=== PATIENT | female | born 1940 | race Caucasian/White ===

== ENCOUNTER → 2017-09-03 13:15 | Outpatient (CLI) | payer MEDICARE, BC, SELFPAY ==
--- NOTE | 2017-09-03 13:18 | HPBI_ITS ---
MAMMOGRAPHY - BILATERAL SCREENING REASON FOR EXAM: Female, 77 years old. Routine annual screening examination. PERTINENT HISTORY: Mother with breast cancer. Remote right stereotactic breast biopsy. TECHNIQUE: Digital bilateral breast jose elias (3D mammographic acquisition) in the CC and MLO projections. 2-D mediolateral oblique (MLO) and craniocaudad (CC) views of both breasts were obtained. CAD: Full Field Digital Mammography with Computer Added Detection was performed. COMPARISON: Comparison is made with prior study dated July 09, 2016 and June 26, 2015. FINDINGS: Breast Composition: There are scattered areas of fibroglandular density. There are no dominant masses or suspicious calcifications. Stable bilateral benign appearing axillary lymph nodes. No other significant abnormalities are identified. There has been no significant change since the prior study. HPBI/SCREENING MAMM (CAD), BILAT IMPRESSION: Stable bilateral screening mammogram. Yearly follow-up mammogram recommended. (A) ASSESSMENT CATEGORY: BIRADS Category 2: Benign. A letter regarding these results will be sent to the patient by the facility within 30 days. Approximately 10% of breast cancers are not detected by mammography. A normal mammogram should not delay biopsy of a clinically suspicious abnormality. [id number] Electronically Signed: Wil Roberts MD at 15:26 EST Tel [phone], Service support ,
== END ==
PROVIDERS: Family Provider Internal Medicine; PCP Internal Medicine; Visit Provider Internal Medicine
DX: Z12.31 Encounter for screening mammogram for malignant neoplasm of breast (principal)
CPT/HCPCS: 77063; 77067

== ENCOUNTER 2018-07-05 11:19 | Emergency (ER) | payer MEDICARE, BC, SELFPAY ==
[2018-07-05 11:20] VITALS: BP 128/71; PULSE 60; RESP 18; TEMP 37.2; O2SAT 99; BMI 27.4
--- NOTE | 2018-07-05 12:07 | EKG12_ITS ---
Test Reason : HEAD INJURY Blood Pressure : / mmHG Vent. Rate : 092 BPM Atrial Rate : 300 BPM P-R Int : 000 ms QRS Dur : 140 ms QT Int : 442 ms P-R-T Axes : 000 -52 134 degrees QTc Int : 546 ms Atrial flutter with variable A-V block Left axis deviation Left bundle branch block Abnormal ECG Confirmed by JESUS DALE, RAYSA ([id number]), dictionary editor SHASHANK TREVINO ([id number] on 07/11/2018 9:44:32 AM Referred By: SANJIV Confirmed By:RAYSA LEE MD
--- NOTE | 2018-07-05 12:07 | CT_ITS ---
STUDY: CT BRAIN WITHOUT CONTRAST REASON FOR EXAM: Female, 78 years old. Fall. No loss of consciousness. Dizziness and weakness. RADIATION DOSAGE (If Supplied By Facility): CTDIvol = ( 44.99 ) mGy, DLP = ( 829.85 ) mGycm TECHNIQUE: Transaxial CT imaging of the brain was performed without administration of intravenous contrast material. Individualized dose optimization techniques were used for this CT. COMPARISON: Comparison is made with prior study dated July 29, 2016. FINDINGS: Normal soft tissue structures. Normal calvarium. There is mild cerebral atrophy with widening of the extra-axial spaces and ventricular dilatation. There are areas of decreased attenuation within the white matter tracts of the supratentorial brain, consistent with microvascular disease changes. There are small punctate calcifications of the basal ganglia which are seen in the aging brain as a normal variant. Normal brainstem. Normal cerebellum. There is no intracranial hemorrhage. There are no findings of an acute ischemic infarction. Atherosclerotic calcification of the vertebral arteries and cavernous portions of the internal carotid arteries bilaterally. Normal visualized paranasal sinuses. CT/Brain/Head without Contrast IMPRESSION: Chronic involutional changes of the brain. Electronically Signed: Wil Roberts MD at 13:41 EST Tel [phone], Service support ,
[2018-07-05 12:47] LABS: Absolute Lymphocyte Count 2.86 X10^3/ul (0.83-4.51); Absolute Neutrophil Count 4.8 X10^3/uL (2.0-7.7); Basophil# 0.04 X10^3/uL; Basophil% 0.5 % (0-1); Eosinophil# 0.07 X10^3/uL; Eosinophils% 0.8 % (0-5); Hematocrit 41.4 % (37-47); Hemoglobin 14.3 g/dl (12.0-15.0); Lymphocyte # 2.86 X10^3/ul (4.0); Lymphocyte % 32.9 % (19-41); Mean Corp Hgb Conc 34.5 g/gl (32-36); Mean Corpuscular Hgb 32.7 pg (27.0-32.0); Mean Corpuscular Volume 94.7 fL (81-99); Mean Platelet Vol. 9.9 fl (6.2-12.0); Monocyte# 0.88 X10^3/uL; Monocyte% 10.1 % (0-10); Neutrophil # 4.82 X10^3/uL (2.7-7.7); Neutrophil % 55.6 % (47-70); POSITIVE COUNT NO; POSITIVE DIFFERENTIAL NO; POSITIVE MORPHOLOGY NO; Platelet Count 284 K/mm3 (150-450); RBC Distribution Width CV 12.4 % (11.6-14.6); RBC Distribution Width SD 43.1 fl (35.1-43.9); Red Blood Count 4.37 M/mm3 (4.2-5.4); White Blood Count 8.7 K/mm3 (4.4-11.0)
[2018-07-05 13:05] LABS: ALB/GLOB Ratio 1.2 RATIO (0.9-2.4); AST(SGOT) 17 U/L (15-37); Alanine Aminotransfer ALT/SGPT 17 U/L (13-56); Albumin, Serum 3.8 g/dL (3.2-5.0); Alkaline Phosphatase 95 U/L (45-117); Anion Gap 11 (5-15); BUN 26 mg/dL (7-18); BUN/Creat Ratio 27.6 RATIO (10-20); Calcium,Total 9.2 mg/dL (8.5-10.1); Chloride 97 mmol/L (98-107); Creatinine, Serum 0.94 mg/dL (0.55-1.02); EST Glomerular Filtration Rate 61 mL/min (>60); Est Glom Filt Rate - Afr Amer 73 mL/min (>60); Estimated Creatinine Clearance 41.22 ml/min; Globulin 3.1 g/dL (2.2-4.2); Glucose 104 mg/dL (74-106); Protein, Total 6.9 g/dL (6.4-8.2); Sodium Level 134 mmol/L (136-145)
--- NOTE | 2018-07-05 15:12 | ED.VISSUMM ---
- ER Visit Summary Date of Service: 07/05/18 Chief Complaint: Head injury History of Present Illness: The patient is a 78 F with a mechanical fall 2 days ago. She did hit her head, she tripped and hit the post at home, she apparently was doing well went to work and felt slightly lightheaded. She denies any chest pain shortness of breath, palpitations. On review of systems he does have some nausea. She has a history of hypertension and mitral valve prolapse. Physical Examination: Not appear in acute distress. There is a forehead contusion on the right Moist mucous membranes, no obvious facial deformity No C-spine tenderness supple neck. Irregular rhythm in the 80s and 90s without any obvious murmurs Clear lungs bilaterally speaking in full sentences without any obvious respiratory distress Abdomen soft and nontender no guarding or rebound Moves all extremities without any difficulty or pain. Skin does not show any obvious rashes or lesions, no trauma. Alert oriented ?3 with no gross focal deficit Emergency Department Course and Treatment: Patient appears well, EKG does show atrial fibrillation, patient has no history of atrial fibrillation, she is not anticoagulated. She does have a left bundle branch block which he tells me is chronic. She has no chest pain. She has a heart rate in the 80s and 90s on the monitor in the emergency department. I will start the patient on anticoagulation. I have her PCP electronic specialist so she can follow-up. Patient is rate controlled and appears well wants to be discharged. I will discharged in stable condition Disposition: Discharge stable condition Impression: Head injury Atrial fibrillation This note was generated with [employer] dictation software. It may contain incorrect words, spelling, and punctuation that were not noted in review of the chart prior to signing ED Disposition - Plan for ED Patient: Disposition: Home or Assisted Living Chief Complaint: Head Injury Instructions: ED Concussion, ED Afib Prescriptions: Apixaban [Eliquis] 2.5 mg PO BID #60 tab Referrals: Radha Griffith DO [Primary Care Provider] - 3-5 Days
--- NOTE | 2018-07-05 15:23 | ED.DCSUM_ITS ---
- ER Visit Summary Date of Service: 07/05/18 Chief Complaint: Head injury History of Present Illness: The patient is a 78 F with a mechanical fall 2 days ago. She did hit her head, she tripped and hit the post at home, she apparently was doing well went to work and felt slightly lightheaded. She denies any chest pain shortness of breath, palpitations. On review of systems he does have some nausea. She has a history of hypertension and mitral valve prolapse. Physical Examination: Not appear in acute distress. There is a forehead contusion on the right Moist mucous membranes, no obvious facial deformity No C-spine tenderness supple neck. Irregular rhythm in the 80s and 90s without any obvious murmurs Clear lungs bilaterally speaking in full sentences without any obvious respiratory distress Abdomen soft and nontender no guarding or rebound Moves all extremities without any difficulty or pain. Skin does not show any obvious rashes or lesions, no trauma. Alert oriented ?3 with no gross focal deficit Emergency Department Course and Treatment: Patient appears well, EKG does show atrial fibrillation, patient has no history of atrial fibrillation, she is not anticoagulated. She does have a left bundle branch block which he tells me is chronic. She has no chest pain. She has a heart rate in the 80s and 90s on the monitor in the emergency department. I will start the patient on anticoagulation. I have her PCP nurse companion so she can follow-up. Patient is rate controlled and appears well wants to be discharged. I will discharged in stable condition Disposition: Discharge stable condition Impression: Head injury Atrial fibrillation This note was generated with [employer] dictation software. It may contain incorrect words, spelling, and punctuation that were not noted in review of the chart prior to signing ED Disposition - Plan for ED Patient: Disposition: Home or Assisted Living Chief Complaint: Head Injury Instructions: ED Concussion, ED Afib Prescriptions: Apixaban [Eliquis] 2.5 mg PO BID #60 tab Referrals: Radha Griffith DO [Primary Care Provider] - 3-5 Days
[2018-07-05 16:01] VITALS: BP 120/75; PULSE 73; RESP 16; O2SAT 99
== END 2018-07-05 16:03 | disposition home or self-care (01) ==
PROVIDERS: Emergency Provider Emergency Medicine; Family Provider Internal Medicine; PCP Internal Medicine
DX: S00.83XA Contusion of other part of head, initial encounter (principal); I48.91 Unspecified atrial fibrillation; R11.0 Nausea; W01.198A Fall on same level from slipping, tripping and stumbling with subsequent striking against other object, initial encounter; Y93.9 Activity, unspecified; Y92.009 Unspecified place in unspecified non-institutional (private) residence as the place of occurrence of the external cause; I44.7 Left bundle-branch block, unspecified; I10 Essential (primary) hypertension; I34.1 Nonrheumatic mitral (valve) prolapse; Z79.82 Long term (current) use of aspirin; Z79.899 Other long term (current) drug therapy
CPT/HCPCS: 70450; 80053; 84484; 85025; 93005; 99283; J7040; A4216

== ENCOUNTER → 2018-07-07 15:42 | Outpatient (CLI) | payer MEDICARE, BC, SELFPAY ==
[2018-07-07 14:24] VITALS: BMI 27.4
[2018-07-07 16:46] LABS: Thyroid Stim Hormone (TSH) 2.58 uIU/mL (0.358-3.74)
== END ==
PROVIDERS: Family Provider Internal Medicine; PCP Internal Medicine; Referring Provider Internal Medicine Cardiovascular Disease; Visit Provider Internal Medicine Cardiovascular Disease
DX: R53.1 Weakness (principal)
CPT/HCPCS: 36415; 84443

== ENCOUNTER → 2018-07-14 06:15 | Outpatient (CLI) | payer MEDICARE, BC, SELFPAY ==
[2018-07-07 14:24] VITALS: BMI 27.4
--- NOTE | 2018-07-14 20:37 | STRESSREP ---
Stress Test Report Date, 07/14/2018 Procedure, pharmacologic (regadenoson) evaluation Indications: Shortness of breath/dyspnea on exertion; chest pain Consent: Per the patient Procedure: The patient underwent pharmacologic (regadenoson) evaluation with a peak heart rate of 80 beats per minute (57% predicted maximal heart rate) with a peak blood pressure of 140/80 mmHg. The baseline ECG demonstrated sinus rhythm with a left bundle branch block pattern. The peak pharmacological ECG demonstrated no obvious ECG changes. There was a rare premature ectopic complex during recovery. There was no report of chest discomfort during pharmacologic infusion or recovery. The examination was discontinued secondary to completion protocol. Impression: 1. Pharmacologic (regadenoson Prentis evaluation 2. Peak pharmacologic ECG with continued left bundle branch block pattern 3. Rare premature ectopic complex during recovery 4. Nuclear images pending Myocardial perfusion imaging study: Technique: The patient was injected with 11.6 mci of technetium-99m Cardiolite and subsequently rest SPECT Cardiolite nuclear imaging was obtained in the horizontal long, vertical long, and short axis views. The patient underwent pharmacologic (regadenoson0 evaluation with a peak heart rate of 80 beats per minute (97% predicted maximal heart rate) with a peak blood pressure of 140/80 mmHg. The patient was injected with 34.4 mci of technetium-99m Cardiolite and subsequently stress SPECT Cardiolite nuclear imaging was obtained horizontal long, vertical long, and short axis views. A gated Cardiolite study at peak stress was obtained. Interpretation Rest and stress SPECT Cardiolite nuclear imaging status post realignment, normalization, and attenuation correction, demonstrates the appearance of relative uniform tracer uptake and myocardial perfusion appearing within normal limits. There is end systolic thickening and brightening. The gated Cardiolite study demonstrates myocardial thickening and normal motion. The reported LVEF was 75%. Impression: 1. Rest and stress SPECT currently nuclear imaging demonstrates relative uniform tracer uptake and myocardial perfusion appearing within normal limits. 2. The gated Cardiolite study reports an LVEF of 75%. This note was generated using a voice recognition system and there may be incorrect words, spelling or punctuation that were not noted when reviewing the office note prior to saving.
--- OUTSIDE RECORDS SUMMARY | 2018-09-17 18:26 | XMS RPT_ITS | Continuity of Care Document ---
:1940 Author Organization [facility] Address [address] [place] [address] Phone Care Team Providers Name Role Phone Radha Griffith DO Unavailable [facility], [facility] Unavailable Farrah DALE, Dr. John Mejía Unavailable Dr. Cruz Adam Unavailable MULU Monroy Unavailable Unavailable Unavailable Unavailable Problems Name Dates Details Annual Medicare Phyiscal WITHOUT abnormal findings (Renamed from Encounter for general adult medical examination without abnormal findings) (Z00.00, V70.9) Status: Active BMI 26.0-26.9,adult (Z68.26, V85.22) Status: Active BMI 27.0-27.9,adult (Z68.27, V85.23) Status: Active Constipation, chronic (K59.09, 564.00) Comments: colace qd , miralax 2xweek and occassionally laxative Status: Active Current nonsmoker (Renamed from Current non-smoker) (Z78.9, V49.89) Status: Active Degenerative arthritis of right knee (M17.9, 715.96) Status: Active Deliveries (Parity) Comments: 5. Status: Active Dysuria (R30.0, 788.1) Status: Active Encounter for Medicare annual wellness exam (Z00.00, V70.0) Comments: 12-15 reveiwed with patient all questions. mammo ordered. . colonscoy 7-12. had flu shot. had pneumonia. reveiwed with patient all quesitons, reminded patient due for her BD and mammogram today 06-13-15 Status: Active Encounter for screening for malignant neoplasm of colon (Renamed from Special screening for malignant neoplasms, colon) (Z12.11, V76.51) Status: Active Encounter for screening for malignant neoplasm of colon (Renamed from Special screening for malignant neoplasms, colon) (Z12.11, V76.51) Comments: wanted to order cologard for her more constipation ( bowel chg ) bc she refused to do scope now--cologard 2017-- and ended up having scope 2017 --[facility] Status: Active Hypercholesteremia (E78.00, 272.0) Status: Active Hypertension, benign (I10, 401.1) Comments: Toprol XL 200 mg once daily Status: Active Irritable Bowel Syndrome (K58.9, 564.1) Comments: usually alternates diarrhea and constipation Status: Active LBBB (left bundle branch block) (I44.7, 426.3) Status: Active Menopause (Z78.0, 627.2) Status: Active Need for prophylactic vaccination and inoculation against influenza (Renamed from Need for immunization against influenza) (Z23, V04.81) Status: Active Osteoporosis (M81.0, 733.00) Comments: on alendronate since 03/2013 Status: Active Positive colorectal cancer screening using Cologuard test (R19.5, 787.7) Status: Active Postmenopausal (Z78.0, V49.81) Comments: not due yet Status: Active Pregnancies () Comments: 5. Status: Active Rectocele (N81.6, 618.04) Comments: Rectocele repair By Alfredito Oneill at [facility] in [place] with previous anal sphincter reconstruction repairColonoscopy last 2011Has brittany analspincter muscle repain Status: Active Therapeutic drug monitoring (Z51.81, V58.83) Status: Active Urinary incontinence (R32, 788.30) Comments: Dr Madsen in [place]. doing good on meds. enablex(Darifenacin generic)Last saw Dr Madsen 2010 Status: Active Urinary tract infection, acute (N39.0, 599.0) Status: Active Ventricular hypokinesis (I51.89, 429.89) Comments: sees moodispaw Status: Active Vertigo (R42, 780.4) Comments: chronic and intermittent flares Status: Active Visit for screening mammogram (Z12.31, V76.12) Status: Active Vitamin D deficiency (E55.9, 268.9) Status: Active Medications Name Dates Details ASPIRIN ADULT LOW STRENGTH, 81MG (Oral Tablet Delayed Release) Active (81 MG) Enablex 15 MG Oral Tablet Extended Release 24 Hour 1 Tablet ER 24HR qd for 90 days Quantity: 90 {Tablet} Refills: 1 Ordered:11-May-2018 hSantelle Griffith DO, DO, Kathleen Start : 11-May-2018 Active HydroCHLOROthiazide 25 MG Oral Tablet 1 (one) Tablet daily for 30 days Quantity: 30 {Tablet} Refills: 3 Ordered:01-Jun-2018 Shantelle Griffith DO, DO, Kathleen Start : 01-Jun-2018 Active Losartan Potassium 100 MG Oral Tablet 1 (one) Tablet daily for 90 days Quantity: 90 {Tablet} Refills: 1 Ordered:14-Apr-2018 Shantelle Griffith DO, DO, Kathleen Start : 14-Apr-2018 Active LUMIGAN, 0.03% (Ophthalmic Solution) 1gtt OS at HS (0.03 %) Active Norvasc 5 MG Oral Tablet 1 (one) Tablet qd for 30 days Quantity: 30 {Tablet} Refills: 3 Ordered:06-Jun-2018 Shantelle Griffith DO, DO, Kathleen Start : 06-Jun-2018 Active Simvastatin 20 MG Oral Tablet 1 Tablet with evening meal for 90 days Quantity: 90 {Tablet} Refills: 3 Ordered:01-Oct-2017 Shantelle Griffith DO, DO, Kathleen Start : 01-Oct-2017 Active Toprol XL 100 MG Oral Tablet Extended Release 24 Hour 2 (two) Tablet ER 24HR daily for 90 days Quantity: 180 {Tablet} Refills: 3 Ordered:18-Mar-2018 Shantelle Griffith DO, DO, Kathleen Start : 18-Mar-2018 Active Vitamin D3 73673 UNIT Oral Tablet 1 (one) Tablet Tablet once a week for 60 days Quantity: 8 {Tablet} Refills: 1 Ordered:22-Apr-2016 Melissa Mendez Start : 22-Apr-2016 Active Alendronate Sodium 70 MG Oral Tablet 1 Tablet weekly for 365 days Quantity: 12 {Tablet} Refills: 0 Ordered:13-Aug-2017 Kacey Monroy LPN Start : 08-Apr-2016 End : 13-Aug-2017 Inactive Alendronate Sodium 70 MG Oral Tablet 1 Tablet weekly for 365 days Quantity: 12 {Tablet} Refills: 0 Ordered:13-Aug-2017 Kacey Monroy LPN Start : 08-Apr-2016 End : 13-Aug-2017 Inactive Ciprofloxacin HCl 500 MG Oral Tablet 1 Tablet bid for 0 days Quantity: 14 {Tablet} Refills: 0 Ordered:26-Jan-2018 Kacey Monroy LPN Start : 11-Nov-2017 End : 26-Jan-2018 Inactive CORTISPORIN-TC, 3.3-3-10-0.5MG/ML (Otic Suspension) 4 Drop(s) tid for 0 days Quantity: 1 {Suspension} Refills: 0 Ordered:16-Oct-2013 ESTEPHANIA Arreola Start : 05-May-2013 End : 16-Oct-2013 Inactive ESTRADIOL, 2MG (Vaginal Ring) 1 monthly (2 MG) Inactive Estring 2 MG Vaginal Ring uad Ring every 3 months for 0 days Quantity: 1 {Box} Refills: 3 Ordered:29-Jul-2016 Jocelin Lim LPN Start : 17-Dec-2014 End : 29-Jul-2016 Inactive FISH OIL (Oil) Inactive FLONASE, 50MCG/ACT (Nasal Suspension) 2 (two) Puff(s) Puff(s) daily for 0 days Quantity: 1 {Bottle} Refills: 0 Ordered:17-Dec-2014 ESTEPHANIA Arreola Start : 03-Apr-2014 End : 17-Dec-2014 Inactive LEVAQUIN, 500MG (Oral Tablet) 1 (one) Tablet daily for 0 days Quantity: 10 {Tablet} Refills: 0 Ordered:03-May-2014 ESTEPHANIA Arreola Start : 16-Apr-2014 End : 03-May-2014 Inactive LISINOPRIL-HYDROCHLOROTHIAZIDE, 10-12.5MG (Oral Tablet) 1 (one) Tablet bid for 0 days Quantity: 120 {Tablet} Refills: 3 Ordered:16-Apr-2014 ESTEPHANIA Arreola Start : 03-Apr-2014 End : 16-Apr-2014 Inactive Losartan Potassium-HCTZ 50-12.5 MG Oral Tablet 1/2 Tablet daily for 0 days Quantity: 45 {Tablet} Refills: 0 Ordered:29-Jul-2016 Jocelin Lim LPN Start : 31-Oct-2015 End : 29-Jul-2016 Inactive MULTIVITAL (Oral Tablet) Inactive NYSTATIN-TRIAMCINOLONE, 240263-4.1UNIT/GM-% (External Cream) 1 (one) Cream Cream bid for 0 days Quantity: 1 {Tube} Refills: 0 Ordered:13-Jun-2015 ESTEPHANIA Arreola Start : 17-Dec-2014 End : 13-Jun-2015 Inactive ZOSTAVAX, 87820TJE/0.65ML (Subcutaneous Solution Reconstituted) uad For Solution one time single dose SC for 0 days Quantity: 1 {For_Solution} Refills: 0 Ordered:16-Oct-2013 ESTEPHANIA Arreola Start : 24-Apr-2013 End : 16-Oct-2013 Inactive LISINOPRIL, 10MG (Oral Tablet) 1 Tablet bid for 0 days Quantity: 60 {Tablet} Refills: 6 Ordered:16-Apr-2014 Ana Rios MD Start : 16-Apr-2014 End : 16-Apr-2014 Discontinued Comments:ignore LISINOPRIL-HYDROCHLOROTHIAZIDE, 20-12.5MG (Oral Tablet) 1 (one) Tablet bid for 0 days Quantity: 60 {Tablet} Refills: 4 Ordered:03-May-2014 Ana Rios MD Start : 03-May-2014 End : 03-May-2014 Discontinued Meclizine HCl 25 MG Oral Tablet 1 (one) Tablet Tablet q 8 hr prn for 0 days Quantity: 30 {Tablet} Refills: 0 Ordered:11-Nov-2017 Gildardo Burleson Start : 11-Nov-2016 End : 11-Nov-2017 Discontinued Allergies and Adverse Reactions Name Dates Details Codeine Derivatives (Allergy) Status: Active Erythromycin Derivatives (Allergy) Status: Active Comments: macrolides -- Morphine Derivatives (Allergy) Status: Active Penicillins (Allergy) Status: Active Comments: ampicillin Past Medical History Name Dates Details Abnormal EKG (R94.31, 794.31) Comments: need echo and stress test2 cardiac cath 2011.Dr De Jesus in [place] couldnt figure out whats wrongMVP?? Status: Inactive as of 13-Aug-2017 Arthritis Status: Inactive as of 27-May-2012 Bloating (R14.0, 787.3) Status: Inactive as of 16-Oct-2013 BMI 28.0-28.9,adult (Z68.28, V85.24) Comments: 27.93 Status: Resolved as of 18-Feb-2018 Cataract Comments: sx 1997 Status: Inactive as of 27-May-2012 CHEST PAIN (R07.9, 786.59) Comments: atypical pressure down left arm. stable nothing new.atypical, started 1974, 2 heart cath last one 04-07. see cardiology. happen every 5 yrs. EGD done negative. Status: Inactive as of 16-Oct-2013 Cough (R05, 786.2) Comments: right now sound viral cannot exclude allergies. will take beatriz at night with cough med. if not better in 1 week or high fever call. rest fliuds. 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 seen colorectal surgery help some. still have to watch. get regular scopes. Status: Inactive as of 23-Feb-2013 Dry skin (L85.3, 701.1) Comments: Lubriderm ointmenet Status: Inactive as of 13-Aug-2017 Dysuria (R30.0, 788.1) Comments: has UTI Status: Inactive as of 24-Apr-2013 Ear pain, left (H92.02, 388.70) Comments: add antihsitamine for ETD and atb. on nasal spray Status: Inactive as of 17-Dec-2014 Edema extremities (R60.0, 782.3) Comments: resume diuretic Status: Inactive as of 13-Aug-2017 Encounter for immunization (Z23, V03.89) Status: Inactive as of 16-Oct-2013 Fall at home (W19.XXXA, E888.9) Comments: Mechanical fall , hit back of head.CT head STAT Neuro exam Power 5/5 in upper and lower extremetiesSensation normal in upper and lower extremetiesDeep tendon reflexes:intactCranial nerves: i ntactVertigo improvedCaught toe under chair leg, went back, hit back of head, braced a littleLay down for a few minutes , did not lose consciousness.Denies headaches, felt different for 1-2 days.Now feels okDenei s numbness/weakness in arms leg, vision, speech problem.Neck was dark next day, ? bruise Status: Inactive as of 11-Nov-2016 Headache (R51, 784.0) Status: Inactive as of 23-Feb-2013 Hypertension Comments: 1994 Status: Inactive as of 27-May-2012 Leukocytosis (D72.829, 288.60) Status: Inactive as of 22-Apr-2016 Need for vaccination against Streptococcus pneumoniae (Z23, V03.82) Status: Inactive as of 17-Dec-2014 Osteopenia (M85.80, 733.90) Status: Inactive as of 22-Apr-2016 Other specified viral infection, in conditions classified elsewhere and of unspecified site (B97.89, 079.89) Status: Inactive as of 16-Apr-2014 Otitis externa (H60.90, 380.10) Status: Inactive as of 16-Oct-2013 Pain in unspecified hip (M25.559, 719.45) Comments: not cahnge Status: Inactive as of 23-Feb-2013 Proteinuria (R80.9, 791.0) Comments: not clean cach recheck today Status: Inactive as of 29-Mar-2014 Rash (R21, 782.1) Comments: think yeast and alot irritation. Status: Inactive as of 13-Jun-2015 Rectal bleed (K62.5, 569.3) Comments: last hemoglobin 13.7 on 12-04-14 Status: Inactive as of 13-Aug-2017 SCREENING FOR BREAST CANCER (Z12.39, V76.10) Status: Inactive as of 13-Jun-2015 Unspecified Diagnosis Status: Inactive as of 16-Oct-2013 Urinary frequency (R35.0, 788.41) Status: Inactive as of 26-Jan-2018 WWV V73.21 Comments: colonscopy 01-06 Status: Inactive as of 17-Dec-2014 Procedures Procedure Dates Details PNEUM VAC ADLT/IMUMNOSPR, SBC/INTRM Date: 26-Jan-2018 Completed 26-Jan-2018 (74380) Comments: Pneumovax 23lot [id number]/prefilledleanitha Grubbs LPN Annual Eye Exam Completed Comments: 2011 appendectomy Completed Comments: 1849, Dr Arreguin in [place] Blood Pressure Monitoring Completed Comments: 120-160 systolic range Cardiac Cath Completed Comments: 2005 -- [facility] Dr Neal Parraprolonged bleeding, no findings Cardiac Cath number 2 Completed Comments: 2010 --Dr Borja at [facility] -- neg findings and abnormal ecgs. Cataracts Completed Comments: Dr Farley in [place] -- 1997, revealed corneal scar Colonoscopy, Screening Completed Comments: December 2011 Hip Replacement Completed Comments: Left - [facility] Donaldson in [facility] at [facility] hysterectomy Completed Comments: with bladder repair in 1976 at [facility] by Dr Liao in [place] Mammogram, Screening Completed Comments: 2010 Pap Smear Completed Comments: 2011 Rectal Sphincter Repair Completed Comments: [facility] Rectocele Repair Completed Comments: 2007 [facility] Nino Toe Repair Completed Comments: [address] Saavedra, in office, [place] Date Value Details 03-Sep-2017 SCREENING MAMM (CAD), BILAT Result: Comments: See Note; NOTES: [facility] Imaging Services [address] [place] [address] SCREENING MAMM (CAD), BILAT MR#: [id number] Acct: [id number] Name: ORALIA WEAVER Rep #: [id number] : 1940 F 77 From: Wil Roberts MD PCP: Radha Griffith DO Status: REG CLI Study: SCREENING MAMM (CAD), BILAT Date of Exam: 09/03/17 Exam# [id number] Ordering Dr: Radha Griffith DO MAMMOGRAPHY - BILATERAL SCREENING REASON FOR EXAM: Female, 77 years old. Routine annual screening examination. PERTINENT HISTORY: Mother with breast cancer. Remote right stereotactic breast biopsy. TECHNIQUE: Digital bilateral breast jose elias (3D mammographic acquisition) in the CC and MLO projections. 2-D mediolateral oblique (MLO) and craniocaudad (CC) views of both breasts were obtained. CAD: Full Field Digital Mammography with Computer Added Detection was performed. COMPARISON: Comparison is made with prior study dated July 09, 2016 and June 26, 2015. FINDINGS: Breast Composition: There are scattered areas of fibroglandular density. There are no dominant masses or suspicious calcifications. Stable bilateral benign appearing axillary lymph nodes. No other significant abnormalities are identified. There has been no significant change since the prior study. HPBI/SCREENING MAMM (CAD), BILAT I MPRESSION: Stable bilateral screening mammogram. Yearly follow-up mammogram recommended. (A) ASSESSMENT CATEGORY: BIRADS Category 2: Benign. A letter regarding thes e results will be sent to the patient by the facility within 30 days. Approximately 10% of breast cancers are not detected by mammography. A normal mammogram should not delay biopsy of a clinically tita picious abnormality. [id number] Electronically Signed: Wil Roberts MD at 15:26 EST Tel [phone], Service support , CC: Radha Griffith DO Report Writer: Signed 19-Jul-2017 PT D/C Summary (1) Result: Comments: See Note; NOTES: [facility] [address] [place] [address]. [address] [place], [place] [address] Fax REHABILITATION SERVICES DISCHAR GE SUMMARY MR#: [id number] Acct: [id number] Name: ORALIA WEAVER Rep #: [id number] : 1940 77 From: Shaun Saavedra DPT, OCS, CSCS Referring : Radha Griffith DO Status: REG RCR Insurance: MEDICAR E PART A B ANTHEM HP - PT D/C Summary It has been my pleasure to treat ORALIA WEAVER under orders from Radha Griffith, for the diagnosis of BPPV for a total of 5 visit(s). Discharge Date: 07/16/17 Pl ease see the following information for a summary of their discharge status. - Subjective Subjective: Head still feels funnya t times but slowly improving. No spinnig. At times feels imbalanced but not falling and not dangerous. Purposefull careful. Only time she notices funny feeling in head is gently early in am. Doing BD 8x daily. Going to doctor after has blood work done. - Overall Improvement % Improvement: 90 - Objective Objective/Function: - B hallpike and - roll test. FGA is good. OVERALL SIGNIFICANTLY BETTER BUT NOT 100%. sTILL FEELS IFFY FOR A FEW MINUTES IN THE MRONING AFTER GETTING OT U OF BED. - Goals Goal 1:: aboliosh dizzy feeling Goal Progress: Progressing Goal 2:: FGa score to ensure safety with balance. Goal Progress: Goal Met - Plan Plan: D/C, pt back to doctor. - D/C Information Discharge Comments: D/c and pt back to doctor after she gets her blood test. If there are questions or concerns regarding this patient's physical therapy, please feel free to call me at . Thank you for the referral of this patient. Sincerely, Shaun Saavedra DPT, OC <Electronically signed by Shaun Saavedra DPT, TERESITA, CSCS> 07/19/17 0648 CC: Radha Griffith DO EBG Signed 08-Jul-2017 Re-Evaluation - PT (1) Result: Comments: See Note; NOTES: [facility] [place] [address] Fax REEVALUATION / MEDICARE RECERTI [facility] PHYSICAL THERAPY MR#: [id number] Acct: [id number] Name: ORALIA WEAVER Rep #: [id number] : 1940 77 From: Shaun Saavedra DPT, OCS, CSCS Referring DrClarence: Radha Griffith DO Status: REG RCR Ins urance: MEDICARE PART A B ANTHGABRIELLE Griffith, It has been my pleasure to treat ORALIA WEAVER over the last 4 visits for BPPV. Please see the progress note below for an update on the physical thera py plan of care! Subjective: Dizzyness is much better but not gone. Worse early in morning for a few seconds with head movements. Had heart and blood pressure checked recently and no problems. Objectiv e/Function: + R HD no nystag but discomfort in eyes and asymmetrical dizzyness. - L hallpike weston. Good balance Plan Plan: weeklyx4 to progress positional. Pt back to doc in a month. Goals Goal 1:: abo liosh dizzy feeling Goal Time Frame: 2-4 Weeks Goal Progress: Progressing Goal 2:: FGa score to ensure safety with balance. Goal Time Frame: 2-4 Weeks Anticipated Interventions Patient/Client Ins truction: Educate patient on: Condition, Plan of Care For the Purpose of:: To improve safety with gait Other: to abolish dizzyness. Therapeutic Exercise to Include: Balance training Comment: vestibular treatments For the Purpose of:: To improve safety Other: to diminish dizzyness. Please do not hesitate to contact me at [phone] by phone or if you have questions or concerns regar ding this new plan of care! Sincerely, Shaun Saavedra, KEYT, OC <Electronically signed by Shaun Saavedra DPT, OCS, CSCS> 07/08/17 0913 CC: Radha Griffith DO E BG Signed For Medicare only, by signing this I certify the plan of care. Physicians Signature Date 09-Jun-2017 Inital Evaluation (1) - PT Result: Comments: See Note; NOTES: [facility] [place] [address] Fax REHABILITATION SERVICES INITIAL EVALUATION MR#: [id number] Acct: [id number] Name: ORALIA WEAVER Rep #: [id number] : 1940 77 From: Shaun Saavedra DPT, OCS, CSCS Referring Dr.: Radha Griffith DO Status: REG RCR Insurance: MEDICA RE PART A B ANTH Patient's Visit Information ORALIA WEAVER is a 77 year old F referred to Physical Therapy by Radha Griffith with a diagnosis of BPPV. Date of Evaluation: 06/04/17 Physical Therapist : Shaun Saavedra, DPT, OC - Visit Plan Frequency: 1-2x /Week Duration: 4-6 Weeks Plan: 1-2x/week for 4 weeks for positional treatments and balance as needed. - Subjective Subjective: PT cured her spinni ng 6 months ago but it returned when looking up to put eyedrops in 2 weeks ago. now spins when gets up and truns in bed for a few seconds, miserable but not spinning the rest of the time. Balance feels worse now. Sleep is mostly OK but spins sometimes. 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 Basic ADLs are miserable but she can do them. Will go to [place] for Chirstmas in 10 days. This is the same thing that we cured back in October that I had for years and years. - Objective Walks slowly but steady with poor confidence, trasnfers I. C/S AROM is slow and WF L, hesitant to move and poor confidence. Has walker at home, does not wish to use it but will if it gets too bad,. - R hallpike weston. - roll test. + L hallpike for dizzyness and discomfort in the eyes of 20 second duration. Treated with L Stephanie and post Stephanie instruct. UE AROM WNL and symmetrical. - Goals Goal 1:: aboliosh dizzy feeling Goal Time Frame: 2-4 Weeks Goal 2:: FGa score to ensure saf ety with balance. Goal Time Frame: 2-4 Weeks - Rehabilitation Potential Physical Therapy Diagnosis: L post canal BPPV Rehabilitation Potential: Good - Anticipated Interventions Patient/Client Instruct ion: Educate patient on: Condition, Plan of Care For the Purpose of:: To improve safety with gait Other: to abolish dizzyness. Therapeutic Exercise to Include: Balance training Comment: vestibular treat ments For the Purpose of:: To improve safety Other: to diminish dizzyness. Thank you for the opportunity to evaluate your patient. For Medicare and Medicare HMO plans, please review the plan of car e and approve it. It will need to be FAXED BACK to us at [phone] for Medicare purposes. Please let me know if there are questions or concerns regarding this plan of care. Physician Signature:__ Date: <Electronically signed by Shaun Saavedra DPT, TERESITA, CSCS> 06/09/17 0738 CC: Radha Griffith DO DT: EBG Signed For Medicare only, by signing this I certify the plan of care. Physicians Signature Date 25-Nov-2016 Inital Evaluation (1) - PT Result: Comments: See Note; NOTES: [facility] [address] [place], [place] [address] Fax REHABILITATION SERVICES INITIAL EVALUATION MR#: [id number] Acct: [id number] Name: ORALIA WEAVER Rep #: [id number] : 1940 76 From: Shaun Saavedra DPT, TERESITA, CSCS Referring Dr.: Radha Griffith DO Status: REG RCR Insurance: [facility] PART A B [facility] Patient's Visit Information ORALIA WEAVER is a 76 year old F referred to Physical Therapy by Radha Griffith with a diagnosis of vertigo. Date of Evaluation: 11/24/16 Physical Th erapist: Shaun Saavedra DPT, SAMANTHA - Visit Plan Frequency: 1-2x /Week Duration: 2- 4 Weeks Plan: f/u later in week and as needed 2-4 weeks for positional treats and ex. - Subjective Subjective: Vertigo has had it for 6 years on and off. Saw ENT years ago. Problem recurred about 6 weeks ago. Can't roll on L side currently because she spins. Lasts for short duration. Also happens if she moves fast. Activit ie are normal but she has to be careful. Balance seems OK if she keeps her head straight. Sleep is OK just has to hold on when she gets up, somewhat unsteady. - Objective Decent c/s AROM without pain. - R HD. + L HD up torsional nystagmus of 13 seconds. Treated with Jerrell Brown. Then - L HD. Fair balance walking back to PT without assist. - Goals Goal 1:: abolish dizzyness and goofy feeling in head. Goa l Time Frame: 2 Weeks Goal 2:: FGA to minimize fall risk Goal Time Frame: 2-4 Weeks Goal 3:: Go out of town this weekend with friend without hesitation. Goal Time Frame: 1 Week - Rehabilitation P otential Physical Therapy Diagnosis: L BPPV Rehabilitation Potential: Good - Anticipated Interventions Patient/Client Instruction: Educate patient on: Condition For the Purpose of:: To improve toleranc e to ADL's Comment: Positional ex and treatments. For the Purpose of:: To improve ability of physical actions for home/community/work/leisure Thank you for the opportunity to evaluate your patient. For Medicare and Medicare HMO plans, please review the plan of care and approve it. It will need to be FAXED BACK to us at [phone] for Medicare purposes. Please let me know if there are question s or concerns regarding this plan of care. Physician Signature: Date: <Electronically signed by Shaun Saavedra DPT, OCS, CSCS&#62 ; 11/25/16 0740 CC: Radha Griffith DO EBAyala Signed For Medicare only, by signing this I certify the plan of care. Physicians Signature Date 29-Jul-2016 Brain/Head without Contrast Result: Comments: See Note; NOTES: [facility] Imaging Services [address] [place] [address] Skylar 4d Brain/Head without Contrast MR#: [id number] Acct: [id number] Name: ORALIA WEAVER Rep #: [id number] : 1940 F 76 From: Wil Roberts MD PCP: Matthew Carrion Status: REG CLI Study: Brain/Head without Contrast Date of Exam: 07/29/16 Exam# [id number] Ordering Dr: Matthew Carrion STUDY: CT BRAIN WITHOUT CONTRAST REASON FOR EXAM: Female, 76 years old. Recent fall and head injury. RADIATION DOSAGE (If Supplied By Facility): CTDIvol = ( 44.99 ) mGy, DLP = ( 812.98 ) mGycm TECHN IQUE: Transaxial CT imaging of the brain was performed without administration of intravenous contrast material. Individualized dose optimization techniques were used for this CT. COMPARISON: Compariso n is made with prior study dated March 28, 2014. FINDINGS: Normal soft tissue structures. Normal calvarium. There is mild cerebral atrophy with widening of the ext ra-axial spaces and ventricular dilatation. There are areas of decreased attenuation within the white matter tracts of the supratentorial brain, consistent with microvascular disease changes. There are small punctate calcifications of the basal ganglia which are seen in the aging brain as a normal variant. Normal brainstem. Normal cerebellum. There is no intracranial hemorrhage. There are no findings of an acute ischemic infarction. There is calcification of the vertebral arteries as well as the cavernous portions of the internal carotid arteries bilaterally. Normal visualized paranasal sinuses. _ CT/Brain/Head without Contrast IMPRESSION: Chronic involutional changes of the brain. Electronically Signed: Wil Roberts MD at 11:39 EST Tel [phone], Service support [phone], CC: Matthew Carrion Report Writer: Signed 09-Jul-2016 SCREENING MAMM (CAD), BILAT Result: Comments: See Note; NOTES: [facility] Imaging Services [address] [place] [address] Verdana 4d SCREENING MAMM (CAD), BILAT MR#: [id number] Acct: [id number] Name: ORALIA WEAVER Rep #: [id number] : 1940 F 76 From: Wil Roberts MD PCP: Matthew Carrion Status: REG CLI Study: SCREENING MAMM (CAD), BILAT Date of Exam: 07/09/16 Exam# [id number] Ordering Dr: Matthew Carrion MAMMOGRAPHY - BILATERAL SCREENING REASON FOR EXAM: Female, 76 years old. Routine annual screening examination. PERTINENT HISTORY: Mother with breast cancer. TECHNIQUE: Digital bilateral breast jose elias (3D mammographic acquisition) in the CC and MLO projections. 2-D mediolateral oblique (MLO) and craniocaudad (CC) views of both breasts were obtained. CAD: Full Field Digital Mammography with Computer A dded Detection was performed. COMPARISON: Comparison is made with prior study dated June 26, 2015 and May 14, 2014. FINDINGS: Breast Composition: There are scattered areas of fibroglandular density. There are no dominant masses or suspicious calcifications. No other significant abnormalities are identified. There has been no significant change since the prior study. HPBI/SCREENING MAMM (CAD), BILAT IMPRESSION: Stable bilateral screening mammogram. Yearly follow-up mammogram recommended. (A) ___ ASSESSMENT CATEGORY: BIRADS Category 1: Negative. A letter regarding these results will be sent to the patient by the facility within 30 days. Approximately 10% of shabana ast cancers are not detected by mammography. A normal mammogram should not delay biopsy of a clinically suspicious abnormality. [id number] Electronically Signed: Wil Roberts MD at 14:00 EST Tel [phone], Service support [phone], CC: Matthew Carrion Report Writer: Signed 08-May-2016 Echocardiogram Complete Result: Comments: See Note; NOTES: [facility] Cardiovascular Services [address] [place] [address] Echo Complete 05/08/16 0934 MR#: [id number] Acct: [id number] Name: ORALIA WEAVER p #: [id number] : 1940 76 From: John Chambers MD Attending Dr: Geovanin Carrion Status: REG CLI Ordering Dr: Geovanni Carrion MD Date: 05/08/16 Location: [facility] Sex: F C Admitted: Reason For Study: ABN EKG Procedure This was a 2D Doppler, Color Flow transthoracic echocardiogram. Exam performed in department. Left Ventricle Normal size and thickness. The estimated ejection fraction is 45-50 %. St age 1 diastolic dysfunction. No regional wall motion abnormalities noted. There is mild global hypokinesis of the left ventricle. Right Ventricle Normal size and thickness. Normal systolic function. A tria Normal left atrium. Normal right atrium. Normal atrial septum. Mitral Valve Mild diffuse mitral valve thickening. Mild (1+) mitral valve insufficiency. Tricuspid Valve Normal tricuspid valve. Mild (1+) tricuspid valve insufficiency. Right ventricular systolic pressure estimated to be 26 mmHg. Aortic Valve Trisinus/trileaflet aortic valve. Mild diffuse aortic valve thickening. Mild (1+) aortic v alve insufficiency. Pulmonic Valve Normal pulmonic valve. Trivial pulmonic valve insufficiency. Great Vessels Normal aortic root. Normal arch. Normal inferior vena cava. Inferior vena cava collapse wi th sniff. Pericardium/Pleural No pericardial effusion. MMode/2D Measurements & Calculations LVIDd: 4.6 cm IVSd: 1.3 cm Ao root diam: 3.0 cm LVIDs: 3.1 cm LVPWd: 1.2 cm LA dimension: 3.1 cm RVD d: 2.5 cm FS: 34.0 % LAV(MOD-bp): 47.1 ml EDV(MOD-sp4): 55.0 ml EDV(MOD-sp2): 55.1 ml LAV(MOD-bp) Indexed: 26.5 ml/m2 ES V(MOD-sp4): 25.7 ml EF(MOD-sp2): 60.5 % LAV(MOD-sp2): 53.4 ml EF(MOD-sp4): 53.2 % LAV(MOD-sp4): 41.9 ml SV(MOD-sp4): 29. 3 ml SV(MOD-sp2): 33.3 ml LA A4 area: 16.4 cm2 RA A4 area: 12.3 cm2 Doppler Measurements & Calculations MV E ma x michael: 33.6 cm/sec Lat Peak E' Michael: 3.2 cm/sec Med Peak E' Michael: 2.1 cm/sec MV A max michael: 82.0 cm/sec E/E' lat: 10.6 E/E' med: 15.8 MV E/A: 0.41 Ao V2 max: 100.3 cm/sec AI max michael: 331.3 cm/sec LV V1 max: 80.7 cm/sec Ao max P.0 mmHg AI max P.9 mmHg LV V1 max P.6 mmHg AI dec slope: 109.6 cm/sec2 AI P1/2t: 885. 2 msec PA V2 max: 73.3 cm/sec PI end-d michael: 89.1 cm/sec TR max michael: 229.0 cm/sec TR max P.1 mmHg Interpretation Kyle mmary The estimated ejection fraction is 50-55 %. There is mild global hypokinesis of the left ventricle. Mild (1+) mitral valve insufficiency. Mild (1+) tricuspid valve insufficiency. Right ventricular systolic pressure estimated to be 26 mmHg. Mild (1+) aortic valve insufficiency. Compared to echo report dated 07/08/2015, LV function appears about the same. Stage 1 diastolic dysfunction. Ordering Physician: Geovanni Carrion Referring Physician: Matthew Carrion Performed By: Shanita Escalera, EBEN, RVT 05/08/16 1221 Date John Chambers MD CC: Geovanni Carrion Date Dictated : 05/08/16 0934 Date Transcribed: 05/08/16 1221 Report Writer: Signed 08-May-2016 Nuclear Stress Test - Chemical Result: Comments: See Note; NOTES: [facility] Imaging Services [address] [place] [address] Skylar 4d Nuclear Stress Test - Chemical MR#: [id number] Acct: [id number] Name: WES WEAVER Rep #: [id number] : 1940 76 From: Frederick Neil MD Primary Care: Matthew Carrion Status: REG CLI Ordering Dr: Matthew Carrion Sex: F C DATE OF SERVICE: 05/08/2016 EXERCISE TOLERANCE TEST: The patient exercised on a Ming protocol for 3 minutes completing stage 1, achieving a peak heart rate of 100 beats per minute (70% predicted maximum heart rate) and a peak blood pressure of 172/74 mmH g and a peak MET capacity of approximately 4-5 METs. The baseline ECG demonstrated normal sinus rhythm with a left bundle-branch block pattern. The peak exercise ECG was considered indeterminate second jeanette to underlying left bundle-branch block pattern. There was rare PVC during exercise or recovery. The functional capacity was considered decreased. The patient had no complaint of chest discomfort during exercise or recovery. The examination was discontinued secondary to dyspnea. IMPRESSION: 1. Technically inadequate (percent predicted maximum heart rate less than 85%) exercise tolerance test. 2. Indeterminate ECG exercise tolerance test secondary to underlying left bundle- branch block. 3. Rare PVC during exercise and recovery. 4. Pharmacologic (regadenoson) evaluation pending. The patient u nderwent pharmacologic (regadenoson) evaluation with a peak heart rate of 84 beats per minute (59% predicted maximum heart rate) and a peak blood pressure of 140/80 mmHg. The baseline ECG demonstrated sinus bradycardia with a left bundle-branch block pattern. The peak pharmacologic ECG was considered indeterminate secondary to underlying left bundle-branch block pattern. There were no cardiac dysrhy thmias pretest, during pharmacologic infusion, or recovery. There was no report of chest discomfort during pharmacologic infusion or recovery. The examination was discontinued secondary to completion of protocol. IMPRESSION: 1. Pharmacologic (regadenoson) evaluation. 2. Peak pharmacologic ECG considered indeterminate secondary to underlying left bundle-branch block pattern. 3. Nuclear images niru flores MYOCARDIAL PERFUSION IMAGING STUDY: TECHNIQUE: The patient was injected with ____ mCi of Tc99m Cardiolite and subsequently rest SPECT Cardiolite nuclear imaging was obtained in the horizontal long, vertical long and short axes views. The patient exercised on a Ming protocol for 3 minutes completing stage 1, achieving a peak heart rate of 100 beats per minute (70% predicted maximum heart rate) an d a peak blood pressure of 172/74 mmHg and a peak MET capacity of 4-5 METS. The patient then underwent pharmacologic (regadenoson) evaluation with a peak heart rate of 84 beats per minute (59% predicted maximum heart rate) and a peak blood pressure of 140/80 mmHg. The patient was injected with 31.0 mCi of Tc99m Cardiolite and subsequently, stress SPECT Cardiolite nuclear imaging was obtained in the ho rizontal long, vertical long and short axes views. A gated Cardiolite study at peak stress was obtained. INTERPRETATION: Rest and stress SPECT Cardiolite nuclear imaging, status post realignment, oralia lization, and attenuation correction, demonstrates the appearance of relative uniform tracer uptake and myocardial perfusion appearing within normal limits. There was end systolic thickening and brighte suzanne. The gated Cardiolite study demonstrates myocardial thickening and inward wall motion. The reported LVEF is 63%. IMPRESSION: 1. Rest and stress SPECT Cardiolite nuclear imaging demonstrate relativ e uniform tracer uptake and myocardial perfusion appearing within normal limits. 2. The gated Cardiolite study reports an LVEF of 63%. Frederick Neil MD T: NTS JOB: [id number] 05/08/16 1247 &#60 ;Electronically signed by Frederick Neil MD> Date Frederick Neil MD CC: Matthew Carrion Date Dictated: 05/08/16 1149 Date Transcribed: 05/08/161148 Report Writer: Signed 08-Jul-2015 Echocardiogram Complete Result: Comments: See Note; NOTES: [facility] Cardiovascular Services [address] [place] [address] Echo Complete 07/08/15 1302 MR#: [id number] Acct: [id number] Name: ORALIA MORTENSEN OD Rep #: [id number] : 1940 75 From: Rob Keating MD Attending Dr: Ana Rios MD Status: REG CLI Ordering Dr: Ana Rios MD Date: 07/08/15 Location: [facility] Sex: F C Admitted: Procedure This was a 2D Doppler, Color Flow transthoracic echocardiogram. Technically difficult due to body habitus. Patient unable to hold breath for subcostal views. Exam performed in department. Left Ventricle Normal LV size. Left ventricular systolic function is normal. The estimated ejection fraction is 55 %. No regional wall motion abnormalities noted. Right Ventricle Normal RV size. Normal systolic function. Atria Normal left atrium. Normal right atrium. Mitral Valve Bileaflet diffuse mitral valve thickening. Mild (1+) eccentric mitral valve insufficiency. Tricuspid Valve Mild tricuspid valve prolapse. Mild (1+) tricuspid valve insufficiency. Pulmonary artery systolic pressure is 28 mmHg. Aortic Valve Normal aortic valve. Mild (1+) aortic valve insufficiency. Pulm onic Valve Normal pulmonic valve. Great Vessels Normal aortic root. The pulmonary artery is normal size. Normal inferior vena cava. Pericardium/Pleural No pericardial effusion. MMode/2D Measure ments AND Calculations LVIDd: 4.4 cm IVSd: 1.2 cm Ao root diam: 3.0 cm LAV(MOD- bp): 37.5 ml LVIDs: 3.3 cm LVPWd: 0.90 cm Ao root area: 7.0 cm2 LAV(MOD-bp) Indexed: 21.1 ml/m2 RVDd: 3.5 cm FS: 25.8 % LA dimension: 3.0 cm LAV(MOD-sp2): 45.0 ml LAV(MOD-sp4): 30.2 ml LVAd ap4: 25.7 cm2 SV(MOD-sp4): 33.1 ml SV(sp4-e l): 38.1 ml LA A4 area: 12.7 cm2 LVLd ap4: 7.2 cm EDV(MOD-sp4): 72.8 ml EDV(sp4- el): 78.1 ml LVAs ap4: 16.8 cm2 LVLs ap4: 6.0 cm ESV(MOD-sp4): 39.7 ml ESV(sp4-el): 40.1 ml EF(MOD-sp4): 45.5 % EF(sp4-el): 48.7 % RA A4 area: 11.2 cm2 Doppler Measurements AND Calculations MV E max michael: Lat Peak E' Michael: Med Peak E' Michael: MV dec time: 0.24 sec 48.6 cm/sec 4.3 cm/sec 3.7 cm/sec MV A max michael: 67.0 cm/sec MV E/A: 0.72 Ao V2 max: 101.3 cm/sec AI max michael: 305.9 cm/sec LV V1 max: 83.4 cm/sec PA V2 max: Ao max P.1 mmHg AI max P.4 mmHg LV V1 max P.8 mmHg 73.8 cm/sec AI dec slope: PA max P.2 mmHg 140.8 cm/sec2 AI P1/2t: 636.5 msec PI end-d michael: TR max michael: 243.0 cm/sec E/E' lat: 11.2 E/E' med: 13.2 78.5 cm/sec TR max P.6 mmHg Interpretation Summary Normal LV size. Left ventricular systolic function is normal. The estimated ejection fraction is 55 %. Mild (1+) eccentric mitral valve insufficiency. Mil d (1+) tricuspid valve insufficiency. Mild (1+) aortic valve insufficiency. Ordering Physician : Ana Rios Referring Physician: Ana Rios M.D. Performed By: Nidhi Cheatham [facility] 07/08/15 1603 Date ____ Rob Keating MD CC: Ana Rios MD Date Dictated: 07/08/15 1302 Date Transcribed: 07/08/15 1603 Report Writer: Signed 26-Jun-2015 Bilat Scrn Digital AND CAD Result: Comments: See Note; NOTES: [facility] Imaging Services [address] [place] [address] Verdana 4d Bilat Scrn Digital AND CAD MR#: [id number] Acct: [id number] Name: ORALIA WEAVER Rep #: [id number] : 1940 F 75 From: Prakash Gutierrez MD PCP: Ana Rios MD Status: REG CLI Study: Bilat Scrn Digital AND CAD Date of Exam: 06/26/15 Exam# [id number] Ordering Dr: Ana Lam MD MAMMOGRAPHY - BILATERAL SCREENING REASON FOR EXAM: Female, 75 years old. Routine annual screening examination. PERTINENT HISTORY: Mother with breast cancer. TECHNIQUE: Digital examination. Mediolateral oblique (MLO) and craniocaudad (CC) views of both breasts were obtained. CAD: CAD was performed on this study. COMPARISON: 05/14/14 F INDINGS: Breast Composition: There are scattered areas of fibroglandular density. There are no dominant masses or suspicious calcifications. Stable scattered benign vascular calcifications. Stable 1 cm oval nodule in the upper-outer quadrant of the right breast. No other significant abnormalities are identified. There has been no significant change since the prior study. IMPRESSION: Stable bilateral screening mammogram. Yearly follow- up recommended. (A) ASSESSMENT CATEGORY: BIRADS Category 2: Benign. A letter re garding these results will be sent to the patient by the facility within 30 days. BR2 Approximately 10% of breast cancers are not detected by mammography. A normal mammogram should not delay biops y of a clinically suspicious abnormality. [id number] Electronically Signed: Guillermo Gutierrez MD at 10:18 EST Tel , Service support [phone], CC: Ana Rios MD Report Writer: Signed 26-Jun-2015 Dexa Bone Density Study (HP) Result: Comments: See Note; NOTES: [facility] Imaging Services [address] [place] [address] Verdana 4d Dexa Bone Density Study (HP) MR#: [id number] Acct: [id number] Name : ORALIA WEAVER Rep #: [id number] : 1940 F 75 From: Wil Roberts MD PCP: Ana Rios MD Status: REG CLI Study: Dexa Bone Density Study () Date of Exam: 06/26/15 Exam# [id number] Ordmagali owen Dr: Ana Rios MD STUDY: DUAL ENERGY X-RAY ABSORPTIOMETRY / DXA REASON FOR EXAM: Female, 75 years old. The patient is postmenopausal. History of osteopenia. TECHNIQUE: Bone Mineral Dens ity (BMD) measurements of lumbar spine and right hip were obtained. The patient is status post left hip replacement. COMPARISON: Comparison is made with prior study dated March 02, 2013. FINDINGS: Lumbar Spine (L1-L4): g/cm2 (1.129) / T-score (-0.3) / Z-score (1.5) Findings are suggestive of normal bone density with a low fracture risk. Right Femur Tot al: g/cm2 (0.811) / T-score (-1.6) / Z-score (0.3) Right Femoral Neck: g/cm2 (0.946) / T-score (-0.7) / Z-score (1.4) The T-Scores on the most recent prior examination were: Lumbar Spine (L1-L4): T here has been improvement of bone density since the previous examination. Right Femur Total: which represents an improvement of 6.7. IMPRESSION: The patient is considered osteopenic as outlined below according to World Zak Organization (WHO) criteria with a moderate fracture risk. There has been improvement of bone density since the previous examination. Reference Information: The T-score is the number of standard deviations above or below the standard which is normal for young adults at their peak bone mineral density. The World Health Organization (WHO) interprets the T-scores as follows: Above -1 Normal bone density Between -1 and -2.5 Osteopenia Equal to / or below -2.5 Osteoporosis As a practical clinical guideline, osteopenia may be graded as follows: Mild -1 through -1.5 Moderate -1.6 through -2.0 Severe -2.1 through -2.4 The Z-score is the number of standard deviations above or below age -matched controls. A Z-score of less than -1.5 would be considered abnormal. References: 1. NIH Osteoporosis and Related Bone Diseases http://www.osteo.org 2. International Society for Clinical Den sitometry http://www.iscd.org 3. National Osteoporosis Foundation http://www.nof.org Electronically Signed: Wil Roberts MD at 16:10 EST Tel [phone], Service support [phone], CC: Ana Rios MD Report Writer: Signed 13-Jun-2015 EKG ([id number]) Result: [MEASUREMENTS ANALYSIS] Date of Test: 06/13/2015 12:06:43; Heart Rate: 53; WA Interval: 194; QRS: 131; QT Interval: 494; Corrected QT Interval (QTc): 482; P Wave [place]: 57; QRS Wave [place]: -40; T Wave Axi s: 127; Blood Pressure: 138/82 [ECG DIAGNOSTIC STATEMENTS] Date of Test: 06/13/2015 12:06:43; Summary: Sinus Bradycardia -Left bundle branch block and left axis. ABNORMAL 14-May-2014 Bilat Scrn Digital & CAD Result: Comments: See Note; NOTES: [facility] Imaging Services [address] [place] [address] Breast Imaging Report MR#: [id number] Acct: [id number] Name: ORALIA WEAVER Rep #: [id number] : 1940 F 74 From: Wil Roberts MD PCP: Ana Rios MD Status: REG CLI Exam# [id number] Ordering Dr: Ana Rios MD MAMMOGRAPHY - BILATERAL SCREENING REASON FOR EXAM: Stuart padilla, 74 years old. Routine annual screening examination. PERTINENT HISTORY: Mother with breast cancer. Prior right stereotactic biopsy. TECHNIQUE: Digital examination. Mediolateral oblique (MLO) and craniocaudad (CC) views of both breasts were obtained. CAD: CAD was performed on this study. COMPARISON: Comparison is made with prior examination dated March 02, 2013 and prior outside exa mination dated June 16, 2011. FINDINGS: Breast Composition: There are scattered areas of fibroglandular density. There are no dominant masses or suspicious calcifications. No other significant abnormalities are identified. There has been no significant change since the prior study. IMPRESSION: Stable bilateral scr eening mammogram. Yearly follow-up recommended. (A) ASSESSMENT CATEGORY: BIRADS Category 2: Benign. A letter regarding these results will be sent to the patient by the facility within 30 days. Approximately 10% of breast cancers are not detected by mammography. A normal mammogram should not delay biopsy of a clinically suspicious abnormality. Electronical ly Signed: Wil Roberts MD at 10:56 EST Tel [phone], Service support [phone], CC: Ana Rios MD Report Writer: Signed 03-May-2014 Chest PA and Lateral Result: Comments: See Note; NOTES: [facility] Imaging Services [address] [place] [address] Radiology Report MR#: [id number] Acct: [id number] Name: ORALIA WEAVER Rep #: [id number] : 1940 F 74 From: Ric Avila MD PCP: Ana Rios MD Status: REG CLI Study: Chest PA and Lateral Date of Exam: 05/03/14 Exam# [id number] Ordering Dr: Ana Rios MD STUDY: X-RAY CHEST REASON FOR EXAM: Female, 74 years old. Cough for 1 month TECHNIQUE: PA and lateral views of the chest. COMPARISON: None. FINDINGS: There are a few s mall scattered calcified granulomata. There are no other airspace opacities. There is no pleural effusion or pneumothorax. Normal size heart. Normal mediastinum and ugo. Normal visualized pulmonary arteries. Normal visualized aortic arch and descending thoracic aorta. There is demineralization of the osseous structures. Normal visualized ribs, clavicles, and shoulders. There is no demonstra kyler abnormality of the visualized soft tissue structures of the upper abdomen. IMPRESSION: No acute process. Electronically Signed: Ric Avila MD 201 10/06/05 at 13:27 EST Tel , Service support [phone], CC: Ana Rios MD Report Writer: Signed 16-Oct-2013 EKG ([id number]) Comments: see scanned document of test done to see results reviewed today with patient Result: [MEASUREMENTS ANALYSIS] Date of Test: 10/16/2013 11:44:55; Heart Rate: 54; WA Interval: 202; QRS: 96; QT Interval: 442; Corrected QT Interval (QTc): 432; P Wave [place]: 55; QRS Wave [place]: -22; T Wave [place] : 112; Blood Pressure: 124/84 [ECG DIAGNOSTIC STATEMENTS] Date of Test: 10/16/2013 11:44:55; Summary: Sinus Bradycardia Voltage criteria for LVH (R(V6) exceeds 2.26 mV). -Old anterior infarct. -Nons pecific ST depression + T-abnormality -Seen with left ventricular hypertrophy (strain) or digitalis effect consider Anterolateral ischemia. ABNORMAL [MEASUREMENTS ANALYSIS] Date of Test: 014 11:44:11; Heart Rate: 56; WA Interval: 192; QRS: 96; QT Interval: 444; Corrected QT Interval (QTc): 437; P Wave [place]: 63; QRS Wave [place]: -20; T Wave [place]: 125; Blood Pressure: 124/84 [ECG DIAGNOSTIC STATEMENTS] Date of Test: 10/16/2013 11:44:11; Summary: Sinus Bradycardia Voltage criteria for LVH (R(V6) exceeds 2.26 mV). -Poor R-wave progression -may be secondary to left ventricular hypertrophy consider old anterior infarct. -Nonspecific ST depression + T-abnormality -Seen with left ventricular hypertrophy (strain) or digitalis effect consider Anterolateral ischemia. ABNORMAL; ADDEN DA: (10/16/2013 11:49 AM) similar to old. had cath 28-Apr-2013 Pelvic (Non ) Result: Comments: See Note; NOTES: [facility] Imaging Services [address] [place] [address] Ultrasound Report MR#: [id number] Acct: [id number] Name: ORALIA WEAVER Rep #: [id number] : 1940 F 73 From: Wil Roberts MD PCP: Status: REG CLI Study: Pelvic (Non ) Date of Exam: 04/28/13 Exam# [id number] Ordering Dr: Ana Rios MD STUDY: ULTRASOUND OF T HE FEMALE PELVIS - COMPLETE REASON FOR EXAM: Female, 73 years old. LMP: The patient is postmenopausal. Bloating. TECHNIQUE: Transabdominal and Transvaginal TECHNICAL QUALITY: Adequate. COMPARIS ON: None. FINDINGS: The patient is status post hysterectomy. The right ovary is non-visualized. The left ovary is non-visualized. There is no fluid in the c ul-de-sac. The distended urinary bladder had a volume of 32.6 ml at the time of the exam. IMPRESSION: Status post hysterectomy. The ovaries are not seen. Sig william: Wil Roberts M.D. April 28, 2013 at 2:56:24 PM EDT [phone] Electronically Signed GP/GP If you are the referring physician and would like to consult with the radiologist who p rovided this interpretation, please contact Wil Roberts M.D. at [phone]. If this radiologist is unavailable, you will be directed to another radiologist to assist. If you are a patient with a question regarding this report, please contact your referring physician directly. Professional Interpretation Provided By: [employer], Phone , These documents contain legally protected and confidential health information intended only for the use of the individual or entity named above. If you are not the intended recipient, you are hereby notified that a ny disclosure, copying, distribution, or other use of these documents is strictly prohibited. If you have received this information in error, please notify the sender immediately and arrange for the r eturn or destruction of these documents. CC: Ana Rios MD Report Writer: Signed Immunization Name Dates Details Influenza (3 years and up) on: 2017 Pneumococcal (2 years and up) on: 26-Jan-2018 Comments: Site: Left Deltoid Lot #: [id number] Zoster (shingles) Comments: 2012 [facility] Family History Unknown Family Member Name Dates Details Father Comments: Depression and Kidney Status: Active Mother Comments: Breast Ca and Diabetes Status: Active Sister 1 Comments: Depression/Emotional problems Status: Active Social History Name Dates Details Caffeine Use Comments: 1 cup/day Status: Active Exercise History Comments: 1-2 weekly, light Status: Active Living Situation Comments: , moved from [place] leann rodríguez Status: Active No Drug Use Status: Active Non Drinker/No Alcohol Use Status: Active Non Smoker/No Tobacco Use Status: Active Tobacco use: Never smoker. Status: Active Smoking Status Name Dates Details Never smoker Vital Signs Date Test Result Details [id number] Pulse 63 /min Comments: Pattern: Regular Respiration Rate 18 /min Comments: Pattern: Unlabored O2 SAT 98 % Comments: Room air BP Systolic 138 mm[Hg] Comments: Patient Position: Sitting; Cuff Location: Left Arm; Cuff Size: Standard BP Diastolic 88 mm[Hg] Comments: Patient Position: Sitting; Cuff Location: Left Arm; Cuff Size: Standard Weight 159.5 lb Height 64.25 in Body Mass Index Calculated 27.17 kg/m2 Body Surface Area Calculated 1.78 m2 :47 Temperature 97.6 f Comments: Method: Temporal Pulse 60 /min Comments: Pattern: Regular Respiration Rate 20 /min Comments: Pattern: Unlabored O2 SAT 96 % Comments: Room air BP Systolic 154 mm[Hg] Comments: Patient Position: Sitting; Cuff Location: Left Arm; Cuff Size: Standard BP Diastolic 92 mm[Hg] Comments: Patient Position: Sitting; Cuff Location: Left Arm; Cuff Size: Standard Weight 158 lb Height 64.25 in Body Mass Index Calculated 26.91 kg/m2 Body Surface Area Calculated 1.77 m2 :09 Comments: hearing wnlDrClarence Estevez and had a glaucoma test Temperature 97.5 f Comments: Method: Temporal Pulse 62 /min Comments: Pattern: Regular Respiration Rate 17 /min Comments: Pattern: Unlabored O2 SAT 94 % Comments: Room air BP Systolic 142 mm[Hg] Comments: Patient Position: Sitting; Cuff Location: Left Arm; Cuff Size: Large BP Diastolic 86 mm[Hg] Comments: Patient Position: Sitting; Cuff Location: Left Arm; Cuff Size: Large Weight 158.25 lb Height 64.25 in Body Mass Index Calculated 26.95 kg/m2 Body Surface Area Calculated 1.78 m2 :07 Temperature 97.4 f Pulse 54 /min Comments: Pattern: Regular Respiration Rate 18 /min Comments: Pattern: Unlabored O2 SAT 97 % Comments: Room air BP Systolic 138 mm[Hg] Comments: Patient Position: Sitting; Cuff Location: Left Arm; Cuff Size: Standard BP Diastolic 80 mm[Hg] Comments: Patient Position: Sitting; Cuff Location: Left Arm; Cuff Size: Standard Weight 165.125 lb Height 64.25 in Body Mass Index Calculated 28.12 kg/m2 Body Surface Area Calculated 1.81 m2 :00 Pulse 67 /min Comments: Pattern: Regular Respiration Rate 18 /min Comments: Pattern: Unlabored O2 SAT 97 % Comments: Room air BP Systolic 128 mm[Hg] Comments: Patient Position: Sitting; Cuff Location: Left Arm; Cuff Size: Standard BP Diastolic 82 mm[Hg] Comments: Patient Position: Sitting; Cuff Location: Left Arm; Cuff Size: Standard Weight 165.125 lb Height 64.25 in Body Mass Index Calculated 28.12 kg/m2 Body Surface Area Calculated 1.81 m2 [id number] Temperature 97 f Comments: Method: Temporal Pulse 65 /min Comments: Pattern: Regular Respiration Rate 18 /min Comments: Pattern: Unlabored O2 SAT 96 % Comments: Room air BP Systolic 138 mm[Hg] Comments: Patient Position: Sitting; Cuff Location: Left Arm; Cuff Size: Large BP Diastolic 78 mm[Hg] Comments: Patient Position: Sitting; Cuff Location: Left Arm; Cuff Size: Large Weight 163.125 lb Height 64.25 in Body Mass Index Calculated 27.78 kg/m2 Body Surface Area Calculated 1.8 m2 :24 Comments: Dr. Estevez and had a glaucoma test donehearing wnl Pulse 63 /min Comments: Pattern: Regular Respiration Rate 18 /min Comments: Pattern: Unlabored O2 SAT 97 % Comments: Room air BP Systolic 122 mm[Hg] Comments: Patient Position: Sitting; Cuff Location: Left Arm; Cuff Size: Large BP Diastolic 98 mm[Hg] Comments: Patient Position: Sitting; Cuff Location: Left Arm; Cuff Size: Large Weight 163.125 lb Height 64.25 in Body Mass Index Calculated 27.78 kg/m2 Body Surface Area Calculated 1.8 m2 :46 Pulse 55 /min Comments: Pattern: Regular Respiration Rate 18 /min Comments: Pattern: Unlabored O2 SAT 97 % Comments: Room air BP Systolic 138 mm[Hg] Comments: Patient Position: Sitting; Cuff Location: Left Arm; Cuff Size: Standard BP Diastolic 80 mm[Hg] Comments: Patient Position: Sitting; Cuff Location: Left Arm; Cuff Size: Standard Weight 162.375 lb Height 64.25 in Body Mass Index Calculated 27.65 kg/m2 Body Surface Area Calculated 1.8 m2 :03 Temperature 98.4 f Comments: Method: Temporal Pulse 66 /min Comments: Pattern: Regular Respiration Rate 16 /min Comments: Pattern: Unlabored O2 SAT 98 % Comments: Room air BP Systolic 122 mm[Hg] Comments: Patient Position: Sitting; Cuff Location: Left Arm; Cuff Size: Standard BP Diastolic 74 mm[Hg] Comments: Patient Position: Sitting; Cuff Location: Left Arm; Cuff Size: Standard Weight 162 lb Height 64.25 in Body Mass Index Calculated 27.59 kg/m2 Body Surface Area Calculated 1.79 m2 :18 BP Systolic 158 mm[Hg] Comments: Patient Position: Sitting; Cuff Location: Left Arm; Cuff Size: Standard BP Diastolic 82 mm[Hg] Comments: Patient Position: Sitting; Cuff Location: Left Arm; Cuff Size: Standard Weight 160 lb Height 64.25 in Body Mass Index Calculated 27.25 kg/m2 Body Surface Area Calculated 1.78 m2 :47 Temperature 98.6 f Comments: Method: Temporal Pulse 57 /min Comments: Pattern: Regular Respiration Rate 16 /min Comments: Pattern: Unlabored O2 SAT 98 % Comments: Room air BP Systolic 140 mm[Hg] Comments: Patient Position: Sitting; Cuff Location: Left Arm; Cuff Size: Standard BP Diastolic 76 mm[Hg] Comments: Patient Position: Sitting; Cuff Location: Left Arm; Cuff Size: Standard Weight 160 lb Height 64.25 in Body Mass Index Calculated 27.25 kg/m2 Body Surface Area Calculated 1.78 m2 :00 Temperature 98.2 f Comments: Method: Temporal Pulse 66 /min Comments: Pattern: Regular Respiration Rate 16 /min Comments: Pattern: Unlabored O2 SAT 98 % Comments: Room air BP Systolic 128 mm[Hg] Comments: Patient Position: Sitting; Cuff Location: Left Arm; Cuff Size: Standard BP Diastolic 74 mm[Hg] Comments: Patient Position: Sitting; Cuff Location: Left Arm; Cuff Size: Standard Weight 161 lb Height 64.25 in Body Mass Index Calculated 27.42 kg/m2 Body Surface Area Calculated 1.79 m2 :00 Temperature 97.6 f Comments: Method: Temporal Pulse 64 /min Comments: Pattern: Regular Respiration Rate 18 /min Comments: Pattern: Unlabored O2 SAT 96 % Comments: Room air BP Systolic 138 mm[Hg] Comments: Patient Position: Sitting; Cuff Location: Left Arm; Cuff Size: Standard BP Diastolic 82 mm[Hg] Comments: Patient Position: Sitting; Cuff Location: Left Arm; Cuff Size: Standard Weight 164.0125 lb Height 64.25 in Body Mass Index Calculated 27.93 kg/m2 Body Surface Area Calculated 1.8 m2 :42 Temperature 97.3 f Pulse 57 /min Comments: Pattern: Regular Respiration Rate 14 /min Comments: Pattern: Unlabored O2 SAT 98 % Comments: Room air BP Systolic 110 mm[Hg] Comments: Patient Position: Sitting; Cuff Location: Left Arm; Cuff Size: Standard BP Diastolic 70 mm[Hg] Comments: Patient Position: Sitting; Cuff Location: Left Arm; Cuff Size: Standard Weight 160.5 lb Height 64.25 in Body Mass Index Calculated 27.34 kg/m2 Body Surface Area Calculated 1.79 m2 :04 Temperature 97.8 f Comments: Method: Temporal Pulse 60 /min Comments: Pattern: Regular Respiration Rate 20 /min Comments: Pattern: Unlabored O2 SAT 97 % Comments: Room air BP Systolic 118 mm[Hg] Comments: Patient Position: Sitting; Cuff Location: Left Arm; Cuff Size: Standard BP Diastolic 76 mm[Hg] Comments: Patient Position: Sitting; Cuff Location: Left Arm; Cuff Size: Standard Weight 160 lb Height 64.25 in Body Mass Index Calculated 27.25 kg/m2 Body Surface Area Calculated 1.78 m2 :16 Temperature 97 f Pulse 55 /min Comments: Pattern: Regular Respiration Rate 20 /min Comments: Pattern: Unlabored O2 SAT 98 % Comments: Room air BP Systolic 122 mm[Hg] Comments: Patient Position: Sitting; Cuff Location: Left Arm; Cuff Size: Standard BP Diastolic 72 mm[Hg] Comments: Patient Position: Sitting; Cuff Location: Left Arm; Cuff Size: Standard Weight 164 lb Height 64.25 in Body Mass Index Calculated 27.93 kg/m2 Body Surface Area Calculated 1.8 m2 :55 Temperature 97.6 f Comments: Method: Oral Pulse 61 /min Comments: Pattern: Regular Respiration Rate 16 /min Comments: Pattern: Unlabored O2 SAT 98 % Comments: Room air BP Systolic 100 mm[Hg] Comments: Patient Position: Sitting; Cuff Location: Left Arm; Cuff Size: Standard BP Diastolic 62 mm[Hg] Comments: Patient Position: Sitting; Cuff Location: Left Arm; Cuff Size: Standard Weight 164 lb Height 64.25 in Body Mass Index Calculated 27.93 kg/m2 Body Surface Area Calculated 1.8 m2 :30 Temperature 97.8 f Comments: Method: Temporal Pulse 68 /min Comments: Pattern: Regular Respiration Rate 20 /min Comments: Pattern: Unlabored BP Systolic 116 mm[Hg] Comments: Patient Position: Sitting; Cuff Location: Left Arm; Cuff Size: Standard BP Diastolic 78 mm[Hg] Comments: Patient Position: Sitting; Cuff Location: Left Arm; Cuff Size: Standard Weight 164 lb Height 64.25 in Body Mass Index Calculated 27.93 kg/m2 Body Surface Area Calculated 1.8 m2 :44 Comments: Pts cuff read 156/86 BP Systolic 170 mm[Hg] Comments: Patient Position: Sitting; Cuff Location: Left Arm; Cuff Size: Standard BP Diastolic 102 mm[Hg] Comments: Patient Position: Sitting; Cuff Location: Left Arm; Cuff Size: Standard :33 Temperature 98 f Comments: Method: Oral Pulse 74 /min Comments: Pattern: Regular Respiration Rate 20 /min Comments: Pattern: Unlabored BP Systolic 124 mm[Hg] Comments: Patient Position: Sitting; Cuff Location: Left Arm; Cuff Size: Standard BP Diastolic 86 mm[Hg] Comments: Patient Position: Sitting; Cuff Location: Left Arm; Cuff Size: Standard Weight 164 lb Height 64.25 in Body Mass Index Calculated 27.93 kg/m2 Body Surface Area Calculated 1.8 m2 :22 Temperature 97.8 f Comments: Method: Oral Pulse 60 /min Comments: Pattern: Regular Respiration Rate 16 /min O2 SAT 98 % Comments: Room air BP Systolic 142 mm[Hg] Comments: Patient Position: Sitting; Cuff Location: Left Arm; Cuff Size: Standard BP Diastolic 90 mm[Hg] Comments: Patient Position: Sitting; Cuff Location: Left Arm; Cuff Size: Standard Weight 164 lb Height 64.25 in Body Mass Index Calculated 27.93 kg/m2 Body Surface Area Calculated 1.8 m2 :51 Temperature 97.7 f Comments: Method: Oral Pulse 59 /min Comments: Pattern: Regular Respiration Rate 16 /min Comments: Pattern: Unlabored O2 SAT 97 % Comments: Room air BP Systolic 124 mm[Hg] Comments: Patient Position: Sitting; Cuff Location: Left Arm; Cuff Size: Standard BP Diastolic 84 mm[Hg] Comments: Patient Position: Sitting; Cuff Location: Left Arm; Cuff Size: Standard Weight 164 lb Height 64.25 in Body Mass Index Calculated 27.93 kg/m2 Body Surface Area Calculated 1.8 m2 :49 Temperature 97.2 f Comments: Method: Temporal Pulse 68 /min Comments: Pattern: Regular Respiration Rate 16 /min Comments: Pattern: Unlabored BP Systolic 150 mm[Hg] Comments: Patient Position: Sitting; Cuff Location: Left Arm; Cuff Size: Standard BP Diastolic 82 mm[Hg] Comments: Patient Position: Sitting; Cuff Location: Left Arm; Cuff Size: Standard Weight 166 lb Height 64.25 in Body Mass Index Calculated 28.27 kg/m2 Body Surface Area Calculated 1.81 m2 :59 Temperature 97.6 f Comments: Method: Oral Pulse 68 /min Comments: Pattern: Regular Respiration Rate 18 /min Comments: Pattern: Unlabored BP Systolic 118 mm[Hg] Comments: Patient Position: Sitting; Cuff Location: Left Arm; Cuff Size: Standard BP Diastolic 76 mm[Hg] Comments: Patient Position: Sitting; Cuff Location: Left Arm; Cuff Size: Standard Weight 166 lb Height 64.25 in Body Mass Index Calculated 28.27 kg/m2 Body Surface Area Calculated 1.81 m2 [id number] Temperature 97.6 f Comments: Method: Oral Pulse 60 /min Comments: Pattern: Regular Respiration Rate 20 /min Comments: Pattern: Unlabored BP Systolic 118 mm[Hg] Comments: Patient Position: Sitting; Cuff Location: Left Arm; Cuff Size: Standard BP Diastolic 76 mm[Hg] Comments: Patient Position: Sitting; Cuff Location: Left Arm; Cuff Size: Standard Weight 166 lb Height 64.25 in Body Mass Index Calculated 28.27 kg/m2 Body Surface Area Calculated 1.81 m2 :38 Temperature 97.8 f Comments: Method: Oral Pulse 58 /min Comments: Pattern: Regular Respiration Rate 16 /min Comments: Pattern: Unlabored BP Systolic 120 mm[Hg] Comments: Patient Position: Sitting; Cuff Location: Left Arm; Cuff Size: Standard BP Diastolic 74 mm[Hg] Comments: Patient Position: Sitting; Cuff Location: Left Arm; Cuff Size: Standard Weight 166 lb Height 64.25 in Body Mass Index Calculated 28.27 kg/m2 Body Surface Area Calculated 1.81 m2 :45 Temperature 98 f Comments: Method: Oral Pulse 56 /min Comments: Pattern: Regular Respiration Rate 18 /min Comments: Pattern: Unlabored BP Systolic 124 mm[Hg] Comments: Patient Position: Sitting; Cuff Location: Left Arm; Cuff Size: Standard BP Diastolic 78 mm[Hg] Comments: Patient Position: Sitting; Cuff Location: Left Arm; Cuff Size: Standard Weight 165 lb Height 64.25 in Body Mass Index Calculated 28.1 kg/m2 Body Surface Area Calculated 1.81 m2 :22 Temperature 96.9 f Comments: Method: Oral Pulse 58 /min Comments: Pattern: Regular Respiration Rate 16 /min Comments: Pattern: Unlabored BP Systolic 122 mm[Hg] Comments: Patient Position: Sitting; Cuff Location: Left Arm; Cuff Size: Standard BP Diastolic 76 mm[Hg] Comments: Patient Position: Sitting; Cuff Location: Left Arm; Cuff Size: Standard Weight 163 lb Results Date Description Value Details [id number] Metabolic Panel, Basic Comments: PATIENT NOT FASTINGPERFORMED BY: [facility] [id number] ([id number]) Calcium 9.9 mg/dL (Normal) Range: 8.7-10.3 Carbon Dioxide, Total 24 mmol/L (Normal) Range: 20-29 Chloride 95 mmol/L (Abnormal) Range: 96-106 Potassium 4.2 mmol/L (Normal) Range: 3.5-5.2 Sodium 135 mmol/L (Normal) Range: 134-144 BUN/Creatinine Ratio 18 (Normal) Range: 12-28 eGFR If Africn Am 81 mL/min/1.73 (Normal) eGFR If NonAfricn Am 70 mL/min/1.73 (Normal) Creatinine 0.80 mg/dL (Normal) Range: 0.57-1.00 BUN 14 mg/dL (Normal) Range: 8-27 Glucose 85 mg/dL (Normal) Range: 65-99 [id number]:11 URINE ANDER CULTURE-IDENTIFICATN Comments: PATIENT NOT FASTINGPERFORMED BY: [facility][id number] [facility] [id number] Information: SRC:UC ([id number]) Result 1 NG36 (Normal) Comments: No growth in 36 - 48 hours. Urine Culture,Comprehensive Final report (Normal) [id number] Urinalysis, Office ([id number]) UA - LEUKOCYTE ESTERASE Trace (Normal) Comments: sent to lab UA - NITRITE Negative (Normal) URINE UROBILINGN DENNY TIMED Normal mg/dL (Normal) UA - PROTEIN Negative mg/dL (Normal) UA - PH 6 (Abnormal) UA - BLOOD Non Hemolyzed Trace (Normal) UA - SPECIFIC GRAVITY 1.015 (Normal) UA - KETONES Negative mg/dL (Normal) UA - BILIRUBIN Negative (Normal) UA - GLUCOSE Negative (Normal) 10-[id number]:07 TSH ([id number]) Comments: PATIENT WAS FASTINGPERFORMED BY: [employer] [id number] [facility] [id number] TSH 2.410 {uIU/mL} (Normal) Range: 0.450-4.500 [id number] Metabolic Panel, Comprehensive Comments: PATIENT WAS FASTINGPERFORMED BY: [id number] [facility] [id number] ([id number]) ALT (SGPT) 8 [iU]/L (Normal) Range: 0-32 AST (SGOT) 16 [iU]/L (Normal) Range: 0-40 Alkaline Phosphatase, S 85 [iU]/L (Normal) Range: 39-117 Bilirubin, Total 0.5 mg/dL (Normal) Range: 0.0-1.2 A/G Ratio 1.8 (Normal) Range: 1.2-2.2 Globulin, Total 2.3 g/dL (Normal) Range: 1.5-4.5 Albumin, Serum 4.1 g/dL (Normal) Range: 3.5-4.8 Protein, Total, Serum 6.4 g/dL (Normal) Range: 6.0-8.5 Calcium, Serum 9.3 mg/dL (Normal) Range: 8.7-10.3 Carbon Dioxide, Total 24 mmol/L (Normal) Range: 18-29 Chloride, Serum 104 mmol/L (Normal) Range: 96-106 Potassium, Serum 4.6 mmol/L (Normal) Range: 3.5-5.2 Sodium, Serum 142 mmol/L (Normal) Range: 134-144 BUN/Creatinine Ratio 21 (Normal) Range: 12-28 eGFR If Africn Am 80 mL/min/1.73 (Normal) eGFR If NonAfricn Am 69 mL/min/1.73 (Normal) Creatinine, Serum 0.81 mg/dL (Normal) Range: 0.57-1.00 BUN 17 mg/dL (Normal) Range: 8-27 Glucose, Serum 97 mg/dL (Normal) Range: 65-99 33-[id number]:07 CALCIFEDIOL ([id number]) Comments: PATIENT WAS FASTINGPERFORMED BY: [employer] [id number] [facility] [id number] Vitamin D, 25-Hydroxy 52.1 ng/mL (Normal) Range: 30.0-100.0 Comments: Vitamin D deficiency has been defined by the [place] of[place] and an Endocrine Society practice guideline as alevel of serum 25-OH vitamin D less than 20 ng/mL (1,2).The Endocrine Society went on to further define vitamin Dinsufficiency as a level between 21 and 29 ng/mL (2).1. IOM ([place] of [employer]). 2010. Dietary reference intakes for calcium and D. [place]: The National Academies Press.2. Solo MF, Irma COATES, Derrek RAMIREZ, et al. Evaluation, treatment, and prevention of vitamin D deficiency: an Endocrine Society clinical practice guideline. JCEM. 2010; 96(7):1911-30. [id number] Lipid Panel (53745) Comments: PATIENT WAS FASTINGPERFORMED BY: [employer] [facility] [id number] [employer] [place] [id number] LDL/HDL Ratio 2.1 {ratio_units} (Normal) Range: 0.0-3.2 Comments: LDL/HDL Ratio Men Women 1/2 Avg.Risk 1.0 1.5 Av g.Risk 3.6 3.2 2X Avg.Risk 6.2 5.0 3X Avg.Risk 8.0 6.1 LDL Cholesterol Calc 105 mg/dL (Abnormal) Range: 0-99 VLDL Cholesterol Oren 27 mg/dL (Normal) Range: 5-40 HDL Cholesterol 50 mg/dL (Normal) Triglycerides 136 mg/dL (Normal) Range: 0-149 Cholesterol, Total 182 mg/dL (Normal) Range: 100-199 20-Bqm-152053:07 CBC, Platelets & Auto Diff Comments: PATIENT WAS FASTINGPERFORMED BY: [employer] [facility] [id number] [facility] [id number] ([id number]) Immature Grans (Abs) 0.0 {x10E3/uL} (Normal) Range: 0.0-0.1 Immature Granulocytes 0 % (Normal) Baso (Absolute) 0.0 {x10E3/uL} (Normal) Range: 0.0-0.2 Eos (Absolute) 0.2 {x10E3/uL} (Normal) Range: 0.0-0.4 Monocytes(Absolute) 0.6 {x10E3/uL} (Normal) Range: 0.1-0.9 Lymphs (Absolute) 2.3 {x10E3/uL} (Normal) Range: 0.7-3.1 Neutrophils (Absolute) 3.4 {x10E3/uL} (Normal) Range: 1.4-7.0 Basos 1 % (Normal) Eos 3 % (Normal) Monocytes 9 % (Normal) Lymphs 35 % (Normal) Neutrophils 52 % (Normal) Platelets 275 {x10E3/uL} (Normal) Range: 150-379 RDW 13.6 % (Normal) Range: 12.3-15.4 MCHC 32.7 g/dL (Normal) Range: 31.5-35.7 MCH 32.2 pg (Normal) Range: 26.6-33.0 MCV 98 fL (Abnormal) Range: 79-97 Hematocrit 44.9 % (Normal) Range: 34.0-46.6 Hemoglobin 14.7 g/dL (Normal) Range: 11.1-15.9 RBC 4.57 {x10E6/uL} (Normal) Range: 3.77-5.28 WBC 6.5 {x10E3/uL} (Normal) Range: 3.4-10.8 :16 CALCIFEDIOL (15758) Comments: PATIENT WAS FASTINGPERFORMED BY: [facility] [id number] Vitamin D, 25-Hydroxy 35.3 ng/mL (Normal) Range: 30.0-100.0 Comments: Vitamin D deficiency has been defined by the [place] of[place] and an Endocrine Society practice guideline as alevel of serum 25-OH vitamin D less than 20 ng/mL (1,2).The Endocrine Society went on to further define vitamin Dinsufficiency as a level between 21 and 29 ng/mL (2).1. IOM ([place] of [employer]). 2010. Dietary reference intakes for calcium and D. [place]: The National Academies Press.2. Solo MF, [place], Derrek RAMIREZ, et al. Evaluation, treatment, and prevention of vitamin D deficiency: an Endocrine Society clinical practice guideline. JCEM. 2010; 96(7):1911-30. 62-Inn-85980:16 TSH (THYROID STIMULATING Comments: PATIENT WAS FASTINGPERFORMED BY: [facility]6[address] [facility] [id number] HORMONE) ([id number]) TSH 2.460 {uIU/mL} (Normal) Range: 0.450-4.500 :16 LIPID PANEL (57885) Comments: PATIENT WAS FASTINGPERFORMED BY: [facility]6[address] [facility] [id number] LDL/HDL Ratio 1.6 {ratio_units} (Normal) Range: 0.0-3.2 Comments: LDL/HDL Ratio Men Women 1/2 Avg.Risk 1.0 1.5 Av g.Risk 3.6 3.2 2X Avg.Risk 6.2 5.0 3X Avg.Risk 8.0 6.1 LDL Cholesterol Calc 84 mg/dL (Normal) Range: 0-99 VLDL Cholesterol Oren 28 mg/dL (Normal) Range: 5-40 HDL Cholesterol 51 mg/dL (Normal) Triglycerides 142 mg/dL (Normal) Range: 0-149 Cholesterol, Total 163 mg/dL (Normal) Range: 100-199 :16 METABOLIC PANEL, COMPREHENSIVE Comments: PATIENT WAS FASTINGPERFORMED BY: [email or web address] [id number] [facility] [id number] ([id number]) ALT (SGPT) 8 [iU]/L (Normal) Range: 0-32 AST (SGOT) 16 [iU]/L (Normal) Range: 0-40 Alkaline Phosphatase, S 79 [iU]/L (Normal) Range: 39-117 Bilirubin, Total 0.8 mg/dL (Normal) Range: 0.0-1.2 A/G Ratio 1.6 (Normal) Range: 1.2-2.2 Globulin, Total 2.5 g/dL (Normal) Range: 1.5-4.5 Albumin, Serum 3.9 g/dL (Normal) Range: 3.5-4.8 Protein, Total, Serum 6.4 g/dL (Normal) Range: 6.0-8.5 Calcium, Serum 9.7 mg/dL (Normal) Range: 8.7-10.3 Carbon Dioxide, Total 26 mmol/L (Normal) Range: 18-29 Chloride, Serum 101 mmol/L (Normal) Range: 96-106 Potassium, Serum 4.6 mmol/L (Normal) Range: 3.5-5.2 Sodium, Serum 144 mmol/L (Normal) Range: 134-144 BUN/Creatinine Ratio 16 (Normal) Range: 12-28 eGFR If Africn Am 73 mL/min/1.73 (Normal) eGFR If NonAfricn Am 63 mL/min/1.73 (Normal) Creatinine, Serum 0.88 mg/dL (Normal) Range: 0.57-1.00 BUN 14 mg/dL (Normal) Range: 8-27 Glucose, Serum 83 mg/dL (Normal) Range: 65-99 48-Wgs-83519:16 CBC, PLATELETS & AUT DIFF Comments: PATIENT WAS FASTINGPERFORMED BY: [facility] [id number] [facility] [id number]; fu 5-17 KF ([id number]) Immature Grans (Abs) 0.0 {x10E3/uL} (Normal) Range: 0.0-0.1 Immature Granulocytes 0 % (Normal) Baso (Absolute) 0.0 {x10E3/uL} (Normal) Range: 0.0-0.2 Eos (Absolute) 0.1 {x10E3/uL} (Normal) Range: 0.0-0.4 Monocytes(Absolute) 0.7 {x10E3/uL} (Normal) Range: 0.1-0.9 Lymphs (Absolute) 2.0 {x10E3/uL} (Normal) Range: 0.7-3.1 Neutrophils (Absolute) 3.5 {x10E3/uL} (Normal) Range: 1.4-7.0 Basos 1 % (Normal) Eos 2 % (Normal) Monocytes 11 % (Normal) Lymphs 31 % (Normal) Neutrophils 55 % (Normal) Platelets 273 {x10E3/uL} (Normal) Range: 150-379 RDW 13.5 % (Normal) Range: 12.3-15.4 MCHC 32.6 g/dL (Normal) Range: 31.5-35.7 MCH 31.9 pg (Normal) Range: 26.6-33.0 MCV 98 fL (Abnormal) Range: 79-97 Hematocrit 44.5 % (Normal) Range: 34.0-46.6 Hemoglobin 14.5 g/dL (Normal) Range: 11.1-15.9 RBC 4.54 {x10E6/uL} (Normal) Range: 3.77-5.28 WBC 6.3 {x10E3/uL} (Normal) Range: 3.4-10.8 :02 METABOLIC PANEL, COMPREHENSIVE Comments: PATIENT WAS FASTINGPERFORMED BY: [facility] [id number] ([id number]) ALT (SGPT) 9 [iU]/L (Normal) Range: 0-32 AST (SGOT) 17 [iU]/L (Normal) Range: 0-40 Alkaline Phosphatase, S 87 [iU]/L (Normal) Range: 39-117 Bilirubin, Total 0.6 mg/dL (Normal) Range: 0.0-1.2 A/G Ratio 1.7 (Normal) Range: 1.1-2.5 Globulin, Total 2.3 g/dL (Normal) Range: 1.5-4.5 Albumin, Serum 3.9 g/dL (Normal) Range: 3.5-4.8 Protein, Total, Serum 6.2 g/dL (Normal) Range: 6.0-8.5 Calcium, Serum 9.1 mg/dL (Normal) Range: 8.7-10.3 Carbon Dioxide, Total 25 mmol/L (Normal) Range: 18-29 Chloride, Serum 103 mmol/L (Normal) Range: 96-106 Comments: Please note reference interval change Potassium, Serum 4.3 mmol/L (Normal) Range: 3.5-5.2 Sodium, Serum 143 mmol/L (Normal) Range: 134-144 Comments: Please note reference interval change BUN/Creatinine Ratio 24 (Normal) Range: 11-26 eGFR If Africn Am 78 mL/min/1.73 (Normal) eGFR If NonAfricn Am 68 mL/min/1.73 (Normal) Creatinine, Serum 0.83 mg/dL (Normal) Range: 0.57-1.00 BUN 20 mg/dL (Normal) Range: 8-27 Glucose, Serum 95 mg/dL (Normal) Range: 65-99 64-Lkb-420225:02 CALCIFEDIOL (66665) Comments: PATIENT WAS FASTINGPERFORMED BY: One97 CommunicationsUnion County General HospitalIrlgvo7720 [facility] [place] [id number] Vitamin D, 25-Hydroxy 46.6 ng/mL (Normal) Range: 30.0-100.0 Comments: Vitamin D deficiency has been defined by the [place] of[place] and an Endocrine Society practice guideline as alevel of serum 25-OH vitamin D less than 20 ng/mL (1,2).The Endocrine Society went on to further define vitamin Dinsufficiency as a level between 21 and 29 ng/mL (2).1. IOM ([place] of Medicine). 2010. Dietary reference intakes for calcium and D. [place]: The National Academies Press.2. Solo MF, Irma COATES, Derrek RAMIREZ, et al. Evaluation, treatment, and prevention of vitamin D deficiency: an Endocrine Society clinical practice guideline. JCEM. 2010; 96(7):1911-30. 61-Hjb-839823:30 MICROALBUMIN: CREATININE RATIO Comments: PATIENT WAS FASTINGPERFORMED BY: [employer] [id number] [facility] [id number] ([id number]) AND (63485) Microalb/Creat Ratio 4.5 {mg/g_creat} (Normal) Range: 0.0-30.0 Microalbumin, Urine 3.5 ug/mL (Normal) Creatinine, Urine 78.3 mg/dL (Normal) 62-Hcr-392719:30 VITAMIN B12 AND FOLATES Comments: PATIENT WAS FASTINGPERFORMED BY: [employer] [id number] [facility] [place] [id number] ([id number]) Folate (Folic Acid), Serum 19.0 ng/mL (Normal) Comments: A serum folate concentration of less than 3.1 ng/mL isconsidered to represent clinical deficiency. Vitamin B12 431 pg/mL (Normal) Range: 211-946 55-Qmn-841342:30 CALCIFEDIOL (58633) Comments: PATIENT WAS FASTINGPERFORMED BY: [employer] Ehuaob3570 [facility]bl[facility] [place] [id number] Vitamin D, 25-Hydroxy 26.3 ng/mL (Abnormal) Range: 30.0-100.0 Comments: Vitamin D deficiency has been defined by the [place] of[place] and an Endocrine Society practice guideline as alevel of serum 25-OH vitamin D less than 20 ng/mL (1,2).The Endocrine Society went on to further define vitamin Dinsufficiency as a level between 21 and 29 ng/mL (2).1. IOM ([place] of Medicine). 2010. Dietary reference intakes for calcium and D. [place]: The National Academies Press.2. Solo MF, Irma COATES, Derrek RAMIREZ, et al. Evaluation, treatment, and prevention of vitamin D deficiency: an Endocrine Society clinical practice guideline. JCEM. 2010; 96(7):1911-30. 68-Pvk-[id number]:30 TSH (THYROID STIMULATING Comments: PATIENT WAS FASTINGPERFORMED BY: [employer] [place] [id number] HORMONE) ([id number]) TSH 2.140 {uIU/mL} (Normal) Range: 0.450-4.500 33-Iur-224570:30 LIPID PANEL (34564) Comments: PATIENT WAS FASTINGPERFORMED BY: [employer] [place] [id number] LDL/HDL Ratio 1.8 {ratio_units} (Normal) Range: 0.0-3.2 Comments: LDL/HDL Ratio Men Women 1/2 Avg.Risk 1.0 1.5 Av g.Risk 3.6 3.2 2X Avg.Risk 6.2 5.0 3X Avg.Risk 8.0 6.1 LDL Cholesterol Calc 86 mg/dL (Normal) Range: 0-99 VLDL Cholesterol Oren 27 mg/dL (Normal) Range: 5-40 HDL Cholesterol 49 mg/dL (Normal) Comments: According to ATP-III Guidelines, HDL-C >59 mg/dL is considered anegative risk factor for CHD. Triglycerides 135 mg/dL (Normal) Range: 0-149 Cholesterol, Total 162 mg/dL (Normal) Range: 100-199 :30 METABOLIC PANEL, COMPREHENSIVE Comments: PATIENT WAS FASTINGPERFORMED BY: [employer]! [id number] [employer], Incin [place] [id number] ([id number]) ALT (SGPT) 8 [iU]/L (Normal) Range: 0-32 AST (SGOT) 13 [iU]/L (Normal) Range: 0-40 Alkaline Phosphatase, S 86 [iU]/L (Normal) Range: 39-117 Bilirubin, Total 0.7 mg/dL (Normal) Range: 0.0-1.2 A/G Ratio 1.6 (Normal) Range: 1.1-2.5 Globulin, Total 2.5 g/dL (Normal) Range: 1.5-4.5 Albumin, Serum 3.9 g/dL (Normal) Range: 3.5-4.8 Protein, Total, Serum 6.4 g/dL (Normal) Range: 6.0-8.5 Calcium, Serum 9.1 mg/dL (Normal) Range: 8.7-10.3 Carbon Dioxide, Total 23 mmol/L (Normal) Range: 18-29 Chloride, Serum 104 mmol/L (Normal) Range: 97-108 Comments: Effective April 13, 2016 the reference interval for Chloride, Serum will be changing to: 97 - 106 Potassium, Serum 4.4 mmol/L (Normal) Range: 3.5-5.2 Comments: Effective April 13, 2016 the reference interval for Potassium, Serum will be changing to: 0 - 7 days 3.7 - 5.2 8 - 30 days 3.7 - 6.4 1 - 6 months 3.8 - 6.0 7 months - 1 year 3.8 - 5.3 >1 year 3.5 - 5.2 Sodium, Serum 143 mmol/L (Normal) Range: 134-144 Comments: Effective April 13, 2016 the reference interval for Sodium, Serum will be changing to: 136 - 144 BUN/Creatinine Ratio 21 (Normal) Range: 11-26 eGFR If Africn Am 75 mL/min/1.73 (Normal) eGFR If NonAfricn Am 65 mL/min/1.73 (Normal) Creatinine, Serum 0.86 mg/dL (Normal) Range: 0.57-1.00 BUN 18 mg/dL (Normal) Range: 8-27 Glucose, Serum 93 mg/dL (Normal) Range: 65-99 55-Tzw-783274:30 CBC, PLATELETS & AUT DIFF Comments: PATIENT WAS FASTINGPERFORMED BY: JANELLE [facility]Jeff[facility][id number] [facility] [id number] ([id number]) Immature Grans (Abs) 0.0 {x10E3/uL} (Normal) Range: 0.0-0.1 Immature Granulocytes 0 % (Normal) Baso (Absolute) 0.0 {x10E3/uL} (Normal) Range: 0.0-0.2 Eos (Absolute) 0.1 {x10E3/uL} (Normal) Range: 0.0-0.4 Monocytes(Absolute) 0.5 {x10E3/uL} (Normal) Range: 0.1-0.9 Lymphs (Absolute) 2.0 {x10E3/uL} (Normal) Range: 0.7-3.1 Neutrophils (Absolute) 3.3 {x10E3/uL} (Normal) Range: 1.4-7.0 Basos 0 % (Normal) Eos 2 % (Normal) Monocytes 8 % (Normal) Lymphs 34 % (Normal) Neutrophils 56 % (Normal) Platelets 293 {x10E3/uL} (Normal) Range: 150-379 RDW 13.5 % (Normal) Range: 12.3-15.4 MCHC 33.2 g/dL (Normal) Range: 31.5-35.7 MCH 32.0 pg (Normal) Range: 26.6-33.0 MCV 96 fL (Normal) Range: 79-97 Hematocrit 41.9 % (Normal) Range: 34.0-46.6 Hemoglobin 13.9 g/dL (Normal) Range: 11.1-15.9 RBC 4.35 {x10E6/uL} (Normal) Range: 3.77-5.28 WBC 5.9 {x10E3/uL} (Normal) Range: 3.4-10.8 :36 Microscopic Examination Comments: PATIENT WAS FASTINGPERFORMED BY: [facility]6370 [facility] [id number] Bacteria Few (Normal) Mucus Threads Present (Normal) Epithelial Cells (non renal) 0-10 {/hpf} (Normal) Range: 0 - 10 RBC 0-2 {/hpf} (Normal) Range: 0 - 2 WBC 11-30 {/hpf} (Abnormal) Range: 0 - 5 03-Onf-124143:06 CBC, Platelets & Auto Comments: PATIENT NOT FASTINGPERFORMED BY: [facility]6370 [facility] [id number] Information: [id number] Diff (08853) Immature Grans (Abs) 0.0 {x10E3/uL} (Normal) Range: 0.0-0.1 Immature Granulocytes 0 % (Normal) Baso (Absolute) 0.0 {x10E3/uL} (Normal) Range: 0.0-0.2 Eos (Absolute) 0.1 {x10E3/uL} (Normal) Range: 0.0-0.4 Monocytes(Absolute) 0.7 {x10E3/uL} (Normal) Range: 0.1-0.9 Lymphs (Absolute) 2.6 {x10E3/uL} (Normal) Range: 0.7-3.1 Neutrophils (Absolute) 4.0 {x10E3/uL} (Normal) Range: 1.4-7.0 Basos 0 % (Normal) Eos 2 % (Normal) Monocytes 9 % (Normal) Lymphs 35 % (Normal) Neutrophils 54 % (Normal) Platelets 268 {x10E3/uL} (Normal) Range: 150-379 RDW 12.9 % (Normal) Range: 12.3-15.4 MCHC 34.1 g/dL (Normal) Range: 31.5-35.7 MCH 32.1 pg (Normal) Range: 26.6-33.0 MCV 94 fL (Normal) Range: 79-97 Hematocrit 39.3 % (Normal) Range: 34.0-46.6 Hemoglobin 13.4 g/dL (Normal) Range: 11.1-15.9 RBC 4.18 {x10E6/uL} (Normal) Range: 3.77-5.28 WBC 7.5 {x10E3/uL} (Normal) Range: 3.4-10.8 :36 URINALYSIS, W/ MICRO (06602) Comments: PATIENT WAS FASTINGPERFORMED BY: [facility][id number] [facility] [id number] Microscopic Examination See below: (Normal) Comments: Microscopic was indicated and was performed. Nitrite, Urine Negative (Normal) Urobilinogen,Semi-Qn 0.2 mg/dL (Normal) Range: 0.2-1.0 Bilirubin Negative (Normal) Occult Blood Negative (Normal) Ketones Negative (Normal) Glucose Negative (Normal) Protein Negative (Normal) WBC Esterase 1+ (Abnormal) Appearance Clear (Normal) Urine-Color Yellow (Normal) pH 6.5 (Normal) Range: 5.0-7.5 Specific [place] 1.017 (Normal) Range: 1.005-1.030 :36 METABOLIC PANEL, COMPREHENSIVE Comments: PATIENT WAS FASTINGPERFORMED BY: [facility])[id number] [facility] [id number] (16259) ALT (SGPT) 5 [iU]/L (Normal) Range: 0-32 AST (SGOT) 15 [iU]/L (Normal) Range: 0-40 Alkaline Phosphatase, S 74 [iU]/L (Normal) Range: 39-117 Bilirubin, Total 0.5 mg/dL (Normal) Range: 0.0-1.2 A/G Ratio 1.5 (Normal) Range: 1.1-2.5 Globulin, Total 2.7 g/dL (Normal) Range: 1.5-4.5 Albumin, Serum 4.1 g/dL (Normal) Range: 3.5-4.8 Protein, Total, Serum 6.8 g/dL (Normal) Range: 6.0-8.5 Calcium, Serum 10.0 mg/dL (Normal) Range: 8.7-10.3 Carbon Dioxide, Total 24 mmol/L (Normal) Range: 18-29 Chloride, Serum 105 mmol/L (Normal) Range: 97-108 Potassium, Serum 4.9 mmol/L (Normal) Range: 3.5-5.2 Sodium, Serum 145 mmol/L (Abnormal) Range: 134-144 BUN/Creatinine Ratio 21 (Normal) Range: 11-26 eGFR If Africn Am 70 mL/min/1.73 (Normal) eGFR If NonAfricn Am 61 mL/min/1.73 (Normal) Creatinine, Serum 0.91 mg/dL (Normal) Range: 0.57-1.00 BUN 19 mg/dL (Normal) Range: 8-27 Glucose, Serum 86 mg/dL (Normal) Range: 65-99 :36 LIPID PANEL (56581) Comments: PATIENT WAS FASTINGPERFORMED BY: One97 CommunicationsJefferson [facility])[id number] [facility] [id number] LDL/HDL Ratio 1.7 {ratio_units} (Normal) Range: 0.0-3.2 Comments: LDL/HDL Ratio Men Women 1/2 Avg.Risk 1.0 1.5 Av g.Risk 3.6 3.2 2X Avg.Risk 6.2 5.0 3X Avg.Risk 8.0 6.1 LDL Cholesterol Calc 92 mg/dL (Normal) Range: 0-99 VLDL Cholesterol Oren 31 mg/dL (Normal) Range: 5-40 HDL Cholesterol 54 mg/dL (Normal) Comments: According to ATP-III Guidelines, HDL-C >59 mg/dL is considered anegative risk factor for CHD. Triglycerides 156 mg/dL (Abnormal) Range: 0-149 Cholesterol, Total 177 mg/dL (Normal) Range: 100-199 :36 CBC with auto diff Comments: PATIENT WAS FASTINGPERFORMED BY: One97 CommunicationsJefferson [facility])[id number] [facility] [id number] Information: [id number]; apt. [birth year] (18188) Immature Grans (Abs) 0.0 {x10E3/uL} (Normal) Range: 0.0-0.1 Immature Granulocytes 0 % (Normal) Baso (Absolute) 0.1 {x10E3/uL} (Normal) Range: 0.0-0.2 Eos (Absolute) 0.1 {x10E3/uL} (Normal) Range: 0.0-0.4 Monocytes(Absolute) 0.7 {x10E3/uL} (Normal) Range: 0.1-0.9 Lymphs (Absolute) 2.3 {x10E3/uL} (Normal) Range: 0.7-3.1 Neutrophils (Absolute) 4.5 {x10E3/uL} (Normal) Range: 1.4-7.0 Basos 1 % (Normal) Eos 1 % (Normal) Monocytes 9 % (Normal) Lymphs 30 % (Normal) Neutrophils 59 % (Normal) Platelets 276 {x10E3/uL} (Normal) Range: 150-379 RDW 13.1 % (Normal) Range: 12.3-15.4 MCHC 33.8 g/dL (Normal) Range: 31.5-35.7 MCH 32.1 pg (Normal) Range: 26.6-33.0 MCV 95 fL (Normal) Range: 79-97 Hematocrit 43.2 % (Normal) Range: 34.0-46.6 Hemoglobin 14.6 g/dL (Normal) Range: 11.1-15.9 RBC 4.55 {x10E6/uL} (Normal) Range: 3.77-5.28 WBC 7.6 {x10E3/uL} (Normal) Range: 3.4-10.8 :47 CBC With Differential/Platelet Comments: PATIENT WAS FASTINGPERFORMED BY: [facility][id number] [facility] [id number] Information: [id number]; patient has fu 6-18 will review with her then Immature Grans (Abs) 0.0 {x10E3/uL} (Normal) Range: 0.0-0.1 Immature Granulocytes 0 % (Normal) Baso (Absolute) 0.0 {x10E3/uL} (Normal) Range: 0.0-0.2 Eos (Absolute) 0.2 {x10E3/uL} (Normal) Range: 0.0-0.4 Monocytes(Absolute) 0.7 {x10E3/uL} (Normal) Range: 0.1-0.9 Lymphs (Absolute) 2.2 {x10E3/uL} (Normal) Range: 0.7-3.1 Neutrophils (Absolute) 3.5 {x10E3/uL} (Normal) Range: 1.4-7.0 Basos 1 % (Normal) Eos 2 % (Normal) Monocytes 10 % (Normal) Lymphs 33 % (Normal) Neutrophils 54 % (Normal) Platelets 262 {x10E3/uL} (Normal) Range: 150-379 RDW 13.0 % (Normal) Range: 12.3-15.4 MCHC 33.7 g/dL (Normal) Range: 31.5-35.7 MCH 32.6 pg (Normal) Range: 26.6-33.0 MCV 97 fL (Normal) Range: 79-97 Hematocrit 40.7 % (Normal) Range: 34.0-46.6 Hemoglobin 13.7 g/dL (Normal) Range: 11.1-15.9 RBC 4.20 {x10E6/uL} (Normal) Range: 3.77-5.28 WBC 6.6 {x10E3/uL} (Normal) Range: 3.4-10.8 :47 Comp. Metabolic Panel (14) Comments: PATIENT WAS FASTINGPERFORMED BY: [employer]70 [facility] [id number] ALT (SGPT) 6 [iU]/L (Normal) Range: 0-32 AST (SGOT) 17 [iU]/L (Normal) Range: 0-40 Alkaline Phosphatase, S 70 [iU]/L (Normal) Range: 39-117 Bilirubin, Total 0.5 mg/dL (Normal) Range: 0.0-1.2 A/G Ratio 1.7 (Normal) Range: 1.1-2.5 Globulin, Total 2.3 g/dL (Normal) Range: 1.5-4.5 Albumin, Serum 4.0 g/dL (Normal) Range: 3.5-4.8 Protein, Total, Serum 6.3 g/dL (Normal) Range: 6.0-8.5 Calcium, Serum 10.2 mg/dL (Normal) Range: 8.7-10.3 Carbon Dioxide, Total 26 mmol/L (Normal) Range: 18-29 Chloride, Serum 102 mmol/L (Normal) Range: 97-108 Potassium, Serum 4.3 mmol/L (Normal) Range: 3.5-5.2 Sodium, Serum 142 mmol/L (Normal) Range: 134-144 BUN/Creatinine Ratio 24 (Normal) Range: 11-26 eGFR If Africn Am 67 mL/min/1.73 (Normal) eGFR If NonAfricn Am 58 mL/min/1.73 (Abnormal) Creatinine, Serum 0.95 mg/dL (Normal) Range: 0.57-1.00 BUN 23 mg/dL (Normal) Range: 8-27 Glucose, Serum 102 mg/dL (Abnormal) Range: 65-99 :47 Lipid Panel With LDL/HDL Comments: PATIENT WAS FASTINGPERFORMED BY: [employer]70 [facility] [id number] Ratio LDL/HDL Ratio 1.9 {ratio_units} (Normal) Range: 0.0-3.2 Comments: LDL/HDL Ratio Men Women 1/2 Avg.Risk 1.0 1.5 Av g.Risk 3.6 3.2 2X Avg.Risk 6.2 5.0 3X Avg.Risk 8.0 6.1 LDL Cholesterol Calc 86 mg/dL (Normal) Range: 0-99 VLDL Cholesterol Oren 25 mg/dL (Normal) Range: 5-40 HDL Cholesterol 45 mg/dL (Normal) Comments: According to ATP-III Guidelines, HDL-C >59 mg/dL is considered anegative risk factor for CHD. Triglycerides 126 mg/dL (Normal) Range: 0-149 Cholesterol, Total 156 mg/dL (Normal) Range: 100-199 :47 Microscopic Examination Comments: PATIENT WAS FASTINGPERFORMED BY: [id number] [facility] [id number] Bacteria Few (Normal) Mucus Threads Present (Normal) Epithelial Cells (non renal) 0-10 {/hpf} (Normal) Range: 0 - 10 RBC 0-2 {/hpf} (Normal) Range: 0 - 2 WBC 0-5 {/hpf} (Normal) Range: 0 - 5 :47 Urinalysis, Complete Comments: PATIENT WAS FASTINGPERFORMED BY: [employer] [id number] [facility] [id number] Microscopic Examination See below: (Normal) Comments: Microscopic was indicated and was performed. Microscopic Examination MICRON (Normal) Comments: Microscopic follows if indicated. Nitrite, Urine Negative (Normal) Urobilinogen,Semi-Qn 0.2 mg/dL (Normal) Range: 0.0-1.9 Bilirubin Negative (Normal) Occult Blood Negative (Normal) Ketones Negative (Normal) Glucose Negative (Normal) Protein Negative (Normal) WBC Esterase Negative (Normal) Appearance Clear (Normal) Urine-Color Yellow (Normal) pH 6.0 (Normal) Range: 5.0-7.5 Specific [place] 1.024 (Normal) Range: 1.005-1.030 63-Mdi-983617:50 CBC W/AUTO DIFF WBC Comments: PATIENT NOT FASTINGPERFORMED BY: [facility][id number] [facility] [id number] Information: [id number] (51698) Immature Grans (Abs) 0.0 {x10E3/uL} (Normal) Range: 0.0-0.1 Immature Granulocytes 0 % (Normal) Baso (Absolute) 0.0 {x10E3/uL} (Normal) Range: 0.0-0.2 Eos (Absolute) 0.1 {x10E3/uL} (Normal) Range: 0.0-0.4 Monocytes(Absolute) 0.6 {x10E3/uL} (Normal) Range: 0.1-0.9 Lymphs (Absolute) 2.8 {x10E3/uL} (Normal) Range: 0.7-3.1 Neutrophils (Absolute) 4.2 {x10E3/uL} (Normal) Range: 1.4-7.0 Basos 0 % (Normal) Eos 1 % (Normal) Monocytes 8 % (Normal) Lymphs 36 % (Normal) Neutrophils 55 % (Normal) Platelets 319 {x10E3/uL} (Normal) Range: 150-379 RDW 13.3 % (Normal) Range: 12.3-15.4 MCHC 33.2 g/dL (Normal) Range: 31.5-35.7 MCH 31.9 pg (Normal) Range: 26.6-33.0 MCV 96 fL (Normal) Range: 79-97 Hematocrit 41.3 % (Normal) Range: 34.0-46.6 Hemoglobin 13.7 g/dL (Normal) Range: 11.1-15.9 RBC 4.30 {x10E6/uL} (Normal) Range: 3.77-5.28 WBC 7.8 {x10E3/uL} (Normal) Range: 3.4-10.8 90-Ipr-088985:50 Metabolic Panel, Basic Comments: PATIENT NOT FASTINGPERFORMED BY: [facility]6370 [facility] [id number] ([id number]) Calcium, Serum 9.8 mg/dL (Normal) Range: 8.6-10.2 Carbon Dioxide, Total 25 mmol/L (Normal) Range: 18-29 Chloride, Serum 103 mmol/L (Normal) Range: 97-108 Potassium, Serum 4.8 mmol/L (Normal) Range: 3.5-5.2 Sodium, Serum 142 mmol/L (Normal) Range: 134-144 BUN/Creatinine Ratio 18 (Normal) Range: 11-26 eGFR If Africn Am 81 mL/min/1.73 (Normal) eGFR If NonAfricn Am 70 mL/min/1.73 (Normal) Creatinine, Serum 0.82 mg/dL (Normal) Range: 0.57-1.00 BUN 15 mg/dL (Normal) Range: 8-27 Glucose, Serum 87 mg/dL (Normal) Range: 65-99 :52 Urinalysis, Office (66569) UA - NITRITE Negative (Normal) UA - LEUKOCYTE ESTERASE Trace (Normal) URINE UROBILINGN DENNY TIMED Normal mg/dL (Normal) UA - PH 6.0 (Normal) UA - PROTEIN Negative mg/dL (Normal) UA - BLOOD Negative (Normal) UA - SPECIFIC GRAVITY 1.015 (Normal) UA - KETONES Negative mg/dL (Normal) UA - BILIRUBIN Negative (Normal) UA - GLUCOSE Negative (Normal) 03-Apr-20149:19 METABOLIC PANEL, COMPREHENSIVE Comments: PATIENT WAS FASTINGPERFORMED BY: [facility][id number] [facility] [id number] ([id number]) ALT (SGPT) 9 [iU]/L (Normal) Range: 0-32 AST (SGOT) 19 [iU]/L (Normal) Range: 0-40 Alkaline Phosphatase, S 80 [iU]/L (Normal) Range: 39-117 Bilirubin, Total 0.4 mg/dL (Normal) Range: 0.0-1.2 A/G Ratio 1.9 (Normal) Range: 1.1-2.5 Globulin, Total 2.2 g/dL (Normal) Range: 1.5-4.5 Albumin, Serum 4.2 g/dL (Normal) Range: 3.5-4.8 Protein, Total, Serum 6.4 g/dL (Normal) Range: 6.0-8.5 Calcium, Serum 9.2 mg/dL (Normal) Range: 8.6-10.2 Carbon Dioxide, Total 24 mmol/L (Normal) Range: 18-29 Chloride, Serum 104 mmol/L (Normal) Range: 97-108 Potassium, Serum 4.5 mmol/L (Normal) Range: 3.5-5.2 Sodium, Serum 143 mmol/L (Normal) Range: 134-144 BUN/Creatinine Ratio 20 (Normal) Range: 11-26 eGFR If Africn Am 76 mL/min/1.73 (Normal) eGFR If NonAfricn Am 66 mL/min/1.73 (Normal) Creatinine, Serum 0.86 mg/dL (Normal) Range: 0.57-1.00 BUN 17 mg/dL (Normal) Range: 8-27 Glucose, Serum 96 mg/dL (Normal) Range: 65-99 :19 LIPID PANEL (26882) Comments: PATIENT WAS FASTINGPERFORMED BY: [facility] [id number] LDL/HDL Ratio 1.6 {ratio_units} (Normal) Range: 0.0-3.2 Comments: LDL/HDL Ratio Men Women 1/2 Avg.Risk 1.0 1.5 Av g.Risk 3.6 3.2 2X Avg.Risk 6.2 5.0 3X Avg.Risk 8.0 6.1 LDL Cholesterol Calc 76 mg/dL (Normal) Range: 0-99 VLDL Cholesterol Oren 26 mg/dL (Normal) Range: 5-40 HDL Cholesterol 48 mg/dL (Normal) Comments: According to ATP-III Guidelines, HDL-C >59 mg/dL is considered anegative risk factor for CHD. Triglycerides 130 mg/dL (Normal) Range: 0-149 Cholesterol, Total 150 mg/dL (Normal) Range: 100-199 :19 CBC WITH MANUAL DIFF Comments: PATIENT WAS FASTINGPERFORMED BY: [employer]6370 [facility] [id number] Information: [id number] (16747) Immature Grans (Abs) 0.0 {x10E3/uL} (Normal) Range: 0.0-0.1 Immature Granulocytes 0 % (Normal) Baso (Absolute) 0.0 {x10E3/uL} (Normal) Range: 0.0-0.2 Eos (Absolute) 0.2 {x10E3/uL} (Normal) Range: 0.0-0.4 Monocytes(Absolute) 0.8 {x10E3/uL} (Normal) Range: 0.1-0.9 Lymphs (Absolute) 2.2 {x10E3/uL} (Normal) Range: 0.7-3.1 Neutrophils (Absolute) 8.2 {x10E3/uL} (Abnormal) Range: 1.4-7.0 Basos 0 % (Normal) Eos 2 % (Normal) Monocytes 7 % (Normal) Lymphs 19 % (Normal) Neutrophils 72 % (Normal) Platelets 249 {x10E3/uL} (Normal) Range: 150-379 RDW 13.3 % (Normal) Range: 12.3-15.4 MCHC 34.3 g/dL (Normal) Range: 31.5-35.7 MCH 32.3 pg (Normal) Range: 26.6-33.0 MCV 94 fL (Normal) Range: 79-97 Hematocrit 41.1 % (Normal) Range: 34.0-46.6 Hemoglobin 14.1 g/dL (Normal) Range: 11.1-15.9 RBC 4.36 {x10E6/uL} (Normal) Range: 3.77-5.28 WBC 11.4 {x10E3/uL} (Abnormal) Range: 3.4-10.8 14-Yru-394363:07 Urinalysis, Routine Comments: PERFORMED BY: [facility] [id number] Microscopic Examination MICRON (Normal) Comments: Microscopic follows if indicated. Nitrite, Urine Negative (Normal) Urobilinogen,Semi-Qn 0.2 mg/dL (Normal) Range: 0.0-1.9 Bilirubin Negative (Normal) Occult Blood Negative (Normal) Ketones Negative (Normal) Glucose Negative (Normal) Protein Negative (Normal) WBC Esterase Negative (Normal) Appearance Cloudy (Abnormal) Urine-Color Yellow (Normal) pH 6.0 (Normal) Range: 5.0-7.5 Specific [place] 1.020 (Normal) Range: 1.005-1.030 :14 MICROALBUMIN: CREATININE RATIO Comments: PERFORMED BY: [facility] [id number] ([id number]) AND ([id number]) Microalb/Creat Ratio 7.0 {mg/g_creat} (Normal) Range: 0.0-30.0 Creatinine, Urine 124.0 mg/dL (Normal) Range: 15.0-278.0 Microalbumin, Urine 8.7 ug/mL (Normal) Range: 0.0-17.0 :14 METABOLIC PANEL, COMPREHENSIVE Comments: PERFORMED BY: [employer]70 [employer], IncUNC [facility] Lenoir [id number] ([id number]) ALT (SGPT) 12 [iU]/L (Normal) Range: 0-32 AST (SGOT) 20 [iU]/L (Normal) Range: 0-40 Alkaline Phosphatase, S 80 [iU]/L (Normal) Range: 39-117 Bilirubin, Total 0.5 mg/dL (Normal) Range: 0.0-1.2 A/G Ratio 1.6 (Normal) Range: 1.1-2.5 Globulin, Total 2.5 g/dL (Normal) Range: 1.5-4.5 Albumin, Serum 4.0 g/dL (Normal) Range: 3.5-4.8 Protein, Total, Serum 6.5 g/dL (Normal) Range: 6.0-8.5 Calcium, Serum 9.2 mg/dL (Normal) Range: 8.6-10.2 Carbon Dioxide, Total 23 mmol/L (Normal) Range: 19-28 Chloride, Serum 107 mmol/L (Normal) Range: 97-108 Potassium, Serum 4.6 mmol/L (Normal) Range: 3.5-5.2 Sodium, Serum 142 mmol/L (Normal) Range: 134-144 BUN/Creatinine Ratio 16 (Normal) Range: 11-26 eGFR If Africn Am 71 mL/min/1.73 (Normal) eGFR If NonAfricn Am 62 mL/min/1.73 (Normal) BUN 15 mg/dL (Normal) Range: 8-27 Creatinine, Serum 0.91 mg/dL (Normal) Range: 0.57-1.00 Glucose, Serum 102 mg/dL (Abnormal) Range: 65-99 :14 LIPID PANEL ([id number]) Comments: PERFORMED BY: [facility] [id number] LDL/HDL Ratio 1.6 {ratio_units} (Normal) Range: 0.0-3.2 LDL Cholesterol Calc 82 mg/dL (Normal) Range: 0-99 VLDL Cholesterol Oren 21 mg/dL (Normal) Range: 5-40 Cholesterol, Total 153 mg/dL (Normal) Range: 100-199 HDL Cholesterol 50 mg/dL (Normal) Comments: According to ATP-III Guidelines, HDL-C >59 mg/dL is considered anegative risk factor for CHD. Triglycerides 107 mg/dL (Normal) Range: 0-149 [id number] CBC WITH MANUAL DIFF ([id number]) Comments: PERFORMED BY: [id number] [facility] [id number] Immature Grans (Abs) 0.0 {x10E3/uL} (Normal) Range: 0.0-0.1 Immature Granulocytes 0 % (Normal) Range: 0-2 Baso (Absolute) 0.0 {x10E3/uL} (Normal) Range: 0.0-0.2 Eos (Absolute) 0.1 {x10E3/uL} (Normal) Range: 0.0-0.4 Monocytes(Absolute) 0.6 {x10E3/uL} (Normal) Range: 0.1-0.9 Lymphs (Absolute) 1.9 {x10E3/uL} (Normal) Range: 0.7-3.1 Neutrophils (Absolute) 3.6 {x10E3/uL} (Normal) Range: 1.4-7.0 Basos 1 % (Normal) Range: 0-3 Eos 2 % (Normal) Range: 0-5 Monocytes 9 % (Normal) Range: 4-12 Lymphs 31 % (Normal) Range: 14-46 Neutrophils 57 % (Normal) Range: 40-74 Platelets 252 {x10E3/uL} (Normal) Range: 155-379 RDW 13.3 % (Normal) Range: 12.3-15.4 MCHC 34.1 g/dL (Normal) Range: 31.5-35.7 MCH 32.8 pg (Normal) Range: 26.6-33.0 MCV 96 fL (Normal) Range: 79-97 Hematocrit 42.8 % (Normal) Range: 34.0-46.6 Hemoglobin 14.6 g/dL (Normal) Range: 11.1-15.9 RBC 4.45 {x10E6/uL} (Normal) Range: 3.77-5.28 WBC 6.2 {x10E3/uL} (Normal) Range: 3.4-10.8 [id number] Urinalysis, Office ([id number]) UA - BILIRUBIN Negative (Normal) UA - BLOOD Negative (Normal) UA - GLUCOSE Negative (Normal) UA - KETONES Negative mg/dL (Normal) UA - LEUKOCYTE ESTERASE Negative (Normal) UA - NITRITE Negative (Normal) UA - PH 7.0 (Normal) UA - PROTEIN Negative mg/dL (Normal) UA - SPECIFIC GRAVITY 1.015 (Normal) URINE UROBILINGN DENNY TIMED Normal mg/dL (Normal) 92-Mym-02018:00 Microscopic Examination Comments: PATIENT WAS FASTINGPERFORMED BY: [facility] [id number] Bacteria Few (Normal) Mucus Threads Present (Normal) Epithelial Cells (non renal) >10 {/hpf} (Abnormal) Range: 0 - 10 RBC 0-3 {/hpf} (Normal) Range: 0 - 3 WBC 0-5 {/hpf} (Normal) Range: 0 - 5 6-Frr-642223:24 DEXA BONE DENSITY STUDY () Radiology Report See Note Comments: STUDY: DUAL ENERGY X-RAY ABSORPTIOMETRY / DXA REASON FOR EXAM: Female, 72 years old. The patient is postmenopausal. TECHNIQUE: Bone Mineral Density (BMD) measurements of unilateral hip(right) were (Normal) obtained. COMPARISON: None. FINDINGS: Lumbar Spine (L1-L4): g/cm2 (1.103) / T-score (-0.6) / Z-score (1.2)Findings are suggestive of normal bone density with a low fracture risk. Right Femur Total: g/cm2 (0.760) / T-score (-2.0) / Z-score (-0.2)Right Femoral Neck: g/cm2 (0.825) / T-score (-1.5) / Z- score (0.4) IMP RESSION:The patient is considered osteopenic as outlined below according to WorldHeath Organization (WHO) criteria with a moderate fracture risk Reference Information :The T-score is the number of standard deviations above or below thestandard which is normal for young adults at their peak bone mineraldensity. The World Health Organization (WHO) interprets the T-scor es asfollows: Above -1 Normal bone densityBetween -1 and -2.5 OsteopeniaEqual to / or below -2.5 Osteoporosis As a practical clinical guideline, osteopenia may be graded as follows:Mild -1 through -1.5Moderate -1.6 through -2.0Severe -2.1 through -2.4 The Z-score is the number of standard deviations above or below age-matchedcontrols. A Z- score of less than -1.5 would be considered ab normal. References:1. NIH Osteoporosis and Related Bone Diseases http://www.osteo.org2. International Society for Clinical Densitometry http://www.iscd.org3. National Osteoporosis Foundation http://w ww.nof.org Signed:Wil Roberts M.D.March 02, 2013 at 12:38:17 PM [phone] Signed GP/GP If you are the referring physician and would like to consult with theradiologist who provided this interpretation, please contact Syed Heath at [phone]. If this radiologist is unavailable, youwill be directed to another radiologist to assist. If you are a patient with a question regarding this report, pleasecontactyour referring physician directly. Professional Interpretation Provided By: [employer], Phone , These documents contain leg ally protected and confidential healthinformation intended only for the use of the individual or entity namedabove. If you are not the intended recipient, you are hereby notifiedthatany disclosure, copy ing, distribution, or other use of these documents isstrictly prohibited. If you have received this information in error,pleasenotify the sender immediately and arrange for the return or destructionofth lay documents. Dictated on 03/02/13 1238 by Vick Roberts MDranscribed on 03/02/13 1248 by ITS IMPORTSign by Wil Roberts MD on 03/02/13 1249 Sign by: Wil Roberts MD 5-Tng-222166:23 BILAT SCRN DIGITAL & CAD Radiology Report See Note Comments: MAMMOGRAPHY - BILATERAL SCREENING REASON FOR EXAM: Female, 72 years old. Routine annual screeningexamination. PERTINENT HISTORY: Mother with breast cancer. TECHNIQUE: Digital examination. Mediol (Normal) ateral oblique (MLO) andcraniocaudad (CC) views of both breasts were obtained. CAD: CAD wasperformed on this study. COMPARISON: Comparison is made with prior outside examination datedDece2010 . FINDINGS:The breast composition is composed of scattered fibroglandular tissuesranging from 25% to 50% of the breast. There are no dominant masses or suspicious calc ifications. No other significant abnormalities are identified. There has been nosignificant change since the prior study. IMPRESSION:Stable bilateral screening mammog clint. Yearly follow-up recommended. (A) ASSESSMENT CATEGORY:BIRADS Category 2: Benign finding(s). A letter regarding these resultswill be sent to the patient by [facility] within 30 days. Approximately 10% of breast cancers are not detected by mammography. Anormal mammogram should not delay biopsy of a clinically suspiciousabnormality. Signed:Wil Tripp i, M.D.March 07, 2013 at 9:25:55 AM [id number] Signed GP/GP If you are the referring physician and would like to consult with theradiologist who provided this interpretation, denita cotter contact Syed Heath at [phone]. If this radiologist is unavailable, youwill be directed to another radiologist to assist. If you are a patient with a question regarding this report, pleasecontactyour referring physician directly. Professional Interpretation Provided By: [employer], Phone , These documents contain legally protected and confidential hea lthinformation intended only for the use of the individual or entity namedabove. If you are not the intended recipient, you are hereby notifiedthatany disclosure, copying, distribution, or other use of these documents isstrictly prohibited. If you have received this information in error,pleasenotify the sender immediately and arrange for the return or destructionofthese documents. Dictated on 03/07 0925 by Alejandra DALE,Vickranscribed on 03/07/13 113 by ITS IMPORTSign by Wil Roberts MD on 03/07/131138 Sign by: Wil Roberts MD 18-Apr-689923:36 Urinalysis, Office ([id number]) UA - BILIRUBIN Negative (Normal) UA - BLOOD Hemolyzed Large (Normal) UA - GLUCOSE Negative (Normal) UA - KETONES Negative mg/dL (Normal) UA - LEUKOCYTE ESTERASE Moderate (Normal) UA - NITRITE Negative (Normal) UA - PH 7.0 (Normal) UA - PROTEIN Negative mg/dL (Normal) UA - SPECIFIC GRAVITY 1.015 (Normal) URINE UROBILINGN DENNY TIMED 2 mg/dL (Normal) 39-Qec-71060:00 URINALYSIS, W/ MICRO ([id number]) Comments: PATIENT WAS FASTINGPERFORMED BY: [facility]qlok9117 [facility] [id number] Microscopic Examination See below: (Normal) Nitrite, Urine Negative (Normal) Urobilinogen,Semi-Qn 0.2 mg/dL (Normal) Range: 0.0-1.9 Bilirubin Negative (Normal) Occult Blood Negative (Normal) Ketones Negative (Normal) Glucose Trace (Abnormal) Protein 1+ (Abnormal) WBC Esterase Negative (Normal) Appearance Cloudy (Abnormal) Urine-Color Yellow (Normal) pH 6.0 (Normal) Range: 5.0-7.5 Specific [place] 1.023 (Normal) Range: 1.005-1.030 76-Wwz-29017:00 METABOLIC PANEL, COMPREHENSIVE Comments: PATIENT WAS FASTINGPERFORMED BY: [facility]Xrdrfm8468 [facility] [id number] ([id number]) ALT (SGPT) 8 [iU]/L (Normal) Range: 0-32 AST (SGOT) 15 [iU]/L (Normal) Range: 0-40 Alkaline Phosphatase, S 104 [iU]/L (Normal) Range: 45-108 Bilirubin, Total 0.6 mg/dL (Normal) Range: 0.0-1.2 A/G Ratio 1.7 (Normal) Range: 1.1-2.5 Globulin, Total 2.4 g/dL (Normal) Range: 1.5-4.5 Albumin, Serum 4.1 g/dL (Normal) Range: 3.5-4.8 Protein, Total, Serum 6.5 g/dL (Normal) Range: 6.0-8.5 Calcium, Serum 9.8 mg/dL (Normal) Range: 8.6-10.2 Carbon Dioxide, Total 24 mmol/L (Normal) Range: 19-28 Chloride, Serum 104 mmol/L (Normal) Range: 97-108 Potassium, Serum 4.5 mmol/L (Normal) Range: 3.5-5.2 Sodium, Serum 143 mmol/L (Normal) Range: 134-144 BUN/Creatinine Ratio 20 (Normal) Range: 11-26 eGFR If Africn Am 74 mL/min/1.73 (Normal) eGFR If NonAfricn Am 64 mL/min/1.73 (Normal) Creatinine, Serum 0.89 mg/dL (Normal) Range: 0.57-1.00 BUN 18 mg/dL (Normal) Range: 8-27 Glucose, Serum 89 mg/dL (Normal) Range: 65-99 :00 LIPID PANEL ([id number]) Comments: PATIENT WAS FASTINGPERFORMED BY: One97 CommunicationsJeff[facility]Qmoyqv6927 [facility] [id number] LDL/HDL Ratio 1.7 {ratio_units} (Normal) Range: 0.0-3.2 LDL Cholesterol Calc 86 mg/dL (Normal) Range: 0-99 VLDL Cholesterol Oren 30 mg/dL (Normal) Range: 5-40 HDL Cholesterol 52 mg/dL (Normal) Comments: According to ATP-III Guidelines, HDL-C >59 mg/dL is considered anegative risk factor for CHD. Triglycerides 148 mg/dL (Normal) Range: 0-149 Cholesterol, Total 168 mg/dL (Normal) Range: 100-199 :00 CBC WITH MANUAL DIFF Comments: PATIENT WAS FASTINGPERFORMED BY: LabCoActivate HealthcareAljanr8466 [facility] [id number] Information: [id number] ([id number]) Immature Grans (Abs) 0.0 {x10E3/uL} (Normal) Range: 0.0-0.1 Immature Granulocytes 0 % (Normal) Range: 0-2 Baso (Absolute) 0.0 {x10E3/uL} (Normal) Range: 0.0-0.2 Eos (Absolute) 0.1 {x10E3/uL} (Normal) Range: 0.0-0.4 Monocytes(Absolute) 0.6 {x10E3/uL} (Normal) Range: 0.1-0.9 Lymphs (Absolute) 1.9 {x10E3/uL} (Normal) Range: 0.7-3.1 Neutrophils (Absolute) 3.6 {x10E3/uL} (Normal) Range: 1.4-7.0 Basos 1 % (Normal) Range: 0-3 Eos 2 % (Normal) Range: 0-5 Monocytes 9 % (Normal) Range: 4-12 Lymphs 31 % (Normal) Range: 14-46 Neutrophils 57 % (Normal) Range: 40-74 Platelets 239 {x10E3/uL} (Normal) Range: 155-379 RDW 13.4 % (Normal) Range: 12.3-15.4 MCHC 33.4 g/dL (Normal) Range: 31.5-35.7 MCH 32.1 pg (Normal) Range: 26.6-33.0 MCV 96 fL (Normal) Range: 79-97 Hematocrit 43.1 % (Normal) Range: 34.0-46.6 Hemoglobin 14.4 g/dL (Normal) Range: 11.1-15.9 RBC 4.49 {x10E6/uL} (Normal) Range: 3.77-5.28 WBC 6.2 {x10E3/uL} (Normal) Range: 3.4-10.8 :18 TSH ([id number]) Comments: PATIENT WAS FASTINGPERFORMED BY: One97 CommunicationsUnion County General HospitalIrhhty5708 [facility] [id number] TSH 1.990 {uIU/mL} (Normal) Range: 0.450-4.500 :18 MICROALBUMIN: CREATININE RATIO Comments: PATIENT WAS FASTINGPERFORMED BY: One97 CommunicationsUnion County General HospitalWesfmy5630 [facility] [id number] ([id number]) AND ([id number]) Creatinine, Urine 135.9 mg/dL (Normal) Range: 15.0-278.0 Microalb/Creat Ratio 1.1 {mg/g_creat} (Normal) Range: 0.0-30.0 Microalbumin, Urine 1.5 ug/mL (Normal) Range: 0.0-17.0 :18 METABOLIC PANEL, COMPREHENSIVE Comments: PATIENT WAS FASTINGPERFORMED BY: One97 CommunicationsJeff[facility])Oubxcm2744 [facility] [id number] ([id number]) ALT (SGPT) 11 [iU]/L (Normal) Range: 0-32 AST (SGOT) 17 [iU]/L (Normal) Range: 0-40 Alkaline Phosphatase, S 107 [iU]/L (Normal) Range: 25-165 A/G Ratio 1.6 (Normal) Range: 1.1-2.5 Bilirubin, Total 0.6 mg/dL (Normal) Range: 0.0-1.2 Globulin, Total 2.4 g/dL (Normal) Range: 1.5-4.5 Albumin, Serum 3.9 g/dL (Normal) Range: 3.5-4.8 Protein, Total, Serum 6.3 g/dL (Normal) Range: 6.0-8.5 Calcium, Serum 9.4 mg/dL (Normal) Range: 8.6-10.2 Carbon Dioxide, Total 24 mmol/L (Normal) Range: 20-32 Chloride, Serum 107 mmol/L (Normal) Range: 97-108 Potassium, Serum 4.6 mmol/L (Normal) Range: 3.5-5.2 Sodium, Serum 145 mmol/L (Abnormal) Range: 134-144 BUN/Creatinine Ratio 18 (Normal) Range: 11-26 eGFR If Africn Am 88 mL/min/1.73 (Normal) eGFR If NonAfricn Am 76 mL/min/1.73 (Normal) Creatinine, Serum 0.77 mg/dL (Normal) Range: 0.57-1.00 BUN 14 mg/dL (Normal) Range: 8-27 Glucose, Serum 88 mg/dL (Normal) Range: 65-99 :18 LIPID PANEL ([id number]) Comments: PATIENT WAS FASTINGPERFORMED BY: [employer]70 [facility] [id number] HDL Cholesterol 44 mg/dL (Normal) Comments: According to ATP-III Guidelines, HDL-C >59 mg/dL is considered anegative risk factor for CHD. LDL Cholesterol Calc 64 mg/dL (Normal) Range: 0-99 LDL/HDL Ratio 1.5 {ratio_units} (Normal) Range: 0.0-3.2 VLDL Cholesterol Oren 22 mg/dL (Normal) Range: 5-40 Cholesterol, Total 130 mg/dL (Normal) Range: 100-199 Triglycerides 108 mg/dL (Normal) Range: 0-149 :18 CBC WITH MANUAL DIFF Comments: PATIENT WAS FASTINGPERFORMED BY: [facility] Rec[facility] GroupJefferson [facility])Xcdats5975 [facility] [id number] Information: [id number] ([id number]) Immature Grans (Abs) 0.0 {x10E3/uL} (Normal) Range: 0.0-0.1 Immature Granulocytes 0 % (Normal) Range: 0-2 Baso (Absolute) 0.0 {x10E3/uL} (Normal) Range: 0.0-0.2 Eos (Absolute) 0.1 {x10E3/uL} (Normal) Range: 0.0-0.4 Monocytes(Absolute) 0.5 {x10E3/uL} (Normal) Range: 0.1-1.0 Lymphs (Absolute) 2.2 {x10E3/uL} (Normal) Range: 0.7-4.5 Neutrophils (Absolute) 3.7 {x10E3/uL} (Normal) Range: 1.8-7.8 Basos 1 % (Normal) Range: 0-3 Eos 2 % (Normal) Range: 0-7 Monocytes 8 % (Normal) Range: 4-13 Lymphs 33 % (Normal) Range: 14-46 Neutrophils 56 % (Normal) Range: 40-74 Platelets 320 {x10E3/uL} (Normal) Range: 140-415 RDW 12.9 % (Normal) Range: 12.3-15.4 MCHC 34.6 g/dL (Normal) Range: 31.5-35.7 MCH 32.0 pg (Normal) Range: 26.6-33.0 MCV 93 fL (Normal) Range: 79-97 Hematocrit 40.7 % (Normal) Range: 34.0-46.6 Hemoglobin 14.1 g/dL (Normal) Range: 11.1-15.9 RBC 4.40 {x10E6/uL} (Normal) Range: 3.77-5.28 WBC 6.6 {x10E3/uL} (Normal) Range: 4.0-10.5 Plan of Care Name Dates Details Instructions Hypertension, benign : HTN/CAD Red Flags Indication: Hypertension, benign Hypertension, benign : Continue Current Prescription(s) Indication: Hypertension, benign Hypertension, benign : Follow up in 3 weeks Indication: Hypertension, benign Hypertension, benign : Continue Current Prescription(s) Indication: Hypertension, benign Hypertension, benign : Diet, Exercise, and Wt loss Indication: Hypertension, benign Hypertension, benign : HTN/CAD Red Flags Indication: Hypertension, benign Annual Medicare Phyiscal WITHOUT abnormal findings (Renamed from Encounter for general adult medical examination without abnormal findings) : advance planning information Indication: Annual Medicare Phyiscal WITHOUT abnormal findings (Renamed from Encounter for general adult medical examination without abnormal findings) Annual Medicare Phyiscal WITHOUT abnormal findings (Renamed from Encounter for general adult medical examination without abnormal findings) : elderly packet given Indication: Annual Medicare Phyiscal WITHOUT abnormal findings (Renamed from Encounter for general adult medical examination without abnormal findings) Annual Medicare Phyiscal WITHOUT abnormal findings (Renamed from Encounter for general adult medical examination without abnormal findings) : fall reduction handout Indication: Annual Medicare Phyiscal WITHOUT abnormal findings (Renamed from Encounter for general adult medical examination without abnormal findings) Dysuria : Follow up if no improvement or if symptoms worsen Indication: Dysuria Urinary tract infection, acute : Urinary Tract Infection in Women *: bladder Indication: Urinary tract infection, acute Current nonsmoker (Renamed from Current non-smoker) : Eprescribed prescriptions (G8553) Indication: Current nonsmoker (Renamed from Current non-smoker) Hypertension, benign : Follow up in 6 months Indication: Hypertension, benign Encounter for screening for malignant neoplasm of colon (Renamed from Special screening for malignant neoplasms, colon) : *Colon Cancer Screening Indication: Encounter for screening for malignant neoplasm of colon (Renamed from Special screening for malignant neoplasms, colon) Ventricular hypokinesis : Reviewed Pin Worker Letter Indication: Ventricular hypokinesis Hypertension, benign : Reviewed Lab Indication: Hypertension, benign Hypercholesteremia : Cholesterol mgmt Indication: Hypercholesteremia Hypertension, benign : Diet, Exercise, and Wt loss Indication: Hypertension, benign Hypertension, benign : HTN/CAD Red Flags Indication: Hypertension, benign Hypertension, benign : Diet, Exercise, and Wt loss Indication: Hypertension, benign Hypertension, benign : HTN/CAD Red Flags Indication: Hypertension, benign BMI 27.0-27.9,adult : Eprescribed prescriptions (G8553) Indication: BMI 27.0-27.9,adult Annual Medicare Phyiscal WITHOUT abnormal findings (Renamed from Encounter for general adult medical examination without abnormal findings) : fall reduction handout Indication: Annual Medicare Phyiscal WITHOUT abnormal findings (Renamed from Encounter for general adult medical examination without abnormal findings) Annual Medicare Phyiscal WITHOUT abnormal findings (Renamed from Encounter for general adult medical examination without abnormal findings) : elderly packet given Indication: Annual Medicare Phyiscal WITHOUT abnormal findings (Renamed from Encounter for general adult medical examination without abnormal findings) Annual Medicare Phyiscal WITHOUT abnormal findings (Renamed from Encounter for general adult medical examination without abnormal findings) : advance planning information Indication: Annual Medicare Phyiscal WITHOUT abnormal findings (Renamed from Encounter for general adult medical examination without abnormal findings) Encounter for screening for malignant neoplasm of colon (Renamed from Special screening for malignant neoplasms, colon) : Self breast exam Indication: Encounter for screening for malignant neoplasm of colon (Renamed from Special screening for malignant neoplasms, colon) Encounter for screening for malignant neoplasm of colon (Renamed from Special screening for malignant neoplasms, colon) : *Colon Cancer Screening Indication: Encounter for screening for malignant neoplasm of colon (Renamed from Special screening for malignant neoplasms, colon) Vertigo : Reviewed Pin Worker Letter Indication: Vertigo Hypercholesteremia : Reviewed Lab Indication: Hypercholesteremia Hypertension, benign : HTN/CAD Red Flags Indication: Hypertension, benign Hypercholesteremia : Cholesterol mgmt Indication: Hypercholesteremia Hypertension, benign : Follow up in 3 months Indication: Hypertension, benign Current nonsmoker (Renamed from Current non-smoker) : Eprescribed prescriptions (G8553) Indication: Current nonsmoker (Renamed from Current non-smoker) Hypertension, benign : Follow up in 1 month Indication: Hypertension, benign Hypertension, benign : Eprescribed prescriptions (G8553) Indication: Hypertension, benign Hypertension, benign : follow up BP check in 2 weeks Indication: Hypertension, benign Hypertension, benign : Follow up in 3 months Indication: Hypertension, benign Urinary incontinence : Eprescribed prescriptions (G8553) Indication: Urinary incontinence Hypertension, benign : Follow up in 2 weeks Indication: Hypertension, benign Hypertension, benign : Eprescribed prescriptions (G8553) Indication: Hypertension, benign Rectocele : Follow up if no improvement or if symptoms worsen Indication: Rectocele Urinary incontinence : Eprescribed prescriptions (G8553) Indication: Urinary incontinence Hypertension, benign : Dizziness *: vertigo Indication: Hypertension, benign Hypertension, benign : Eprescribed prescriptions (G8553) Indication: Hypertension, benign Hypertension, benign : Eprescribed prescriptions (G8553) Indication: Hypertension, benign WWV V73.21 : Mammogram *: gynecological health Indication: WWV V73.21 Other specified viral infection, in conditions classified elsewhere and of unspecified site : Diet, Exercise, and Wt loss avoid salt Indication: Other specified viral infection, in conditions classified elsewhere and of unspecified site Other specified viral infection, in conditions classified elsewhere and of unspecified site : Follow up in 2 weeks Indication: Other specified viral infection, in conditions classified elsewhere and of unspecified site Other specified viral infection, in conditions classified elsewhere and of unspecified site : *URI Symptoms Indication: Other specified viral infection, in conditions classified elsewhere and of unspecified site Other specified viral infection, in conditions classified elsewhere and of unspecified site : *URI Treatment Indication: Other specified viral infection, in conditions classified elsewhere and of unspecified site Unspecified Diagnosis : Flu (Influenza) *: flu Indication: Unspecified Diagnosis Encounter for immunization : Shingles Vaccine Education 2005 Indication: Encounter for immunization Hypercholesteremia : High Cholesterol (Hypercholesterolemia) *: cardiovascular health Indication: Hypercholesteremia Dysuria : *UTI treatment Indication: Dysuria Hypertension, benign : High Blood Pressure (Essential Hypertension) *: blood Indication: Hypertension, benign Urinary incontinence : Urinary Incontinence *: incontinence Indication: Urinary incontinence Planned Observations URINALYSIS, W/ MICRO ([id number])Indication: Hypertension, benign On: 35-Bwj-696862:54 Request METABOLIC PANEL, COMPREHENSIVE (08291)Indication: Hypertension, benign On: 10-Hbj-803463:54 Request LIPID PANEL (16041)Indication: Hypertension, benign On: 28-Mon-375021:54 Request CBC with auto diff (47222)Indication: Hypertension, benign On: :54 Request URINALYSIS, W/ MICRO ([id number])Indication: Hypertension, benign On: 58-Epy-289668:23 Request METABOLIC PANEL, COMPREHENSIVE ([id number])Indication: Hypertension, benign On: 29-Swz-221645:23 Request LIPID PANEL (81918)Indication: Hypertension, benign On: 91-Nrj-327370:23 Request CBC with auto diff (17617)Indication: Hypertension, benign On: 43-Jlz-318301:23 Request Urinalysis, Office (41586)Indication: Proteinuria On: 38-Ith-574645:42 Request Planned Procedures SCREENING DIGITAL TOMOSYNTHESIS OF On: 26-Jan-2018 Intent BREAST ([id number])By: Radha Griffith DO, DO, Kathleen SCREENING DIGITAL TOMOSYNTHESIS OF On: 13-Aug-2017 Intent BREAST (06731)By: Radha Griffith DO, DO, Kathleen Flu Vaccine (Quadrivalent) 75117Ng: On: 16-Apr-2017 Intent Radha Griffith DO, DO, Comments: Lot #[id number]/13/17ite-L dltd, IMDose prefilled syringegiven by:Wilson, EDWINANESTRADA and ABN signed Rahda ELECTROCARDIOGRAM, COMPLETE (ECG) On: 16-Apr-2017 Intent (39005)By: Radha Griffith DO Comments: sinus mane - old LBBB no acute chg Radha Griffith DO CT - Brain/Head (Without On: 29-Jul-2016 Intent Contrast)By: Matthew Carrion MD MAMMOGRAM, SCREENING, BOTH BREAST On: 29-Jun-2016 Intent (78401)By: Matthew Carrion MD Nuclear Stress Test/Stress On: 29-Apr-2016 Intent SPECT/TreadmillBy: Matthew Carrion MD Echo CompleteBy: Matthew Carrion MD On: 29-Apr-2016 Intent Flu Vaccine (Quadrivalent) 91132Sl: On: 22-Apr-2016 Intent Matthew Carrion MD Comments: FLUlot: [id number]:12/25/16site:Lt deltoidroute:IMdose:.5mlMICHAEL, MA Bone Density StudyBy: Blanca DALE, On: 20-Aug-2015 Intent Ana Irwin Echo CompleteBy: Ana Rios MD On: 13-Jun-2015 Intent Bone Density StudyBy: Blanca DALE, On: 13-Jun-2015 Intent Ana Irwin BILATERAL MAMMOGRAMS ([id number])By: On: 13-Jun-2015 Intent Ana Rios MD DEXA SCAN AXIAL SKELETON (24373)By: On: 17-Dec-2014 Intent Ana Rios MD MAMMOGRAM, SCREENING, BOTH BREAST On: 17-Dec-2014 Intent (22846)By: Ana Rios MD BILATERAL MAMMOGRAMS (45237)By: On: 10-May-2014 Intent Ana Rios MD Prevnar 13 (79819)By: Blanca DALE, On: 03-May-2014 Intent Aan Irwin Radiology - ChestBy: Blanca DALE, On: 03-May-2014 Intent Ana Irwin TD VACCINE ADULT (70405)By: Blanca On: 16-Apr-2014 Intent Ana DALE Comments: lot [id number] L armroute imgiven by - msmithVIS and/or ABN signed Eprescribed prescriptions On: 16-Oct-2013 Intent (G8553)By: Ana Rios MD Eprescribed prescriptions On: 16-Oct-2013 Intent (G8553)By: Ana Rios MD Eprescribed prescriptions On: 05-May-2013 Intent (G8553)By: Laura Meneses Ultrasound - PelvisBy: Blanca DALE, On: 24-Apr-2013 Intent Ana Irwin DXA, BONE DENSITY, AXIAL SKELETON On: 18-Oct-2012 Intent (68345)By: Ana Rios MD Comments: estrogen def MAMMOGRAM, SCREENING, BOTH BREASTS On: 18-Oct-2012 Intent (20428)By: Ana Rios MD Eprescribed prescriptions On: 18-Oct-2012 Intent (G8553)By: Laura Meneses FLU VAC, SPLIT, >3 YEARS, INTRAMUSC On: 26-Apr-2012 Intent (66562)By: Ana Rios MD Comments: 10-12 MAMMOGRAM, SCREENING, BOTH BREASTS On: 26-Apr-2012 Intent (13296)By: Ana Rios MD Instructions Name Dates Details BMI 27.0-27.9,adult : How to access health information online Indication: BMI 27.0-27.9,adult BMI 27.0-27.9,adult : How to access health information online - Detail Indication: BMI 27.0-27.9,adult BMI 27.0-27.9,adult : Patient Instructions Indication: BMI 27.0-27.9,adult BMI 26.0-26.9,adult : How to access health information online Indication: BMI 26.0-26.9,adult BMI 26.0-26.9,adult : How to access health information online - Detail Indication: BMI 26.0-26.9,adult BMI 26.0-26.9,adult : Patient Instructions Indication: BMI 26.0-26.9,adult Current nonsmoker (Renamed from Current non-smoker) : How to access health information online Indication: Current nonsmoker (Renamed from Current non-smoker) Current nonsmoker (Renamed from Current non-smoker) : How to access health information online - Detail Indication: Current nonsmoker (Renamed from Current non-smoker) Current nonsmoker (Renamed from Current non-smoker) : Patient Instructions Indication: Current nonsmoker (Renamed from Current non-smoker) Current nonsmoker (Renamed from Current non-smoker) : How to access health information online Indication: Current nonsmoker (Renamed from Current non-smoker) Current nonsmoker (Renamed from Current non-smoker) : How to access health information online - Detail Indication: Current nonsmoker (Renamed from Current non-smoker) Urinary frequency : Patient Instructions Indication: Urinary frequency Current nonsmoker (Renamed from Current non-smoker) : How to access health information online Indication: Current nonsmoker (Renamed from Current non-smoker) Current nonsmoker (Renamed from Current non-smoker) : How to access health information online - Detail Indication: Current nonsmoker (Renamed from Current non-smoker) Current nonsmoker (Renamed from Current non-smoker) : Patient Instructions Indication: Current nonsmoker (Renamed from Current non-smoker) BMI 27.0-27.9,adult : How to access health information online Indication: BMI 27.0-27.9,adult BMI 27.0-27.9,adult : How to access health information online - Detail Indication: BMI 27.0-27.9,adult BMI 27.0-27.9,adult : Patient Instructions Indication: BMI 27.0-27.9,adult BMI 27.0-27.9,adult : How to access health information online Indication: BMI 27.0-27.9,adult BMI 27.0-27.9,adult : How to access health information online - Detail Indication: BMI 27.0-27.9,adult BMI 27.0-27.9,adult : Patient Instructions Indication: BMI 27.0-27.9,adult Current nonsmoker (Renamed from Current non-smoker) : How to access health information online Indication: Current nonsmoker (Renamed from Current non-smoker) Current nonsmoker (Renamed from Current non-smoker) : How to access health information online - Detail Indication: Current nonsmoker (Renamed from Current non-smoker) Current nonsmoker (Renamed from Current non-smoker) : Patient Instructions Indication: Current nonsmoker (Renamed from Current non-smoker) Current nonsmoker (Renamed from Current non-smoker) : How to access health information online Indication: Current nonsmoker (Renamed from Current non-smoker) Current nonsmoker (Renamed from Current non-smoker) : How to access health information online - Detail Indication: Current nonsmoker (Renamed from Current non-smoker) Current nonsmoker (Renamed from Current non-smoker) : Patient Instructions Indication: Current nonsmoker (Renamed from Current non-smoker) Hypertension, benign : How to access health information online Indication: Hypertension, benign Hypertension, benign : How to access health information online - Detail Indication: Hypertension, benign Hypertension, benign : Patient Instructions Indication: Hypertension, benign Urinary incontinence : How to access health information online Indication: Urinary incontinence Urinary incontinence : How to access health information online - Detail Indication: Urinary incontinence Urinary incontinence : Patient Instructions Indication: Urinary incontinence Hypertension, benign : How to access health information online Indication: Hypertension, benign Hypertension, benign : How to access health information online - Detail Indication: Hypertension, benign Hypertension, benign : Patient Instructions Indication: Hypertension, benign Encounter for Medicare annual wellness exam : How to access health information online Indication: Encounter for Medicare annual wellness exam Encounter for Medicare annual wellness exam : How to access health information online - Detail Indication: Encounter for Medicare annual wellness exam Encounter for Medicare annual wellness exam : Patient Instructions Indication: Encounter for Medicare annual wellness exam Urinary incontinence : How to access health information online Indication: Urinary incontinence Urinary incontinence : How to access health information online - Detail Indication: Urinary incontinence Urinary incontinence : Patient Instructions Indication: Urinary incontinence Hypertension, benign : How to access health information online Indication: Hypertension, benign Hypertension, benign : How to access health information online Indication: Hypertension, benign Hypertension, benign : How to access health information online - Detail Indication: Hypertension, benign Hypertension, benign : Patient Instructions Indication: Hypertension, benign Hypertension, benign : How to access health information online Indication: Hypertension, benign Hypertension, benign : How to access health information online - Detail Indication: Hypertension, benign WW V73.21 : Patient Instructions Indication: WWV V73.21 Hypercholesteremia : Patient Instructions Indication: Hypercholesteremia Unspecified Diagnosis : Patient Instructions Indication: Unspecified Diagnosis Hypercholesteremia : Patient Instructions Indication: Hypercholesteremia Hypertension, benign : Patient Instructions Indication: Hypertension, benign Urinary incontinence : Patient Instructions Indication: Urinary incontinence Advance Directives Name Dates Details Immunization Registry [place] - Effective on Effective: 09-Mar-201803/09/2018. Expiration date unspecified Encounters Office Visit On: 18-Mar-2018 10:05 Encounter Reason: Follow up Hypertension - blood pressure range :.Encounter Diagnosis: Current nonsmoker (Renamed from Current non-smoker), BMI 27.0-27.9,adult, Hypertension, benign, Therapeutic drug monitoring End: 18-Mar-2018 11:04 [facility] Office Visit On: 18-Feb-2018 9:46 Encounter Reason: Follow up acute care visit - The patient feels the same. Patient has been compliant with instructions. Current medication use: no side effects and compliant with dosing regimen. Patient sleeps 7 hours p End: 18-Feb-2018 10:44 er night. Impact of disease: emotional impact-mild. Nutrition: balanced diet and supplemental vitamins. The medical issues the patient is following up for include high blood pressure.Encounter Diagnosis: BMI 26.0-26.9,adult, Current nonsmoker (Renamed from Current non-smoker), Hypertension, benign [facility] Office Visit On: 26-Jan-2018 9:00 Encounter Reason: Annual Medicare Exam - The patient had reviewed and updated the family history, medication/s, past medical history and social history. Yes the patient did have a mini mental status exam done today. The End: 26-Jan-2018 10:24 activities of daily living the patient needs help with are none. The patient has driven in past 6 months, put area rugs through house and put handrails in bathroom, but the patient has not had fecal inc ontinence, had urinary incontinence, missed or ran out of medications to soon, fallen in the past 6 months, gotten lost or has a medalert necklace or bracelet. The patient has completed the following pr eventative measures: mammography (2017) and colonoscopy (2018). The patient does have durable power of deputy county attorney and living will. The patient has noticed nothing from the geriatic depression scale. Other providers contributing to the patient's care are [employer] [place] [employer].Encounter Diagnosis: BMI 26.0-26.9,adult, Current nonsmoker (Renamed from Current non-smoker), Annual Medicare Phyiscal WITHOUT abnormal findings (Renamed from Encounter for general adult medical examination without abnormal findings), Encounter for screening for malignant neoplasm of colon (Renamed from Special screening for malignant neoplasms, colon), Visit for screening mammogram, Postmenopausal [facility] Office Visit On: 11-Nov-2017 11:06 Encounter Reason: Urinary problems - The onset of the urinary problems has been sudden and they have been occurring for 1 day. The urinary problem is characterized as painful urination. Note for Urinary problems: Sympt End: 11-Nov-2017 11:44 oms started 1 day ago with burning with urination and pain goes throughout body, abd discomfort when urinating, urgency, just not feeling good, fatigued. No blood in urine, odor, vaginal discharge, itch ing, fever or chills, back pain. Had exp cipro at home and took 2 doses. History of UTI's.Encounter Diagnosis: Current nonsmoker (Renamed from Current non- smoker), BMI 28.0-28.9,adult, Urinary frequency, Urinary tract infection, acute, Dysuria [facility] Phone Encounter On: 01-Sep-2017 14:40 Encounter Diagnosis: Positive colorectal cancer screening using Cologuard test End: 01-Sep-2017 15:11 [facility] Office Visit On: 13-Aug-2017 8:58 Encounter Reason: Follow up for chronic medical issues - The patient feels well with minor complaints, has good energy level and is sleeping well. Patient has been compliant with instructions. Current medication use: no End: 13-Aug-2017 10:55 side effects and compliant with dosing regimen. Patient sleeps 6 hours per night. Nutrition: balanced diet and supplemental vitamins. The medical issues the patient is following up for include All ident ified problems below, high blood pressure, osteoporosis/osteopenia and other. weight :., [ADDITIONAL REASON] Follow up tests - Date: (08/10/17). Encounter Diagnosis: BMI 28.0-28.9,adult, Current nonsmoker (Renamed from Current non-smoker), Hypertension, benign, Hypercholesteremia, Vitamin D deficiency, Irritable Bowel Syndrome (564.1), Constipation, chronic, Osteoporosis, Visit for screening mammogram, Ventricular hypokinesis, Encounter for screening for malignant neoplasm of colon (Renamed from Special screening for malignant neoplasms, colon) [facility] Phone Encounter On: 10-Aug-2017 9:19 Encounter Diagnosis: Hypercholesteremia, Vitamin D deficiency, Hypertension, benign End: 10-Aug-2017 9:23 [facility] Office Visit On: 16-Apr-2017 13:17 Encounter Reason: high blood pressure - The symptoms have been associated with family history of hypertension, while the symptoms have not been associated with obesity. blood pressure range : (174/93 the first time I took it).Encounter Diagnosis: End: 16-Apr-2017 15:29 BMI 27.0-27.9,adult, Current nonsmoker (Renamed from Current non-smoker), Hypertension, benign, Edema extremities, Need for prophylactic vaccination and inoculation against influenza (Renamed from Need for immunization against influenza) [facility] Office Visit On: 09-Dec-2016 9:19 Encounter Reason: Annual Medicare Exam - The patient had reviewed and updated the family history, medication/s, past medical history and social history. Yes the patient did have a mini mental status exam done today. The End: 09-Dec-2016 12:58 activities of daily living the patient needs help with are none. The patient has driven in past 6 months, fallen in the past 6 months, put area rugs through house and put handrails in bathroom, but the patient has not had urinary incontinence, missed or ran out of medications to soon, gotten lost or has a medalert necklace or bracelet. The patient has completed the following preventative measures: PAP smear (5 yr), mammography (9 mo) and colonoscopy (5 yr). The patient does have durable power of deputy county attorney and living will. The patient has noticed nothing from the geriatic depression scale. Other provi ders contributing to the patient's care are [place] [place] and other:.Encounter Diagnosis: Current nonsmoker (Renamed from Current non-smoker), BMI 27.0-27.9,adult, Annual Medicare Phyiscal WITHOUT abnormal findings (Renamed from Encounter for general adult medical examination without abnormal findings), Visit for screening mammogram, Encounter for screening for malignant neoplasm of colon (Renamed from Special screening for malignant neoplasms, colon) [facility] Office Visit On: 11-Nov-2016 10:32 Encounter Reason: Follow up tests - Date: (11/04/16 labs)., [ADDITIONAL REASON] Follow up for chronic medical issues - The patient does not feel well (for last End: 11-Nov-2016 11:48 mo no energy and vertigo), has decreased energy level and is sleeping well. Patient has been compliant with instructions. Current medication use: no side effects and compliant with dosing regimen. Patie nt sleeps 6 hours per night. Nutrition: balanced diet and supplemental vitamins. The medical issues the patient is following up for include All identified problems below, high blood pressure, high sol sterol, osteoporosis/osteopenia and other (IBS). weight :. Encounter Diagnosis: Current nonsmoker (Renamed from Current non-smoker), BMI 27.0-27.9,adult, Hypercholesteremia, Osteoporosis, Vitamin D deficiency, Hypertension, benign, LBBB (left bundle branch block), Vertigo (780.4) [facility] Office Visit On: 29-Jul-2016 9:02 Encounter Reason: Follow up for chronic medical issues - The patient feels well with minor complaints (dry skin and itching), has good energy level and is sleeping well. Patient has been compliant with instructions. Curr End: 29-Jul-2016 15:29 ent medication use: no side effects (had isde effects rom atb in January - nausea and cramping from atb), compliant with dosing regimen and considered effective by patient. Patient sleeps 7 hours per nig ht. The medical issues the patient is following up for include cardiac issues, high blood pressure, high cholesterol, osteoarthritis, osteoporosis/osteopenia and other (menopause, constipation, IBS, urinary incont. ).Encounter Diagnosis: Current nonsmoker (Renamed from Current non-smoker), Hypertension, benign, BMI 27.0- 27.9,adult, Osteoporosis, Vitamin D deficiency, Hypercholesteremia, LBBB (left bundle branch block), Postmenopausal, Degenerative arthritis of right knee, Dry skin, Fall at home, Ventricular hypokinesis, Vertigo (780.4) [facility] Phone Encounter On: 07-May-2016 8:59 Encounter Diagnosis: Hypertension, benign End: 07-May-2016 9:01 [facility] Office Visit On: 29-Apr-2016 15:08 Encounter Reason: Hypertension - Management changes made at the last visit include adding new meds. Symptoms include headache.Encounter Diagnosis: Hypertension, benign, Vertigo (780.4), Abnormal EKG End: 30-Apr-2016 13:34 [facility] Office Visit On: 22-Apr-2016 11:46 Encounter Reason: Follow up tests - Date: (04.10.16).Encounter Diagnosis: Need for prophylactic vaccination and inoculation against influenza (Renamed from Need for immunization against influenza), Urinary incontinence, Hypertension, benign, End: 22-Apr-2016 16:03 Osteoporosis, Irritable Bowel Syndrome (564.1), Hypercholesteremia, Rectocele, LBBB (left bundle branch block), Menopause, Visit for screening mammogram, Constipation, chronic, Vitamin D deficiency [facility] Office Visit On: 08-Apr-2016 8:59 Encounter Reason: Follow up for chronic medical issues - The patient feels well with minor complaints (dry skin and itching), has good energy level and is sleeping well. Patient has been compliant with instructions. Curr End: 08-Apr-2016 23:31 ent medication use: no side effects (had isde effects rom atb in January - nausea and cramping from atb), compliant with dosing regimen and considered effective by patient. Patient sleeps 7 hours per nig ht. The medical issues the patient is following up for include cardiac issues, high blood pressure, high cholesterol, osteoarthritis, osteoporosis/osteopenia and other (menopause, constipation, IBS, urinary incont. ).Encounter Diagnosis: Hypertension, benign, Current nonsmoker (Renamed from Current non-smoker), BMI 27.0- 27.9,adult, Postmenopausal, LBBB (left bundle branch block), Rectocele, Hypercholesteremia, Urinary incontinence, Leukocytosis, Osteopenia, BMI 28.0-28.9,adult, Irritable Bowel Syndrome (564.1), Osteoporosis, Constipation, chronic, Vertigo (780.4) [facility] Phone Encounter On: 20-Aug-2015 8:15 Encounter Diagnosis: Postmenopausal End: 20-Aug-2015 8:26 [facility] Office Visit On: 13-Jun-2015 12:01 Encounter Diagnosis: LBBB (left bundle branch block) End: 13-Jun-2015 12:18 [facility] Office Visit On: 13-Jun-2015 10:59 Encounter Reason: Annual Medicare Exam - The patient had reviewed and updated the family history, medication/s, past medical history and social history. Yes the patient did have a mini mental status exam done today. The End: 13-Jun-2015 12:00 activities of daily living the patient needs help with are none. The patient has driven in past 6 months, put area rugs through house (fall handout given ) and put handrails in bathroom, but the patient has not had fecal incontinence, had urinary incontinence, missed or ran out of medications to soon, fallen in the past 6 months, gotten lost or has a medalert necklace or bracelet. The patient has comp leted the following preventative measures: PAP smear (over 70 ??and hx. of total hysterectomy ), mammography () and colonoscopy (2011). The patient does have durable power of deputy county attorney and living will. The patient has noticed nothing from the geriatic depression scale. Other providers contributing to the patient's care are gastrologist (Dr. Thayer ) and other: (opthalm: Dr. Estevez ).Encounter Diagnosis: Encounter for Medicare annual wellness exam, Current nonsmoker (Renamed from Current non-smoker), BMI 28.0-28.9,adult, Visit for screening mammogram, Osteopenia, Irritable Bowel Syndrome (564.1), Rectal bleed, Constipation, chronic, Leukocytosis, Menopause, Hypertension, benign, Urinary incontinence, Hypercholesteremia, Rectocele, Degenerative arthritis of right knee [facility] Phone Encounter On: 28-Mar-2015 14:50 Encounter Diagnosis: Degenerative arthritis of right knee End: 28-Mar-2015 14:56 [facility] Office Visit On: 14-Jan-2015 12:53 Encounter Reason: Bloody stools - The onset of the bloody stools has been sudden and they have been occurring in an intermittent pattern for 4 days. The course has been decreasing. The bloody stools are characterized as End: 14-Jan-2015 14:03 bloody toilet bowl water. The symptoms have been associated with change in bowel habits and painful bowel movements (just a little tender).Encounter Diagnosis: Rectocele, Rectal bleed [facility] Office Visit On: 17-Dec-2014 11:04 Encounter Reason: Follow up for chronic medical issues - The patient feels well with minor complaints, has good energy level and is sleeping well. Patient has been compliant with instructions. Current medication use: no End: 17-Dec-2014 11:39 side effects, compliant with dosing regimen and considered effective by patient. Patient sleeps 7 hours per night. Impact of disease: emotional impact-mild. Nutrition: balanced diet and supplemental vit amins. The medical issues the patient is following up for include cardiac issues, high blood pressure, high cholesterol, osteoarthritis, osteoporosis/osteopenia and other (menopause, constipation, IBS, urinary incont. ).Encounter Diagnosis: Incontinence of urine (788.30), Menopause, Hypertension,benign(401.1), Hypercholesteremia (272.0), Osteopenia (733.90), Leukocytosis, Constipation, chronic, Osteoarthritis (715.96), Irritable Bowel Syndrome (564.1), Rash, SCREENING FOR BREAST CANCER (V76.10) [facility] Office Visit On: 15-Nov-2014 14:11 Encounter Reason: Cough - The last clinic visit was 4 day(s) ago. Symptoms include cough, runny nose, stuffy nose and sore throat. The cough is described as dry. Cough onset was sudden 4 day(s) ago. Onset of cough follow End: 15-Nov-2014 14:35 ed cold symptoms. Symptoms are described as worsening. Symptoms are exacerbated by lying down, while symptoms are not exacerbated by smoke exposure, pollen exposure, animal exposure, going outside, acti vity, cold temperature or inhaled bronchodilator use. Symptoms are not relieved by air conditioning, humidified air, warm drinks, warm weather, avoiding irritants, resting, lying down, sitting up, cough drops, cough medicine, acetaminophen, nonsteroidal anti-inflammatory drugs or inhaled bronchodilator use. Associated symptoms do not include postnasal drainage, mouth breathing, noisy breathing, rapid breathing, hoarseness, painful swallowing, eye itching, nose itching, headache, hemoptysis or night sweats. The patient is not currently being treated for this problem. Previous presentation included a cough and a runny nose.Encounter Diagnosis: Cough [facility] Office Visit On: 20-Aug-2014 15:46 Encounter Reason: Follow up for chronic medical issues - The patient feels well with minor complaints (vertigo), has good energy level and is sleeping well. Patient has been compliant with instructions. Current medicatio End: 20-Aug-2014 16:30 n use: no side effects. Patient sleeps 7 hours per night. Nutrition: balanced diet. The medical issues the patient is following up for include All identified problems below.Encounter Diagnosis: Hypertension,benign(401.1), BMI 27.0-27.9,adult, Leukocytosis, Osteopenia (733.90), Incontinence of urine (788.30), Irritable Bowel Syndrome (564.1), Cough, Hypercholesteremia (272.0), Osteoarthritis (715.96), Vertigo (780.4), Constipation, chronic, Annual Medicare Physical (V70.0) [facility] Phone Encounter On: 10-May-2014 11:16 Encounter Diagnosis: SCREENING FOR BREAST CANCER (V76.10) End: 10-May-2014 11:19 [facility] Office Visit On: 03-May-2014 10:29 Encounter Reason: Follow up acute care visit - The patient feeling better since last seen and improving. Patient has been compliant with instructions. Current medication use: experiencing side effects (?lisinopril causin End: 03-May-2014 11:14 g cough ). Patient sleeps 7 hours per night. Impact of disease: emotional impact- mild. Nutrition: balanced diet and supplemental vitamins. The medical issues the patient is following up for include high blood pressure and URI.Encounter Diagnosis: Ear pain, left (388.70), Cough, Hypertension,benign(401.1), Need for vaccination against Streptococcus pneumoniae [facility] Office Visit On: 16-Apr-2014 10:32 Encounter Reason: Annual Medicare Exam - The patient had reviewed and updated the family history, medication/s, past medical history and social history. Yes the patient did have a mini mental status exam done today. The End: 16-Apr-2014 11:49 activities of daily living the patient needs help with are none. The patient has had fecal incontinence, driven in past 6 months, put area rugs through house and put handrails in bathroom. The patient h as completed the following preventative measures: PAP smear (2009), mammography () and colonoscopy (December 2011 ). The patient does have living will, but the patient does not have durable power of a ttorney. The patient has noticed nothing from the geriatic depression scale. Other providers contributing to the patient's care are gastrologist (Dr. Oneill ), urologist (Dr. Nathan Madsen ) and other: (Dr. Herb Ca)., [ADDITIONAL REASON] Follow up for chronic medical issues - The patient feels well with minor complaints. Patient has been compliant with instructions. Current medication use: no side effects. Patient s leeps 7 hours per night. Nutrition: balanced diet. The medical issues the patient is following up for include All identified problems below. Encounter Diagnosis: Annual Medicare Physical (V70.0), WWV V73.21, BMI 27.0-27.9,adult, Hypertension,benign(401.1), Osteopenia (733.90), Incontinence of urine (788.30), Hypercholesteremia (272.0), Osteoarthritis (715.96), Irritable Bowel Syndrome (564.1), Leukocytosis, Ear pain, left (388.70) [facility] Office Visit On: 03-Apr-2014 8:10 Encounter Reason: Follow up ER - Reason for hospitalization note: (HTN). Patient has been compliant with instructions. Current medication use: no side effects, compliant with dosing regimen and considered effective by pa End: 03-Apr-2014 9:16 tient. The patient feels well with minor complaints ( I have a cold, but am going to get the coriceden today )., [ADDITIONAL REASON] Hypertension - There has been no associated excessive caffeine intake or family history of hypertension. blood pressure range : (156/80, 142/80, ( yesterday)-145/73). Encounter Diagnosis: Hypertension,benign(401.1), VIRAL INFECTION, UNSPECIFIED (079.99) [facility] Phone Encounter On: 30-Mar-2014 6:57 [facility] End: 30-Mar-2014 6:58 Office Visit On: 16-Oct-2013 10:49 Encounter Reason: Follow up for chronic medical issues - The patient feels well with no complaints, has good energy level and is sleeping well (sometimes no). Patient has been compliant with instructions. Current medicat End: 16-Oct-2013 11:34 ion use: no side effects. Patient sleeps 7 hours per night. Impact of disease: no overall impact and no emotional impact. Nutrition: balanced diet. The medical issues the patient is following up for inc lude All identified problems below, high blood pressure, high cholesterol and osteoarthritis., [ADDITIONAL REASON] Follow up tests - Date: (10/05/13 blood work). Encounter Diagnosis: Irritable Bowel Syndrome (564.1), Hypertension,benign(401.1), Osteoarthritis (715.96), Hypercholesteremia (272.0), Incontinence of urine (788.30), Proteinuria (791.0), Osteopenia (733.90) [facility] Office Visit On: 05-May-2013 11:57 Encounter Diagnosis: Ear pain, left (388.70), Otitis externa (380.10) End: 05-May-2013 12:15 [facility] Office Visit On: 05-May-2013 11:45 Encounter Reason: Otitis Media - Symptoms include ear pain, while symptoms do not include fullness of the ear(s), popping sound in the ear(s), runny nose or stuffy nose. Symptoms are located in the left ear. The patient End: 05-May-2013 11:54 describes the pain as aching and throbbing. Onset was 4 day(s) ago. The symptoms occur constantly. The patient describes this as worsening. Associated symptoms do not include dizziness or headache. Current treatment includes acetaminophen. Encounter Diagnosis: Unspecified Diagnosis [facility] Office Visit On: 24-Apr-2013 9:58 Encounter Reason: Annual Medicare Exam - The patient had reviewed and updated the family history, medication/s, past medical history and social history. Yes the patient did have a mini mental status exam done today. The End: 24-Apr-2013 10:58 activities of daily living the patient needs help with are none. The patient has had urinary incontinence, driven in past 6 months, put area rugs through house and put handrails in bathroom. The patient has completed the following preventative measures: PAP smear (2011), mammography () and colonoscopy (). The patient does have durable power of deputy county attorney and living will. The patient has noti charly nothing from the geriatic depression scale. Other providers contributing to the patient's care are gastrologist (Dr. Higgins ([place]) ) and other: (Opthalm: Dr. Lafleur )., [ADDITIONAL REASON] Follow up for chronic medical issues - The patient feels well with minor complaints (see pt notes). Patient has been compliant with instructions. Current medication use: no side eff ects. Patient sleeps 7 hours per night. Impact of disease: no overall impact and no emotional impact. Nutrition: balanced diet. The medical issues the patient is following up for include All identified problems below. Encounter Diagnosis: Incontinence of urine (788.30), Hypercholesteremia (272.0), SHINGLES,NEED FOR PROPHYLACTIC VACCINATION AND INOCULATION AGAINST (V05.8), Annual Medicare Physical (V70.0), Osteopenia (733.90), Hypertension,benign(401.1), Irritable Bowel Syndrome (564.1), Proteinuria (791.0), Bloating (787.3) [facility] Office Visit On: 23-Feb-2013 10:33 Encounter Reason: UTI - The urinary symptoms are described as painful urination, frequency and burning. The symptoms have been occurring for 2 days and have been constant.Encounter Diagnosis: Dysuria (788.1) End: 23-Feb-2013 11:03 [facility] Office Visit On: 18-Oct-2012 11:34 Encounter Reason: Follow up for chronic medical issues - The patient feels well with minor complaints (discomfort under R breast that happens occassionally), has good energy level and is sleeping well. Patient has been c End: 18-Oct-2012 11:57 ompliant with instructions. Current medication use: no side effects and compliant with dosing regimen. Patient sleeps 8 (broken hours) hours per night. The medical issues the patient is following up for include high blood pressure, high cholesterol and other (IBS)., [ADDITIONAL REASON] Follow up tests - Date: (blood work on 10-10-12). Encounter Diagnosis: Hypertension,benign(401.1), Osteoarthritis (715.96), Hypercholesteremia (272.0), WWV V73.21, Headache (784.0), Incontinence of urine (788.30), Irritable Bowel Syndrome (564.1), Pelvis/Thigh/Hip Pain (719.45), CHEST PAIN (786.59), Disorder of anus (569.49), Vertigo (780.4) [facility] Office Visit On: 27-May-2012 11:45 Encounter Diagnosis: Incontinence of urine (788.30), Disorder of anus (569.49), WWV V73.21, Headache (784.0), Osteoarthritis (715.96), Irritable Bowel Syndrome (564.1), Hypertension,benign(401.1), CHEST PAIN (786.59), Hypercholesteremia (272.0), End: 27-May-2012 12:32 Pelvis/Thigh/Hip Pain (719.45) [facility] Office Visit On: 26-Apr-2012 14:04 Encounter Reason: Transition into care - The patient most recently received care from another physician (Dr Logan Florez).Encounter Diagnosis: Hypertension,benign(401.1), Headache (784.0), Osteoarthritis (715.96), WWV V73.21, End: 27-Apr-2012 7:22 Disorder of anus (569.49), Irritable Bowel Syndrome (564.1), Hypercholesteremia (272.0), Pelvis/Thigh/Hip Pain (719.45), CHEST PAIN (786.59) [facility] Payers MedicareAnthem FARRAH/[place]; a guarantor
--- OUTSIDE RECORDS SUMMARY | 2018-09-17 18:26 | XMS RPT_ITS | Continuity of Care Document ---
:1940 Author Organization [facility] Address [address] [facility] [place] [address] Phone Care Team Providers Name Role Phone Radha Griffith DO Unavailable [facility], [facility] Unavailable Farrah DALE, Dr. John [...] 2017-- and ended up having scope 2017 --[facility] Status: Active Hypercholesteremia (E78.00, 272.0) Status: [...] Comments: Rectocele repair By Alfredito Oneill at [facility] in [place] with previous anal sphincter reconstruction repairColonoscopy last 2011Has brittany analspincter muscle repain Status: Active Therapeutic drug monitoring (Z51.81, V58.83) Status: Active Urinary incontinence (R32, 788.30) Comments: Dr Madsen in [place]. doing good on meds. enablex(Darifenacin generic)Last saw [...] days Quantity: 90 {Tablet} Refills: 1 Ordered:11-May-2018 Shantelle Griffith DO, DO, Kathleen Start : 11-May-2018 [...] Oral Tablet 1 (one) Tablet qd for 90 days Quantity: 90 {Tablet} Refills: 3 Ordered:04-Jul-2018 Shantelle Griffith DO, DO, Kathleen Start : 04-Jul-2018 Active Simvastatin 20 MG Oral Tablet 1 [...] Kathleen Start : 18-Mar-2018 Active Vitamin D3 02126 UNIT Oral Tablet 1 (one) Tablet Tablet [...] 29-Jul-2016 Inactive MULTIVITAL (Oral Tablet) Inactive NYSTATIN-TRIAMCINOLONE, 496182-1.1UNIT/GM-% (External Cream) 1 (one) Cream Cream bid for 0 days Quantity: 1 {Tube} Refills: 0 Ordered:13-Jun-2015 ESTEPHANIA Arreola Start : 17-Dec-2014 End : 13-Jun-2015 Inactive ZOSTAVAX, 78146AGN/0.65ML (Subcutaneous Solution Reconstituted) uad For Solution one [...] VAC ADLT/IMUMNOSPR, SBC/INTRM Date: 26-Jan-2018 Completed 26-Jan-2018 (53225) Comments: Pneumovax 23lot [id number]/prefilledleanitha Grubbs LPN Annual Eye Exam Completed Comments: 2011 appendectomy Completed Comments: 1849, Dr Arreguin in [place] Blood Pressure Monitoring Completed Comments: 120-160 systolic range Cardiac Cath Completed Comments: 2005 -- [facility] Dr Neal Parraprolonged bleeding, no findings Cardiac Cath number 2 Completed Comments: 2010 --Dr Borja at [facility] -- neg findings and abnormal ecgs. Cataracts Completed Comments: Dr Farley in [place] -- 1997, revealed corneal scar Colonoscopy, Screening Completed Comments: December 2011 Hip Replacement Completed Comments: Left - Dr Donaldson in [facility] at [facility] hysterectomy Completed Comments: with bladder repair in 1976 at [facility] by Dr Liao in [place] Mammogram, Screening Completed Comments: 2010 Pap Smear Completed Comments: 2011 Rectal Sphincter Repair Completed Comments[facility] Repair Completed Comments: 2007 [facility] Nino Toe Repair Completed Comments: [address] Saavedra, in office, [place] Date Value Details 03-Sep-2017 SCREENING MAMM (CAD), BILAT Result: Comments: See Note; NOTES: [facility] Imaging Services [address] [place] [address] SCREENING MAMM (CAD), BILAT MR#: [id number] Acct: [id number] Name: ORAILA WEAVER Rep #: [id number] : 1940 F 77 From: Wil Roberts MD PCP: Radha Griffith DO Status: REG CLI Study: SCREENING MAMM (CAD), BILAT Date of Exam: 09/03/17 Exam# [id number] Ordering Dr: Radha Griffith DO MAMMOGRAPHY - [...] biopsy of a clinically tita picious abnormality. [id number] Electronically Signed: Wil Roberts MD at 15:26 EST Tel [phone], Service support , CC: Radha Griffith DO Manager Dairy: Signed 19-Jul-2017 PT D/C Summary (1) Result: Comments: See Note; NOTES: [facility] [address] [place] [address]. [address] [place], [place] [address] Fax REHABILITATION SERVICES DISCHAR GE SUMMARY MR#: [id number] Acct: [id number] Name: ORALIA WEAVER Rep #: [id number] : 1940 77 From: Shaun Saavedra DPT, [...] PT (1) Result: Comments: See Note; NOTES: [facility] [place] [address] Fax REEVALUATION / MEDICARE RECERTI [facility] MR#: [id number] Acct: [id number] Name: ORALIA WEAVER Rep #: [id number] : 1940 77 From: Shaun Saavedra DPT, [...] do not hesitate to contact me at [phone] by phone or if you have questions [...] - PT Result: Comments: See Note; NOTES: [facility] [facility] [address] [place] [address] Fax REHABILITATION SERVICES INITIAL EVALUATION MR#: [id number] Acct: [id number] Name: ORALIA WEAVER Rep #: [id number] [...] she can do them. Will go to [place] for Chirstmas in 10 days. This is [...] to be FAXED BACK to us at [phone] for Medicare purposes. Please let me know [...] - PT Result: Comments: See Note; NOTES: [facility] [address] [facility] [address] [address] [place], [place] [address] Fax REHABILITATION SERVICES INITIAL EVALUATION MR#: [id number] Acct: [id number] Name: ORALIA WEAVER Rep #: [id number] : 1940 76 From: Shaun Saavedra DPT, TERESITA, CSCS Referring Dr.: Radha Griffith DO Status: REG RCR Insurance: [facility] PART [facility] B [facility] Patient's Visit Information ORALIA WEAVER is a [...] to be FAXED BACK to us at [phone] for Medicare purposes. Please let me know if there are question s or concerns regarding this plan of care. Physician Signature: Date: <Electronically signed by Shaun Saavedra DPT, OCS, CSCS&#62 ; 11/25/16 0740 CC: Radha Griffith DO EBAyala Signed For Medicare only, by signing this I certify the plan of care. Physicians Signature Date 29-Jul-2016 Brain/Head without Contrast Result: Comments: See Note; NOTES: [facility] Imaging Services [address] [place] [address] Skylar 4d Brain/Head without Contrast MR#: [id number] Acct: [id number] Name: ORALIA WEAVER Rep #: [id number] : 1940 F 76 From: Wil Roberts MD PCP: Matthew Carrion Status: REG CLI Study: Brain/Head without Contrast Date of Exam: 07/29/16 Exam# [id number] Ordering Dr: Matthew Carrion STUDY: CT BRAIN [...] Wil Roberts MD at 11:39 EST Tel [phone], Service support [phone], CC: Matthew Carrion Manager Dairy: Signed 09-Jul-2016 SCREENING MAMM (CAD), BILAT Result: Comments: See Note; NOTES: [facility] Imaging Services [address] [place] [address] Verdana 4d SCREENING MAMM (CAD), BILAT MR#: [id number] Acct: [id number] Name: ORALIA WEAVER Rep #: [id number] : 1940 F 76 From: Wil Roberts MD PCP: Matthew Carrion Status: REG CLI Study: SCREENING MAMM (CAD), BILAT Date of Exam: 07/09/16 Exam# [id number] Ordering Dr: Matthew Carrion MAMMOGRAPHY - BILATERAL [...] delay biopsy of a clinically suspicious abnormality. [id number] Electronically Signed: Wil Roberts MD at 14:00 EST Tel [phone], Service support [phone], CC: Matthew Carrion Manager Dairy: Signed 08-May-2016 Echocardiogram Complete Result: Comments: See Note; NOTES: [facility] Cardiovascular Services [address] [place] [address] Echo Complete 05/08/16 0934 MR#: [id number] Acct: [id number] Name: ORALIA WEAVER p #: [id number] : 1940 76 From: John Chambers MD Attending Dr: Geovanni Carrion Status: REG CLI Ordering Dr: Geovanni Carrion MD Date: 05/08/16 Location: [facility] Sex: F C Admitted: Reason For [...] : 05/08/16 0934 Date Transcribed: 05/08/16 1221 Manager Dairy: Signed 08-May-2016 Nuclear Stress Test - Chemical Result: Comments: See Note; NOTES: [facility] Imaging Services [address] [place] [address] Skylar 4d Nuclear Stress Test - Chemical MR#: [id number] Acct: [id number] Name: WES WEAVER Rep #: [id number] : 1940 76 From: Frederick Neil MD [...] 63%. Frederick Neil MD T: NTS JOB: [id number] 05/08/16 1247 &#60 ;Electronically signed by Frederick Neil MD> Date Frederick Neil MD CC: Matthew Carrion Date Dictated: 05/08/16 1149 Date Transcribed: 05/08/161148 Manager Dairy: Signed 08-Jul-2015 Echocardiogram Complete Result: Comments: See Note; NOTES: [facility] Cardiovascular Services [address] [place] [address] Echo Complete 07/08/15 1302 MR#: [id number] Acct: [id number] Name: ORALIA MORTENSEN OD Rep #: [id number] : 1940 75 From: Rob Keating MD Attending Dr: Ana Rios MD Status: REG CLI Ordering Dr: Ana Rios MD Date: 07/08/15 Location: [facility] Sex: F C Admitted: Procedure This [...] Ana Rios M.D. Performed By: Nidhi Cheatham [facility] 07/08/15 1603 Date ____ Rob Keating MD CC: Ana Rios MD Date Dictated: 07/08/15 1302 Date Transcribed: 07/08/15 1603 Manager Dairy: Signed 26-Jun-2015 Bilat Scrn Digital AND CAD Result: Comments: See Note; NOTES: [facility] Imaging Services [address] [place] [address] Verdana 4d Bilat Scrn Digital AND CAD MR#: [id number] Acct: [id number] Name: ORALIA WEAVER Rep #: [id number] : 1940 F 75 From: Prakash Gutierrez MD PCP: Ana Rios MD Status: REG CLI Study: Bilat Scrn Digital AND CAD Date of Exam: 06/26/15 Exam# [id number] Ordering Dr: Ana Lam MD MAMMOGRAPHY - [...] biops y of a clinically suspicious abnormality. [id number] Electronically Signed: Guillermo Gutierrez MD at 10:18 EST Tel , Service support [phone], CC: Ana Rios MD Manager Dairy: Signed 26-Jun-2015 Dexa Bone Density Study (HP) Result: Comments: See Note; NOTES: [facility] Imaging Services [address] [place] [address] Verdana 4d Dexa Bone Density Study (HP) MR#: [id number] Acct: [id number] Name : ORALIA WEAVER Rep #: [id number] : 1940 F 75 From: Wil Roberts MD PCP: Ana Rios MD Status: REG CLI Study: Dexa Bone Density Study () Date of Exam: 06/26/15 Exam# [id number] Ordmagali owen Dr: Ana Rios MD STUDY: [...] Wil Roberts MD at 16:10 EST Tel [phone], Service support [phone], CC: Ana Rios MD Manager Dairy: Signed 13-Jun-2015 EKG (53521) Result: [MEASUREMENTS ANALYSIS] Date of Test: 06/13/2015 12:06:43; Heart Rate: 53; UT Interval: 194; QRS: 131; QT Interval: 494; Corrected QT Interval (QTc): 482; P Wave Sunbury: 57; QRS Wave Sunbury: -40; T Wave Axi s: 127; Blood Pressure: 138/82 [ECG DIAGNOSTIC STATEMENTS] Date of Test: 06/13/2015 12:06:43; Summary: Sinus Bradycardia -Left bundle branch block and left axis. ABNORMAL 14-May-2014 Bilat Scrn Digital & CAD Result: Comments: See Note; NOTES: [facility] Imaging Services [address] [place] [address] Breast Imaging Report MR#: [id number] Acct: [id number] Name: ORALIA WEAVER Rep #: [id number] : 1940 F 74 From: Wil Roberts MD PCP: Ana Rios MD Status: REG CLI Exam# [id number] Ordering Dr: Ana Rios MD MAMMOGRAPHY - [...] Wil Roberts MD at 10:56 EST Tel [phone], Service support [phone], CC: Ana Rios MD Manager Dairy: Signed 03-May-2014 Chest PA and Lateral Result: Comments: See Note; NOTES: [facility] Imaging Services [address] [place] [address] Radiology Report MR#: [id number] Acct: [id number] Name: ORALIA WEAVER Rep #: [id number] : 1940 F 74 From: Ric Avila MD PCP: Ana Rios MD Status: REG CLI Study: Chest PA and Lateral Date of Exam: 05/03/14 Exam# [id number] Ordering Dr: Ana Rios MD STUDY: X-RAY [...] at 13:27 EST Tel , Service support [phone], CC: Ana Rios MD Manager Dairy: Signed 16-Oct-2013 EKG (66034) Comments: see scanned document of test done to see results reviewed today with patient Result: [MEASUREMENTS ANALYSIS] Date of Test: 10/16/2013 11:44:55; Heart Rate: 54; UT Interval: 202; QRS: 96; QT Interval: 442; Corrected QT Interval (QTc): 432; P Wave Sunbury: 55; QRS Wave Sunbury: -22; T Wave Sunbury : 112; Blood Pressure: 124/84 [ECG DIAGNOSTIC STATEMENTS] Date of Test: 10/16/2013 11:44:55; Summary: Sinus Bradycardia Voltage criteria for LVH (R(V6) exceeds 2.26 mV). -Old anterior infarct. -Nons pecific ST depression + T-abnormality -Seen with left ventricular hypertrophy (strain) or digitalis effect consider Anterolateral ischemia. ABNORMAL [MEASUREMENTS ANALYSIS] Date of Test: 014 11:44:11; Heart Rate: 56; UT Interval: 192; QRS: 96; QT Interval: 444; Corrected QT Interval (QTc): 437; P Wave Sunbury: 63; QRS Wave Sunbury: -20; T Wave Sunbury: 125; Blood Pressure: 124/84 [ECG DIAGNOSTIC STATEMENTS] [...] (Non ) Result: Comments: See Note; NOTES: [facility] Imaging Services [address] [place] [address] Ultrasound Report MR#: [id number] Acct: [id number] Name: ORALIA WEAVER Rep #: [id number] : 1940 F 73 From: Wil Roberts MD PCP: Status: REG CLI Study: Pelvic (Non ) Date of Exam: 04/28/13 Exam# [id number] Ordering Dr: Ana Rios MD STUDY: ULTRASOUND [...] April 28, 2013 at 2:56:24 PM EDT [phone] Electronically Signed GP/GP If you are the referring physician and would like to consult with the radiologist who p rovided this interpretation, please contact Wil Roberts M.D. at [phone]. If this radiologist is unavailable, you will be directed to another radiologist to assist. If you are a patient with a question regarding this report, please contact your referring physician directly. Professional Interpretation Provided By: [employer], Phone , These documents contain legally protected [...] of these documents. CC: Ana Rios MD Manager Dairy: Signed Immunization Name Dates Details Influenza (3 years and up) on: 2017 Pneumococcal (2 years and up) on: 26-Jan-2018 Comments: Site: Left Deltoid Lot #: [id number] Zoster (shingles) Comments: 2012 [facility] Family History Unknown Family Member Name Dates Details Father Comments: Depression and Kidney Status: Active Mother Comments: Breast Ca and Diabetes Status: Active Sister 1 Comments: Depression/Emotional problems Status: Active Social History Name Dates Details Caffeine Use Comments: 1 cup/day Status: Active Exercise History Comments: 1-2 weekly, light Status: Active Living Situation Comments: , moved from [place] Status: Active No Drug Use Status: Active Non Drinker/No Alcohol Use Status: Active Non Smoker/No Tobacco Use Status: Active Tobacco use: Never smoker. Status: Active Smoking Status Name Dates Details Never smoker Vital Signs Date Test Result Details 53-Keu-821475:24 Pulse 63 /min Comments: Pattern: Regular Respiration [...] kg/m2 Body Surface Area Calculated 1.81 m2 38-Wke-253242:22 Temperature 97 f Comments: Method: Temporal Pulse [...] kg/m2 Body Surface Area Calculated 1.81 m2 72-Poq-974478:34 Temperature 97.6 f Comments: Method: Oral Pulse [...] 163 lb Results Date Description Value Details 04-Tcp-440968:56 Metabolic Panel, Basic Comments: PATIENT NOT FASTINGPERFORMED BY: [facility] [facility] [id number] (69127) Calcium 9.9 mg/dL (Normal) Range: 8.7-10.3 Carbon [...] 8-27 Glucose 85 mg/dL (Normal) Range: 65-99 32-Xfu-757877:11 URINE ANDER CULTURE-IDENTIFICATN Comments: PATIENT NOT FASTINGPERFORMED BY: [facility] HospitalCjoxcn5563 [facility] [id number] Information: SRC:UC (67055) Result 1 NG36 (Normal) Comments: No growth in 36 - 48 hours. Urine Culture,Comprehensive Final report (Normal) 03-Aer-746583:08 Urinalysis, Office (07929) UA - LEUKOCYTE ESTERASE Trace (Normal) Comments: sent to lab UA - NITRITE Negative (Normal) URINE UROBILINGN DENNY TIMED Normal mg/dL (Normal) UA - PROTEIN Negative mg/dL (Normal) UA - PH 6 (Abnormal) UA - BLOOD Non Hemolyzed Trace (Normal) UA - SPECIFIC GRAVITY 1.015 (Normal) UA - KETONES Negative mg/dL (Normal) UA - BILIRUBIN Negative (Normal) UA - GLUCOSE Negative (Normal) 83-Nvi-411036:07 TSH (67232) Comments: PATIENT WAS FASTINGPERFORMED BY: [facility] Ndmyoj3021 [facility] [id number] TSH 2.410 {uIU/mL} (Normal) Range: 0.450-4.500 24-Jiu-329022:07 Metabolic Panel, Comprehensive Comments: PATIENT WAS FASTINGPERFORMED BY: [employer] [facility] [id number] (67419) ALT (SGPT) 8 [iU]/L (Normal) Range: 0-32 [...] Glucose, Serum 97 mg/dL (Normal) Range: 65-99 70-Qhg-947908:07 CALCIFEDIOL (50936) Comments: PATIENT WAS FASTINGPERFORMED BY: [facility] Fasmzt5125 [facility] [id number] Vitamin D, 25-Hydroxy 52.1 ng/mL (Normal) Range: 30.0-100.0 Comments: Vitamin D deficiency has been defined by the [place] of[place]icine and an Endocrine Society practice guideline as alevel of serum 25-OH vitamin D less than 20 ng/mL (1,2).The Endocrine Society went on to further define vitamin Dinsufficiency as a level between 21 and 29 ng/mL (2).1. IOM ([place] of Medicine). 2010. Dietary reference intakes for calcium and D. [place]: The National Academies Press.2. Solo MF, Irma COATES, Derrek RAMIREZ, et al. Evaluation, treatment, and prevention of vitamin D deficiency: an Endocrine Society clinical practice guideline. JCEM. 2010; 96(7):1911-30. 31-Lpz-989981:07 Lipid Panel (58251) Comments: PATIENT WAS FASTINGPERFORMED BY: Rem[facility] Dgzadp0911 [employer] [place] [id number] LDL/HDL Ratio 2.1 {ratio_units} (Normal) Range: 0.0-3.2 Comments: LDL/HDL Ratio Men Women 1/2 Avg.Risk 1.0 1.5 Av g.Risk 3.6 3.2 2X Avg.Risk 6.2 5.0 3X Avg.Risk 8.0 6.1 LDL Cholesterol Calc 105 mg/dL (Abnormal) Range: 0-99 VLDL Cholesterol Oren 27 mg/dL (Normal) Range: 5-40 HDL Cholesterol 50 mg/dL (Normal) Triglycerides 136 mg/dL (Normal) Range: 0-149 Cholesterol, Total 182 mg/dL (Normal) Range: 100-199 07-Mph-237488:07 CBC, Platelets & Auto Diff Comments: PATIENT WAS FASTINGPERFORMED BY: Rem[facility] Qaumaf7783 [facility] [id number] (58826) Immature Grans (Abs) 0.0 {x10E3/uL} (Normal) Range: [...] 6.5 {x10E3/uL} (Normal) Range: 3.4-10.8 :16 CALCIFEDIOL (07186) Comments: PATIENT WAS FASTINGPERFORMED BY: [facility] [facility] [id number] Vitamin D, 25-Hydroxy 35.3 ng/mL (Normal) Range: 30.0-100.0 Comments: Vitamin D deficiency has been defined by the [place] of[place]icine and an Endocrine Society practice guideline as alevel of serum 25-OH vitamin D less than 20 ng/mL (1,2).The Endocrine Society went on to further define vitamin Dinsufficiency as a level between 21 and 29 ng/mL (2).1. IOM ([place] of Medicine). 2010. Dietary reference intakes for calcium and D. [place]: The National Academies Press.2. Solo MF, Irma [place], Derrek RAMIREZ, et al. Evaluation, treatment, and prevention of vitamin D deficiency: an Endocrine Society clinical practice guideline. JCEM. 2010; 96(7):1911-30. 38-Lrx-19725:16 TSH (THYROID STIMULATING Comments: PATIENT WAS FASTINGPERFORMED BY: [facility] [facility] [id number] HORMONE) (91503) TSH 2.460 {uIU/mL} (Normal) Range: 0.450-4.500 :16 LIPID PANEL (15848) Comments: PATIENT WAS FASTINGPERFORMED BY: [facility] [facility] [id number] LDL/HDL Ratio 1.6 {ratio_units} (Normal) Range: 0.0-3.2 [...] PANEL, COMPREHENSIVE Comments: PATIENT WAS FASTINGPERFORMED BY: [employer] Transportation ServicesAnna Ville 2744970 [facility] [id number] (36589) ALT (SGPT) 8 [iU]/L (Normal) Range: 0-32 [...] Glucose, Serum 83 mg/dL (Normal) Range: 65-99 93-Sus-67612:16 CBC, PLATELETS & AUT DIFF Comments: PATIENT WAS FASTINGPERFORMED BY: [facility] Nqgwup0898 [facility] [id number]; fu 5-17 KF (38441) Immature Grans (Abs) 0.0 {x10E3/uL} (Normal) Range: [...] PANEL, COMPREHENSIVE Comments: PATIENT WAS FASTINGPERFORMED BY: [facility] [id number] (60419) ALT (SGPT) 9 [iU]/L (Normal) Range: 0-32 [...] Glucose, Serum 95 mg/dL (Normal) Range: 65-99 24-Urb-582781:02 CALCIFEDIOL (29655) Comments: PATIENT WAS FASTINGPERFORMED BY: PodaddiesLovelace Rehabilitation HospitalHndlwd7325 [facility] [place] [id number] Vitamin D, 25-Hydroxy 46.6 ng/mL (Normal) Range: 30.0-100.0 Comments: Vitamin D deficiency has been defined by the [place] of[place]icine and an Endocrine Society practice guideline as alevel of serum 25-OH vitamin D less than 20 ng/mL (1,2).The Endocrine Society went on to further define vitamin Dinsufficiency as a level between 21 and 29 ng/mL (2).1. IOM ([place] of Medicine). 2010. Dietary reference intakes for calcium and D. [place]: The National Academies Press.2. Solo MF, Irma COATES, Derrek RAMIREZ, et al. Evaluation, treatment, and prevention of vitamin D deficiency: an Endocrine Society clinical practice guideline. JCEM. 2010; 96(7):1911-30. 19-Atz-343738:30 MICROALBUMIN: CREATININE RATIO Comments: PATIENT WAS FASTINGPERFORMED BY: [facility] Wkopgb6673 [facility] [id number] (46964) AND (39639) Microalb/Creat Ratio 4.5 {mg/g_creat} (Normal) Range: 0.0-30.0 Microalbumin, Urine 3.5 ug/mL (Normal) Creatinine, Urine 78.3 mg/dL (Normal) 98-Yij-212179:30 VITAMIN B12 AND FOLATES Comments: PATIENT WAS FASTINGPERFORMED BY: [facility] Sswwfu0467 [facility] [place] [id number] (84185) Folate (Folic Acid), Serum 19.0 ng/mL (Normal) Comments: A serum folate concentration of less than 3.1 ng/mL isconsidered to represent clinical deficiency. Vitamin B12 431 pg/mL (Normal) Range: 211-946 32-Wmu-444669:30 CALCIFEDIOL (99471) Comments: PATIENT WAS FASTINGPERFORMED BY: [facility] Dbxwff4650 [facility] [place] [id number] Vitamin D, 25-Hydroxy 26.3 ng/mL (Abnormal) Range: 30.0-100.0 Comments: Vitamin D deficiency has been defined by the [place] of[place]icine and an Endocrine Society practice guideline as alevel of serum 25-OH vitamin D less than 20 ng/mL (1,2).The Endocrine Society went on to further define vitamin Dinsufficiency as a level between 21 and 29 ng/mL (2).1. IOM ([place] of Medicine). 2010. Dietary reference intakes for calcium and D. [place]: The National Academies Press.2. Solo MF, Irma COATES, Derrek RAMIREZ, et al. Evaluation, treatment, and prevention of vitamin D deficiency: an Endocrine Society clinical practice guideline. JCEM. 2010; 96(7):1911-30. 03-Grf-722348:30 TSH (THYROID STIMULATING Comments: PATIENT WAS FASTINGPERFORMED BY: [employer] [place] [id number] HORMONE) (96464) TSH 2.140 {uIU/mL} (Normal) Range: 0.450-4.500 50-Uez-142595:30 LIPID PANEL (44696) Comments: PATIENT WAS FASTINGPERFORMED BY: Anne Fogarty[address] [place] [id number] LDL/HDL Ratio 1.8 {ratio_units} (Normal) Range: 0.0-3.2 [...] PANEL, COMPREHENSIVE Comments: PATIENT WAS FASTINGPERFORMED BY: Remicalm [facility] Bjruuz9417 [place] [id number] (97609) ALT (SGPT) 8 [iU]/L (Normal) Range: 0-32 [...] Glucose, Serum 93 mg/dL (Normal) Range: 65-99 33-Dnz-459801:30 CBC, PLATELETS & AUT DIFF Comments: PATIENT WAS FASTINGPERFORMED BY: JANELLE [facility]CoM[facility] HospitalEbyzcd0080 [facility] [id number] (82170) Immature Grans (Abs) 0.0 {x10E3/uL} (Normal) Range: [...] Microscopic Examination Comments: PATIENT WAS FASTINGPERFORMED BY: [facility]6[address] [facility] [id number] Bacteria Few (Normal) Mucus Threads Present (Normal) Epithelial Cells (non renal) 0-10 {/hpf} (Normal) Range: 0 - 10 RBC 0-2 {/hpf} (Normal) Range: 0 - 2 WBC 11-30 {/hpf} (Abnormal) Range: 0 - 5 15-Gmi-238653:06 CBC, Platelets & Auto Comments: PATIENT NOT FASTINGPERFORMED BY: [facility]6[address] [facility] [id number] Information: [id number] Diff (26171) Immature Grans (Abs) 0.0 {x10E3/uL} (Normal) Range: [...] (Normal) Range: 3.4-10.8 :36 URINALYSIS, W/ MICRO (00475) Comments: PATIENT WAS FASTINGPERFORMED BY: [facility]Co[facility] HospitalWlnytc6610 [facility] [id number] Microscopic Examination See below: (Normal) Comments: Microscopic was indicated and was performed. Nitrite, Urine Negative (Normal) Urobilinogen,Semi-Qn 0.2 mg/dL (Normal) Range: 0.2-1.0 Bilirubin Negative (Normal) Occult Blood Negative (Normal) Ketones Negative (Normal) Glucose Negative (Normal) Protein Negative (Normal) WBC Esterase 1+ (Abnormal) Appearance Clear (Normal) Urine-Color Yellow (Normal) pH 6.5 (Normal) Range: 5.0-7.5 Specific [place] 1.017 (Normal) Range: 1.005-1.030 :36 METABOLIC PANEL, COMPREHENSIVE Comments: PATIENT WAS FASTINGPERFORMED BY: LabCoM[facility] Rehabilitation HospitalFerwsj3160 [facility] [id number] ([id number]) ALT (SGPT) 5 [iU]/L (Normal) Range: 0-32 [...] mg/dL (Normal) Range: 65-99 :36 LIPID PANEL (08198) Comments: PATIENT WAS FASTINGPERFORMED BY: PodaddiesMarlton Rehabilitation HospitalJodjww4521 [facility] [id number] LDL/HDL Ratio 1.7 {ratio_units} (Normal) Range: 0.0-3.2 [...] auto diff Comments: PATIENT WAS FASTINGPERFORMED BY: PodaddiesMarl[facility] Rehabilitation HospitalElqird2688 [facility] [id number] Information: [id number]; apt. [birth year] ([id number]) Immature Grans (Abs) 0.0 {x10E3/uL} (Normal) Range: [...] With Differential/Platelet Comments: PATIENT WAS FASTINGPERFORMED BY: [facility]CoM[facility] HospitalPowxqm9273 [facility] [id number] Information: [id number]; patient has fu 6-18 will review with [...] Panel (14) Comments: PATIENT WAS FASTINGPERFORMED BY: [employer]70 [facility] [id number] ALT (SGPT) 6 [iU]/L (Normal) Range: 0-32 [...] With LDL/HDL Comments: PATIENT WAS FASTINGPERFORMED BY: [employer]70 [facility] [id number] Ratio LDL/HDL Ratio 1.9 {ratio_units} (Normal) Range: [...] Microscopic Examination Comments: PATIENT WAS FASTINGPERFORMED BY: [employer]6370 [facility] [id number] Bacteria Few (Normal) Mucus Threads Present (Normal) Epithelial Cells (non renal) 0-10 {/hpf} (Normal) Range: 0 - 10 RBC 0-2 {/hpf} (Normal) Range: 0 - 2 WBC 0-5 {/hpf} (Normal) Range: 0 - 5 :47 Urinalysis, Complete Comments: PATIENT WAS FASTINGPERFORMED BY: Podaddies Dgptnz0070 [facility] [id number] Microscopic Examination See below: (Normal) Comments: Microscopic was indicated and was performed. Microscopic Examination MICRON (Normal) Comments: Microscopic follows if indicated. Nitrite, Urine Negative (Normal) Urobilinogen,Semi-Qn 0.2 mg/dL (Normal) Range: 0.0-1.9 Bilirubin Negative (Normal) Occult Blood Negative (Normal) Ketones Negative (Normal) Glucose Negative (Normal) Protein Negative (Normal) WBC Esterase Negative (Normal) Appearance Clear (Normal) Urine-Color Yellow (Normal) pH 6.0 (Normal) Range: 5.0-7.5 Specific [place] 1.024 (Normal) Range: 1.005-1.030 91-Stj-888362:50 CBC W/AUTO DIFF WBC Comments: PATIENT NOT FASTINGPERFORMED BY: LabCoM[facility] HospitalLatuge7765 [facility] [id number] Information: [id number] (78871) Immature Grans (Abs) 0.0 {x10E3/uL} (Normal) Range: [...] 3.77-5.28 WBC 7.8 {x10E3/uL} (Normal) Range: 3.4-10.8 40-Wwe-016539:50 Metabolic Panel, Basic Comments: PATIENT NOT FASTINGPERFORMED BY: [facility]6370 [facility] [id number] ([id number]) Calcium, Serum 9.8 mg/dL (Normal) Range: 8.6-10.2 [...] mg/dL (Normal) Range: 65-99 :52 Urinalysis, Office (81593) UA - NITRITE Negative (Normal) UA - [...] PANEL, COMPREHENSIVE Comments: PATIENT WAS FASTINGPERFORMED BY: [facility]CoM[facility] HospitalRwlsea4880 [facility] [id number] ([id number]) ALT (SGPT) 9 [iU]/L (Normal) Range: 0-32 [...] mg/dL (Normal) Range: 65-99 :19 LIPID PANEL (20080) Comments: PATIENT WAS FASTINGPERFORMED BY: [facility] [id number] LDL/HDL Ratio 1.6 {ratio_units} (Normal) Range: 0.0-3.2 [...] MANUAL DIFF Comments: PATIENT WAS FASTINGPERFORMED BY: Anne Fogarty6370 [facility] [id number] Information: [id number] (10065) Immature Grans (Abs) 0.0 {x10E3/uL} (Normal) Range: [...] 3.77-5.28 WBC 11.4 {x10E3/uL} (Abnormal) Range: 3.4-10.8 09-Xom-706444:07 Urinalysis, Routine Comments: PERFORMED BY: [facility] [id number] Microscopic Examination MICRON (Normal) Comments: Microscopic follows if indicated. Nitrite, Urine Negative (Normal) Urobilinogen,Semi-Qn 0.2 mg/dL (Normal) Range: 0.0-1.9 Bilirubin Negative (Normal) Occult Blood Negative (Normal) Ketones Negative (Normal) Glucose Negative (Normal) Protein Negative (Normal) WBC Esterase Negative (Normal) Appearance Cloudy (Abnormal) Urine-Color Yellow (Normal) pH 6.0 (Normal) Range: 5.0-7.5 Specific [place] 1.020 (Normal) Range: 1.005-1.030 :14 MICROALBUMIN: CREATININE RATIO Comments: PERFORMED BY: [facility]rapeuticsSaint [facility] [id number] (83972) AND ([id number]) Microalb/Creat Ratio 7.0 {mg/g_creat} (Normal) Range: 0.0-30.0 Creatinine, Urine 124.0 mg/dL (Normal) Range: 15.0-278.0 Microalbumin, Urine 8.7 ug/mL (Normal) Range: 0.0-17.0 :14 METABOLIC PANEL, COMPREHENSIVE Comments: PERFORMED BY: [employer]70 [facility] [id number] (22782) ALT (SGPT) 12 [iU]/L (Normal) Range: 0-32 [...] mg/dL (Abnormal) Range: 65-99 :14 LIPID PANEL (29326) Comments: PERFORMED BY: [facility]Former[facility] [id number] LDL/HDL Ratio 1.6 {ratio_units} (Normal) Range: 0.0-3.2 LDL Cholesterol Calc 82 mg/dL (Normal) Range: 0-99 VLDL Cholesterol Oren 21 mg/dL (Normal) Range: 5-40 Cholesterol, Total 153 mg/dL (Normal) Range: 100-199 HDL Cholesterol 50 mg/dL (Normal) Comments: According to ATP-III Guidelines, HDL-C >59 mg/dL is considered anegative risk factor for CHD. Triglycerides 107 mg/dL (Normal) Range: 0-149 98-Cif-75504:14 CBC WITH MANUAL DIFF (46184) Comments: PERFORMED BY: [facility] Vnmkjd1969 [facility] [id number] Immature Grans (Abs) 0.0 {x10E3/uL} (Normal) Range: [...] 3.77-5.28 WBC 6.2 {x10E3/uL} (Normal) Range: 3.4-10.8 89-Djr-705711:26 Urinalysis, Office (90526) UA - BILIRUBIN Negative (Normal) UA - BLOOD Negative (Normal) UA - GLUCOSE Negative (Normal) UA - KETONES Negative mg/dL (Normal) UA - LEUKOCYTE ESTERASE Negative (Normal) UA - NITRITE Negative (Normal) UA - PH 7.0 (Normal) UA - PROTEIN Negative mg/dL (Normal) UA - SPECIFIC GRAVITY 1.015 (Normal) URINE UROBILINGN DENNY TIMED Normal mg/dL (Normal) 59-Ikw-91723:00 Microscopic Examination Comments: PATIENT WAS FASTINGPERFORMED BY: [facility]6370 [facility] [id number] Bacteria Few (Normal) Mucus Threads Present (Normal) Epithelial Cells (non renal) >10 {/hpf} (Abnormal) Range: 0 - 10 RBC 0-3 {/hpf} (Normal) Range: 0 - 3 WBC 0-5 {/hpf} (Normal) Range: 0 - 5 4-Huz-135981:24 DEXA BONE DENSITY STUDY () Radiology Report [...] Roberts M.D.March 02, 2013 at 12:38:17 PM [id number] Signed GP/GP If you are the referring physician and would like to consult with theradiologist who provided this interpretation, please contact Syed Heath at [phone]. If this radiologist is unavailable, youwill be directed to another radiologist to assist. If you are a patient with a question regarding this report, pleasecontactyour referring physician directly. Professional Interpretation Provided By: [employer], Phone , These documents contain leg ally [...] 03/02/13 1249 Sign by: Wil Roberts MD 9-Jbi-183299:23 BILAT SCRN DIGITAL & CAD Radiology Report [...] resultswill be sent to the patient by [facility] facility within 30 days. Approximately 10% of breast cancers are not detected by mammography. Anormal mammogram should not delay biopsy of a clinically suspiciousabnormality. Signed:Wil Tripp i, M.D.March 07, 2013 at 9:25:55 AM [id number] Signed GP/GP If you are the referring physician and would like to consult with theradiologist who provided this interpretation, denita cotter contact Syed Heath at [phone]. If this radiologist is unavailable, youwill be directed to another radiologist to assist. If you are a patient with a question regarding this report, pleasecontactyour referring physician directly. Professional Interpretation Provided By: [employer], Phone , These documents contain legally protected [...] on 03/07/131138 Sign by: Wil Roberts MD 14-Yzp-307104:36 Urinalysis, Office ([id number]) UA - BILIRUBIN Negative (Normal) UA - BLOOD Hemolyzed Large (Normal) UA - GLUCOSE Negative (Normal) UA - KETONES Negative mg/dL (Normal) UA - LEUKOCYTE ESTERASE Moderate (Normal) UA - NITRITE Negative (Normal) UA - PH 7.0 (Normal) UA - PROTEIN Negative mg/dL (Normal) UA - SPECIFIC GRAVITY 1.015 (Normal) URINE UROBILINGN DENNY TIMED 2 mg/dL (Normal) 87-Cru-43576:00 URINALYSIS, W/ MICRO ([id number]) Comments: PATIENT WAS FASTINGPERFORMED BY: [facility] Kohhps8876 [facility] [id number] Microscopic Examination See below: (Normal) Nitrite, Urine Negative (Normal) Urobilinogen,Semi-Qn 0.2 mg/dL (Normal) Range: 0.0-1.9 Bilirubin Negative (Normal) Occult Blood Negative (Normal) Ketones Negative (Normal) Glucose Trace (Abnormal) Protein 1+ (Abnormal) WBC Esterase Negative (Normal) Appearance Cloudy (Abnormal) Urine-Color Yellow (Normal) pH 6.0 (Normal) Range: 5.0-7.5 Specific [place] 1.023 (Normal) Range: 1.005-1.030 63-Zco-32398:00 METABOLIC PANEL, COMPREHENSIVE Comments: PATIENT WAS FASTINGPERFORMED BY: LabCoM[facility] HospitalGjijli2233 [facility] [id number] ([id number]) ALT (SGPT) 8 [iU]/L (Normal) Range: 0-32 [...] mg/dL (Normal) Range: 65-99 :00 LIPID PANEL (22658) Comments: PATIENT WAS FASTINGPERFORMED BY: PodaddiesMarlton Rehabilitation HospitalPaaoth5965 [facility] [id number] LDL/HDL Ratio 1.7 {ratio_units} (Normal) Range: 0.0-3.2 [...] MANUAL DIFF Comments: PATIENT WAS FASTINGPERFORMED BY: LabCo1RP MediaOuknbk4442 [facility] [id number] Information: [id number] (88695) Immature Grans (Abs) 0.0 {x10E3/uL} (Normal) Range: [...] 6.2 {x10E3/uL} (Normal) Range: 3.4-10.8 :18 TSH (99810) Comments: PATIENT WAS FASTINGPERFORMED BY: PodaddiesLovelace Rehabilitation HospitalEebfvi1213 [facility] [id number] TSH 1.990 {uIU/mL} (Normal) Range: 0.450-4.500 :18 MICROALBUMIN: CREATININE RATIO Comments: PATIENT WAS FASTINGPERFORMED BY: PodaddiesLovelace Rehabilitation HospitalNxgxbk0149 [facility] [id number] (45196) AND (58314) Creatinine, Urine 135.9 mg/dL (Normal) Range: 15.0-278.0 Microalb/Creat Ratio 1.1 {mg/g_creat} (Normal) Range: 0.0-30.0 Microalbumin, Urine 1.5 ug/mL (Normal) Range: 0.0-17.0 :18 METABOLIC PANEL, COMPREHENSIVE Comments: PATIENT WAS FASTINGPERFORMED BY: PodaddiesMarlton Rehabilitation HospitalQhmmpv2989 [facility] [id number] (13560) ALT (SGPT) 11 [iU]/L (Normal) Range: 0-32 [...] mg/dL (Normal) Range: 65-99 :18 LIPID PANEL (89083) Comments: PATIENT WAS FASTINGPERFORMED BY: [employer]70 [facility] [id number] HDL Cholesterol 44 mg/dL (Normal) Comments: According [...] MANUAL DIFF Comments: PATIENT WAS FASTINGPERFORMED BY: QMedicMarlton Rehabilitation HospitalTiuahy5080 [facility] [id number] Information: [id number] (90103) Immature Grans (Abs) 0.0 {x10E3/uL} (Normal) Range: [...] malignant neoplasms, colon) Ventricular hypokinesis : Reviewed Group Leader Letter Indication: Ventricular hypokinesis Hypertension, benign : [...] for malignant neoplasms, colon) Vertigo : Reviewed Group Leader Letter Indication: Vertigo Hypercholesteremia : Reviewed Lab [...] Urinary incontinence Planned Observations URINALYSIS, W/ MICRO (19921)Indication: Hypertension, benign On: 15-Ell-056175:54 Request METABOLIC PANEL, COMPREHENSIVE (32690)Indication: Hypertension, benign On: 10-Fzu-761425:54 Request LIPID PANEL (77979)Indication: Hypertension, benign On: 42-Ygo-248524:54 Request CBC with auto diff (91457)Indication: Hypertension, benign On: :54 Request URINALYSIS, W/ MICRO (00803)Indication: Hypertension, benign On: 48-Mad-254379:23 Request METABOLIC PANEL, COMPREHENSIVE (69686)Indication: Hypertension, benign On: 65-Eqc-461909:23 Request LIPID PANEL (91609)Indication: Hypertension, benign On: 82-Sos-702323:23 Request CBC with auto diff (26015)Indication: Hypertension, benign On: 36-Jbh-263468:23 Request Urinalysis, Office (29317)Indication: Proteinuria On: 79-Aqb-507282:42 Request Planned Procedures SCREENING DIGITAL TOMOSYNTHESIS OF On: 26-Jan-2018 Intent BREAST (64002)By: Radha Griffith DO, DO, Kathleen SCREENING DIGITAL TOMOSYNTHESIS OF On: 13-Aug-2017 Intent BREAST (05075)By: Radha Griffith DO, DO, Kathleen Flu Vaccine (Quadrivalent) 46985Dc: On: 16-Apr-2017 Intent Radha Griffith DO, DO, Comments: Lot #[id number]/13/17ite-L dltd, IMDose prefilled syringegiven by:Wilson, EDWINANESTRADA and ABN signed Radha ELECTROCARDIOGRAM, COMPLETE (ECG) On: 16-Apr-2017 Intent (62018)By: Radha Griffith DO Comments: sinus mane - old LBBB no acute chg Radha Griffith DO CT - Brain/Head (Without On: 29-Jul-2016 Intent Contrast)By: Matthew Carrion MD MAMMOGRAM, SCREENING, BOTH BREAST On: 29-Jun-2016 Intent (79316)By: Matthew Carrion MD Nuclear Stress Test/Stress On: 29-Apr-2016 Intent SPECT/TreadmillBy: Matthew Carrion MD Echo CompleteBy: Matthew Carrion MD On: 29-Apr-2016 Intent Flu Vaccine (Quadrivalent) 39778Hd: On: 22-Apr-2016 Intent Matthew Carrion MD Comments: FLUlot: [id number]:12/25/16site:Lt deltoidroute:IMdose:.5mlMICHAEL, MA Bone Density StudyBy: Blanca DALE, On: 20-Aug-2015 Intent Ana Irwin Echo CompleteBy: Ana Rios MD On: 13-Jun-2015 Intent Bone Density StudyBy: Blanca DALE, On: 13-Jun-2015 Intent Ana Irwin BILATERAL MAMMOGRAMS (47362)By: On: 13-Jun-2015 Intent Ana Rios MD DEXA SCAN AXIAL SKELETON (55142)By: On: 17-Dec-2014 Intent Ana Rios MD MAMMOGRAM, SCREENING, BOTH BREAST On: 17-Dec-2014 Intent (04811)By: Ana Rios MD BILATERAL MAMMOGRAMS (46326)By: On: 10-May-2014 Intent Ana Rios MD Prevnar 13 (49744)By: Blanca DALE, On: 03-May-2014 Intent Ana Irwin Radiology - ChestBy: Blanca DALE, On: 03-May-2014 Intent Ana Irwin TD VACCINE ADULT (87127)By: Blanca On: 16-Apr-2014 Intent Ana DALE Comments: lot [id number] 1-24-2524chvtnuak L armroute imgiven by - msmithVIS and/or ABN signed Eprescribed prescriptions On: 16-Oct-2013 Intent (G8553)By: Ana Rios MD Eprescribed prescriptions On: 16-Oct-2013 Intent (G8553)By: Ana Rios MD Eprescribed prescriptions On: 05-May-2013 Intent (G8553)By: Laura Meneses Ultrasound - PelvisBy: Blanca DALE, On: 24-Apr-2013 Intent Ana Irwin DXA, BONE DENSITY, AXIAL SKELETON On: 18-Oct-2012 Intent (70965)By: Ana Rios MD Comments: estrogen def MAMMOGRAM, SCREENING, BOTH BREASTS On: 18-Oct-2012 Intent (07083)By: Ana Rios MD Eprescribed prescriptions On: 18-Oct-2012 Intent (G8553)By: Laura Meneses FLU VAC, SPLIT, >3 YEARS, INTRAMUSC On: 26-Apr-2012 Intent (61066)By: Ana Rios MD Comments: 10-12 MAMMOGRAM, SCREENING, BOTH BREASTS On: 26-Apr-2012 Intent (20502)By: Ana Rios MD Instructions Name Dates Details [...] Advance Directives Name Dates Details Immunization Registry Lena - Effective on Effective: 09-Mar-201803/09/2018. Expiration date [...] The patient does have durable power of document review attorney and living will. The patient has noticed nothing from the geriatic depression scale. Other providers contributing to the patient's care are rig manager.Encounter Diagnosis: BMI 26.0-26.9,adult, Current nonsmoker (Renamed from [...] The patient does have durable power of document review attorney and living will. The patient has noticed nothing from the geriatic depression scale. Other provi ders contributing to the patient's care are rig manager and other:.Encounter Diagnosis: Current nonsmoker (Renamed from [...] The patient does have durable power of document review attorney and living will. The patient has [...] The patient does have durable power of document review attorney and living will. The patient has noti charly nothing from the geriatic depression scale. Other providers contributing to the patient's care are gastrologist (Dr. Higgins ([place]) ) and other: (Opthalm: Dr. Lafleur )., [...]
--- OUTSIDE RECORDS SUMMARY | 2018-09-17 18:27 | XMS RPT_ITS | Continuity of Care Document ---
:1940 Author Organization [facility] Address [address] [facility] [address] [place] [address] Phone Care Team Providers Name Role Phone Radha Griffith DO Unavailable [facility], [facility] Unavailable Farrah DALE, Dr. John Mejía [...] 2017-- and [facility] Status: Active Hypercholesteremia (E78.00, 272.0) Status: [...] Comments: Rectocele repair By Alfredito Oneill at [facility] in [place] with previous anal sphincter reconstruction repairColonoscopy last 2011Has brittany analspincter muscle repain Status: Active Therapeutic drug monitoring (Z51.81, V58.83) Status: Active Urinary incontinence (R32, 788.30) Comments: Dr Madsen in [place]. doing good on meds. enablex(Darifenacin generic)Last saw [...] 30 days Quantity: 30 {Tablet} Refills: 3 Ordered:18-Mar-2018 Shantelle Griffith DO, DO, Kathleen Start : 18-Mar-2018 Active Simvastatin 20 MG Oral Tablet 1 [...] Kathleen Start : 18-Mar-2018 Active Vitamin D3 85290 UNIT Oral Tablet 1 (one) Tablet Tablet [...] 29-Jul-2016 Inactive MULTIVITAL (Oral Tablet) Inactive NYSTATIN-TRIAMCINOLONE, 919645-0.1UNIT/GM-% (External Cream) 1 (one) Cream Cream bid for 0 days Quantity: 1 {Tube} Refills: 0 Ordered:13-Jun-2015 ESTEPHANIA Arreola Start : 17-Dec-2014 End : 13-Jun-2015 Inactive ZOSTAVAX, 27618SUE/0.65ML (Subcutaneous Solution Reconstituted) uad For Solution one [...] VAC ADLT/IMUMNOSPR, SBC/INTRM Date: 26-Jan-2018 Completed 26-Jan-2018 (68640) Comments: Pneumovax 23lot [id number]/prefilledleanitha Grubbs LPN Annual Eye Exam Completed Comments: 2011 appendectomy Completed Comments: 1849, Dr Arerguin in [place] Blood Pressure Monitoring Completed Comments: 120-160 systolic range Cardiac Cath Completed Comments: 2005 -- [facility] Dr Neal Parraprolonged bleeding, no findings Cardiac Cath number 2 Completed Comments: 2010 --Dr Borja at [facility] -- neg findings and abnormal ecgs. Cataracts Completed Comments: Dr Farley in [place] -- 1997, revealed corneal scar Colonoscopy, Screening Completed Comments: December 2011 Hip Replacement Completed Comments: Left - Dr Donaldson in [facility] at [facility] hysterectomy Completed Comments: with bladder repair in 1976 at [facility] by Dr Liao in [place] Mammogram, Screening Completed Comments: 2010 Pap Smear Completed Comments: 2011 Rectal Sphincter Repair Completed Comments[facility] Rectocele Repair Completed Comments: 2007 [facility] Nino Toe Repair Completed Comments: [address] Saavedra, in office, [place] Date Value Details 03-Sep-2017 SCREENING MAMM (CAD), BILAT Result: Comments: See Note; NOTES: [facility] Imaging Services [address] [place] [address] SCREENING MAMM (CAD), BILAT MR#: [id number] Acct: [id number] Name: ORALIA WEAVER Rep #: [id number] : 1940 F 77 From: Wil Roberts MD PCP: Radha Griffith DO Status: REG CLI Study: SCREENING MAMM (CAD), BILAT Date of Exam: 09/03/17 Exam# [id number] Ordering Dr: Radha Griffith DO MAMMOGRAPHY - [...] biopsy of a clinically tita picious abnormality. [id number] Electronically Signed: Wil Roberts MD at 15:26 EST Tel [phone], Service support , CC: Radha Griffith DO Junior Recruiter: Signed 19-Jul-2017 PT D/C Summary (1) Result: Comments: See Note; NOTES: [facility] Physical Therapy [facility] [address] [place] [address]. [address] [place], [place] [address] Fax REHABILITATION SERVICES DISCHAR GE SUMMARY MR#: [id number] Acct: [id number] Name: ORALIA WEAVER Rep #: [id number] : 1940 77 From: Shaun Saavedra DPT, [...] PT (1) Result: Comments: See Note; NOTES: [facility] Physical Therapy [facility] [place] [address] Fax REEVALUATION / MEDICARE RECERTI [facility] PHYSICAL THERAPY MR#: [id number] Acct: [id number] Name: ORALIA WEAVER Rep #: [id number] : 1940 77 From: Shaun Saavedra DPT, [...] do not hesitate to contact me at [phone] by phone or if you have questions [...] - PT Result: Comments: See Note; NOTES: [facility] Physical Therapy [facility] [facility]. [address] [place] [address] Fax REHABILITATION SERVICES INITIAL EVALUATION MR#: [id number] Acct: [id number] Name: ORALIA WEAVER Rep #: [id number] [...] she can do them. Will go to [place] for Chirstmas in 10 days. This is [...] to be FAXED BACK to us at [phone] for Medicare purposes. Please let me know [...] - PT Result: Comments: See Note; NOTES: [facility] Physical Therapy [facility] [address] [facility]. [address] [place], [place] [address] Fax REHABILITATION SERVICES INITIAL EVALUATION MR#: [id number] Acct: [id number] Name: ORALIA WEAVER Rep #: [id number] : 1940 76 From: Shaun Saavedra DPT, TERESITA, CSCS Referring Dr.: Radha Griffith DO Status: REG RCR Insurance: [facility] Patient's Visit Information ORALIA WEAVER is a [...] to be FAXED BACK to us at [phone] for Medicare purposes. Please let me know if there are question s or concerns regarding this plan of care. Physician Signature: Date: <Electronically signed by Shaun Saavedra DPT, OCS, CSCS&#62 ; 11/25/16 0740 CC: Radha Griffith DO EBAyala Signed For Medicare only, by signing this I certify the plan of care. Physicians Signature Date 29-Jul-2016 Brain/Head without Contrast Result: Comments: See Note; NOTES: [facility] Imaging Services [address] [place] [address] Skylar 4d Brain/Head without Contrast MR#: [id number] Acct: [id number] Name: ORALIA WEAVER Rep #: [id number] : 1940 F 76 From: Wil Roberts MD PCP: Matthew Carrion Status: REG CLI Study: Brain/Head without Contrast Date of Exam: 07/29/16 Exam# [id number] Ordering Dr: Matthew Carrion STUDY: CT BRAIN [...] Wil Roberts MD at 11:39 EST Tel [phone], Service support [phone], CC: Matthew Carrion Junior Recruiter: Signed 09-Jul-2016 SCREENING MAMM (CAD), BILAT Result: Comments: See Note; NOTES: [facility] Imaging Services [address] [place] [address] Verdana 4d SCREENING MAMM (CAD), BILAT MR#: [id number] Acct: [id number] Name: ORALIA WEAVER Rep #: [id number] : 1940 F 76 From: Wil Roberts MD PCP: Matthew Carrion Status: REG CLI Study: SCREENING MAMM (CAD), BILAT Date of Exam: 07/09/16 Exam# [id number] Ordering Dr: Matthew Carrion MAMMOGRAPHY - BILATERAL [...] delay biopsy of a clinically suspicious abnormality. [id number] Electronically Signed: Wil Roberts MD at 14:00 EST Tel [phone], Service support [phone], CC: Matthew Carrion Junior Recruiter: Signed 08-May-2016 Echocardiogram Complete Result: Comments: See Note; NOTES: [facility] Cardiovascular Services [address] [place] [address] Echo Complete 05/08/16 0934 MR#: [id number] Acct: [id number] Name: ORALIA WEAVER p #: [id number] : 1940 76 From: John Chambers MD Attending Dr: Geovanni Carrion Status: REG CLI Ordering Dr: Geovanni Carrion MD Date: 05/08/16 Location: [facility] Sex: F C Admitted: Reason [...] : 05/08/16 0934 Date Transcribed: 05/08/16 1221 Junior Recruiter: Signed 08-May-2016 Nuclear Stress Test - Chemical Result: Comments: See Note; NOTES: [facility] Imaging Services [address] [place] [address] Skylar 4d Nuclear Stress Test - Chemical MR#: [id number] Acct: [id number] Name: WES WEAVER Rep #: [id number] : 1940 76 From: Frederick Neil MD [...] 63%. Frederick Neil MD T: NTS JOB: [id number] 05/08/16 1247 &#60 ;Electronically signed by Frederick Neil MD> Date Frederick Neil MD CC: Matthew Carrion Date Dictated: 05/08/16 1149 Date Transcribed: 05/08/161148 Junior Recruiter: Signed 08-Jul-2015 Echocardiogram Complete Result: Comments: See Note; NOTES: [facility] Cardiovascular Services [address] [place] [address] Echo Complete 07/08/15 1302 MR#: [id number] Acct: [id number] Name: ORALIA MORTENSEN OD Rep #: [id number] : 1940 75 From: Rob Keating MD Attending Dr: Ana Rios MD Status: REG CLI Ordering Dr: Ana Rios MD Date: 07/08/15 Location: [facility] Sex: F C Admitted: Procedure [...] Ana Rios M.D. Performed By: Nidhi Cheatham [facility] 07/08/15 1603 Date ____ Rob Keating MD CC: Ana Rios MD Date Dictated: 07/08/15 1302 Date Transcribed: 07/08/15 1603 Junior Recruiter: Signed 26-Jun-2015 Bilat Scrn Digital AND CAD Result: Comments: See Note; NOTES: [facility] Imaging Services [address] [place] [address] Verdana 4d Bilat Scrn Digital AND CAD MR#: [id number] Acct: [id number] Name: ORALIA WEAVER Rep #: [id number] : 1940 F 75 From: Prakash Gutierrez MD PCP: Ana Rios MD Status: REG CLI Study: Bilat Scrn Digital AND CAD Date of Exam: 06/26/15 Exam# [id number] Ordering Dr: Ana Lam MD MAMMOGRAPHY - [...] biops y of a clinically suspicious abnormality. [id number] Electronically Signed: Guillermo Gutierrez MD at 10:18 EST Tel , Service support [phone], CC: Ana Rios MD Junior Recruiter: Signed 26-Jun-2015 Dexa Bone Density Study (HP) Result: Comments: See Note; NOTES: [facility] Imaging Services [address] [place] [address] Verdana 4d Dexa Bone Density Study (HP) MR#: [id number] Acct: [id number] Name : ORALIA WEAVER Rep #: [id number] : 1940 F 75 From: Wil Roberts MD PCP: Ana Rios MD Status: REG CLI Study: Dexa Bone Density Study () Date of Exam: 06/26/15 Exam# [id number] Ordmagali owen Dr: Ana Rios MD STUDY: [...] Wil Roberts MD at 16:10 EST Tel [phone], Service support , CC: Ana Rios MD Junior Recruiter: Signed 13-Jun-2015 EKG (50807) Result: [MEASUREMENTS ANALYSIS] Date of Test: 06/13/2015 12:06:43; Heart Rate: 53; OR Interval: 194; QRS: 131; QT Interval: 494; Corrected QT Interval (QTc): 482; P Wave [place]brook: 57; QRS Wave Westbrook: -40; T Wave Axi s: 127; Blood Pressure: 138/82 [ECG DIAGNOSTIC STATEMENTS] Date of Test: 06/13/2015 12:06:43; Summary: Sinus Bradycardia -Left bundle branch block and left axis. ABNORMAL 14-May-2014 Bilat Scrn Digital & CAD Result: Comments: See Note; NOTES: [facility] Imaging Services [address] [place] [address] Breast Imaging Report MR#: [id number] Acct: [id number] Name: ORALIA WEAVER Rep #: [id number] : 1940 F 74 From: Wil Roberts MD PCP: Ana Rios MD Status: REG CLI Exam# [id number] Ordering Dr: Ana Rios MD MAMMOGRAPHY - [...] Wil Roberts MD at 10:56 EST Tel [phone], Service support [phone], CC: Ana Rios MD Junior Recruiter: Signed 03-May-2014 Chest PA and Lateral Result: Comments: See Note; NOTES: [facility] Imaging Services [address] [place] [address] Radiology Report MR#: [id number] Acct: [id number] Name: ORALIA WEAVER Rep #: [id number] : 1940 F 74 From: Ric Avila MD PCP: Ana Rios MD Status: REG CLI Study: Chest PA and Lateral Date of Exam: 05/03/14 Exam# [id number] Ordering Dr: Ana Rios MD STUDY: X-RAY [...] at 13:27 EST Tel , Service support [phone], CC: Ana Rios MD Junior Recruiter: Signed 16-Oct-2013 EKG (10784) Comments: see scanned document of test done to see results reviewed today with patient Result: [MEASUREMENTS ANALYSIS] Date of Test: 10/16/2013 11:44:55; Heart Rate: 54; OR Interval: 202; QRS: 96; QT Interval: 442; Corrected QT Interval (QTc): 432; P Wave Westbrook: 55; QRS Wave [place]brook: -22; T Wave Westbrook : 112; Blood Pressure: 124/84 [ECG DIAGNOSTIC STATEMENTS] Date of Test: 10/16/2013 11:44:55; Summary: Sinus Bradycardia Voltage criteria for LVH (R(V6) exceeds 2.26 mV). -Old anterior infarct. -Nons pecific ST depression + T-abnormality -Seen with left ventricular hypertrophy (strain) or digitalis effect consider Anterolateral ischemia. ABNORMAL [MEASUREMENTS ANALYSIS] Date of Test: 014 11:44:11; Heart Rate: 56; OR Interval: 192; QRS: 96; QT Interval: 444; Corrected QT Interval (QTc): 437; P Wave Westbrook: 63; QRS Wave [place]brook: -20; T Wave Westbrook: 125; Blood Pressure: 124/84 [ECG DIAGNOSTIC STATEMENTS] [...] (Non ) Result: Comments: See Note; NOTES: [facility] Imaging Services [address] [place] [address] Ultrasound Report MR#: [id number] Acct: [id number] Name: ORALIA WEAVER Rep #: [id number] : 1940 F 73 From: Wil Roberts MD PCP: Status: REG CLI Study: Pelvic (Non ) Date of Exam: 04/28/13 Exam# [id number] Ordering Dr: Ana Rios MD STUDY: ULTRASOUND [...] April 28, 2013 at 2:56:24 PM EDT [phone] Electronically Signed GP/GP If you are the referring physician and would like to consult with the radiologist who p rovided this interpretation, please contact Wil Roberts M.D. at [phone]. If this radiologist is unavailable, you will be directed to another radiologist to assist. If you are a patient with a question regarding this report, please contact your referring physician directly. Professional Interpretation Provided By: Twitter, Phone , These documents contain legally protected [...] of these documents. CC: Ana Rios MD Junior Recruiter: Signed Immunization Name Dates Details Influenza (3 years and up) on: 2017 Pneumococcal (2 years and up) on: 26-Jan-2018 Comments: Site: Left Deltoid Lot #: [id number] Zoster (shingles) Comments: 2012 [facility] Family History Unknown Family Member Name Dates Details Father Comments: Depression and Kidney Status: Active Mother Comments: Breast Ca and Diabetes Status: Active Sister 1 Comments: Depression/Emotional problems Status: Active Social History Name Dates Details Caffeine Use Comments: 1 cup/day Status: Active Exercise History Comments: 1-2 weekly, light Status: Active Living Situation Comments: , moved from [place]. leann rodríguez Status: Active No Drug Use Status: Active Non Drinker/No Alcohol Use Status: Active Non Smoker/No Tobacco Use Status: Active Tobacco use: Never smoker. Status: Active Smoking Status Name Dates Details Never smoker Vital Signs Date Test Result Details 40-Mwj-143063:24 Pulse 63 /min Comments: Pattern: Regular Respiration [...] kg/m2 Body Surface Area Calculated 1.81 m2 19-Tqe-521465:22 Temperature 97 f Comments: Method: Temporal Pulse [...] kg/m2 Body Surface Area Calculated 1.81 m2 13-Bbw-283916:34 Temperature 97.6 f Comments: Method: Oral Pulse [...] 163 lb Results Date Description Value Details 49-Zfj-661781:56 Metabolic Panel, Basic Comments: PATIENT NOT FASTINGPERFORMED BY: [facility] [facility] [id number] (60108) Calcium 9.9 mg/dL (Normal) Range: 8.7-10.3 Carbon [...] 8-27 Glucose 85 mg/dL (Normal) Range: 65-99 22-Elp-874819:11 URINE ANDER CULTURE-IDENTIFICATN Comments: PATIENT NOT FASTINGPERFORMED BY: [facility] HospitalBfyhyk5992 [facility] [id number] Information: SRC:UC (50337) Result 1 NG36 (Normal) Comments: No growth in 36 - 48 hours. Urine Culture,Comprehensive Final report (Normal) 74-Laa-672805:08 Urinalysis, Office (81628) UA - LEUKOCYTE ESTERASE Trace (Normal) Comments: sent to lab UA - NITRITE Negative (Normal) URINE UROBILINGN DENNY TIMED Normal mg/dL (Normal) UA - PROTEIN Negative mg/dL (Normal) UA - PH 6 (Abnormal) UA - BLOOD Non Hemolyzed Trace (Normal) UA - SPECIFIC GRAVITY 1.015 (Normal) UA - KETONES Negative mg/dL (Normal) UA - BILIRUBIN Negative (Normal) UA - GLUCOSE Negative (Normal) 89-Emd-966620:07 TSH (67500) Comments: PATIENT WAS FASTINGPERFORMED BY: [employer] Obpbav0866 [facility] [id number] TSH 2.410 {uIU/mL} (Normal) Range: 0.450-4.500 55-Yku-581157:07 Metabolic Panel, Comprehensive Comments: PATIENT WAS FASTINGPERFORMED BY: [employer]6[address] [facility] [id number] (42641) ALT (SGPT) 8 [iU]/L (Normal) Range: 0-32 [...] Glucose, Serum 97 mg/dL (Normal) Range: 65-99 20-Zud-956290:07 CALCIFEDIOL (45635) Comments: PATIENT WAS FASTINGPERFORMED BY: [employer] Mqttkp2113 [facility] [id number] Vitamin D, 25-Hydroxy 52.1 ng/mL (Normal) Range: 30.0-100.0 Comments: Vitamin D deficiency has been defined by the Hector ofMedicine and an Endocrine Society practice guideline as alevel of serum 25-OH vitamin D less than 20 ng/mL (1,2).The Endocrine Society went on to further define vitamin Dinsufficiency as a level between 21 and 29 ng/mL (2).1. IOM (Hector of Medicine). 2010. Dietary reference intakes for calcium and D. [place]: The National Academies Press.2. Solo MF, Irma COATES, Derrek RAMIREZ, et al. Evaluation, treatment, and prevention of vitamin D deficiency: an Endocrine Society clinical practice guideline. JCEM. 2010; 96(7):1911-30. 73-Jnu-168311:07 Lipid Panel (18379) Comments: PATIENT WAS FASTINGPERFORMED BY: [employer] [facility] Vkfrgi9112 [place] [id number] LDL/HDL Ratio 2.1 {ratio_units} (Normal) Range: 0.0-3.2 Comments: LDL/HDL Ratio Men Women 1/2 Avg.Risk 1.0 1.5 Av g.Risk 3.6 3.2 2X Avg.Risk 6.2 5.0 3X Avg.Risk 8.0 6.1 LDL Cholesterol Calc 105 mg/dL (Abnormal) Range: 0-99 VLDL Cholesterol Oren 27 mg/dL (Normal) Range: 5-40 HDL Cholesterol 50 mg/dL (Normal) Triglycerides 136 mg/dL (Normal) Range: 0-149 Cholesterol, Total 182 mg/dL (Normal) Range: 100-199 33-Xie-334367:07 CBC, Platelets & Auto Diff Comments: PATIENT WAS FASTINGPERFORMED BY: [employer] [facility] Swzplo7004 [facility] [id number] (24487) Immature Grans (Abs) 0.0 {x10E3/uL} (Normal) Range: [...] 6.5 {x10E3/uL} (Normal) Range: 3.4-10.8 :16 CALCIFEDIOL (18920) Comments: PATIENT WAS FASTINGPERFORMED BY: [facility]6[address] [facility] [id number] Vitamin D, 25-Hydroxy 35.3 ng/mL (Normal) Range: 30.0-100.0 Comments: Vitamin D deficiency has been defined by the Hector ofMedicine and an Endocrine Society practice guideline as alevel of serum 25-OH vitamin D less than 20 ng/mL (1,2).The Endocrine Society went on to further define vitamin Dinsufficiency as a level between 21 and 29 ng/mL (2).1. IOM (Hector of Medicine). 2010. Dietary reference intakes for calcium and D. [place]: The National Academies Press.2. Solo MF, Irma [place], Derrek RAMIREZ, et al. Evaluation, treatment, and prevention of vitamin D deficiency: an Endocrine Society clinical practice guideline. JCEM. 2010; 96(7):1911-30. 24-Sqt-28555:16 TSH (THYROID STIMULATING Comments: PATIENT WAS FASTINGPERFORMED BY: [facility] [facility] [id number] HORMONE) (17265) TSH 2.460 {uIU/mL} (Normal) Range: 0.450-4.500 :16 LIPID PANEL (97895) Comments: PATIENT WAS FASTINGPERFORMED BY: [facility]6[address] [facility] [id number] LDL/HDL Ratio 1.6 {ratio_units} (Normal) Range: 0.0-3.2 [...] PANEL, COMPREHENSIVE Comments: PATIENT WAS FASTINGPERFORMED BY: [place] 0754770 [facility] [id number] (22367) ALT (SGPT) 8 [iU]/L (Normal) Range: 0-32 [...] Glucose, Serum 83 mg/dL (Normal) Range: 65-99 65-Qhu-13862:16 CBC, PLATELETS & AUT DIFF Comments: PATIENT WAS FASTINGPERFORMED BY: [facility] Ilixnx8629 [facility] [id number]; fu 5-17 KF (81094) Immature Grans (Abs) 0.0 {x10E3/uL} (Normal) Range: [...] PANEL, COMPREHENSIVE Comments: PATIENT WAS FASTINGPERFORMED BY: [facility]6[address] [facility] [id number] (64728) ALT (SGPT) 9 [iU]/L (Normal) Range: 0-32 [...] Glucose, Serum 95 mg/dL (Normal) Range: 65-99 00-Bqy-410397:02 CALCIFEDIOL (43029) Comments: PATIENT WAS FASTINGPERFORMED BY: [facility]ityNor-Lea [facility] HospitalAteboh5623 [facility] [place] [id number] Vitamin D, 25-Hydroxy 46.6 ng/mL (Normal) Range: 30.0-100.0 Comments: Vitamin D deficiency has been defined by the Hector ofMedicine and an Endocrine Society practice guideline as alevel of serum 25-OH vitamin D less than 20 ng/mL (1,2).The Endocrine Society went on to further define vitamin Dinsufficiency as a level between 21 and 29 ng/mL (2).1. IOM (Hector of Medicine). 2010. Dietary reference intakes for calcium and D. [place]: The National Academies Press.2. Solo MF, Irma COATES, Derrek RAMIREZ, et al. Evaluation, treatment, and prevention of vitamin D deficiency: an Endocrine Society clinical practice guideline. JCEM. 2010; 96(7):1911-30. 25-Sfz-097866:30 MICROALBUMIN: CREATININE RATIO Comments: PATIENT WAS FASTINGPERFORMED BY: [employer] Asfnku5756 [facility] [id number] (32961) AND (00576) Microalb/Creat Ratio 4.5 {mg/g_creat} (Normal) Range: 0.0-30.0 Microalbumin, Urine 3.5 ug/mL (Normal) Creatinine, Urine 78.3 mg/dL (Normal) 80-Vqh-942747:30 VITAMIN B12 AND FOLATES Comments: PATIENT WAS FASTINGPERFORMED BY: [employer] Ireivl4020 [facility] [place] [place] [id number] (85772) Folate (Folic Acid), Serum 19.0 ng/mL (Normal) Comments: A serum folate concentration of less than 3.1 ng/mL isconsidered to represent clinical deficiency. Vitamin B12 431 pg/mL (Normal) Range: 211-946 99-Glr-397323:30 CALCIFEDIOL (54414) Comments: PATIENT WAS FASTINGPERFORMED BY: [employer] Zbnlpm2932 [facility] [place] [id number] Vitamin D, 25-Hydroxy 26.3 ng/mL (Abnormal) Range: 30.0-100.0 Comments: Vitamin D deficiency has been defined by the Hector ofMedicine and an Endocrine Society practice guideline as alevel of serum 25-OH vitamin D less than 20 ng/mL (1,2).The Endocrine Society went on to further define vitamin Dinsufficiency as a level between 21 and 29 ng/mL (2).1. IOM (Hector of Medicine). 2010. Dietary reference intakes for calcium and D. [place]: The National Academies Press.2. Solo MF, Irma COATES, Derrek RAMIREZ, et al. Evaluation, treatment, and prevention of vitamin D deficiency: an Endocrine Society clinical practice guideline. JCEM. 2010; 96(7):1911-30. 29-Cvp-607433:30 TSH (THYROID STIMULATING Comments: PATIENT WAS FASTINGPERFORMED BY: [employer] [place] [id number] HORMONE) (08377) TSH 2.140 {uIU/mL} (Normal) Range: 0.450-4.500 32-Uwm-235355:30 LIPID PANEL (65817) Comments: PATIENT WAS FASTINGPERFORMED BY: [employer] [place] [id number] LDL/HDL Ratio 1.8 {ratio_units} (Normal) Range: 0.0-3.2 [...] PANEL, COMPREHENSIVE Comments: PATIENT WAS FASTINGPERFORMED BY: [employer] [facility] Ytqkna2382 [place] [id number] (31278) ALT (SGPT) 8 [iU]/L (Normal) Range: 0-32 [...] Glucose, Serum 93 mg/dL (Normal) Range: 65-99 80-Cxu-589802:30 CBC, PLATELETS & AUT DIFF Comments: PATIENT WAS FASTINGPERFORMED BY: JANELLE [facility]Co[facility] Rehabilitation HospitalFjsyjf9604 [facility] [id number] (56966) Immature Grans (Abs) 0.0 {x10E3/uL} (Normal) Range: [...] Microscopic Examination Comments: PATIENT WAS FASTINGPERFORMED BY: [facility]6[address] [facility] [id number] Bacteria Few (Normal) Mucus Threads Present (Normal) Epithelial Cells (non renal) 0-10 {/hpf} (Normal) Range: 0 - 10 RBC 0-2 {/hpf} (Normal) Range: 0 - 2 WBC 11-30 {/hpf} (Abnormal) Range: 0 - 5 62-Mqd-755315:06 CBC, Platelets & Auto Comments: PATIENT NOT FASTINGPERFORMED BY: [facility]6[address] [facility] [id number] Information: [id number] Diff (71966) Immature Grans (Abs) 0.0 {x10E3/uL} (Normal) Range: [...] (Normal) Range: 3.4-10.8 :36 URINALYSIS, W/ MICRO (27726) Comments: PATIENT WAS FASTINGPERFORMED BY: [facility]CoWe[facility] Rehabilitation HospitalGbfkkk2556 [facility] [id number] Microscopic Examination See below: (Normal) Comments: Microscopic was indicated and was performed. Nitrite, Urine Negative (Normal) Urobilinogen,Semi-Qn 0.2 mg/dL (Normal) Range: 0.2-1.0 Bilirubin Negative (Normal) Occult Blood Negative (Normal) Ketones Negative (Normal) Glucose Negative (Normal) Protein Negative (Normal) WBC Esterase 1+ (Abnormal) Appearance Clear (Normal) Urine-Color Yellow (Normal) pH 6.5 (Normal) Range: 5.0-7.5 Specific Louise 1.017 (Normal) Range: 1.005-1.030 :36 METABOLIC PANEL, COMPREHENSIVE Comments: PATIENT WAS FASTINGPERFORMED BY: LabCoWeisman [facility] Rehabilitation HospitalOkaayz3234 [facility] [id number] (32349) ALT (SGPT) 5 [iU]/L (Normal) Range: 0-32 [...] mg/dL (Normal) Range: 65-99 :36 LIPID PANEL (28820) Comments: PATIENT WAS FASTINGPERFORMED BY: TaglocityWeisman Children's Rehabilitation HospitalEdfusd2539 [facility] [id number] LDL/HDL Ratio 1.7 {ratio_units} (Normal) Range: 0.0-3.2 [...] auto diff Comments: PATIENT WAS FASTINGPERFORMED BY: TaglocityWeisman Children's Rehabilitation HospitalVtsfff5484 [facility] [id number] Information: [id number]; apt. [birth year] (74306) Immature Grans (Abs) 0.0 {x10E3/uL} (Normal) Range: [...] With Differential/Platelet Comments: PATIENT WAS FASTINGPERFORMED BY: LabCoWe[facility] Rehabilitation HospitalLxevsm0172 [facility] [id number] Information: [id number]; patient has fu 6-18 will review with [...] Panel (14) Comments: PATIENT WAS FASTINGPERFORMED BY: Chrysallis70 [facility] [id number] ALT (SGPT) 6 [iU]/L (Normal) Range: 0-32 [...] With LDL/HDL Comments: PATIENT WAS FASTINGPERFORMED BY: Chrysallis70 [facility] [id number] Ratio LDL/HDL Ratio 1.9 {ratio_units} (Normal) Range: [...] Microscopic Examination Comments: PATIENT WAS FASTINGPERFORMED BY: Dailyevent6370 [facility] [id number] Bacteria Few (Normal) Mucus Threads Present (Normal) Epithelial Cells (non renal) 0-10 {/hpf} (Normal) Range: 0 - 10 RBC 0-2 {/hpf} (Normal) Range: 0 - 2 WBC 0-5 {/hpf} (Normal) Range: 0 - 5 :47 Urinalysis, Complete Comments: PATIENT WAS FASTINGPERFORMED BY: Taglocity Pqajhj0344 [facility] [id number] Microscopic Examination See below: (Normal) Comments: Microscopic was indicated and was performed. Microscopic Examination MICRON (Normal) Comments: Microscopic follows if indicated. Nitrite, Urine Negative (Normal) Urobilinogen,Semi-Qn 0.2 mg/dL (Normal) Range: 0.0-1.9 Bilirubin Negative (Normal) Occult Blood Negative (Normal) Ketones Negative (Normal) Glucose Negative (Normal) Protein Negative (Normal) WBC Esterase Negative (Normal) Appearance Clear (Normal) Urine-Color Yellow (Normal) pH 6.0 (Normal) Range: 5.0-7.5 Specific Louise 1.024 (Normal) Range: 1.005-1.030 07-Wqh-106956:50 CBC W/AUTO DIFF WBC Comments: PATIENT NOT FASTINGPERFORMED BY: [facility]CoWe[facility] Rehabilitation HospitalHcbhhi3988 [facility] [id number] Information: [id number] (82633) Immature Grans (Abs) 0.0 {x10E3/uL} (Normal) Range: [...] 3.77-5.28 WBC 7.8 {x10E3/uL} (Normal) Range: 3.4-10.8 83-Khb-873566:50 Metabolic Panel, Basic Comments: PATIENT NOT FASTINGPERFORMED BY: [facility]6370 [facility] [id number] ([id number]) Calcium, Serum 9.8 mg/dL (Normal) Range: 8.6-10.2 [...] mg/dL (Normal) Range: 65-99 :52 Urinalysis, Office (19060) UA - NITRITE Negative (Normal) UA - [...] PANEL, COMPREHENSIVE Comments: PATIENT WAS FASTINGPERFORMED BY: [facility]CoWe[facility] Rehabilitation HospitalDypbdl7973 [facility] [id number] (09901) ALT (SGPT) 9 [iU]/L (Normal) Range: 0-32 [...] mg/dL (Normal) Range: 65-99 :19 LIPID PANEL (71253) Comments: PATIENT WAS FASTINGPERFORMED BY: [facility] [id number] LDL/HDL Ratio 1.6 {ratio_units} (Normal) Range: 0.0-3.2 [...] MANUAL DIFF Comments: PATIENT WAS FASTINGPERFORMED BY: [employer]6370 [facility] [id number] Information: [id number] (64134) Immature Grans (Abs) 0.0 {x10E3/uL} (Normal) Range: [...] 3.77-5.28 WBC 11.4 {x10E3/uL} (Abnormal) Range: 3.4-10.8 66-Tvy-719366:07 Urinalysis, Routine Comments: PERFORMED BY: [facility] [id number] Microscopic Examination MICRON (Normal) Comments: Microscopic follows if indicated. Nitrite, Urine Negative (Normal) Urobilinogen,Semi-Qn 0.2 mg/dL (Normal) Range: 0.0-1.9 Bilirubin Negative (Normal) Occult Blood Negative (Normal) Ketones Negative (Normal) Glucose Negative (Normal) Protein Negative (Normal) WBC Esterase Negative (Normal) Appearance Cloudy (Abnormal) Urine-Color Yellow (Normal) pH 6.0 (Normal) Range: 5.0-7.5 Specific Louise 1.020 (Normal) Range: 1.005-1.030 :14 MICROALBUMIN: CREATININE RATIO Comments: PERFORMED BY: [facility] [id number] (31643) AND (26835) Microalb/Creat Ratio 7.0 {mg/g_creat} (Normal) Range: 0.0-30.0 Creatinine, Urine 124.0 mg/dL (Normal) Range: 15.0-278.0 Microalbumin, Urine 8.7 ug/mL (Normal) Range: 0.0-17.0 :14 METABOLIC PANEL, COMPREHENSIVE Comments: PERFORMED BY: Chrysallis70 [facility] [id number] (70918) ALT (SGPT) 12 [iU]/L (Normal) Range: 0-32 [...] mg/dL (Abnormal) Range: 65-99 :14 LIPID PANEL (00140) Comments: PERFORMED BY: [facility] [id number] LDL/HDL Ratio 1.6 {ratio_units} (Normal) Range: 0.0-3.2 LDL Cholesterol Calc 82 mg/dL (Normal) Range: 0-99 VLDL Cholesterol Oren 21 mg/dL (Normal) Range: 5-40 Cholesterol, Total 153 mg/dL (Normal) Range: 100-199 HDL Cholesterol 50 mg/dL (Normal) Comments: According to ATP-III Guidelines, HDL-C >59 mg/dL is considered anegative risk factor for CHD. Triglycerides 107 mg/dL (Normal) Range: 0-149 87-Nim-11053:14 CBC WITH MANUAL DIFF (77034) Comments: PERFORMED BY: [facility] Vlumon5997 [facility] [id number] Immature Grans (Abs) 0.0 {x10E3/uL} (Normal) Range: [...] 3.77-5.28 WBC 6.2 {x10E3/uL} (Normal) Range: 3.4-10.8 67-Pny-061911:26 Urinalysis, Office (55084) UA - BILIRUBIN Negative (Normal) UA - BLOOD Negative (Normal) UA - GLUCOSE Negative (Normal) UA - KETONES Negative mg/dL (Normal) UA - LEUKOCYTE ESTERASE Negative (Normal) UA - NITRITE Negative (Normal) UA - PH 7.0 (Normal) UA - PROTEIN Negative mg/dL (Normal) UA - SPECIFIC GRAVITY 1.015 (Normal) URINE UROBILINGN DENNY TIMED Normal mg/dL (Normal) 25-Uhp-43315:00 Microscopic Examination Comments: PATIENT WAS FASTINGPERFORMED BY: [facility]6370 [facility] [id number] Bacteria Few (Normal) Mucus Threads Present (Normal) Epithelial Cells (non renal) >10 {/hpf} (Abnormal) Range: 0 - 10 RBC 0-3 {/hpf} (Normal) Range: 0 - 3 WBC 0-5 {/hpf} (Normal) Range: 0 - 5 3-Gpf-811941:24 DEXA BONE DENSITY STUDY () Radiology Report [...] Roberts M.D.March 02, 2013 at 12:38:17 PM [id number] Signed GP/GP If you are the referring physician and would like to consult with theradiologist who provided this interpretation, please contact Syed Heath at [phone]. If this radiologist is unavailable, youwill be directed to another radiologist to assist. If you are a patient with a question regarding this report, pleasecontactyour referring physician directly. Professional Interpretation Provided By: Twitter, Phone , These documents contain leg ally [...] 03/02/13 1249 Sign by: Wil Roberts MD 4-Zjc-336410:23 BILAT SCRN DIGITAL & CAD Radiology Report [...] resultswill be sent to the [facility] within 30 days. Approximately 10% of breast cancers are not detected by mammography. Anormal mammogram should not delay biopsy of a clinically suspiciousabnormality. Signed:Wil Tripp i, M.D.March 07, 2013 at 9:25:55 AM [id number] Signed GP/GP If you are the referring physician and would like to consult with theradiologist who provided this interpretation, denita cotter contact Syed Heath at [phone]. If this radiologist is unavailable, youwill be directed to another radiologist to assist. If you are a patient with a question regarding this report, pleasecontactyour referring physician directly. Professional Interpretation Provided By: Twitter, Phone , These documents contain legally protected [...] on 03/07/131138 Sign by: Wil Roberts MD 40-Ovv-476470:36 Urinalysis, Office (66427) UA - BILIRUBIN Negative (Normal) UA - BLOOD Hemolyzed Large (Normal) UA - GLUCOSE Negative (Normal) UA - KETONES Negative mg/dL (Normal) UA - LEUKOCYTE ESTERASE Moderate (Normal) UA - NITRITE Negative (Normal) UA - PH 7.0 (Normal) UA - PROTEIN Negative mg/dL (Normal) UA - SPECIFIC GRAVITY 1.015 (Normal) URINE UROBILINGN DENNY TIMED 2 mg/dL (Normal) 40-Khp-33422:00 URINALYSIS, W/ MICRO (57139) Comments: PATIENT WAS FASTINGPERFORMED BY: LabCo Xgugxs9208 [facility] [id number] Microscopic Examination See below: (Normal) Nitrite, Urine Negative (Normal) Urobilinogen,Semi-Qn 0.2 mg/dL (Normal) Range: 0.0-1.9 Bilirubin Negative (Normal) Occult Blood Negative (Normal) Ketones Negative (Normal) Glucose Trace (Abnormal) Protein 1+ (Abnormal) WBC Esterase Negative (Normal) Appearance Cloudy (Abnormal) Urine-Color Yellow (Normal) pH 6.0 (Normal) Range: 5.0-7.5 Specific Louise 1.023 (Normal) Range: 1.005-1.030 74-Jio-60360:00 METABOLIC PANEL, COMPREHENSIVE Comments: PATIENT WAS FASTINGPERFORMED BY: LabCoWe[facility] Rehabilitation HospitalJaddpo5500 [facility] [id number] (33178) ALT (SGPT) 8 [iU]/L (Normal) Range: 0-32 [...] mg/dL (Normal) Range: 65-99 :00 LIPID PANEL (05250) Comments: PATIENT WAS FASTINGPERFORMED BY: TaglocityWe[facility] Rehabilitation HospitalHbwykw4264 [facility] [id number] LDL/HDL Ratio 1.7 {ratio_units} (Normal) Range: 0.0-3.2 [...] MANUAL DIFF Comments: PATIENT WAS FASTINGPERFORMED BY: LabCoNEAH Power SystemsLansba3250 [facility] [id number] Information: [id number] (78292) Immature Grans (Abs) 0.0 {x10E3/uL} (Normal) Range: [...] 6.2 {x10E3/uL} (Normal) Range: 3.4-10.8 :18 TSH (40606) Comments: PATIENT WAS FASTINGPERFORMED BY: TaglocityNor-Lea General HospitalWrurqm7038 [facility] [id number] TSH 1.990 {uIU/mL} (Normal) Range: 0.450-4.500 :18 MICROALBUMIN: CREATININE RATIO Comments: PATIENT WAS FASTINGPERFORMED BY: TaglocityNor-Lea General HospitalHtflnb5471 [facility] [id number] (60570) AND (29465) Creatinine, Urine 135.9 mg/dL (Normal) Range: 15.0-278.0 Microalb/Creat Ratio 1.1 {mg/g_creat} (Normal) Range: 0.0-30.0 Microalbumin, Urine 1.5 ug/mL (Normal) Range: 0.0-17.0 :18 METABOLIC PANEL, COMPREHENSIVE Comments: PATIENT WAS FASTINGPERFORMED BY: TaglocityWeisman Children's Rehabilitation HospitalUhoysl9430 [facility] [id number] (58721) ALT (SGPT) 11 [iU]/L (Normal) Range: 0-32 [...] mg/dL (Normal) Range: 65-99 :18 LIPID PANEL (18456) Comments: PATIENT WAS FASTINGPERFORMED BY: Chrysallis70 [facility] [id number] HDL Cholesterol 44 mg/dL (Normal) Comments: According [...] MANUAL DIFF Comments: PATIENT WAS FASTINGPERFORMED BY: Glori EnergyWeisman Children's Rehabilitation HospitalLpcgnp9375 [facility] [id number] Information: [id number] (41891) Immature Grans (Abs) 0.0 {x10E3/uL} (Normal) Range: [...] malignant neoplasms, colon) Ventricular hypokinesis : Reviewed [employer] Letter Indication: Ventricular hypokinesis Hypertension, benign : [...] for malignant neoplasms, colon) Vertigo : Reviewed [employer] Letter Indication: Vertigo Hypercholesteremia : Reviewed Lab [...] Urinary incontinence Planned Observations URINALYSIS, W/ MICRO (14343)Indication: Hypertension, benign On: 13-Yco-960737:54 Request METABOLIC PANEL, COMPREHENSIVE (23364)Indication: Hypertension, benign On: 21-Skq-236285:54 Request LIPID PANEL (55124)Indication: Hypertension, benign On: 97-Uhz-856880:54 Request CBC with auto diff (51223)Indication: Hypertension, benign On: :54 Request URINALYSIS, W/ MICRO (04917)Indication: Hypertension, benign On: 09-Eji-132566:23 Request METABOLIC PANEL, COMPREHENSIVE (70640)Indication: Hypertension, benign On: 90-Tnh-091403:23 Request LIPID PANEL (62403)Indication: Hypertension, benign On: 41-Qzp-812905:23 Request CBC with auto diff (81369)Indication: Hypertension, benign On: 25-Ofe-571527:23 Request Urinalysis, Office (17589)Indication: Proteinuria On: 92-Xgu-808340:42 Request Planned Procedures SCREENING DIGITAL TOMOSYNTHESIS OF On: 26-Jan-2018 Intent BREAST (33429)By: Radha Griffith DO, DO, Kathleen SCREENING DIGITAL TOMOSYNTHESIS OF On: 13-Aug-2017 Intent BREAST (66169)By: Radha Griffith DO, DO, Kathleen Flu Vaccine (Quadrivalent) 17010Ox: On: 16-Apr-2017 Intent Radah Griffith DO, DO, Comments: Lot #[id number]/13/17ite-L dltd, IMDose prefilled syringegiven by:Wilson, EDWINANESTRADA and ABN signed Radha ELECTROCARDIOGRAM, COMPLETE (ECG) On: 16-Apr-2017 Intent (53915)By: Radha Griffith DO Comments: sinus mane - old LBBB no acute chg Radha Griffith DO CT - Brain/Head (Without On: 29-Jul-2016 Intent Contrast)By: Matthew Carrion MD MAMMOGRAM, SCREENING, BOTH BREAST On: 29-Jun-2016 Intent (02864)By: Matthew Carrion MD Nuclear Stress Test/Stress On: 29-Apr-2016 Intent SPECT/TreadmillBy: Matthew Carrion MD Echo CompleteBy: Matthew Carrion MD On: 29-Apr-2016 Intent Flu Vaccine (Quadrivalent) 41946Di: On: 22-Apr-2016 Intent Matthew Carrion MD Comments: FLUlot: [id number]:12/25/16site:Lt deltoidroute:IMdose:.5mlMICHAEL, MA Bone Density StudyBy: Blanca DALE, On: 20-Aug-2015 Intent Ana Irwin Echo CompleteBy: Ana Rios MD On: 13-Jun-2015 Intent Bone Density StudyBy: Blanca DALE, On: 13-Jun-2015 Intent Ana Irwin BILATERAL MAMMOGRAMS (28961)By: On: 13-Jun-2015 Intent Ana Rios MD DEXA SCAN AXIAL SKELETON (00056)By: On: 17-Dec-2014 Intent Ana Rios MD MAMMOGRAM, SCREENING, BOTH BREAST On: 17-Dec-2014 Intent (49151)By: Ana Rios MD BILATERAL MAMMOGRAMS (67731)By: On: 10-May-2014 Intent Ana Rios MD Prevnar 13 (55537)By: Blanca DALE, On: 03-May-2014 Intent Ana Irwin Radiology - ChestBy: Blanca DALE, On: 03-May-2014 Intent Ana Irwin TD VACCINE ADULT (55771)By: Blanac On: 16-Apr-2014 Intent Ana DALE Comments: lot [id number] L armroute imgiven by - msmithVIS and/or ABN signed Eprescribed prescriptions On: 16-Oct-2013 Intent (G8553)By: Ana Rios MD Eprescribed prescriptions On: 16-Oct-2013 Intent (G8553)By: Ana Rios MD Eprescribed prescriptions On: 05-May-2013 Intent (G8553)By: Laura Meneses Ultrasound - PelvisBy: Blanca DALE, On: 24-Apr-2013 Intent Ana Irwin DXA, BONE DENSITY, AXIAL SKELETON On: 18-Oct-2012 Intent (65309)By: Ana Rios MD Comments: estrogen def MAMMOGRAM, SCREENING, BOTH BREASTS On: 18-Oct-2012 Intent (75795)By: Ana Rios MD Eprescribed prescriptions On: 18-Oct-2012 Intent (G8553)By: Laura Meneses FLU VAC, SPLIT, >3 YEARS, INTRAMUSC On: 26-Apr-2012 Intent (69880)By: Ana Rios MD Comments: 10-12 MAMMOGRAM, SCREENING, BOTH BREASTS On: 26-Apr-2012 Intent (38479)By: Ana Rios MD Instructions Name Dates Details [...] Advance Directives Name Dates Details Immunization Registry [place] - Effective on Effective: 09-Mar-201803/09/2018. Expiration date [...] The patient does have durable power of thread twister and living will. The patient has noticed nothing from the geriatic depression scale. Other providers contributing to the patient's care are director of public safety.Encounter Diagnosis: BMI 26.0-26.9,adult, Current nonsmoker (Renamed from [...] The patient does have durable power of thread twister and living will. The patient has noticed nothing from the geriatic depression scale. Other provi ders contributing to the patient's care are director of public safety and other:.Encounter Diagnosis: Current nonsmoker (Renamed from [...] The patient does have durable power of thread twister and living will. The patient has noticed [...] The patient does have durable power of thread twister and living will. The patient has noti charly nothing from the geriatic depression scale. Other providers contributing to the patient's care are gastrologist (Dr. Higgins ([place]) ) and other: (Opthalm: Dr. Lafleur )., [...]
--- OUTSIDE RECORDS SUMMARY | 2018-09-17 18:28 | XMS RPT_ITS | Continuity of Care Document ---
:1940 Author Organization [facility] Address [address] [place] [address] Phone Care Team Providers Name Role Phone Radha Griffith DO Unavailable [facility], [facility] Unavailable Farrah DALE, Dr. John [...] 2017-- and ended up having scope 2017 --[facility] Status: Active Hypercholesteremia (E78.00, 272.0) Status: Active [...] Comments: Rectocele repair By Alfredito Oneill at [facility] in [place] with previous anal sphincter reconstruction repairColonoscopy last 2011Has brittany analspincter muscle repain Status: Active Therapeutic drug monitoring (Z51.81, V58.83) Status: Active Urinary incontinence (R32, 788.30) Comments: Dr Madsen in [place]. doing good on meds. enablex(Darifenacin generic)Last saw [...] 30 days Quantity: 30 {Tablet} Refills: 3 Ordered:18-Feb-2018 Kacey Monroy LPN Start : 18-Feb-2018 Active Losartan Potassium 100 MG Oral Tablet [...] Kathleen Start : 18-Mar-2018 Active Vitamin D3 35860 UNIT Oral Tablet 1 (one) Tablet Tablet [...] Quantity: 14 {Tablet} Refills: 0 Ordered:26-Jan-2018 Kacey Monryo LPN Start : 11-Nov-2017 End : 26-Jan-2018 [...] days Quantity: 45 {Tablet} Refills: 0 Ordered:29-Jul-2016 Long Jocelin HARDWICK Start : 31-Oct-2015 End : 29-Jul-2016 Inactive MULTIVITAL (Oral Tablet) Inactive NYSTATIN-TRIAMCINOLONE, 039149-4.1UNIT/GM-% (External Cream) 1 (one) Cream Cream bid for 0 days Quantity: 1 {Tube} Refills: 0 Ordered:13-Jun-2015 ESTEPHANIA Arreola Start : 17-Dec-2014 End : 13-Jun-2015 Inactive ZOSTAVAX, 65907VOI/0.65ML (Subcutaneous Solution Reconstituted) uad For Solution one [...] need echo and stress test2 [facility]?? Status: Inactive as of 13-Aug-2017 Arthritis Status: Inactive as of 27-May-2012 Bloating (R14.0, 787.3) Status: Inactive as of 16-Oct-2013 BMI 28.0-28.9,adult (Z68.28, V85.24) Comments: 27.93 Status: Resolved as of 18-Feb-2018 Cataract Comments: sx 1998 Status: Inactive as of 27-May-2012 CHEST PAIN [...] Status: Inactive as of 17-Dec-2014 Diarrhea Comments: 1975 Status: Inactive as of 27-May-2012 Disorder of [...] VAC ADLT/IMUMNOSPR, SBC/INTRM Date: 26-Jan-2018 Completed 26-Jan-2018 (22579) Comments: Pneumovax 23lot [id number]/prefilledleft MULU Grubbs Annual Eye Exam Completed Comments: 2011 appendectomy Completed Comments: 1849, Dr Arreguin in [place] Blood Pressure Monitoring Completed Comments: 120-160 systolic range Cardiac Cath Completed Comments: 2005 -- [facility] Dr Neal Parraprolonged bleeding, no findings Cardiac Cath number 2 Completed Comments: 2010 --Dr Borja at [facility] -- neg findings and abnormal ecgs. Cataracts Completed Comments: Dr Farley in [place] -- 1997, revealed corneal scar Colonoscopy, Screening Completed Comments: December 2011 Hip Replacement Completed Comments: Left - Dr Donaldson in [facility] at [facility] hysterectomy Completed Comments: with bladder repair in 1976 at [facility] by Dr Liao in [place] Mammogram, Screening Completed Comments: 2010 Pap Smear Completed Comments: 2011 Rectal Sphincter Repair Completed Comments[facility] Rectocele Repair Completed Comments: 2007 [facility] [place] Toe Repair Completed Comments: [address] Saavedra, in office, [place] Date Value Details 03-Sep-2017 SCREENING MAMM (CAD), BILAT Result: Comments: See Note; NOTES: [facility] Imaging Services [address] [place] [address] SCREENING MAMM (CAD), BILAT MR#: [id number] Acct: [id number] Name: ORALIA WEAVER Rep #: [id number] : 1940 F 77 From: Wil Roberts MD PCP: Radha Griffith DO Status: [facility] CLI Study: SCREENING MAMM (CAD), BILAT Date of Exam: 09/03/17 Exam# [id number] Ordering Dr: Radha Griffith DO MAMMOGRAPHY - [...] biopsy of a clinically tita picious abnormality. [id number] Electronically Signed: Wil Roberts MD at 15:26 EST Tel [phone], Service support , CC: Radha Griffith DO Social Media Content Manager: Signed 19-Jul-2017 PT D/C Summary (1) Result: Comments: See Note; NOTES: [facility] [place] [address] Fax [facility] MR#: [id number] Acct: [id number] Name: ORALIA WEAVER Rep #: [id number] : 1940 77 From: Shaun Saavedra DPT, OCS, CSCS Referring DrClarence: Radha Griffith DO Status: REG RCR Insurance: [...] please feel free to call me at [phone]. Thank you for the referral of this patient. Sincerely, Shaun Saavedra DPT, OC <Electronically signed by Shaun Saavedra DPT, TERESITA, CSCS> 07/19/17 0648 CC: Radha Griffith DO EBG Signed 08-Jul-2017 Re-Evaluation - PT (1) Result: Comments: See Note; NOTES: [facility] [address] [place] [address]. [address] [place] [address] Fax REEVALUATION / MEDICARE [facility] MR#: [id number] Acct: [id number] Name: ORALIA WEAVER Rep #: [id number] : 1940 77 From: Shaun Saavedra DPT, OCS, CSCS Referring DrClarence: Radha Griffith DO Status: REG RCR Ins urance: MEDICARE PART A B ANTHEM Radha Gladis, It has been my pleasure to treat [...] eyes and asymmetrical dizzyness. - L hallpike westno. Good balance Plan Plan: weeklyx4 to progress [...] do not hesitate to contact me at [phone] by phone or if you have questions or concerns regar ding this new plan of care! Sincerely, Shaun Saavedra DPT, OC <Electronically signed by Shaun Saavedra DPT, TERESITA, CSCS> 07/08/17 0913 CC: Radha Griffith DO E BG Signed For Medicare only, by signing this I certify the plan of care. Physicians Signature Date 09-Jun-2017 Inital Evaluation (1) - PT Result: Comments: See Note; NOTES: [facility] [place] [address] Fax REHABILITATION SERVICES INITIAL EVALUATION MR#: [id number] Acct: [id number] Name: ORALIA WEAVER Rep #: [id number] : 1940 77 From: Shaun Quentin DPT, OCS, CSCS Referring DrClarence: Radha Griffith DO Status: REG RCR Insurance: MEDICA RE PART A B [facility]LY [facility] Patient's Visit Information ORALIA WEAVER is a [...] she can do them. Will go to [place] for Chirstmas in 10 days. This is [...] to be FAXED BACK to us at [phone] for Medicare purposes. Please let me know [...] - PT Result: Comments: See Note; NOTES: [facility] [address] [place] [address] Fax REHABILITATION SERVICES INITIAL EVALUATION MR#: [id number] Acct: [id number] Name: ORALIA WEAVER Rep #: [id number] : 1940 76 From: Shaun Saavedra DPT, TERESITA, CSCS Referring Dr.: Radha rGiffith DO Status: REG RCR Insurance: [facility] PART A B FORMERLY [facility], [facility]1983 Patient's Visit Information ORALIA WEAVER is a [...] torsional nystagmus of 13 seconds. Treated with L Stephanie. Then - L HD. Fair balance walking [...] to be FAXED BACK to us at [phone] for Medicare purposes. Please let me know if there are question s or concerns regarding this plan of care. Physician Signature: Date: <Electronically signed by Shaun Saavedra DPT, OCS, CSCS&#62 ; 11/25/16 0740 CC: Radha Griffith DO EBAyala Signed For Medicare only, by signing this I certify the plan of care. Physicians Signature Date 29-Jul-2016 Brain/Head without Contrast Result: Comments: See Note; NOTES: [facility] Imaging Services [address] [place] [address] Skylar 4d Brain/Head without Contrast MR#: [id number] Acct: [id number] Name: ORALIA WEAVER Rep #: [id number] : 1940 F 76 From: Wil Roberts MD PCP: Matthew Carrion Status: REG CLI Study: Brain/Head without Contrast Date of Exam: 07/29/16 Exam# [id number] Ordering Dr: Matthew Carrion STUDY: CT BRAIN [...] changes of the brain. Electronically Signed: Wil Robrets MD at 11:39 EST Tel [phone], Service support [phone], CC: Matthew Carrion Social Media Content Manager: Signed 09-Jul-2016 SCREENING MAMM (CAD), BILAT Result: Comments: See Note; NOTES: [facility] Imaging Services [address] [place] [address] Verdana 4d SCREENING MAMM (CAD), BILAT MR#: [id number] Acct: [id number] Name: ORALIA WEAVER Rep #: [id number] : 1940 F 76 From: Wil Roberts MD PCP: Matthew aCrrion Status: REG CLI Study: SCREENING MAMM (CAD), BILAT Date of Exam: 07/09/16 Exam# [id number] Ordering Dr: Matthew Carrion MAMMOGRAPHY - BILATERAL [...] delay biopsy of a clinically suspicious abnormality. [id number] Electronically Signed: Wil Roberts MD at 14:00 EST Tel [phone], Service support [phone], CC: Matthew Carrion Social Media Content Manager: Signed 08-May-2016 Echocardiogram Complete Result: Comments: See Note; NOTES: [facility] Cardiovascular Services [address] [place] [address] Echo Complete 05/08/16 0934 MR#: [id number] Acct: [id number] Name: ORALIA WEAVER p #: [id number] : 1940 76 From: John Chambers MD Attending Dr: Geovanni Carrion Status: REG CLI Ordering Dr: Geovanni Carrion MD Date: 05/08/16 Location: [facility] Sex: F C Admitted: Reason For Study: [...] Referring Physician: Matthew Carrion Performed By: Shanita Escalera RDCS, RVT 05/08/16 1221 Date John Chambers MD CC: Geovanni Carrion Date Dictated : 05/08/16 0934 Date Transcribed: 05/08/16 1221 Social Media Content Manager: Signed 08-May-2016 Nuclear Stress Test - Chemical Result: Comments: See Note; NOTES: [facility] Imaging Services [address] [place] [address] Skylar 4d Nuclear Stress Test - Chemical MR#: [id number] Acct: [id number] Name: WES WEAVER Rep #: [id number] : 1940 76 From: Frederick Neil MD [...] bundle-branch block pattern. 3. Nuclear images niru g. MYOCARDIAL PERFUSION IMAGING STUDY: TECHNIQUE: The patient [...] 63%. Frederick Neil MD T: NTS JOB: [id number] 05/08/16 1247 &#60 ;Electronically signed by Frederick Neil MD> Date Frederick Neil MD CC: Matthew Carrion Date Dictated: 05/08/16 1149 Date Transcribed: 05/08/161148 Social Media Content Manager: Signed 08-Jul-2015 Echocardiogram Complete Result: Comments: See Note; NOTES: [facility] Services [address] [place] [address] Echo Complete 07/08/15 1302 MR#: [id number] Acct: [id number] Name: ORALIA [place] OD Rep #: [id number] : 1940 75 From: Rob Keating MD Attending Dr: Ana Rios MD Status: REG CLI Ordering Dr: Ana Rios MD Date: 07/08/15 Location: [facility] Sex: F C Admitted: Procedure This was [...] Ana Rios M.D. Performed By: Nidhi Cheatham RDCS 07/08/15 1603 Date ____ Rob Keating MD CC: Ana Rios MD Date Dictated: 07/08/15 1302 Date Transcribed: 07/08/15 1603 Social Media Content Manager: Signed 26-Jun-2015 Bilat Scrn Digital AND CAD Result: Comments: See Note; NOTES: [facility] Imaging Services [address] [place] [address] Verdana 4d Bilat Scrn Digital AND CAD MR#: [id number] Acct: [id number] Name: ORALIA WEAVER Rep #: [id number] : 1940 F 75 From: Prakash Gutierrez MD PCP: Ana Rios MD Status: REG CLI Study: Bilat Scrn Digital AND CAD Date of Exam: 06/26/15 Exam# [id number] Ordering Dr: Ana Lam MD MAMMOGRAPHY - [...] biops y of a clinically suspicious abnormality. [id number] Electronically Signed: Guillermo Gutierrez MD at 10:18 EST Tel , Service support [phone], CC: Ana Rios MD Social Media Content Manager: Signed 26-Jun-2015 Dexa Bone Density Study (HP) Result: Comments: See Note; NOTES: [facility] Imaging Services [address] [place] [address] Verdana 4d Dexa Bone Density Study (HP) MR#: [id number] Acct: [id number] Name : ORALIA WEAVER Rep #: [id number] : 1940 F 75 From: Wil Roberts MD PCP: Ana Riso MD Status: REG CLI Study: Dexa Bone Density Study (HP) Date of Exam: 06/26/15 Exam# [id number] [facility] Dr: Ana Rios MD STUDY: DUAL ENERGY [...] Wil Roberts MD at 16:10 EST Tel [phone], Service support , CC: Ana Rios MD Social Media Content Manager: Signed 13-Jun-2015 EKG (29159) Result: [MEASUREMENTS ANALYSIS] Date of Test: 06/13/2015 12:06:43; Heart Rate: 53; NV Interval: 194; QRS: 131; QT Interval: 494; Corrected QT Interval (QTc): 482; P Wave Marion: 57; QRS Wave Marion: -40; T Wave Axi s: 127; Blood Pressure: 138/82 [ECG DIAGNOSTIC STATEMENTS] Date of Test: 06/13/2015 12:06:43; Summary: Sinus Bradycardia -Left bundle branch block and left axis. ABNORMAL 14-May-2014 Bilat Scrn Digital & CAD Result: Comments: See Note; NOTES: [facility] Imaging Services [address] [place] [address] Breast Imaging Report MR#: [id number] Acct: [id number] Name: ORALIA WEAVER Rep #: [id number] : 1940 F 74 From: Wil Roberts MD PCP: Ana Rios MD Status: REG CLI Exam# [id number] Ordering Dr: Ana iRos MD MAMMOGRAPHY - BILATERAL SCREENING REASON FOR [...] Wil Roberts MD at 10:56 EST Tel [phone], Service support [phone], CC: Ana Rios MD Social Media Content Manager: Signed 03-May-2014 Chest PA and Lateral Result: Comments: See Note; NOTES: [facility] Imaging Services [address] [place] [address] Radiology Report MR#: [id number] Acct: [id number] Name: ORALIA WEAVER Rep #: [id number] : 1940 F 74 From: Ric Avila MD PCP: Ana Rios MD Status: [facility] CLI Study: Chest PA and Lateral Date of Exam: 05/03/14 Exam# [id number] Ordering Dr: Ana Rios MD STUDY: X-RAY [...] at 13:27 EST Tel , Service support [phone], CC: Ana Rios MD Social Media Content Manager: Signed 16-Oct-2013 EKG (54560) Comments: see scanned document of test done to see results reviewed today with patient Result: [MEASUREMENTS ANALYSIS] Date of Test: 10/16/2013 11:44:55; Heart Rate: 54; NV Interval: 202; QRS: 96; QT Interval: 442; Corrected QT Interval (QTc): 432; P Wave Marion: 55; QRS Wave Marion: -22; T Wave Marion : 112; Blood Pressure: 124/84 [ECG DIAGNOSTIC STATEMENTS] Date of Test: 10/16/2013 11:44:55; Summary: Sinus Bradycardia Voltage criteria for LVH (R(V6) exceeds 2.26 mV). -Old anterior infarct. -Nons pecific ST depression + T-abnormality -Seen with left ventricular hypertrophy (strain) or digitalis effect consider Anterolateral ischemia. ABNORMAL [MEASUREMENTS ANALYSIS] Date of Test: 014 11:44:11; Heart Rate: 56; NV Interval: 192; QRS: 96; QT Interval: 444; Corrected QT Interval (QTc): 437; P Wave Marion: 63; QRS Wave Marion: -20; T Wave Marion: 125; Blood Pressure: 124/84 [ECG DIAGNOSTIC STATEMENTS] [...] (Non ) Result: Comments: See Note; NOTES: [facility] Imaging Services [address] [place] [address] Ultrasound Report MR#: [id number] Acct: [id number] Name: ORALIA WEAVER Rep #: [id number] : 1940 F 73 From: Wil Roberts MD PCP: Status: REG CLI Study: Pelvic (Non ) Date of Exam: 04/28/13 Exam# [id number] Ordering Dr: Ana Rios MD STUDY: ULTRASOUND [...] April 28, 2013 at 2:56:24 PM EDT [phone] Electronically Signed GP/GP If you are the referring physician and would like to consult with the radiologist who p rovided this interpretation, please contact Wil Roberts M.D. at [phone]. If this radiologist is unavailable, you will be directed to another radiologist to assist. If you are a patient with a question regarding this report, please contact your referring physician directly. Professional Interpretation Provided By: [employer], Phone , These documents contain legally protected [...] of these documents. CC: Ana Rios MD Social Media Content Manager: Signed Immunization Name Dates Details Influenza (3 years and up) on: 2017 Pneumococcal (2 years and up) on: 26-Jan-2018 Comments: Site: Left Deltoid Lot #: [id number] Zoster (shingles) Comments: 2012 [facility] Family History Unknown Family Member Name Dates Details Father Comments: Depression and Kidney Status: Active Mother Comments: Breast Ca and Diabetes Status: Active Sister 1 Comments: Depression/Emotional problems Status: Active Social History Name Dates Details Caffeine Use Comments: 1 cup/day Status: Active Exercise History Comments: 1-2 weekly, light Status: Active Living Situation Comments: , moved from [place] Status: Active No Drug Use Status: Active Non Drinker/No Alcohol Use Status: Active Non Smoker/No Tobacco Use Status: Active Tobacco use: Never smoker. Status: Active Smoking Status Name Dates Details Never smoker Vital Signs Date Test Result Details 78-Tdb-802650:24 Pulse 63 /min Comments: Pattern: Regular Respiration [...] Surface Area Calculated 1.81 m2 :22 Temperature 97 f Comments: Method: Temporal Pulse [...] kg/m2 Body Surface Area Calculated 1.81 m2 :34 Temperature 97.6 f Comments: Method: Oral Pulse [...] 163 lb Results Date Description Value Details 30-Oqw-871372:56 Metabolic Panel, Basic Comments: PATIENT NOT FASTINGPERFORMED BY: [facility]lerRobert [facility] RahwayVizsif6830 [facility] [id number] (11966) Calcium 9.9 mg/dL (Normal) Range: 8.7-10.3 Carbon [...] 8-27 Glucose 85 mg/dL (Normal) Range: 65-99 53-Arx-885263:11 URINE ANDER CULTURE-IDENTIFICATN Comments: PATIENT NOT FASTINGPERFORMED BY: ZupplerRobert Wood Johnson [facility] Hospital at RahwayGcwjzv8408 [facility] [id number] Information: SRC:UC (37169) Result 1 NG36 (Normal) Comments: No growth in 36 - 48 hours. Urine Culture,Comprehensive Final report (Normal) 41-Lcb-499459:08 Urinalysis, Office (04750) UA - LEUKOCYTE ESTERASE Trace (Normal) Comments: sent to lab UA - NITRITE Negative (Normal) URINE UROBILINGN DENNY TIMED Normal mg/dL (Normal) UA - PROTEIN Negative mg/dL (Normal) UA - PH 6 (Abnormal) UA - BLOOD Non Hemolyzed Trace (Normal) UA - SPECIFIC GRAVITY 1.015 (Normal) UA - KETONES Negative mg/dL (Normal) UA - BILIRUBIN Negative (Normal) UA - GLUCOSE Negative (Normal) 53-Tla-636753:07 TSH (56068) Comments: PATIENT WAS FASTINGPERFORMED BY: ZupplerRobert Wood Johnson [facility] Hospital at RahwayAfqkby0260 [facility] [id number] TSH 2.410 {uIU/mL} (Normal) Range: 0.450-4.500 92-Lfu-767115:07 Metabolic Panel, Comprehensive Comments: PATIENT WAS FASTINGPERFORMED BY: ZupplerRobert Wood Johnson [facility] Hospital at RahwayTsloai9613 [facility] [id number] (00104) ALT (SGPT) 8 [iU]/L (Normal) Range: 0-32 [...] Glucose, Serum 97 mg/dL (Normal) Range: 65-99 84-Xbu-717488:07 CALCIFEDIOL (61635) Comments: PATIENT WAS FASTINGPERFORMED BY: ZupplerRobert Wood Johnson [facility] Hospital at RahwayEkaewe1453 [facility] [id number] Vitamin D, 25-Hydroxy 52.1 ng/mL (Normal) Range: 30.0-100.0 Comments: Vitamin D deficiency has been defined by the [place] ofMedicine and an Endocrine Society practice guideline as alevel of serum 25-OH vitamin D less than 20 ng/mL (1,2).The Endocrine Society went on to further define vitamin Dinsufficiency as a level between 21 and 29 ng/mL (2).1. IOM ([place] of Medicine). 2010. Dietary reference intakes for calcium and D. [place]: The National Academies Press.2. Solo MF, Irma COATES, Derrek RAMIREZ, et al. Evaluation, treatment, and prevention of vitamin D deficiency: an Endocrine Society clinical practice guideline. JCEM. 2010; 96(7):1911-30. 22-Bfm-016463:07 Lipid Panel (78398) Comments: PATIENT WAS FASTINGPERFORMED BY: Peonut6370 [facility] [id number] LDL/HDL Ratio 2.1 {ratio_units} (Normal) Range: 0.0-3.2 Comments: LDL/HDL Ratio Men Women 1/2 Avg.Risk 1.0 1.5 Av g.Risk 3.6 3.2 2X Avg.Risk 6.2 5.0 3X Avg.Risk 8.0 6.1 LDL Cholesterol Calc 105 mg/dL (Abnormal) Range: 0-99 VLDL Cholesterol Oren 27 mg/dL (Normal) Range: 5-40 HDL Cholesterol 50 mg/dL (Normal) Triglycerides 136 mg/dL (Normal) Range: 0-149 Cholesterol, Total 182 mg/dL (Normal) Range: 100-199 27-Oud-762633:07 CBC, Platelets & Auto Diff Comments: PATIENT WAS FASTINGPERFORMED BY: Peonut6370 [facility] [id number] (17584) Immature Grans (Abs) 0.0 {x10E3/uL} (Normal) Range: [...] 6.5 {x10E3/uL} (Normal) Range: 3.4-10.8 :16 CALCIFEDIOL (84030) Comments: PATIENT WAS FASTINGPERFORMED BY: [facility]6370 [facility] [id number] Vitamin D, 25-Hydroxy 35.3 ng/mL (Normal) Range: 30.0-100.0 Comments: Vitamin D deficiency has been defined by the [place] ofMedicine and an Endocrine Society practice guideline as alevel of serum 25-OH vitamin D less than 20 ng/mL (1,2).The Endocrine Society went on to further define vitamin Dinsufficiency as a level between 21 and 29 ng/mL (2).1. IOM ([place] of Medicine). 2010. Dietary reference intakes for calcium and D. [place]: The National Academies Press.2. Solo MF, Irma COATES, Derrek RAMIREZ, et al. Evaluation, treatment, and prevention of vitamin D deficiency: an Endocrine Society clinical practice guideline. JCEM. 2010; 96(7):1911-30. :16 TSH (THYROID STIMULATING Comments: PATIENT WAS FASTINGPERFORMED BY: [facility]6370 [facility] [id number] HORMONE) (67373) TSH 2.460 {uIU/mL} (Normal) Range: 0.450-4.500 :16 LIPID PANEL (30800) Comments: PATIENT WAS FASTINGPERFORMED BY: [facility]6370 [facility] [id number] LDL/HDL Ratio 1.6 {ratio_units} (Normal) Range: 0.0-3.2 [...] PANEL, COMPREHENSIVE Comments: PATIENT WAS FASTINGPERFORMED BY: [facility]6370 [facility] [id number] (30534) ALT (SGPT) 8 [iU]/L (Normal) Range: 0-32 [...] Glucose, Serum 83 mg/dL (Normal) Range: 65-99 71-Yuw-62109:16 CBC, PLATELETS & AUT DIFF Comments: PATIENT WAS FASTINGPERFORMED BY: [facility] Wclicg5802 [facility] [id number]; fu 5-17 KF (71760) Immature Grans (Abs) 0.0 {x10E3/uL} (Normal) Range: [...] PANEL, COMPREHENSIVE Comments: PATIENT WAS FASTINGPERFORMED BY: [facility] Zrpxkt8012 [facility] [id number] (58028) ALT (SGPT) 9 [iU]/L (Normal) Range: 0-32 [...] Glucose, Serum 95 mg/dL (Normal) Range: 65-99 87-Wve-023820:02 CALCIFEDIOL (51624) Comments: PATIENT WAS FASTINGPERFORMED BY: [facility] Gyeget1586 [facility] [place] [id number] Vitamin D, 25-Hydroxy 46.6 ng/mL (Normal) Range: 30.0-100.0 Comments: Vitamin D deficiency has been defined by the [place] of[place]icine and an Endocrine Society practice guideline as alevel of serum 25-OH vitamin D less than 20 ng/mL (1,2).The Endocrine Society went on to further define vitamin Dinsufficiency as a level between 21 and 29 ng/mL (2).1. IOM ([place] of Medicine). 2010. Dietary reference intakes for calcium and D. [place]: The National Academies Press.2. Solo MF, Irma COATES, Derrek RAMIREZ, et al. Evaluation, treatment, and prevention of vitamin D deficiency: an Endocrine Society clinical practice guideline. JCEM. 2010; 96(7):1911-30. 56-Dep-178699:30 MICROALBUMIN: CREATININE RATIO Comments: PATIENT WAS FASTINGPERFORMED BY: [facility] Tavbpj4834 [facility] [id number] (18716) AND (38952) Microalb/Creat Ratio 4.5 {mg/g_creat} (Normal) Range: 0.0-30.0 Microalbumin, Urine 3.5 ug/mL (Normal) Creatinine, Urine 78.3 mg/dL (Normal) 73-Cwb-294918:30 VITAMIN B12 AND FOLATES Comments: PATIENT WAS FASTINGPERFORMED BY: [facility] Kbzbbp3797 [facility] [id number] (91107) Folate (Folic Acid), Serum 19.0 ng/mL (Normal) Comments: A serum folate concentration of less than 3.1 ng/mL isconsidered to represent clinical deficiency. Vitamin B12 431 pg/mL (Normal) Range: 211-946 26-Cyz-105464:30 CALCIFEDIOL (29541) Comments: PATIENT WAS FASTINGPERFORMED BY: LabAl[facility] Usqfje1211 [facility] HospitalDublin [place] [id number] Vitamin D, 25-Hydroxy 26.3 ng/mL (Abnormal) Range: 30.0-100.0 Comments: Vitamin D deficiency has been defined by the [place] of[place]icine and an Endocrine Society practice guideline as alevel of serum 25-OH vitamin D less than 20 ng/mL (1,2).The Endocrine Society went on to further define vitamin Dinsufficiency as a level between 21 and 29 ng/mL (2).1. IOM ([place] of Medicine). 2010. Dietary reference intakes for calcium and D. [place]: The National Academies Press.2. Solo MF, Irma COATES, Derrek RAMIREZ, et al. Evaluation, treatment, and prevention of vitamin D deficiency: an Endocrine Society clinical practice guideline. JCEM. 2010; 96(7):1911-30. 72-Miy-662917:30 TSH (THYROID STIMULATING Comments: PATIENT WAS FASTINGPERFORMED BY: [employer] [facility] [id number] HORMONE) (20005) TSH 2.140 {uIU/mL} (Normal) Range: 0.450-4.500 :30 LIPID PANEL (99911) Comments: PATIENT WAS FASTINGPERFORMED BY: [employer]onut6370 [facility] [id number] LDL/HDL Ratio 1.8 {ratio_units} (Normal) Range: 0.0-3.2 [...] PANEL, COMPREHENSIVE Comments: PATIENT WAS FASTINGPERFORMED BY: [employer]70 [facility] [id number] (77950) ALT (SGPT) 8 [iU]/L (Normal) Range: 0-32 [...] Glucose, Serum 93 mg/dL (Normal) Range: 65-99 26-Gqs-175275:30 CBC, PLATELETS & AUT DIFF Comments: PATIENT WAS FASTINGPERFORMED BY: LabCoRobert Wood Johnson [facility] at RahwayMuulwj2360 [facility] [id number] (95912) Immature Grans (Abs) 0.0 {x10E3/uL} (Normal) Range: [...] 3.77-5.28 WBC 5.9 {x10E3/uL} (Normal) Range: 3.4-10.8 04-Jun-20159:36 Microscopic Examination Comments: PATIENT WAS FASTINGPERFORMED BY: [facility] Oicjle3082 [facility] [id number] Bacteria Few (Normal) Mucus Threads Present (Normal) Epithelial Cells (non renal) 0-10 {/hpf} (Normal) Range: 0 - 10 RBC 0-2 {/hpf} (Normal) Range: 0 - 2 WBC 11-30 {/hpf} (Abnormal) Range: 0 - 5 54-Sej-495249:06 CBC, Platelets & Auto Comments: PATIENT NOT FASTINGPERFORMED BY: LabCoRobert Wood Johnson [facility] Hospital at RahwayYozfbc0363 [facility] [id number] Information: [id number] Diff (49915) Immature Grans (Abs) 0.0 {x10E3/uL} (Normal) Range: [...] (Normal) Range: 3.4-10.8 :36 URINALYSIS, W/ MICRO (89684) Comments: PATIENT WAS FASTINGPERFORMED BY: [facility]6370 [facility] [id number] Microscopic Examination See below: (Normal) Comments: Microscopic was indicated and was performed. Nitrite, Urine Negative (Normal) Urobilinogen,Semi-Qn 0.2 mg/dL (Normal) Range: 0.2-1.0 Bilirubin Negative (Normal) Occult Blood Negative (Normal) Ketones Negative (Normal) Glucose Negative (Normal) Protein Negative (Normal) WBC Esterase 1+ (Abnormal) Appearance Clear (Normal) Urine-Color Yellow (Normal) pH 6.5 (Normal) Range: 5.0-7.5 Specific [place] 1.017 (Normal) Range: 1.005-1.030 :36 METABOLIC PANEL, COMPREHENSIVE Comments: PATIENT WAS FASTINGPERFORMED BY: LabCoRobert Wood Johnson [facility] Hospital at RahwayYlnhuu8058 [facility] [id number] ([id number]) ALT (SGPT) 5 [iU]/L (Normal) Range: 0-32 [...] mg/dL (Normal) Range: 65-99 :36 LIPID PANEL (62346) Comments: PATIENT WAS FASTINGPERFORMED BY: ZupplerRobert Wood Johnson [facility] Hospital at RahwayOyutic3916 [facility] [id number] LDL/HDL Ratio 1.7 {ratio_units} (Normal) Range: 0.0-3.2 [...] auto diff Comments: PATIENT WAS FASTINGPERFORMED BY: ZupplerRobert Wood Johnson University Hospital at RahwayIitrui4304 [facility] [id number] Information: [id number]; apt. [birth year] (58603) Immature Grans (Abs) 0.0 {x10E3/uL} (Normal) Range: [...] With Differential/Platelet Comments: PATIENT WAS FASTINGPERFORMED BY: [facility]Core[facility]6370 [facility] [id number] Information: [id number]; patient has fu 6-18 will review with [...] Panel (14) Comments: PATIENT WAS FASTINGPERFORMED BY: [employer]70 [facility] [id number] ALT (SGPT) 6 [iU]/L (Normal) Range: 0-32 [...] With LDL/HDL Comments: PATIENT WAS FASTINGPERFORMED BY: [employer]70 [facility] [id number] Ratio LDL/HDL Ratio 1.9 {ratio_units} (Normal) Range: [...] Microscopic Examination Comments: PATIENT WAS FASTINGPERFORMED BY: JournallyMe [facility] [id number] Bacteria Few (Normal) Mucus Threads Present (Normal) Epithelial Cells (non renal) 0-10 {/hpf} (Normal) Range: 0 - 10 RBC 0-2 {/hpf} (Normal) Range: 0 - 2 WBC 0-5 {/hpf} (Normal) Range: 0 - 5 :47 Urinalysis, Complete Comments: PATIENT WAS FASTINGPERFORMED BY: [employer]70 [facility] [id number] Microscopic Examination See below: (Normal) Comments: Microscopic was indicated and was performed. Microscopic Examination MICRON (Normal) Comments: Microscopic follows if indicated. Nitrite, Urine Negative (Normal) Urobilinogen,Semi-Qn 0.2 mg/dL (Normal) Range: 0.0-1.9 Bilirubin Negative (Normal) Occult Blood Negative (Normal) Ketones Negative (Normal) Glucose Negative (Normal) Protein Negative (Normal) WBC Esterase Negative (Normal) Appearance Clear (Normal) Urine-Color Yellow (Normal) pH 6.0 (Normal) Range: 5.0-7.5 Specific [place] 1.024 (Normal) Range: 1.005-1.030 33-Myr-333749:50 CBC W/AUTO DIFF WBC Comments: PATIENT NOT FASTINGPERFORMED BY: [employer]ut6370 [facility] [id number] Information: [id number] (63912) Immature Grans (Abs) 0.0 {x10E3/uL} (Normal) Range: [...] 3.77-5.28 WBC 7.8 {x10E3/uL} (Normal) Range: 3.4-10.8 75-Uhu-341792:50 Metabolic Panel, Basic Comments: PATIENT NOT FASTINGPERFORMED BY: ZupplerRobert Wood Johnson [facility] Hospital at RahwayVhqsvc9167 [facility] [id number] (23342) Calcium, Serum 9.8 mg/dL (Normal) Range: 8.6-10.2 [...] Glucose, Serum 87 mg/dL (Normal) Range: 65-99 03-Apr-20148:52 Urinalysis, Office (92111) UA - NITRITE Negative (Normal) UA - LEUKOCYTE ESTERASE Trace (Normal) URINE UROBILINGN DENNY TIMED Normal mg/dL (Normal) UA - PH 6.0 (Normal) UA - PROTEIN Negative mg/dL (Normal) UA - BLOOD Negative (Normal) UA - SPECIFIC GRAVITY 1.015 (Normal) UA - KETONES Negative mg/dL (Normal) UA - BILIRUBIN Negative (Normal) UA - GLUCOSE Negative (Normal) :19 METABOLIC PANEL, COMPREHENSIVE Comments: PATIENT WAS FASTINGPERFORMED BY: LabCoRobert Wood Johnson [facility] Hospital at RahwayGayyix6427 [facility] [id number] (79633) ALT (SGPT) 9 [iU]/L (Normal) Range: 0-32 [...] mg/dL (Normal) Range: 65-99 :19 LIPID PANEL (99392) Comments: PATIENT WAS FASTINGPERFORMED BY: TrendBentAtrium Health [facility] [id number] LDL/HDL Ratio 1.6 {ratio_units} (Normal) Range: 0.0-3.2 [...] MANUAL DIFF Comments: PATIENT WAS FASTINGPERFORMED BY: [employer]70 [facility] AAt[facility] [id number] Information: [id number] (49405) Immature Grans (Abs) 0.0 {x10E3/uL} (Normal) Range: [...] 3.77-5.28 WBC 11.4 {x10E3/uL} (Abnormal) Range: 3.4-10.8 82-Yig-082262:07 Urinalysis, Routine Comments: PERFORMED BY: JournallyMe [facility] [id number] Microscopic Examination MICRON (Normal) Comments: Microscopic follows if indicated. Nitrite, Urine Negative (Normal) Urobilinogen,Semi-Qn 0.2 mg/dL (Normal) Range: 0.0-1.9 Bilirubin Negative (Normal) Occult Blood Negative (Normal) Ketones Negative (Normal) Glucose Negative (Normal) Protein Negative (Normal) WBC Esterase Negative (Normal) Appearance Cloudy (Abnormal) Urine-Color Yellow (Normal) pH 6.0 (Normal) Range: 5.0-7.5 Specific [place] 1.020 (Normal) Range: 1.005-1.030 :14 MICROALBUMIN: CREATININE RATIO Comments: PERFORMED BY: JournallyMe [facility] [id number] (22832) AND (53833) Microalb/Creat Ratio 7.0 {mg/g_creat} (Normal) Range: 0.0-30.0 Creatinine, Urine 124.0 mg/dL (Normal) Range: 15.0-278.0 Microalbumin, Urine 8.7 ug/mL (Normal) Range: 0.0-17.0 :14 METABOLIC PANEL, COMPREHENSIVE Comments: PERFORMED BY: LUBB-TEX70 [facility] AAt[facility] [id number] (10056) ALT (SGPT) 12 [iU]/L (Normal) Range: 0-32 [...] mg/dL (Abnormal) Range: 65-99 :14 LIPID PANEL (65871) Comments: PERFORMED BY: TrendBentAtrium Health [facility] [id number] LDL/HDL Ratio 1.6 {ratio_units} (Normal) Range: 0.0-3.2 LDL Cholesterol Calc 82 mg/dL (Normal) Range: 0-99 VLDL Cholesterol Oren 21 mg/dL (Normal) Range: 5-40 Cholesterol, Total 153 mg/dL (Normal) Range: 100-199 HDL Cholesterol 50 mg/dL (Normal) Comments: According to ATP-III Guidelines, HDL-C >59 mg/dL is considered anegative risk factor for CHD. Triglycerides 107 mg/dL (Normal) Range: 0-149 77-Jai-22591:14 CBC WITH MANUAL DIFF (54181) Comments: PERFORMED BY: LabCoRobert Wood Johnson [facility] Hospital at RahwayBeaitp9741 [facility] [id number] Immature Grans (Abs) 0.0 {x10E3/uL} (Normal) Range: [...] 3.77-5.28 WBC 6.2 {x10E3/uL} (Normal) Range: 3.4-10.8 43-Lmp-739752:26 Urinalysis, Office (89799) UA - BILIRUBIN Negative (Normal) UA - BLOOD Negative (Normal) UA - GLUCOSE Negative (Normal) UA - KETONES Negative mg/dL (Normal) UA - LEUKOCYTE ESTERASE Negative (Normal) UA - NITRITE Negative (Normal) UA - PH 7.0 (Normal) UA - PROTEIN Negative mg/dL (Normal) UA - SPECIFIC GRAVITY 1.015 (Normal) URINE UROBILINGN DENNY TIMED Normal mg/dL (Normal) 74-Vgh-76134:00 Microscopic Examination Comments: PATIENT WAS FASTINGPERFORMED BY: LabCorewell [facility]6370 [facility] [id number] Bacteria Few (Normal) Mucus Threads Present (Normal) Epithelial Cells (non renal) >10 {/hpf} (Abnormal) Range: 0 - 10 RBC 0-3 {/hpf} (Normal) Range: 0 - 3 WBC 0-5 {/hpf} (Normal) Range: 0 - 5 0-Qvm-197465:24 DEXA BONE DENSITY STUDY () Radiology Report [...] Roberts M.D.March 02, 2013 at 12:38:17 PM [id number] Signed GP/GP If you are the referring physician and would like to consult with theradiologist who provided this interpretation, please contact Syed Heath at [phone]. If this radiologist is unavailable, youwill be directed to another radiologist to assist. If you are a patient with a question regarding this report, pleasecontactyour referring physician directly. Professional Interpretation Provided By: [employer], Phone , These documents contain leg ally [...] MD on 03/02/13 1249 Sign by: Wil Robetrs MD 7-Nbl-303364:23 BILAT SCRN DIGITAL & CAD Radiology Report [...] resultswill be sent to the patient by [facility] within 30 days. Approximately 10% of breast cancers are not detected by mammography. Anormal mammogram should not delay biopsy of a clinically suspiciousabnormality. Signed:Wil Tripp i, M.D.March 07, 2013 at 9:25:55 AM [id number] Signed GP/GP If you are the referring physician and would like to consult with theradiologist who provided this interpretation, denita cotter contact Syed Heath at [phone]. If this radiologist is unavailable, youwill be directed to another radiologist to assist. If you are a patient with a question regarding this report, pleasecontactyour referring physician directly. Professional Interpretation Provided By: [employer], Phone , These documents contain legally protected [...] 03/07 0925 by Alejandra DALE,Vickranscribed on 03/07/13 1138 by ITS IMPORTSign by Wil Roberts MD on 03/07/13 113 Sign by: Wil Roberts MD 95-Pct-822125:36 Urinalysis, Office (24990) UA - BILIRUBIN Negative (Normal) UA - BLOOD Hemolyzed Large (Normal) UA - GLUCOSE Negative (Normal) UA - KETONES Negative mg/dL (Normal) UA - LEUKOCYTE ESTERASE Moderate (Normal) UA - NITRITE Negative (Normal) UA - PH 7.0 (Normal) UA - PROTEIN Negative mg/dL (Normal) UA - SPECIFIC GRAVITY 1.015 (Normal) URINE UROBILINGN DENNY TIMED 2 mg/dL (Normal) 83-Eic-84284:00 URINALYSIS, W/ MICRO (75923) Comments: PATIENT WAS FASTINGPERFORMED BY: [facility]6370 [facility] [id number] Microscopic Examination See below: (Normal) Nitrite, Urine Negative (Normal) Urobilinogen,Semi-Qn 0.2 mg/dL (Normal) Range: 0.0-1.9 Bilirubin Negative (Normal) Occult Blood Negative (Normal) Ketones Negative (Normal) Glucose Trace (Abnormal) Protein 1+ (Abnormal) WBC Esterase Negative (Normal) Appearance Cloudy (Abnormal) Urine-Color Yellow (Normal) pH 6.0 (Normal) Range: 5.0-7.5 Specific [place] 1.023 (Normal) Range: 1.005-1.030 83-Bmt-15654:00 METABOLIC PANEL, COMPREHENSIVE Comments: PATIENT WAS FASTINGPERFORMED BY: LabCoRobert Wood Johnson [facility] Hospital at RahwayBzwxjx7592 [facility] [id number] (48984) ALT (SGPT) 8 [iU]/L (Normal) Range: 0-32 [...] Glucose, Serum 89 mg/dL (Normal) Range: 65-99 80-Lja-08937:00 LIPID PANEL (35910) Comments: PATIENT WAS FASTINGPERFORMED BY: ZupplerRobert Wood Johnson [facility] Hospital at RahwayGbwsuu6645 [facility] [id number] LDL/HDL Ratio 1.7 {ratio_units} (Normal) Range: 0.0-3.2 [...] MANUAL DIFF Comments: PATIENT WAS FASTINGPERFORMED BY: Zuppler Mlsovv3530 [facility] [id number] Information: [id number] (95623) Immature Grans (Abs) 0.0 {x10E3/uL} (Normal) Range: [...] 6.2 {x10E3/uL} (Normal) Range: 3.4-10.8 :18 TSH (19600) Comments: PATIENT WAS FASTINGPERFORMED BY: ZupplerRobert Wood Johnson [facility] Hospital at RahwayDitult1294 [facility] [id number] TSH 1.990 {uIU/mL} (Normal) Range: 0.450-4.500 :18 MICROALBUMIN: CREATININE RATIO Comments: PATIENT WAS FASTINGPERFORMED BY: ZupplerRobert Wood Johnson [facility] Hospital at RahwayFcbzmt2481 [facility] [id number] (93312) AND (17993) Creatinine, Urine 135.9 mg/dL (Normal) Range: 15.0-278.0 Microalb/Creat Ratio 1.1 {mg/g_creat} (Normal) Range: 0.0-30.0 Microalbumin, Urine 1.5 ug/mL (Normal) Range: 0.0-17.0 :18 METABOLIC PANEL, COMPREHENSIVE Comments: PATIENT WAS FASTINGPERFORMED BY: ZupplerRobert Wood Johnson [facility] Hospital at RahwayXcnuhp6543 [facility] [id number] (24195) ALT (SGPT) 11 [iU]/L (Normal) Range: 0-32 [...] mg/dL (Normal) Range: 65-99 :18 LIPID PANEL (25710) Comments: PATIENT WAS FASTINGPERFORMED BY: [employer]70 [facility] [id number] HDL Cholesterol 44 mg/dL (Normal) Comments: According [...] MANUAL DIFF Comments: PATIENT WAS FASTINGPERFORMED BY: DrivewyzeRobert Wood Johnson [facility] Hospital at RahwayEybihf2688 [facility] [id number] Information: [id number] (96586) Immature Grans (Abs) 0.0 {x10E3/uL} (Normal) Range: [...] malignant neoplasms, colon) Ventricular hypokinesis : Reviewed Field Handyman Letter Indication: Ventricular hypokinesis Hypertension, benign : [...] for malignant neoplasms, colon) Vertigo : Reviewed Field Handyman Letter Indication: Vertigo Hypercholesteremia : Reviewed Lab [...] Urinary incontinence Planned Observations URINALYSIS, W/ MICRO (67701)Indication: Hypertension, benign On: 66-Qwb-315849:54 Request METABOLIC PANEL, COMPREHENSIVE (97119)Indication: Hypertension, benign On: 39-Ksx-125660:54 Request LIPID PANEL (24487)Indication: Hypertension, benign On: :54 Request CBC with auto diff (37181)Indication: Hypertension, benign On: :54 Request URINALYSIS, W/ MICRO (69933)Indication: Hypertension, benign On: 49-Org-609765:23 Request METABOLIC PANEL, COMPREHENSIVE (59245)Indication: Hypertension, benign On: 52-Mxi-707373:23 Request LIPID PANEL (79928)Indication: Hypertension, benign On: 17-Lti-714582:23 Request CBC with auto diff (76420)Indication: Hypertension, benign On: 70-Eik-453004:23 Request Urinalysis, Office (17408)Indication: Proteinuria On: 98-Vix-731374:42 Request Planned Procedures SCREENING DIGITAL TOMOSYNTHESIS OF On: 26-Jan-2018 Intent BREAST (37842)By: Radha Griffith DO, DO, Kathleen SCREENING DIGITAL TOMOSYNTHESIS OF On: 13-Aug-2017 Intent BREAST (36620)By: Radha Griffith DO, DO, Kathleen Flu Vaccine (Quadrivalent) 30735Qq: On: 16-Apr-2017 Intent Radha Griffith DO, DO, Comments: Lot #[id number]/18/18ite-L dltd, IMDose prefilled syringegiven by:Wilson LPNESTRADA and ABN signed Radha ELECTROCARDIOGRAM, COMPLETE (ECG) On: 16-Apr-2017 Intent (91684)By: Radha Griffith DO Comments: sinus mane - old LBBB no acute chg Radha Griffith DO CT - Brain/Head (Without On: 29-Jul-2016 Intent Contrast)By: Matthew Carrion MD MAMMOGRAM, SCREENING, BOTH BREAST On: 29-Jun-2016 Intent (82684)By: Matthew Carrion MD Nuclear Stress Test/Stress On: 29-Apr-2016 Intent SPECT/TreadmillBy: Matthew Carrion MD Echo CompleteBy: Matthew Carrion MD On: 29-Apr-2016 Intent Flu Vaccine (Quadrivalent) 16919Zu: On: 22-Apr-2016 Intent Matthew Carrion MD Comments: FLUlot: [id number]:12/25/16site:Lt deltoidroute:IMdose:.5mlCASEY RODRIGUEZ Bone Density StudyBy: Blanca DALE, On: 20-Aug-2015 Intent Ana Irwin Echo CompleteBy: Ana Rios MD On: 13-Jun-2015 Intent Bone Density StudyBy: Blanca DALE, On: 13-Jun-2015 Intent Ana Irwin BILATERAL MAMMOGRAMS (05180)By: On: 13-Jun-2015 Intent Ana Rios MD DEXA SCAN AXIAL SKELETON (95294)By: On: 17-Dec-2014 Intent Ana Rios MD MAMMOGRAM, SCREENING, BOTH BREAST On: 17-Dec-2014 Intent (47758)By: Ana Rios MD BILATERAL MAMMOGRAMS (89768)By: On: 10-May-2014 Intent Ana Rios MD Prevnar 13 (13886)By: Blanca DALE, On: 03-May-2014 Intent Ana Irwin Radiology - ChestBy: Blanca DALE, On: 03-May-2014 Intent Ana Irwin TD VACCINE ADULT (88744)By: Blanca On: 16-Apr-2014 Intent Ana DALE Comments: lot [id number] 1-92-1905rmacyqez L armroute imgiven by - msmithVIS and/or ABN signed Eprescribed prescriptions On: 16-Oct-2013 Intent (G8553)By: Ana Rios MD Eprescribed prescriptions On: 16-Oct-2013 Intent (G8553)By: Ana Rios MD Eprescribed prescriptions On: 05-May-2013 Intent (G8553)By: Laura Meneses Ultrasound - PelvisBy: Blanca DALE, On: 24-Apr-2013 Intent Ana Irwin DXA, BONE DENSITY, AXIAL SKELETON On: 18-Oct-2012 Intent (93306)By: Ana Rios MD Comments: estrogen def MAMMOGRAM, SCREENING, BOTH BREASTS On: 18-Oct-2012 Intent (77228)By: Ana Rios MD Eprescribed prescriptions On: 18-Oct-2012 Intent (G8553)By: Laura Meneses FLU VAC, SPLIT, >3 YEARS, INTRAMUSC On: 26-Apr-2012 Intent (69233)By: Ana Rios MD Comments: 10-12 MAMMOGRAM, SCREENING, BOTH BREASTS On: 26-Apr-2012 Intent (50152)By: Ana Rios MD Instructions Name Dates Details [...] Advance Directives Name Dates Details Immunization Registry [place] - Effective on Effective: 09-Mar-201803/09/2018. Expiration date [...] pr eventative measures: mammography (2017) and colonoscopy (2017). The patient does have durable power of erisa attorney and living will. The patient has noticed nothing from the geriatic depression scale. Other providers contributing to the patient's care are jewel sawyer.Encounter Diagnosis: BMI 26.0-26.9,adult, Current nonsmoker (Renamed from [...] The patient does have durable power of erisa attorney and living will. The patient has noticed nothing from the geriatic depression scale. Other provi ders contributing to the patient's care are jewel sawyer and other:.Encounter Diagnosis: Current nonsmoker (Renamed from [...] side effects and compliant with dosing regimen. Elias nt sleeps 6 hours per night. Nutrition: [...] The patient does have durable power of erisa attorney and living will. The patient has [...] The patient does have durable power of erisa attorney and living will. The patient has noti charly nothing from the geriatic depression scale. Other providers contributing to the patient's care are gastrologist (Dr. Higgins ([facility] ) and other: (Opthalm: Dr. Lafleur )., [...] PAIN (786.59) [facility] Payers MedicareAnthem BC/[place]; a guarantor
--- OUTSIDE RECORDS SUMMARY | 2018-09-17 18:29 | XMS RPT_ITS | Continuity of Care Document ---
:1940 Author Organization [facility] Address [address] [facility] [address] [facility] [address] [place] [address] Phone Care Team Providers Name Role Phone Radha Griffith DO Unavailable [facility], [facility] Unavailable Farrah DALE, Dr. John [...] 2017-- and ended up having scope 2017 --[facility] Status: Active Hypercholesteremia (E78.00, 272.0) Status: [...] Comments: Rectocele repair By Alfredito Oneill at [facility] in [place] with previous anal sphincter reconstruction repairColonoscopy last 2011Has brittany analspincter muscle repain Status: Active Therapeutic drug monitoring (Z51.81, V58.83) Status: Active Urinary incontinence (R32, 788.30) Comments: Dr Madsen in [place]. doing good on meds. enablex(Darifenacin generic)Last saw [...] Kathleen Start : 18-Mar-2018 Active Vitamin D3 28934 UNIT Oral Tablet 1 (one) Tablet Tablet [...] 29-Jul-2016 Inactive MULTIVITAL (Oral Tablet) Inactive NYSTATIN-TRIAMCINOLONE, 137891-8.1UNIT/GM-% (External Cream) 1 (one) Cream Cream bid for 0 days Quantity: 1 {Tube} Refills: 0 Ordered:13-Jun-2015 ESTEPHANIA Arreola Start : 17-Dec-2014 End : 13-Jun-2015 Inactive ZOSTAVAX, 97524PTF/0.65ML (Subcutaneous Solution Reconstituted) uad For Solution one [...] test2 cardiac [facility] whats wrongMVP?? Status: Inactive as [...] sound viral cannot exclude allergies. will take beartiz at night with cough med. if not [...] VAC ADLT/IMUMNOSPR, SBC/INTRM Date: 26-Jan-2018 Completed 26-Jan-2018 (29068) Comments: Pneumovax 23lot [id number]/prefilledleft MULU Grubbs Annual Eye Exam Completed Comments: 2011 appendectomy Completed Comments: 1849, Dr Arreguin in [place] Blood Pressure Monitoring Completed Comments: 120-160 systolic range Cardiac Cath Completed Comments: 2005 -- [facility] Dr Neal Parraprolonged bleeding, no findings Cardiac Cath number 2 Completed Comments: 2010 --Dr Borja at [facility] -- neg findings and abnormal ecgs. Cataracts Completed Comments: Dr Farley in [place] -- 1997, revealed corneal scar Colonoscopy, Screening Completed Comments: December 2011 Hip Replacement Completed Comments: Left - Dr Donaldson in [facility] at [facility] hysterectomy Completed Comments: with bladder repair in 1976 at [facility] by Dr Liao in [place] Mammogram, Screening Completed Comments: 2010 Pap Smear Completed Comments: 2011 Rectal Sphincter Repair Completed Comments: [facility] Repair Completed Comments: 2007 [facility] [place] Toe Repair Completed Comments: [address] Saavedra, in office, [place] Date Value Details 03-Sep-2017 SCREENING MAMM (CAD), BILAT Result: Comments: See Note; NOTES: [facility] Imaging Services [address] [place] [address] SCREENING MAMM (CAD), BILAT MR#: [id number] Acct: [id number] Name: ORALIA WEAVER Rep #: [id number] : 1940 F 77 From: Wil Roberts MD PCP: Radha Griffith DO Status: [facility] CLI Study: SCREENING MAMM (CAD), BILAT Date of Exam: 09/03/17 Exam# [id number] Ordering Dr: Radha Griffith DO MAMMOGRAPHY - [...] biopsy of a clinically tita picious abnormality. [id number] Electronically Signed: Wil Roberts MD at 15:26 EST Tel [phone], Service support , CC: Radha Griffith DO Java Enterprise Architect: Signed 19-Jul-2017 PT D/C Summary (1) Result: Comments: See Note; NOTES: [facility] Physical Therapy [address] [place] [address] Fax [facility]IT[facility] MR#: [id number] Acct: [id number] Name: ORALIA WEAVER Rep #: [id number] : 1940 77 From: Shaun Saavedra DPT, [...] PT (1) Result: Comments: See Note; NOTES: [facility] Physical Therapy [facility] [address] [place] [address]. [address] [place] [address] Fax REEVALUATION / MEDICARE RECERTI [facility] MR#: [id number] Acct: [id number] Name: ORALIA WEAVER Rep #: [id number] : 1940 77 From: Shuan Saavedra DPT, OCS, CSCS Referring DrClarence: Radha [...] do not hesitate to contact me at [phone] by phone or if you have questions [...] - PT Result: Comments: See Note; NOTES: [facility] Physical Therapy [facility] [facility]. [address] [place] [address] Fax REHABILITATION SERVICES INITIAL EVALUATION MR#: [id number] Acct: [id number] Name: ORALIA WEAVER Rep #: [id number] : 1940 77 From: Shaun Quentin DPT, OCS, CSCS Referring DrClarence: Radha Griffith DO Status: REG RCR Insurance: MEDICA RE PART A B [facility] Patient's Visit Information ORALIA WEAVER is a [...] she can do them. Will go to [place] for Chirstmas in 10 days. This is [...] to be FAXED BACK to us at [phone] for Medicare purposes. Please let me know [...] - PT Result: Comments: See Note; NOTES: [facility] Physical Therapy [facility] [address]. [address] [place] [address] Fax REHABILITATION SERVICES INITIAL EVALUATION MR#: [id number] Acct: [id number] Name: ORALIA WEAVER Rep #: [id number] : 1940 76 From: Shaun Saavedra DPT, TERESITA, CSCS Referring Dr.: Radha Griffith DO Status: REG RCR Insurance: [facility] PART A B [facility] Patient's Visit Information ORALIA WEAVER is a [...] to be FAXED BACK to us at [phone] for Medicare purposes. Please let me know if there are question s or concerns regarding this plan of care. Physician Signature: Date: <Electronically signed by Shaun Saavedra DPT, OCS, CSCS&#62 ; 11/25/16 0740 CC: Radha Griffith DO EBAyala Signed For Medicare only, by signing this I certify the plan of care. Physicians Signature Date 29-Jul-2016 Brain/Head without Contrast Result: Comments: See Note; NOTES: [facility] Imaging Services [address] [place] [address] Skylar 4d Brain/Head without Contrast MR#: [id number] Acct: [id number] Name: ORALIA WEAVER Rep #: [id number] : 1940 F 76 From: Wil Roberts MD PCP: Matthew Carrion Status: REG CLI Study: Brain/Head without Contrast Date of Exam: 07/29/16 Exam# [id number] Ordering Dr: Matthew Carrion STUDY: CT BRAIN [...] Wil Roberts MD at 11:39 EST Tel [phone], Service support [phone], CC: Matthew Carrion Java Enterprise Architect: Signed 09-Jul-2016 SCREENING MAMM (CAD), BILAT Result: Comments: See Note; NOTES: [facility] Imaging Services [address] [place] [address] Verdana 4d SCREENING MAMM (CAD), BILAT MR#: [id number] Acct: [id number] Name: ORALIA WEAVER Rep #: [id number] : 1940 F 76 From: Wil Roberts MD PCP: Matthew Carrion Status: REG CLI Study: SCREENING MAMM (CAD), BILAT Date of Exam: 07/09/16 Exam# [id number] Ordering Dr: Matthew Carrion MAMMOGRAPHY - BILATERAL [...] delay biopsy of a clinically suspicious abnormality. [id number] Electronically Signed: Wil Roberts MD at 14:00 EST Tel [phone], Service support [phone], CC: Matthew Carrion Java Enterprise Architect: Signed 08-May-2016 Echocardiogram Complete Result: Comments: See Note; NOTES: [facility] Cardiovascular Services [address] [place] [address] Echo Complete 05/08/16 0934 MR#: [id number] Acct: [id number] Name: ORALIA WEAVER p #: [id number] : 1940 76 From: John Chambers MD [...] : 05/08/16 0934 Date Transcribed: 05/08/16 1221 Java Enterprise Architect: Signed 08-May-2016 Nuclear Stress Test - Chemical Result: Comments: See Note; NOTES: [facility] Imaging Services [address] [place] [address] Skylar 4d Nuclear Stress Test - Chemical MR#: [id number] Acct: [id number] Name: WES WEAVER Rep #: [id number] : 1940 76 From: Frederick Neil MD [...] 63%. Frederick Neil MD T: NTS JOB: [id number] 05/08/16 1247 &#60 ;Electronically signed by Frederick Neil MD> Date Frederick Neil MD CC: Matthew Carrion Date Dictated: 05/08/16 1149 Date Transcribed: 05/08/161148 Java Enterprise Architect: Signed 08-Jul-2015 Echocardiogram Complete Result: Comments: See Note; NOTES: [facility] Cardiovascular Services [address] [place] [address] Echo Complete 07/08/15 1302 MR#: [id number] Acct: [id number] Name: ORALIA MORTENSEN OD Rep #: [id number] : 1940 75 From: Rob Keating MD [...] Dictated: 07/08/15 1302 Date Transcribed: 07/08/15 1603 Java Enterprise Architect: Signed 26-Jun-2015 Bilat Scrn Digital AND CAD Result: Comments: See Note; NOTES: [facility] Imaging Services [address] [place] [address] Verdana 4d Bilat Scrn Digital AND CAD MR#: [id number] Acct: [id number] Name: ORALIA WEAVER Rep #: [id number] : 1940 F 75 From: Prakash Gutierrez MD PCP: Ana Rios MD Status: REG CLI Study: Bilat Scrn Digital AND CAD Date of Exam: 06/26/15 Exam# [id number] Ordering Dr: Ana Lam MD MAMMOGRAPHY - [...] biops y of a clinically suspicious abnormality. [id number] Electronically Signed: Guillermo Gutierrez MD at 10:18 EST Tel , Service support [phone], CC: Ana Rios MD Java Enterprise Architect: Signed 26-Jun-2015 Dexa Bone Density Study (HP) Result: Comments: See Note; NOTES: [facility] Imaging Services [address] [place] [address] Verdana 4d Dexa Bone Density Study (HP) MR#: [id number] Acct: [id number] Name : ORALIA WEAVER Rep #: [id number] : 1940 F 75 From: Wil Roberts MD PCP: Ana Rios MD Status: REG CLI Study: Dexa Bone Density Study (HP) Date of Exam: 06/26/15 Exam# [id number] [facility] Dr: Ana Rios MD STUDY: DUAL ENERGY [...] Wil Roberts MD at 16:10 EST Tel [phone], Service support , CC: Ana Rios MD Java Enterprise Architect: Signed 13-Jun-2015 EKG (26553) Result: [MEASUREMENTS ANALYSIS] Date of Test: 06/13/2015 12:06:43; Heart Rate: 53; WV Interval: 194; QRS: 131; QT Interval: 494; Corrected QT Interval (QTc): 482; P Wave Basalt: 57; QRS Wave Basalt: -40; T Wave Axi s: 127; Blood Pressure: 138/82 [ECG DIAGNOSTIC STATEMENTS] Date of Test: 06/13/2015 12:06:43; Summary: Sinus Bradycardia -Left bundle branch block and left axis. ABNORMAL 14-May-2014 Bilat Scrn Digital & CAD Result: Comments: See Note; NOTES: [facility] Imaging Services [address] [place] [address] Breast Imaging Report MR#: [id number] Acct: [id number] Name: ORALIA WEAVER Rep #: [id number] : 1940 F 74 From: Wil Roberts MD PCP: Ana Rios MD Status: REG CLI Exam# [id number] Ordering Dr: Ana Rios MD MAMMOGRAPHY - [...] Wil Roberts MD at 10:56 EST Tel [phone], Service support [phone], CC: Ana Rios MD Java Enterprise Architect: Signed 03-May-2014 Chest PA and Lateral Result: Comments: See Note; NOTES: [facility] Imaging Services [address] [place] [address] Radiology Report MR#: [id number] Acct: [id number] Name: ORALIA WEAVER Rep #: [id number] : 1940 F 74 From: Ric Avila MD PCP: Ana Rios MD Status: [facility] CLI Study: Chest PA and Lateral Date of Exam: 05/03/14 Exam# [id number] Ordering Dr: Ana Rios MD STUDY: X-RAY [...] at 13:27 EST Tel , Service support [phone], CC: Ana Rios MD Java Enterprise Architect: Signed 16-Oct-2013 EKG (94761) Comments: see scanned document of test done to see results reviewed today with patient Result: [MEASUREMENTS ANALYSIS] Date of Test: 10/16/2013 11:44:55; Heart Rate: 54; WV Interval: 202; QRS: 96; QT Interval: 442; Corrected QT Interval (QTc): 432; P Wave Basalt: 55; QRS Wave Basalt: -22; T Wave Basalt : 112; Blood Pressure: 124/84 [ECG DIAGNOSTIC STATEMENTS] Date of Test: 10/16/2013 11:44:55; Summary: Sinus Bradycardia Voltage criteria for LVH (R(V6) exceeds 2.26 mV). -Old anterior infarct. -Nons pecific ST depression + T-abnormality -Seen with left ventricular hypertrophy (strain) or digitalis effect consider Anterolateral ischemia. ABNORMAL [MEASUREMENTS ANALYSIS] Date of Test: 014 11:44:11; Heart Rate: 56; WV Interval: 192; QRS: 96; QT Interval: 444; Corrected QT Interval (QTc): 437; P Wave Basalt: 63; QRS Wave Basalt: -20; T Wave Basalt: 125; Blood Pressure: 124/84 [ECG DIAGNOSTIC STATEMENTS] [...] (Non ) Result: Comments: See Note; NOTES: [facility] Imaging Services [address] [place] [address] Ultrasound Report MR#: [id number] Acct: [id number] Name: ORALIA WEAVER Rep #: [id number] : 1940 F 73 From: Wil Roberts MD PCP: Status: REG CLI Study: Pelvic (Non ) Date of Exam: 04/28/13 Exam# [id number] Ordering Dr: Ana Rios MD STUDY: ULTRASOUND [...] April 28, 2013 at 2:56:24 PM EDT [phone] Electronically Signed GP/GP If you are the referring physician and would like to consult with the radiologist who p rovided this interpretation, please contact Wil Roberts M.D. at [phone]. If this radiologist is unavailable, you will be directed to another radiologist to assist. If you are a patient with a question regarding this report, please contact your referring physician directly. Professional Interpretation Provided By: [employer], Phone , These documents contain legally protected [...] of these documents. CC: Ana Rios MD Java Enterprise Architect: Signed Immunization Name Dates Details Influenza (3 years and up) on: 2017 Pneumococcal (2 years and up) on: 26-Jan-2018 Comments: Site: Left Deltoid Lot #: [id number] Zoster (shingles) Comments: 2012 [facility] [place] Family History Unknown Family Member Name Dates Details Father Comments: Depression and Kidney Status: Active Mother Comments: Breast Ca and Diabetes Status: Active Sister 1 Comments: Depression/Emotional problems Status: Active Social History Name Dates Details Caffeine Use Comments: 1 cup/day Status: Active Exercise History Comments: 1-2 weekly, light Status: Active Living Situation Comments: , moved from [place]. [place] Status: Active No Drug Use Status: Active Non Drinker/No Alcohol Use Status: Active Non Smoker/No Tobacco Use Status: Active Tobacco use: Never smoker. Status: Active Smoking Status Name Dates Details Never smoker Vital Signs Date Test Result Details 59-Qaw-102361:24 Pulse 63 /min Comments: Pattern: Regular Respiration [...] 163 lb Results Date Description Value Details 28-Cpc-118358:56 Metabolic Panel, Basic Comments: PATIENT NOT FASTINGPERFORMED BY: [facility]djsfr6776 [facility] [id number] (40058) Calcium 9.9 mg/dL (Normal) Range: 8.7-10.3 Carbon [...] 8-27 Glucose 85 mg/dL (Normal) Range: 65-99 09-Tfr-547384:11 URINE ANDER CULTURE-IDENTIFICATN Comments: PATIENT NOT FASTINGPERFORMED BY: [facility] HospitalGvkszf3394 [facility] [id number] Information: SRC:UC (74839) Result 1 NG36 (Normal) Comments: No growth in 36 - 48 hours. Urine Culture,Comprehensive Final report (Normal) 19-Bdh-308613:08 Urinalysis, Office (13527) UA - LEUKOCYTE ESTERASE Trace (Normal) Comments: sent to lab UA - NITRITE Negative (Normal) URINE UROBILINGN DENNY TIMED Normal mg/dL (Normal) UA - PROTEIN Negative mg/dL (Normal) UA - PH 6 (Abnormal) UA - BLOOD Non Hemolyzed Trace (Normal) UA - SPECIFIC GRAVITY 1.015 (Normal) UA - KETONES Negative mg/dL (Normal) UA - BILIRUBIN Negative (Normal) UA - GLUCOSE Negative (Normal) 52-Bhl-063795:07 TSH (73569) Comments: PATIENT WAS FASTINGPERFORMED BY: [facility] HospitalXgdufb7295 [facility] [id number] TSH 2.410 {uIU/mL} (Normal) Range: 0.450-4.500 07-Kuq-607388:07 Metabolic Panel, Comprehensive Comments: PATIENT WAS FASTINGPERFORMED BY: [facility] HospitalCrbhhk1313 [facility] [id number] (16550) ALT (SGPT) 8 [iU]/L (Normal) Range: 0-32 [...] Glucose, Serum 97 mg/dL (Normal) Range: 65-99 85-Uef-745250:07 CALCIFEDIOL (69977) Comments: PATIENT WAS FASTINGPERFORMED BY: [facility] HospitalYniwfs6671 [facility] [id number] Vitamin D, 25-Hydroxy 52.1 ng/mL (Normal) Range: 30.0-100.0 Comments: Vitamin D deficiency has been defined by the [place] ofMedicine and an Endocrine Society practice guideline as alevel of serum 25-OH vitamin D less than 20 ng/mL (1,2).The Endocrine Society went on to further define vitamin Dinsufficiency as a level between 21 and 29 ng/mL (2).1. IOM ([place] of Medicine). 2010. Dietary reference intakes for calcium and D. [place]: The National Academies Press.2. Solo MF, Irma COATES, Derrek RAMIREZ, et al. Evaluation, treatment, and prevention of vitamin D deficiency: an Endocrine Society clinical practice guideline. JCEM. 2010; 96(7):1911-30. 18-Itl-303230:07 Lipid Panel (49501) Comments: PATIENT WAS FASTINGPERFORMED BY: [facility] [id number] LDL/HDL Ratio 2.1 {ratio_units} (Normal) Range: 0.0-3.2 Comments: LDL/HDL Ratio Men Women 1/2 Avg.Risk 1.0 1.5 Av g.Risk 3.6 3.2 2X Avg.Risk 6.2 5.0 3X Avg.Risk 8.0 6.1 LDL Cholesterol Calc 105 mg/dL (Abnormal) Range: 0-99 VLDL Cholesterol Oren 27 mg/dL (Normal) Range: 5-40 HDL Cholesterol 50 mg/dL (Normal) Triglycerides 136 mg/dL (Normal) Range: 0-149 Cholesterol, Total 182 mg/dL (Normal) Range: 100-199 44-Bys-443980:07 CBC, Platelets & Auto Diff Comments: PATIENT WAS FASTINGPERFORMED BY: [facility]6[address] [facility] [id number] (12612) Immature Grans (Abs) 0.0 {x10E3/uL} (Normal) Range: [...] 6.5 {x10E3/uL} (Normal) Range: 3.4-10.8 :16 CALCIFEDIOL (43571) Comments: PATIENT WAS FASTINGPERFORMED BY: [facility] [id number] Vitamin D, 25-Hydroxy 35.3 ng/mL (Normal) Range: 30.0-100.0 Comments: Vitamin D deficiency has been defined by the [place] ofMedicine and an Endocrine Society practice guideline as alevel of serum 25-OH vitamin D less than 20 ng/mL (1,2).The Endocrine Society went on to further define vitamin Dinsufficiency as a level between 21 and 29 ng/mL (2).1. IOM ([place] of Medicine). 2010. Dietary reference intakes for calcium and D. [place]: The National Academies Press.2. Solo MF, Irma COATES, Derrek RAMIREZ, et al. Evaluation, treatment, and prevention of vitamin D deficiency: an Endocrine Society clinical practice guideline. JCEM. 2010; 96(7):1911-30. :16 TSH (THYROID STIMULATING Comments: PATIENT WAS FASTINGPERFORMED BY: [facility]6370 [facility] [id number] HORMONE) (65341) TSH 2.460 {uIU/mL} (Normal) Range: 0.450-4.500 :16 LIPID PANEL (95702) Comments: PATIENT WAS FASTINGPERFORMED BY: [facility]6370 [facility] [id number] LDL/HDL Ratio 1.6 {ratio_units} (Normal) Range: 0.0-3.2 [...] PANEL, COMPREHENSIVE Comments: PATIENT WAS FASTINGPERFORMED BY: [facility]6370 [facility] [id number] (80656) ALT (SGPT) 8 [iU]/L (Normal) Range: 0-32 [...] Glucose, Serum 83 mg/dL (Normal) Range: 65-99 47-Bvt-63155:16 CBC, PLATELETS & AUT DIFF Comments: PATIENT WAS FASTINGPERFORMED BY: [facility] Ipfunh0259 [facility] [id number]; fu 5-17 KF (65076) Immature Grans (Abs) 0.0 {x10E3/uL} (Normal) Range: [...] COMPREHENSIVE Comments: PATIENT WAS FASTINGPERFORMED BY: [facility] Yawkmx5854 [facility] [id number] (67457) ALT (SGPT) 9 [iU]/L (Normal) Range: 0-32 [...] Glucose, Serum 95 mg/dL (Normal) Range: 65-99 38-Dii-911720:02 CALCIFEDIOL (33056) Comments: PATIENT WAS FASTINGPERFORMED BY: [facility] Cizlnl4301 [facility] [place] [id number] Vitamin D, 25-Hydroxy 46.6 ng/mL (Normal) Range: 30.0-100.0 Comments: Vitamin D deficiency has been defined by the [place] ofMedicine and an Endocrine Society practice guideline as alevel of serum 25-OH vitamin D less than 20 ng/mL (1,2).The Endocrine Society went on to further define vitamin Dinsufficiency as a level between 21 and 29 ng/mL (2).1. IOM ([place] of Medicine). 2010. Dietary reference intakes for calcium and D. [place]: The National Academies Press.2. Solo MF, Irma COATES, Derrek RAMIREZ, et al. Evaluation, treatment, and prevention of vitamin D deficiency: an Endocrine Society clinical practice guideline. JCEM. 2010; 96(7):1911-30. 92-Ocu-887570:30 MICROALBUMIN: CREATININE RATIO Comments: PATIENT WAS FASTINGPERFORMED BY: [facility] Dtuhdz9646 [facility] [id number] (85571) AND (50352) Microalb/Creat Ratio 4.5 {mg/g_creat} (Normal) Range: 0.0-30.0 Microalbumin, Urine 3.5 ug/mL (Normal) Creatinine, Urine 78.3 mg/dL (Normal) 88-Vij-681611:30 VITAMIN B12 AND FOLATES Comments: PATIENT WAS FASTINGPERFORMED BY: [facility] Vwimfj9310 [facility] [id number] (80788) Folate (Folic Acid), Serum 19.0 ng/mL (Normal) Comments: A serum folate concentration of less than 3.1 ng/mL isconsidered to represent clinical deficiency. Vitamin B12 431 pg/mL (Normal) Range: 211-946 88-Xob-048406:30 CALCIFEDIOL (97880) Comments: PATIENT WAS FASTINGPERFORMED BY: [facility] Sdrrlk2290 [facility] HospitalDublin [place] [id number] Vitamin D, 25-Hydroxy 26.3 ng/mL (Abnormal) Range: 30.0-100.0 Comments: Vitamin D deficiency has been defined by the [place] ofMedicine and an Endocrine Society practice guideline as alevel of serum 25-OH vitamin D less than 20 ng/mL (1,2).The Endocrine Society went on to further define vitamin Dinsufficiency as a level between 21 and 29 ng/mL (2).1. IOM ([place] of Medicine). 2010. Dietary reference intakes for calcium and D. [place]: The National Academies Press.2. Solo MF, Irma COATES, Derrek RAMIREZ, et al. Evaluation, treatment, and prevention of vitamin D deficiency: an Endocrine Society clinical practice guideline. JCEM. 2010; 96(7):1911-30. 66-Ilj-760478:30 TSH (THYROID STIMULATING Comments: PATIENT WAS FASTINGPERFORMED BY: [facility] [id number] HORMONE) (17989) TSH 2.140 {uIU/mL} (Normal) Range: 0.450-4.500 :30 LIPID PANEL (77472) Comments: PATIENT WAS FASTINGPERFORMED BY: [facility]6[address] [facility] [id number] LDL/HDL Ratio 1.8 {ratio_units} (Normal) Range: 0.0-3.2 [...] PANEL, COMPREHENSIVE Comments: PATIENT WAS FASTINGPERFORMED BY: [employer]70 [facility] [id number] (70107) ALT (SGPT) 8 [iU]/L (Normal) Range: 0-32 [...] Glucose, Serum 93 mg/dL (Normal) Range: 65-99 71-Blb-108723:30 CBC, PLATELETS & AUT DIFF Comments: PATIENT WAS FASTINGPERFORMED BY: [facility]CoUniversity HospitalWvhkiy5480 [facility] [id number] (71267) Immature Grans (Abs) 0.0 {x10E3/uL} (Normal) Range: [...] Examination Comments: PATIENT WAS FASTINGPERFORMED BY: [facility] Yoxwcq6245 [facility] [id number] Bacteria Few (Normal) Mucus Threads Present (Normal) Epithelial Cells (non renal) 0-10 {/hpf} (Normal) Range: 0 - 10 RBC 0-2 {/hpf} (Normal) Range: 0 - 2 WBC 11-30 {/hpf} (Abnormal) Range: 0 - 5 50-Fgo-427411:06 CBC, Platelets & Auto Comments: PATIENT NOT FASTINGPERFORMED BY: [facility]CoUniversity HospitalQryqcf5400 [facility] [id number] Information: [id number],[id number] Diff (12464) Immature Grans (Abs) 0.0 {x10E3/uL} (Normal) Range: [...] (Normal) Range: 3.4-10.8 :36 URINALYSIS, W/ MICRO (72859) Comments: PATIENT WAS FASTINGPERFORMED BY: [facility]6370 [facility] [id number] Microscopic Examination See below: (Normal) Comments: Microscopic was indicated and was performed. Nitrite, Urine Negative (Normal) Urobilinogen,Semi-Qn 0.2 mg/dL (Normal) Range: 0.2-1.0 Bilirubin Negative (Normal) Occult Blood Negative (Normal) Ketones Negative (Normal) Glucose Negative (Normal) Protein Negative (Normal) WBC Esterase 1+ (Abnormal) Appearance Clear (Normal) Urine-Color Yellow (Normal) pH 6.5 (Normal) Range: 5.0-7.5 Specific [place] 1.017 (Normal) Range: 1.005-1.030 :36 METABOLIC PANEL, COMPREHENSIVE Comments: PATIENT WAS FASTINGPERFORMED BY: LabCoUniversity HospitalIzebpu8025 [facility] [id number] ([id number]) ALT (SGPT) 5 [iU]/L (Normal) Range: 0-32 [...] mg/dL (Normal) Range: 65-99 :36 LIPID PANEL (73185) Comments: PATIENT WAS FASTINGPERFORMED BY: [facility] HospitalPbllgs6994 [facility] [id number] LDL/HDL Ratio 1.7 {ratio_units} (Normal) Range: 0.0-3.2 [...] auto diff Comments: PATIENT WAS FASTINGPERFORMED BY: [facility] HospitalMolcrk1851 [facility] [id number] Information: [id number]; apt. [birth year] (72123) Immature Grans (Abs) 0.0 {x10E3/uL} (Normal) Range: [...] With Differential/Platelet Comments: PATIENT WAS FASTINGPERFORMED BY: [facility]6370 [facility] [id number] Information: [id number]; patient has fu 6-18 will review with [...] Panel (14) Comments: PATIENT WAS FASTINGPERFORMED BY: [employer] [id number] ALT (SGPT) 6 [iU]/L (Normal) Range: 0-32 [...] With LDL/HDL Comments: PATIENT WAS FASTINGPERFORMED BY: [employer] [id number] Ratio LDL/HDL Ratio 1.9 {ratio_units} (Normal) Range: [...] Microscopic Examination Comments: PATIENT WAS FASTINGPERFORMED BY: [facility] [id number] Bacteria Few (Normal) Mucus Threads Present (Normal) Epithelial Cells (non renal) 0-10 {/hpf} (Normal) Range: 0 - 10 RBC 0-2 {/hpf} (Normal) Range: 0 - 2 WBC 0-5 {/hpf} (Normal) Range: 0 - 5 :47 Urinalysis, Complete Comments: PATIENT WAS FASTINGPERFORMED BY: [employer] [id number] Microscopic Examination See below: (Normal) Comments: Microscopic was indicated and was performed. Microscopic Examination MICRON (Normal) Comments: Microscopic follows if indicated. Nitrite, Urine Negative (Normal) Urobilinogen,Semi-Qn 0.2 mg/dL (Normal) Range: 0.0-1.9 Bilirubin Negative (Normal) Occult Blood Negative (Normal) Ketones Negative (Normal) Glucose Negative (Normal) Protein Negative (Normal) WBC Esterase Negative (Normal) Appearance Clear (Normal) Urine-Color Yellow (Normal) pH 6.0 (Normal) Range: 5.0-7.5 Specific [place] 1.024 (Normal) Range: 1.005-1.030 55-Byp-994396:50 CBC W/AUTO DIFF WBC Comments: PATIENT NOT FASTINGPERFORMED BY: [facility]6370 [facility] [id number] Information: [id number] ([id number]) Immature Grans (Abs) 0.0 {x10E3/uL} (Normal) Range: [...] 3.77-5.28 WBC 7.8 {x10E3/uL} (Normal) Range: 3.4-10.8 33-Fbe-908097:50 Metabolic Panel, Basic Comments: PATIENT NOT FASTINGPERFORMED BY: [facility] HospitalNagfvd4918 [facility] [id number] ([id number]) Calcium, Serum 9.8 mg/dL (Normal) Range: 8.6-10.2 [...] mg/dL (Normal) Range: 65-99 03-Apr-20148:52 Urinalysis, Office (70483) UA - NITRITE Negative (Normal) UA - [...] PANEL, COMPREHENSIVE Comments: PATIENT WAS FASTINGPERFORMED BY: [facility]CoUniversity HospitalHudomy3132 [facility] [id number] ([id number]) ALT (SGPT) 9 [iU]/L (Normal) Range: 0-32 [...] mg/dL (Normal) Range: 65-99 :19 LIPID PANEL (30000) Comments: PATIENT WAS FASTINGPERFORMED BY: [facility] GroupCritical [facility] hospital [id number] LDL/HDL Ratio 1.6 {ratio_units} (Normal) Range: 0.0-3.2 [...] MANUAL DIFF Comments: PATIENT WAS FASTINGPERFORMED BY: [employer]70 [facility]Critical [facility] hospital [id number] Information: [id number] ([id number]) Immature Grans (Abs) 0.0 {x10E3/uL} (Normal) Range: [...] 3.77-5.28 WBC 11.4 {x10E3/uL} (Abnormal) Range: 3.4-10.8 41-Lqb-908661:07 Urinalysis, Routine Comments: PERFORMED BY: [facility] [id number] Microscopic Examination MICRON (Normal) Comments: Microscopic follows if indicated. Nitrite, Urine Negative (Normal) Urobilinogen,Semi-Qn 0.2 mg/dL (Normal) Range: 0.0-1.9 Bilirubin Negative (Normal) Occult Blood Negative (Normal) Ketones Negative (Normal) Glucose Negative (Normal) Protein Negative (Normal) WBC Esterase Negative (Normal) Appearance Cloudy (Abnormal) Urine-Color Yellow (Normal) pH 6.0 (Normal) Range: 5.0-7.5 Specific [place] 1.020 (Normal) Range: 1.005-1.030 :14 MICROALBUMIN: CREATININE RATIO Comments: PERFORMED BY: [facility] [id number] (02847) AND (88146) Microalb/Creat Ratio 7.0 {mg/g_creat} (Normal) Range: 0.0-30.0 Creatinine, Urine 124.0 mg/dL (Normal) Range: 15.0-278.0 Microalbumin, Urine 8.7 ug/mL (Normal) Range: 0.0-17.0 :14 METABOLIC PANEL, COMPREHENSIVE Comments: PERFORMED BY: [employer]70 [facility]inesCritical [facility] hospital [id number] (13910) ALT (SGPT) 12 [iU]/L (Normal) Range: 0-32 [...] mg/dL (Abnormal) Range: 65-99 :14 LIPID PANEL (36762) Comments: PERFORMED BY: [facility] GroupCritical access hospital [id number] LDL/HDL Ratio 1.6 {ratio_units} (Normal) Range: 0.0-3.2 LDL Cholesterol Calc 82 mg/dL (Normal) Range: 0-99 VLDL Cholesterol Oren 21 mg/dL (Normal) Range: 5-40 Cholesterol, Total 153 mg/dL (Normal) Range: 100-199 HDL Cholesterol 50 mg/dL (Normal) Comments: According to ATP-III Guidelines, HDL-C >59 mg/dL is considered anegative risk factor for CHD. Triglycerides 107 mg/dL (Normal) Range: 0-149 07-Ped-33958:14 CBC WITH MANUAL DIFF (81741) Comments: PERFORMED BY: LabCoUniversity HospitalZseepi7058 [facility] [id number] Immature Grans (Abs) 0.0 {x10E3/uL} (Normal) Range: [...] 3.77-5.28 WBC 6.2 {x10E3/uL} (Normal) Range: 3.4-10.8 11-Xsm-671884:26 Urinalysis, Office (83329) UA - BILIRUBIN Negative (Normal) UA - BLOOD Negative (Normal) UA - GLUCOSE Negative (Normal) UA - KETONES Negative mg/dL (Normal) UA - LEUKOCYTE ESTERASE Negative (Normal) UA - NITRITE Negative (Normal) UA - PH 7.0 (Normal) UA - PROTEIN Negative mg/dL (Normal) UA - SPECIFIC GRAVITY 1.015 (Normal) URINE UROBILINGN DENNY TIMED Normal mg/dL (Normal) 62-Cyx-93657:00 Microscopic Examination Comments: PATIENT WAS FASTINGPERFORMED BY: [facility]6370 [facility] [id number] Bacteria Few (Normal) Mucus Threads Present (Normal) Epithelial Cells (non renal) >10 {/hpf} (Abnormal) Range: 0 - 10 RBC 0-3 {/hpf} (Normal) Range: 0 - 3 WBC 0-5 {/hpf} (Normal) Range: 0 - 5 1-Pvm-362478:24 DEXA BONE DENSITY STUDY () Radiology Report [...] Roberts M.D.March 02, 2013 at 12:38:17 PM [id number] Signed GP/GP If you are the referring physician and would like to consult with theradiologist who provided this interpretation, please contact Syed Heath at [phone]. If this radiologist is unavailable, youwill be directed to another radiologist to assist. If you are a patient with a question regarding this report, pleasecontactyour referring physician directly. Professional Interpretation Provided By: [employer], Phone , These documents contain leg ally [...] 03/02/13 1249 Sign by: Wil Roberts MD 9-Nrr-134379:23 BILAT SCRN DIGITAL & CAD Radiology Report [...] resultswill be sent to the patient by [facility] facility within 30 days. Approximately 10% of breast cancers are not detected by mammography. Anormal mammogram should not delay biopsy of a clinically suspiciousabnormality. Signed:Wil Tripp i, M.D.March 07, 2013 at 9:25:55 AM [id number] Signed GP/GP If you are the referring physician and would like to consult with theradiologist who provided this interpretation, denita cotter contact Syed Heath at [phone]. If this radiologist is unavailable, youwill be directed to another radiologist to assist. If you are a patient with a question regarding this report, pleasecontactyour referring physician directly. Professional Interpretation Provided By: [employer], Phone , These documents contain legally protected [...] 03/07/13 113 Sign by: Wil Roberts MD 43-Liz-211403:36 Urinalysis, Office (16190) UA - BILIRUBIN Negative (Normal) UA - BLOOD Hemolyzed Large (Normal) UA - GLUCOSE Negative (Normal) UA - KETONES Negative mg/dL (Normal) UA - LEUKOCYTE ESTERASE Moderate (Normal) UA - NITRITE Negative (Normal) UA - PH 7.0 (Normal) UA - PROTEIN Negative mg/dL (Normal) UA - SPECIFIC GRAVITY 1.015 (Normal) URINE UROBILINGN DNENY TIMED 2 mg/dL (Normal) 25-Mkk-66116:00 URINALYSIS, W/ MICRO (95239) Comments: PATIENT WAS FASTINGPERFORMED BY: [facility]6370 [facility] [id number] Microscopic Examination See below: (Normal) Nitrite, Urine Negative (Normal) Urobilinogen,Semi-Qn 0.2 mg/dL (Normal) Range: 0.0-1.9 Bilirubin Negative (Normal) Occult Blood Negative (Normal) Ketones Negative (Normal) Glucose Trace (Abnormal) Protein 1+ (Abnormal) WBC Esterase Negative (Normal) Appearance Cloudy (Abnormal) Urine-Color Yellow (Normal) pH 6.0 (Normal) Range: 5.0-7.5 Specific [place] 1.023 (Normal) Range: 1.005-1.030 39-Djb-13460:00 METABOLIC PANEL, COMPREHENSIVE Comments: PATIENT WAS FASTINGPERFORMED BY: LabCoUniversity HospitalDxiupq9738 [facility] [id number] ([id number]) ALT (SGPT) 8 [iU]/L (Normal) Range: 0-32 [...] Glucose, Serum 89 mg/dL (Normal) Range: 65-99 16-Ppz-55711:00 LIPID PANEL (85138) Comments: PATIENT WAS FASTINGPERFORMED BY: [facility] HospitalIyruuy0269 [facility] [id number] LDL/HDL Ratio 1.7 {ratio_units} (Normal) Range: 0.0-3.2 [...] MANUAL DIFF Comments: PATIENT WAS FASTINGPERFORMED BY: [facility] Nsqgmf2002 [facility] [id number] Information: [id number] (35356) Immature Grans (Abs) 0.0 {x10E3/uL} (Normal) Range: [...] 6.2 {x10E3/uL} (Normal) Range: 3.4-10.8 :18 TSH (05365) Comments: PATIENT WAS FASTINGPERFORMED BY: [facility] HospitalFiqcnk5572 [facility] [id number] TSH 1.990 {uIU/mL} (Normal) Range: 0.450-4.500 :18 MICROALBUMIN: CREATININE RATIO Comments: PATIENT WAS FASTINGPERFORMED BY: [facility] HospitalKnqquo1221 [facility] [id number] (61142) AND (76165) Creatinine, Urine 135.9 mg/dL (Normal) Range: 15.0-278.0 Microalb/Creat Ratio 1.1 {mg/g_creat} (Normal) Range: 0.0-30.0 Microalbumin, Urine 1.5 ug/mL (Normal) Range: 0.0-17.0 :18 METABOLIC PANEL, COMPREHENSIVE Comments: PATIENT WAS FASTINGPERFORMED BY: [facility] HospitalQhscfd5708 [facility] [id number] (23810) ALT (SGPT) 11 [iU]/L (Normal) Range: 0-32 [...] mg/dL (Normal) Range: 65-99 :18 LIPID PANEL (96358) Comments: PATIENT WAS FASTINGPERFORMED BY: [employer]70 [facility] [id number] HDL Cholesterol 44 mg/dL (Normal) Comments: According [...] MANUAL DIFF Comments: PATIENT WAS FASTINGPERFORMED BY: IngagePatientUniversity HospitalOlfxok1732 [facility] [id number] Information: [id number] (73596) Immature Grans (Abs) 0.0 {x10E3/uL} (Normal) Range: [...] malignant neoplasms, colon) Ventricular hypokinesis : Reviewed Service Associate Letter Indication: Ventricular hypokinesis Hypertension, benign : [...] for malignant neoplasms, colon) Vertigo : Reviewed Service Associate Letter Indication: Vertigo Hypercholesteremia : Reviewed Lab [...] Urinary incontinence Planned Observations URINALYSIS, W/ MICRO (74968)Indication: Hypertension, benign On: 38-Zti-062606:54 Request METABOLIC PANEL, COMPREHENSIVE (75700)Indication: Hypertension, benign On: 98-Afz-330313:54 Request LIPID PANEL (99258)Indication: Hypertension, benign On: :54 Request CBC with auto diff (42429)Indication: Hypertension, benign On: :54 Request URINALYSIS, W/ MICRO (09347)Indication: Hypertension, benign On: 80-Bln-937613:23 Request METABOLIC PANEL, COMPREHENSIVE (03300)Indication: Hypertension, benign On: 36-Izb-112120:23 Request LIPID PANEL (16869)Indication: Hypertension, benign On: 29-Hym-548160:23 Request CBC with auto diff (52041)Indication: Hypertension, benign On: 58-Ykm-172339:23 Request Urinalysis, Office (00664)Indication: Proteinuria On: 56-Pmp-452874:42 Request Planned Procedures SCREENING DIGITAL TOMOSYNTHESIS OF On: 26-Jan-2018 Intent BREAST (75916)By: Radha Griffith DO, DO, Kathleen SCREENING DIGITAL TOMOSYNTHESIS OF On: 13-Aug-2017 Intent BREAST (95289)By: Radha Griffith DO, DO, Kathleen Flu Vaccine (Quadrivalent) 99116Tn: On: 16-Apr-2017 Intent Radha Griffith DO, DO, Comments: Lot #[id number]/18/18ite-L dltd, IMDose prefilled syringegiven by:Wilson LPNESTRADA and ABN signed Radha ELECTROCARDIOGRAM, COMPLETE (ECG) On: 16-Apr-2017 Intent (15926)By: Radha Griffith DO Comments: sinus mane - old LBBB no acute chg Radha Griffith DO CT - Brain/Head (Without On: 29-Jul-2016 Intent Contrast)By: Matthew Carrion MD MAMMOGRAM, SCREENING, BOTH BREAST On: 29-Jun-2016 Intent (21765)By: Matthew Carrion MD Nuclear Stress Test/Stress On: 29-Apr-2016 Intent SPECT/TreadmillBy: Matthew Carrion MD Echo CompleteBy: Matthew Carrion MD On: 29-Apr-2016 Intent Flu Vaccine (Quadrivalent) 24976Hg: On: 22-Apr-2016 Intent Matthew Carrion MD Comments: FLUlot: [id number]:12/25/16site:Lt deltoidroute:IMdose:.5mlCASEY RODRIGUEZ Bone Density StudyBy: Blanca DALE, On: 20-Aug-2015 Intent Ana Irwin Echo CompleteBy: Ana Rios MD On: 13-Jun-2015 Intent Bone Density StudyBy: Blanca DALE, On: 13-Jun-2015 Intent Ana Irwin BILATERAL MAMMOGRAMS (06590)By: On: 13-Jun-2015 Intent Ana Rios MD DEXA SCAN AXIAL SKELETON (73926)By: On: 17-Dec-2014 Intent Ana Rios MD MAMMOGRAM, SCREENING, BOTH BREAST On: 17-Dec-2014 Intent (50991)By: Ana Rios MD BILATERAL MAMMOGRAMS (06887)By: On: 10-May-2014 Intent Ana Rios MD Prevnar 13 (35974)By: Blanca DALE, On: 03-May-2014 Intent Ana Irwin Radiology - ChestBy: Blanca DALE, On: 03-May-2014 Intent Ana Irwin TD VACCINE ADULT (35069)By: Blanca On: 16-Apr-2014 Intent Ana DALE Comments: lot [id number] L armroute imgiven by - msmithVIS and/or ABN signed Eprescribed prescriptions On: 16-Oct-2013 Intent (G8553)By: Ana Rios MD Eprescribed prescriptions On: 16-Oct-2013 Intent (G8553)By: Ana Rios MD Eprescribed prescriptions On: 05-May-2013 Intent (G8553)By: Laura Meneses Ultrasound - PelvisBy: Blanca DALE, On: 24-Apr-2013 Intent Ana Irwin DXA, BONE DENSITY, AXIAL SKELETON On: 18-Oct-2012 Intent (00613)By: Ana Rios MD Comments: estrogen def MAMMOGRAM, SCREENING, BOTH BREASTS On: 18-Oct-2012 Intent (53077)By: Ana Rios MD Eprescribed prescriptions On: 18-Oct-2012 Intent (G8553)By: Laura Meneses FLU VAC, SPLIT, >3 YEARS, INTRAMUSC On: 26-Apr-2012 Intent (59321)By: Ana Rios MD Comments: 10-12 MAMMOGRAM, SCREENING, BOTH BREASTS On: 26-Apr-2012 Intent (24863)By: Ana Rios MD Instructions Name Dates Details [...] Advance Directives Name Dates Details Immunization Registry [place] - Effective on Effective: 09-Mar-201803/09/2018. Expiration date [...] providers contributing to the patient's care are breeder service technician.Encounter Diagnosis: BMI 26.0-26.9,adult, Current nonsmoker (Renamed from [...] ders contributing to the patient's care are breeder service technician and other:.Encounter Diagnosis: Current nonsmoker (Renamed from [...] the patient's care are gastrologist (Dr. Higgins ([facility] ) and other: (Opthalm: Dr. Lafleur )., [...]
--- OUTSIDE RECORDS SUMMARY | 2018-09-17 18:30 | XMS RPT_ITS ---
:1940 Author Organization OHIP Support Name Relationship Address Phone NICHO GEORGE Unavailable Unavailable + [place] [address] MCDEIDRE POA, EDDI Unavailable Unavailable + [place] Unavailable Unavailable Unavailable NICHO GEORGE Unavailable Unavailable + [place] [address] MCDEIDRE POA, EDDI Unavailable Unavailable + [place] Unavailable Unavailable Unavailable YORDY GEORGEHY Unavailable UNKNOWN + [place] [address] EBER POA, EDDI Unavailable UNKNOWN + [place] R Unavailable Unavailable Unavailable NICHO GEORGE Unavailable Unavailable + [place] [address] EBER POA, EDDI Unavailable Unavailable + [place] Unavailable Unavailable Unavailable YORDY GEORGEHY Unavailable Unavailable + [place] [address] EBER POA, EDDI Unavailable Unavailable + [place] Unavailable Unavailable Unavailable WEST WEAVER Unavailable Unavailable + NICHO GEORGE Unavailable . + [place], [place] . EBER EDDI Unavailable [address] + [place] [address] R Unavailable Unavailable Unavailable NICHO GEORGE Unavailable . + [place], [place] . EBER EDDI Unavailable [address] + [place] [address] R Unavailable Unavailable Unavailable Care Team Providers Name Role Phone NO, PHYSICIAN Primary Care Unavailable FRANKLYN DOUGLAS Attending Unavailable Radha Griffith Primary Care Unavailable Cornici, Frederick Attending Unavailable Byrd, Karen Attending Unavailable Gladis, Radha Attending Unavailable Gladis, Radha Primary Care Unavailable Moodispaw, Frederick Attending Unavailable Gladis, Radha Referring Unavailable Moodispaw, Frederick Attending Unavailable Moodispaw, Frederick Referring Unavailable Gladis, Radha Primary Care Unavailable Moodispaw, Frederick Attending Unavailable Moodispaw, Frederick Referring Unavailable Gladis, Radha Primary Care Unavailable Morris, Karen Irwin Attending Unavailable Gladis, Radha Referring Unavailable PROBLEMS PROBLEMS DATE TYPE CONDITION / CODE ATTENDING STATUS SOURCE 07/07/2018 Unknown R53.1 - Weakness / Moodispaw, Frederick Active [place] R53.1(ICD-10) [facility] Repository 07/07/2018 Unknown I42.9 - Moodispaw, Frederick Active [place] Cardiomyopathy, Community unspecified / Hospital I42.9(ICD-10) Repository 07/07/2018 Unknown I48.91 - Moodispaelio, Frederikc Active [place] Unspecified atrial Community fibrillation / Hospital I48.91(ICD-10) Repository 07/07/2018 Unknown R06.02 - Shortness Moodispaw, Frederick Active [place] of breath / Community R06.02(ICD-10) Hospital Repository 07/03/2018 Admitting Contusion of other FRANKLYN DOUGLAS [employer] diagnosis part of head, ARIANA MCKEON Three initial encounter Repository / S00.83XA(ICD-10) 07/03/2018 Admitting Acute FRANKLYN DOUGLAS [employer] [facility] diagnosis post-traumatic LEI LINDA Three headache, Repository intractable / G44.311(ICD-10) 07/03/2018 Admitting History of falling FRANKLYN DOUGLAS [employer] [facility] diagnosis / Z91.81(ICD-10) [facility] Three Repository 07/03/2018 Admitting Abrasion of FRANKLYN DOUGLAS [employer] [facility] diagnosis unspecified hand, LEI LINDA Three initial encounter Repository / S60.519A(ICD-10) 07/03/2018 Admitting Contusion of right FRANKLYN DOUGLAS [employer] diagnosis hand, initial LEI LINDA Three encounter / Repository S60.221A(ICD-10) PROCEDURES PROCEDURES No Procedure Records FoundRESULTS RESULTS STRESS REPORT Observed: 07/14/2018 Status: F Source: [place] 8:41 PM [facility] REPOSITORY [facility] Cardiovascular Services [address] [place] [address] MR#: [id number] Acct: [id number] Name: EDIN WEAVER Rep #: [id number] : 1940 78 From: Frederick Neil MD Primary Care: Radha Griffith DO Status: REG CLI Ordering Dr: Sex: F C Stress Test Report Date, 07/14/2018 Procedure, pharmacologic (regadenoson) evaluation Indications: Shortness of breath/dyspnea on exertion; chest pain Consent: Per the patient Procedure: The patient underwent pharmacologic (regadenoson) evaluation with a peak heart rate of 80 beats per minute (57% predicted maximal heart rate) with a peak blood pressure of 140/80 mmHg. The baseline ECG demonstrated sinus rhythm with a left bundle branch block pattern. The peak pharmacological ECG demonstrated no obvious ECG changes. There was a rare premature ectopic complex during recovery. There was no report of chest discomfort during pharmacologic infusion or recovery. The examination was discontinued secondary to completion protocol. Impression: 1. Pharmacologic (regadenoson [place] evaluation 2. Peak pharmacologic ECG with continued left bundle branch block pattern 3. Rare premature ectopic complex during recovery 4. Nuclear images pending Myocardial perfusion imaging study: Technique: The patient was injected with 11.6 mci of technetium-99m Cardiolite and subsequently rest SPECT Cardiolite nuclear imaging was obtained in the horizontal long, vertical long, and short axis views. The patient underwent pharmacologic (regadenoson0 evaluation with a peak heart rate of 80 beats per minute (97% predicted maximal heart rate) with a peak blood pressure of 140/80 mmHg. The patient was injected with 34.4 mci of technetium- 99m Cardiolite and subsequently stress SPECT Cardiolite nuclear imaging was obtained horizontal long, vertical long, and short axis views. A gated Cardiolite study at peak stress was obtained. Interpretation Rest and stress SPECT Cardiolite nuclear imaging status post realignment, normalization, and attenuation correction, demonstrates the appearance of relative uniform tracer uptake and myocardial perfusion appearing within normal limits. There is end systolic thickening and brightening. The gated Cardiolite study demonstrates myocardial thickening and normal motion. The reported LVEF was 75%. Impression: 1. Rest and stress SPECT currently nuclear imaging demonstrates relative uniform tracer uptake and myocardial perfusion appearing within normal limits. 2. The gated Cardiolite study reports an LVEF of 75%. This note was generated using a voice recognition system and there may be incorrect words, spelling or punctuation that were not noted when reviewing the office note prior to saving. 07/14/182040 <Electronically signed by Frederick Neil MD> Date Frederick Neil MD CC: Radha Griffith DO; Frederick Neil MD Date Dictated: 07/14/182036 Date Transcribed: 07/14/182036 Research Director: PM Signed 12 LEAD ELECTROCARDIOGRAM Observed: 07/11/2018 Status: F Source: [place] 9:45 AM [facility] REPOSITORY [facility] Cardiovascular Services [address] [place] [address] 12 Lead EKG 07/05/18 1230 MR#: [id number] Acct: [id number] Name: EDIN WEAVER Rep #: [id number] : 1940 78 From: Rob Keating MD Attending Dr: Status: DEP ER Ordering Dr: Frederick Carranza MD Date: 07/05/18 Location: ED Sex: F C Admitted: Test Reason : HEAD INJURY Blood Pressure : / mmHG Vent. Rate : 092 BPM Atrial Rate : 300 BPM P-R Int : 000 ms QRS Dur : 140 ms QT Int : 442 ms P-R-T Axes : 000 -52 134 degrees QTc Int : 546 ms Atrial flutter with variable A-V block Left axis deviation Left bundle branch block Abnormal ECG Confirmed by ROB KEATING MD ([id number]), tape editor SHASHANK TREVINO ([id number]) on 07/11/2018 9:44:32 AM Referred By: PC Confirmed By:ROB KEATING MD 07/11/18 0944 Date Rob Keating MD CC: Radha Griffith DO; Frederick Carranza MD Signed THYROID STIM HORMONE Collected: 07/07/2018 Status: F Source: [place] (TSH) 3:49 PM [facility] REPOSITORY TYPE CODE TESTS RESULT OUT OF RANGE REFERENCE UNITS LAB L501.9520 0.358-3.74 uIU/mL Normal TSH 2.58 Performed By: #### L501.9520 #### [facility] [place] [facility] [address] [place], [address] CARDIOLOGY VISIT Observed: 07/07/2018 Status: F Source: [place] REPORT 3:27 PM [facility] REPOSITORY [facility] [address] [place] [address] OFFICE VISIT Date of Service: 07/07/18 MR#: [id number] Acct: [id number] Name: EDIN WEAVER Rep #: [id number] : 1940 Provider: Frederick Neil MD Age/Sex: 78/F Location: [facility] Status: Signed HPI HPI Details: EDIN WEAVER, is a 78 F who presents to the office today for outpatient cardiovascular followup. As you know she has a history of an underlying left bundle branch block as well as concerns of a cardiomyopathy with borderline low LV systolic function superimposed upon history of mitral valve prolapse, hyperlipidemia, and hypertension. She notes most recently she was visiting family. She had an accidental fall. She injured her right forehead. She was eventually evaluated in the emergency department. During her evaluation she had a head CT scan which was reported negative for any acute ASSOCIATE [employer] injuries. However she was found to have an electrocardiogram that reported atrial fibrillation. The electrocardiogram was unavailable for viewing at this time. She was released home on medical management with anticoagulant therapy. She states she just does not feel well. She feels that she has been more short of breath and dyspneic and tired and fatigued and weak. She does not describe any specific chest discomfort. She has had no syncopal events. She did have a followup ECG in the office today. She was noted to be in sinus rhythm/sinus bradycardia with left axis deviation with a left bundle branch block pattern. As you know she has gone through noninvasive and invasive studies over the years. She has been found based upon her most recent transthoracic echocardiogram showed borderline low LV systolic function. She has not been found to have angiographically significant CAD based upon remote diagnostic cardiac catheterization was performed in [place], [place] in 2005. She has not been found to have underlying atrial fibrillation in the past. Intake Vital Signs07/07/18 Body Mass Index (BMI) 27.4 07/07/18 Height 5 ft 4 in 07/07/18 Weight: 166 lb 07/07/18 Body Mass Index (BMI) 28.5 07/07/18 Blood Pressure 106/60 Intake Visit Reasons: ER-FU\AFIB\PFM Allergies azithromycin [From Zithromax] Allergy (Verified 07/07/18 14:06) Chest tightness codeine Allergy (Verified 07/07/18 14:06) Unknown erythromycin base [Erythromycin Base] Allergy (Verified 07/07/18 14:06) Unknown morphine Allergy (Verified 07/07/18 14:06) Unknown Penicillins Allergy (Verified 07/07/18 14:06) Unknown Medications Aspirin [Aspirin, Baby] 81 mg PO DAILY@0800 03/28/14 [History Confirmed 07/07/18] Darifenacin Hydrobromide [Enablex] 15 mg PO DAILY 03/28/14 [History Confirmed 07/07/18] Latanoprost 0.005% [Xalatan Opthalmic] 1 drp EACH EYE QHS 03/28/14 [History Confirmed 07/07/18] Apixaban [Eliquis] 2.5 mg PO BID #60 tab 07/05/18 [Rx Confirmed 07/07/18] cholecalciferol (vitamin D3) 5,000 unit tablet 5,000 unit PO DAILY 07/07/18 [History Confirmed 07/07/18] docusate sodium 100 mg capsule 100 mg PO BID 07/07/18 [History Confirmed 07/07/18] hydrochlorothiazide 25 mg tablet 25 mg PO DAILY 07/07/18 [History Confirmed 07/07/18] losartan 100 mg tablet 100 mg PO DAILY 07/07/18 [History Confirmed 07/07/18] metoprolol succinate ER 100 mg tablet,extended release 24 hr 100 mg PO BID tab 07/07/18 [History Confirmed 07/07/18] multivitamin tablet 1 tab PO DAILY 07/07/18 [History Confirmed 07/07/18] polyethylene glycol 3350 17 gram/dose oral powder 17 g PO DAILY PRN g 07/07/18 [History Confirmed 07/07/18] simvastatin 20 mg tablet 20 mg PO QHS 07/07/18 [History Confirmed 07/07/18] PFS Medical History Diastolic dysfunction (Acute) Hyperlipemia (Chronic) Essential hypertension (Chronic) Cardiomyopathy (Suspected) Nonrheumatic mitral valve disorder (Chronic) LBBB (left bundle branch block) (Chronic) New onset atrial fibrillation (Acute) Vertigo (Acute) History of hysterectomy (Resolved) Surgical History History of appendectomy (Resolved) History of bilateral cataract extraction (Resolved) History of left hip replacement (Resolved) Family History Mother Diabetes Social History Smoking Status: Never smoker alcohol intake: never substance use type: does not use ROS Const Const: Positive for fatigue (slightly increased); negative for weakness, weight gain, weight loss, frequent falls or excessive sweating Eyes Eyes: Negative for change in vision, blurry vision or transient loss of vision ENT ENT: Negative for dizziness or balance problems Cardio Chest Pain: No Palpitations: Yes (occasional) feels like its: irregular (fluttering) Edema: Bilateral (slightly at night) Muscle aches with walking: None Resp Respiratory: Positive for SOB at rest; negative for SOB with activity GI GI: Negative vomiting or vomiting blood/hematemesis : Negative for hematuria Musc Musc: Positive for muscle aches/ myalgia (bilat LE); negative for balance problems, muscle weakness or joint pain Skin Skin: Negative non-healing lesions or rash Neuro Neuro: Positive for vertigo (HX); negative for weakness, blurry vision, dizziness, lightheadedness, frequent falls or orthostatic symptoms Aj Hematologic/Lymphatic: Negative for easy bleeding Endo Endo: Positive for fatigue (slightly increased); negative for excessive sweating Psych Psych: Negative for anxiety or depression Allergy Allergy/Immunology: Negative for hives, Negative for rash Cardiology Exam Const Appearance: cooperative, healthy appearing, comfortable, no acute distress, well developed, well groomed and other (Right forehead ecchymoses) Nutritional Appearance: average body habitus Orientation: alert, awake and oriented x3 Head Head: normocephalic Ears: hearing grossly normal bilaterally Nose: external nose normal Face and Sinus: face symmetric Mouth: oral mucosae normal Eyes Eyelids: eyelids normal Pupils: PERRL EOM: EOM intact bilaterally Neck Neck: normal visual inspection Carotids: normal carotid upstroke Chest Chest inspection: normal inspection of the chest, symmetric chest movement and normal respiratory effort Auscultation: Bilateral: Clear to Auscultation Cardio Palpation: normal PMI Rate: regular rate Rhythm: regular rhythm Heart sounds: S1 normal and S2 normal GI GI: normal to inspection, bowel sounds present and soft Neuro General: alert, awake, oriented x3, gait normal, no focal sensory deficit and no focal motor deficits Skin Skin: no rashes or lesions noted Extremities Pulses: Normal: Right Radial Pulse, Left Radial Pulse Lower Extremity Edema: None: Bilateral Psych Psychological: normal affect Assessment AND Plan 1. New onset atrial fibrillation I48.91 Plan At the present time she appears to be in sinus rhythm. She is continuing her current medical management. She will be asked to undergo evaluation with a 48 hour Holter monitor to evaluate for evidence of paroxysmal atrial fibrillation. Graft also based on the findings of paroxysmal atrial fibrillation she will have repeat echocardiogram to reassess her atrial size as well as her ventricular wall motion and systolic function. Orders Orders: 2. LBBB (left bundle branch block) I44.7 Plan She does have the underlying left bundle branch block. Again based upon her symptoms and findings she will have followup transthoracic echocardiogram to reassess her left ventricular wall motion and systolic function. The interim she will continue her current medical management. 3. Cardiomyopathy I42.9 Plan She does have a history of borderline low LV systolic function based upon her most recent transthoracic echocardiogram from 2016. This will be reassessed with an echocardiogram based upon her symptoms and her new objective findings. In the interim she will continue medical management for her cardiomyopathy. Orders Orders: 4. Hyperlipidemia E78.5 Plan She will continue risk factor evaluation care is deemed appropriate. 5. Essential hypertension I10 Plan Her blood pressure appears to be somewhat on the lower side. It may not be unreasonable to place her amlodipine on hold at the moment. As long as her blood pressure does not elevate she may not necessarily need to continue this medication unless needed for other reasons. 6. Shortness of breath R06.02 Plan She has been more short of breath and dyspneic. Thus she will be reassessed as noted above. She will also be assessed for the development of any underlying CAD, which she has not had in the past, with a pharmacologic stress nuclear imaging study. Orders Orders: 7. Weakness R53.1 Plan She does feel more week. It is unclear whether this is related to her lower pressure, change in rhythm, or alteration in her cardiovascular function. She will go through medical adjustment as noted above and further evaluation as noted above. Orders Orders: Plan Detail Other Medications Discontinued: Additional Comments The above was discussed with her and she was agreeable to this approach. Thank you for allowing me to participate in the care of your patient. Please don't hesitate to call if any issues arise. This note was generated using a voice recognition system and there may be incorrect words, spelling or punctuation that were not noted when reviewing the office note prior to saving. Follow Up 3 Months (PFM) Coding Level of Care Code Off vis,est,level 5 Diagnoses New onset atrial fibrillation I48.91 LBBB (left bundle branch block) I44.7 Cardiomyopathy I42.9 Hyperlipidemia E78.5 Essential hypertension I10 Shortness of breath R06.02 Weakness R53.1 Coding Level of Care Code Off vis,est,level 5 Diagnoses New onset atrial fibrillation I48.91 LBBB (left bundle branch block) I44.7 Cardiomyopathy I42.9 Hyperlipidemia E78.5 Essential hypertension I10 Shortness of breath R06.02 Weakness R53.1 Supplemental Info Supplemental Information Transthoracic echocardiogram: 07/08/2015 Interpretation Summary Normal LV size. Left ventricular systolic function is normal. The estimated ejection fraction is 55 %. Mild (1+) eccentric mitral valve insufficiency. Mild (1+) tricuspid valve insufficiency. Mild (1+) aortic valve insufficiency. Transthoracic echocardiogram: 05/08/2016 Left ventricular systolic function The estimated ejection fraction is 50-55% Stress test: 05/08/2016 EXERCISE TOLERANCE TEST: The patient exercised on a Ming protocol for 3 minutes completing stage 1, achieving a peak heart rate of 100 beats per minute (70% predicted maximum heart rate) and a peak blood pressure of 172/74 mmHg and a peak MET capacity of approximately 4-5 METs. The baseline ECG demonstrated normal sinus rhythm with a left bundle-branch block pattern. The peak exercise ECG was considered indeterminate secondary to underlying [...] exercise tolerance test secondary to underlying left bundle-branch block. 3. Rare PVC during exercise and recovery. 4. Pharmacologic (regadenoson) evaluation pending. The patient underwent pharmacologic (regadenoson) evaluation with a peak heart rate of 84 beats per minute (59% predicted maximum heart rate) and a peak blood pressure of 140/80 mmHg. The baseline ECG demonstrated sinus bradycardia with a left bundle-branch block pattern. The peak pharmacologic ECG was considered indeterminate secondary to underlying left bundle-branch block pattern. There were no cardiac dysrhythmias pretest, during pharmacologic infusion, or recovery. There was no report of chest discomfort during pharmacologic infusion or recovery. The examination was discontinued secondary to completion of protocol. IMPRESSION: 1. Pharmacologic (regadenoson) evaluation. 2. Peak pharmacologic ECG considered indeterminate secondary to underlying left bundle-branch block pattern. 3. Nuclear images pending. MYOCARDIAL PERFUSION IMAGING STUDY: TECHNIQUE: The patient [...] and a peak blood pressure of 172/74 mmHg [...] SPECT Cardiolite nuclear imaging, status post realignment, normalization, and attenuation correction, demonstrates the appearance of relative uniform tracer uptake and myocardial perfusion appearing within normal limits. There was end systolic thickening and brightening. The gated Cardiolite study demonstrates myocardial thickening and inward wall motion. The reported LVEF is 63%. IMPRESSION: 1. Rest and stress SPECT Cardiolite nuclear imaging demonstrate relative uniform tracer uptake and myocardial perfusion appearing within normal limits. 2. The gated Cardiolite study reports an LVEF of 63%. Diagnostics Electrocardiogram 07/07/18 Echocardiogram 07/08/15 Stress Test Nuclear Medicine 05/08/16 Chest X-Ray 05/03/14 07/07/18 1527 <Electronically signed by Frederick Neil MD> Date Frederick Neil MD Cosigner Signature: Date (if applicable) CC: Radha Griffith DO 12 LEAD EKG PERFORMED Observed: 07/07/2018 Status: F Source: [place] BY [facility] 2:25 PM [facility] REPOSITORY [address] [address] 12 Lead EKG performed by [facility] 07/07/18 1424 MR#: [id number] Acct: [id number] Name: EDIN WEAVER Rep #: [id number] : 1940 78 From: Frederick Neil MD Attending Dr: Frederick Neil MD Status: DEP AMB Ordering Dr: Frederick Neil MD Date: 07/07/18 Location: [facility] Sex: F C Admitted: [facility]/12 Lead EKG performed by [facility] ECG Report Interpretation Sinus Bradycardia Left axis deviationLeft bundle branch blockAbnormalElectronically signed on 07/07/2018 at 18:09 by Frederick Neil Software Version [id number] 07/07/18 1814 Date Frederick Neil MD CC: Radha Griffith DO Date Dictated: 07/07/18 1424 Date Transcribed: 07/07/181423 Research Director: PM Signed EMERGENCY DEPARTMENT Observed: 07/05/2018 Status: F Source: [place] SUMMARY 3:28 PM [facility] REPOSITORY [facility] Medical Records Department [address] [place] [address] Emergency Department Summary 07/05/18 1512 MR#: [id number] Acct: [id number] Name: EDIN WEAVER Rep #: [id number] : 1940 78 From: Frederick Carranza MD PCP: Radha Griffith DO Status: REG ER - ER Visit Summary Date of Service: 07/05/18 Chief Complaint: Head injury History of Present Illness: The patient is a 78 F with a mechanical fall 2 days ago. She did hit her head, she tripped and hit the post at home, she apparently was doing well went to work and felt slightly lightheaded. She denies any chest pain shortness of breath, palpitations. On review of systems he does have some nausea. She has a history of hypertension and mitral valve prolapse. Physical Examination: Not appear in acute distress. There is a forehead contusion on the right Moist mucous membranes, no obvious facial deformity No C-spine tenderness supple neck. Irregular rhythm in the 80s and 90s without any obvious murmurs Clear lungs bilaterally speaking in full sentences without any obvious respiratory distress Abdomen soft and nontender no guarding or rebound Moves all extremities without any difficulty or pain. Skin does not show any obvious rashes or lesions, no trauma. Alert oriented 3 with no gross focal deficit Emergency Department Course and Treatment: Patient appears well, EKG does show atrial fibrillation, patient has no history of atrial fibrillation, she is not anticoagulated. She does have a left bundle branch block which he tells me is chronic. She has no chest pain. She has a heart rate in the 80s and 90s on the monitor in the emergency department. I will start the patient on anticoagulation. I have her PCP senior education specialist so she can follow-up. Patient is rate controlled and appears well wants to be discharged. I will discharged in stable condition Disposition: Discharge stable condition Impression: Head injury Atrial fibrillation This note was generated with Iptiviaation software. It may contain incorrect words, spelling, and punctuation that were not noted in review of the chart prior to signing ED Disposition - Plan for ED Patient: Disposition: Home or Assisted Living Chief Complaint: Head Injury Instructions: ED Concussion, ED Afib Prescriptions: Apixaban [Eliquis] 2.5 mg PO BID #60 tab Referrals: Radha Griffith, [Primary Care Provider] - 3-5 Days What to do if you have Problems For any increased pain, shortness of breath, bleeding, nausea or vomiting, chest pain, or any unexpected problems, contact your Primary Care Provider. Call [facility] ([phone]) or report to the closest Emergency Room. Call 911 if necessary. 07/05/18 1528 <Electronically signed by Frederick Carranza MD> Date Frederick Carranza MD Cosigner Signature (If Indicated): Date CC: Radha Griffith DO CBC W/DIFF, AUTOMATED Collected: 07/05/2018 Status: F Source: [place] 12:33 PM [facility] REPOSITORY TYPE CODE TESTS RESULT OUT OF RANGE REFERENCE UNITS LAB L100.1000 4.4-11.0 K/mm3 Normal WBC 8.7 LAB L100.1200 4.2-5.4 M/mm3 Normal RBC 4.37 LAB L100.1300 12.0-15.0 g/dl Normal HGB 14.3 LAB L100.1400 37-47 % Normal HCT 41.4 LAB L100.1500 81-99 fL Normal MCV 94.7 LAB L100.1600 27.0-32.0 pg High MCH 32.7 LAB L100.1700 32-36 g/gl Normal MCHC 34.5 LAB L100.1810 11.6-14.6 % Normal RDW CV 12.4 LAB L100.1820 35.1-43.9 fl Normal RDW SD 43.1 LAB L100.1900 150-450 K/mm3 Normal PLT 284 LAB L100.2000 6.2-12.0 fl Normal MPV 9.9 LAB L100.2100 47-70 % Normal NEUT% 55.6 LAB L100.2200 19-41 % Normal LY% 32.9 LAB L100.2300 0-10 % High MONO% 10.1 LAB L100.2400 0-5 % Normal EO% 0.8 LAB L100.2500 0-1 % Normal BASO% 0.5 LAB L100.2550 0.0-0.9 % Normal IM GRAN % 0.100 Result Comment: IG% - Immature Granulocytes (promyelocytes, myelocytes and metamyelocytes) > 1% indicates that a LEFT SHIFT is Present. LAB L100.2620 2.0-7.7 X10 3/uL Normal Absolute Neut 4.8 LAB L100.2720 0.83-4.51 X10 3/ul Normal Absolute Lymph 2.86 Performed By: #### L100.0100 #### [facility] [address] [place], [address] COMPREHENSIVE METABOLIC Collected: 07/05/2018 Status: F Source: [facility] 12:33 PM [facility] REPOSITORY TYPE CODE TESTS RESULT OUT OF RANGE REFERENCE UNITS LAB L501.0100 74-106 mg/dL Normal GLU 104 Result Comment: Fasting Glucose result from 100 to 125 mg/dL suggests IMPAIRED HOMEOSTASIS per A.D.A. criteria. Please note revised GLUCOSE reference range effective 2017. LAB L501.1000 7-18 mg/dL High BUN 26 LAB L501.1100 0.55-1.02 mg/dL Normal CREAT,SERUM 0.94 Result Comment: The validity of the calculated GFR AND GFRAA in patients over 70 years has not been determined. Clinical correlation is essential. LAB L501.1110 >60 mL/min Normal EST GFR 61 Result Comment: Non- GFR Calc LAB L501.1115 >60 mL/min Normal EST GFR - AA 73 Result Comment: GFR Calc LAB L501.1255 ml/min Normal Estimated CRCL 41.22 LAB L501.1300 10-20 RATIO High BUN/CRE 27.6 LAB L501.1500 6.4-8. g/dL Normal 2 T PROT 6.9 LAB L501.1800 3.2-5. g/dL Normal 0 ALB 3.8 LAB L501.1950 2.2-4. g/dL Normal 2 GLOB 3.1 LAB L501.2000 0.9-2. RATIO Normal 4 A/G 1.2 LAB L501.2200 8.5-10 mg/dL Normal .1 CA 9.2 LAB L501.4100 15-37 U/L Normal AST 17 LAB L501.4305 45-117 U/L Normal ALK P 95 LAB L501.4405 13-56 U/L Normal ALT 17 LAB L501.4600 0.20-1 mg/dL Normal .00 T BILI 0.70 LAB L501.5300 136-14 mmol/L Low 5 NA 134 LAB L501.5600 3.5-5. mmol/L Normal 1 K 4.0 LAB L501.5900 98-107 mmol/L Low CL 97 LAB L501.6100 21.0-3 mmol/L Normal 2.0 CO2 26.0 LAB L501.6200 5-15 Normal GAP 11 Performed By: #### L500.4050, L501.4010 #### [facility] [address] [facility] [place], [place], [address] TROPONIN-I Collected: 07/05/2018 Status: F Source: [place] 12:33 PM [facility] REPOSITORY TYPE CODE TESTS RESULT OUT OF RANGE REFERENCE UNITS LAB L501.4010 <0.045 ng/mL Normal 0.039 TROPONIN-I Result Comment: TROPONIN-I EXPECTED VALUES <0.045 Negative 0.045 - 0.590 Consistent with Cardiac Damage > OR = 0.600 Critical Value Not every elevated troponin is indicative of HI. These values should be used with clinical judgement in examining the patient's clinical picture for diagnosis. To establish a diagnosis of HI versus myocardial injury, there must be a demonstrated rise and/or fall in the troponin values, in addition to ischemic symptoms, EKG changes, new regional wall motion abnormality, and/or angiographical evidence. PLEASE NOTE: REFERENCE RANGES EDITED 17 Performed By: #### L500.4050, L501.4010 #### [facility] [address] [place], [place], [address] BRAIN/HEAD WITHOUT Observed: 07/05/2018 Status: F Source: [place] 12:09 PM [facility] REPOSITORY [facility] Imaging Services [address] [place] [address] Brain/Head without Contrast MR#: [id number] Acct: [id number] Name: EDIN WEAVER Rep #: [id number] : 1940 F 78 From: Wil Roberts MD PCP: Radha Griffith DO Status: REG ER Study: Brain/Head without Contrast Date of Exam: 07/05/18 Exam# [id number] Ordering Dr: Frederick Carranza MD STUDY: CT BRAIN WITHOUT CONTRAST REASON FOR EXAM: Female, 78 years old. Fall. No loss of consciousness. Dizziness and weakness. RADIATION DOSAGE (If Supplied By Facility): CTDIvol = ( 44.99 ) mGy, DLP = ( 829.85 ) mGycm TECHNIQUE: Transaxial CT imaging of the brain was performed without administration of intravenous contrast material. Individualized dose optimization techniques were used for this CT. COMPARISON: Comparison is made with prior study dated July 29, 2016. FINDINGS: Normal soft tissue structures. Normal calvarium. There is mild cerebral atrophy with widening of the extra- axial spaces and ventricular dilatation. There are areas of decreased attenuation within the white matter tracts of the supratentorial brain, consistent with microvascular disease changes. There are small punctate calcifications of the basal ganglia which are seen in the aging brain as a normal variant. Normal brainstem. Normal cerebellum. There is no intracranial hemorrhage. There are no findings of an acute ischemic infarction. Atherosclerotic calcification of the vertebral arteries and cavernous portions of the internal carotid arteries bilaterally. Normal visualized paranasal sinuses. CT/Brain/Head without Contrast IMPRESSION: Chronic involutional changes of the brain. Electronically Signed: Wil Roberts MD at 13:41 EST Tel [phone], Service support , CC: Radha Griffith DO; Frederick Carranza MD Research Director: Signed SCREENING MAMM (CAD), Observed: 09/03/2017 Status: F Source: [place] 1:19 PM [facility] REPOSITORY [facility] Imaging Services [address] [place] [address] SCREENING MAMM (CAD), BILAT MR#: [id number] Acct: [id number] Name: EDIN WEAVER Rep #: [id number] : 1940 F 77 From: Wil Roberts MD PCP: Radha Griffith DO Status: REG CLI Study: SCREENING MAMM (CAD), BILAT Date of Exam: 09/03/17 Exam# [id number] Ordering Dr: Radha Griffith DO MAMMOGRAPHY - [...] delay biopsy of a clinically suspicious abnormality. [id number] Electronically Signed: Wil Roberts MD at 15:26 EST Tel [phone], Service support , CC: Radha Griffith DO Research Director: Signed ALLERGIES ALLERGIES DATE TYPE / CODE NAME / CODE REACTION SEVERITY SOURCE 07/07/2018 Drug Penicillins/E18827 Unknown Unknown [place] Allergy/416 0476(RXNORM) [facility] 722716([facility] ED CT) Repository 07/07/2018 Drug morphine/[id number] Unknown Unknown [place] Allergy/416 5(RXNORM) [facility] 188797([facility] ED CT) Repository 07/07/2018 Drug codeine/[id number] Unknown Unknown [place] Allergy/416 (RXNORM) [facility] 059946([facility] ED CT) Repository 07/07/2018 Drug erythromycin Unknown Unknown [place] Allergy/416 base/Q571346009(RX [facility] 231454([facility] ED CT) Repository 07/07/2018 Drug azithromycin/F0060 Chest tightness Unknown [place] Allergy/416 48934(RXNORM) [facility] 249712([facility] ED CT) Repository 06/03/2011 DRUG/685950 ERYTHROMYCIN [facility] 003(SNOMED Three Repository CT) 06/03/2011 DRUG MORPHINE [facility] INGREDI/419 Three Repository 484231([facility] ED [facility]) 06/03/2011 Drug OPIOIDS - MORPHINE [facility] Class/25898 ANALOGUES [facility] Repository 1003(SNOMED CT) 06/03/2011 Drug PENICILLINS [facility] Class/00934 Three Repository 1003(SNOMED CT) ENCOUNTERS ENCOUNTERS ADMIT/DISCHARGE ACCOUNT NUMBER ADMITTING ENCOUNTER LOCATION SOURCE CLASS 07/14/2018 [id number] Ambulatory [facility] ding:[facility] Repository 07/07/2018 [id number] Ambulatory [facility] ding:LAB Repository 07/07/2018/07/07/19 [id number] Ambulatory BMSBuilding: [place] [facility] Repository 07/06/2018 [id number] Ambulatory BMSBuilding: [place] [facility]MS[facility] Repository 07/05/2018/07/05/19 [id number] Emergency [address] ding:ED Repository 07/03/2018/07/03/19 [id number] Ambulatory Building:[place] [address] [address] Repository 11/10/2017 [id number] Ambulatory BMSBuilding: [place] BMS.[facility] Repository 09/03/2017 [id number] Ambulatory [facility] ding:BI Repository PAYERS PAYERS ENCOUNTER GUARANTOR PAYER SUBSCRIBER SOURCE 07/14/2018 EDIN F [id number] Primary EDIN F WOODDOB: [place] Insurance:MEDICARE [id number] [address]Igq: Number: Repository [id number] (HP) Date:2018-07-07 07/14/2018 Secondary EDIN F WOODDOB: [place] Insurance:ANTHEMPolic [id number] [facility] y Number: Hospital [id number] Repository Date:0303-76-97LK [id number] [place] [address]AT: 07/14/2018 Tertiary NOT GIVENUNK [place] Insurance:SELF PAY [facility] Number: Effective Repository Date:2018-07-07 07/07/2018 EDIN F [id number] Primary EDIN F WOODDOB: [place]USS [place] Insurance:MEDICARE [id number] [place] [address]Urx: Number: Repository [id number] (HP) Date:2018-07-07 07/07/2018 Secondary EDIN F WOODDOB: [place] Insurance:ANTHEMPolic [id number] [facility] y Number: Hospital [id number] Repository Date:9771-12-54ZQ [address], [place] [address]BD: 07/07/2018 Tertiary NOT GIVENUNK [place] Insurance:SELF PAY [facility] Number: Effective Repository Date:2018-07-07 07/07/2018 EDIN F [id number] Primary EDIN F WOODDOB: [place] Insurance:MEDICARE [id number] [facility] [address]Jzn: Number: Repository [id number] (HP) Date:2018-07-06 07/07/2018 Secondary EDIN F WOODDOB: [place] Insurance:ANTHEMPolic [id number] [facility] y Number: Hospital [id number] Repository Date:1914-20-95FQ [address] [place] [address]BS: 07/07/2018 Tertiary NOT GIVENUNK [place] Insurance:SELF PAY [facility] Number: Effective Repository Date:2018-07-07 07/06/2018 EDIN F [id number] Primary EDIN F WOODDOB: [place]USS [place] Insurance:MEDICARE [id number] [facility] [address]Fwd: Number: Repository [id number] (HP) Date:2018-07-06 07/06/2018 Secondary EDIN F WOODDOB: [place] Insurance:ANTHEMPolic [id number] [facility] y Number: Hospital [id number] Repository Date:3550-38-88DT [id number] [place] [address]HP: 07/06/2018 Tertiary NOT GIVENUNK [place] Insurance:SELF PAY [facility] Number: Effective Repository Date:2018-07-06 07/05/2018 EDIN F [id number] Primary EDIN F WOODDOB: [place]USS [place] Insurance:MEDICARE [id number] [facility] [address]Gru: Number: Repository [id number] (HP) Date:2018-07-05 07/05/2018 Secondary EDIN F WOODDOB: [place] Insurance:ANTHEMPolic [id number] [facility] y Number: Hospital [id number] Repository Date:0149-89-86IK [address], [place] [address]IB: 07/05/2018 Tertiary NOT GIVENUNK [place] Insurance:SELF PAY [facility] Effective Repository Date:2018-07-05 07/03/2018 EDIN F WOODDOB: Primary EDIN F WOODDOB: [facility] Insurance:MEDICAREPol [id number] Three Repository MARTHA GONZÁLES icy Number: MARTHA GONZÁLES [facility], [id number] [place], [place] [address]Hjd: Date:1698-60-52MJL [place] [address]Qeu: J15 [facility] () [address] [address]TNDVBVVTZ, () [place] [address]OA: 11/10/2017 EDIN [id number] Primary EDIN WOODDOB: [place] Insurance:MEDICARE [id number], [place] [address]Iwb: Number: Repository [id number] () Date:2017-06-08 11/10/2017 Secondary EDIN WOODDOB: [place] Insurance:ANTHEMPolic [id number] [facility] y Number: Hospital [id number] Repository Date:0149-65-76PF [id number] [place] [address]DP: 11/10/2017 Tertiary NOT GIVENUNK [place] Insurance:SELF PAY [facility] Number: Effective Repository Date:2017-06-08 09/03/2017 EDIN [id number] Primary EDIN WOODDOB: [place] Insurance:MEDICARE [id number] [place], [place] [address]Owa: Number: Repository [id number] () Date:2017-08-13 09/03/2017 Secondary EDIN WOODDOB: [place] Insurance:ANTHEMPolic [id number] [facility] y Number: Hospital [id number] Repository Date:1282-83-42OV [address], [place] [address]VF: 09/03/2017 Tertiary NOT GIVENUNK [place] Insurance:SELF PAY [facility] Number: Effective Repository Date:2017-08-13
--- OUTSIDE RECORDS SUMMARY | 2018-09-17 18:30 | XMS RPT_ITS | Continuity of Care Document ---
:1940 Author Organization [facility] Address [address] [facility] [address] [place] [address] Phone Care Team Providers Name Role Phone Radha Griffith DO Unavailable [facility], [facility] Unavailable Farrah DALE, Dr. John [...] 2017-- and ended up having scope 2017 --[facility] Status: Active Hypercholesteremia (E78.00, 272.0) Status: [...] Comments: Rectocele repair By Alfredito Oneill at [facility] in [place] with previous anal sphincter reconstruction repairColonoscopy last 2011Has brittany analspincter muscle repain Status: Active Therapeutic drug monitoring (Z51.81, V58.83) Status: Active Urinary incontinence (R32, 788.30) Comments: Dr Madsen in [place]. doing good on meds. enablex(Darifenacin generic)Last saw [...] Hour 1 Tablet ER 24HR qd for 30 days Quantity: 30 {Tablet} Refills: 3 Ordered:18-Feb-2018 Kacey Monroy LPN Start : 18-Feb-2018 Active HydroCHLOROthiazide 25 MG Oral Tablet 1 [...] Kathleen Start : 18-Mar-2018 Active Vitamin D3 92460 UNIT Oral Tablet 1 (one) Tablet Tablet [...] 29-Jul-2016 Inactive MULTIVITAL (Oral Tablet) Inactive NYSTATIN-TRIAMCINOLONE, 551847-5.1UNIT/GM-% (External Cream) 1 (one) Cream Cream bid for 0 days Quantity: 1 {Tube} Refills: 0 Ordered:13-Jun-2015 ESTEPHANIA Arreola Start : 17-Dec-2014 End : 13-Jun-2015 Inactive ZOSTAVAX, 79182FHP/0.65ML (Subcutaneous Solution Reconstituted) uad For Solution one [...] test2 [facility] Status: Inactive as of 13-Aug-2017 Arthritis Status: [...] VAC ADLT/IMUMNOSPR, SBC/INTRM Date: 26-Jan-2018 Completed 26-Jan-2018 (70683) Comments: Pneumovax 23lot [id number]/prefilledleft thaliatBhupinder, HOISTING ENGINEER Annual Eye Exam Completed Comments: 2011 appendectomy Completed Comments: 1849, Dr Arreguin [place] Blood Pressure Monitoring Completed Comments: 120-160 systolic range Cardiac Cath Completed Comments: 2005 -- [facility] Dr Neal Parraprolonged bleeding, no findings Cardiac Cath number 2 Completed Comments: 2010 --Dr Borja at [facility] -- neg findings and abnormal ecgs. Cataracts Completed Comments: Dr Farley in [place] -- 1997, revealed corneal scar Colonoscopy, Screening Completed Comments: December 2011 Hip Replacement Completed Comments: Left - Dr Donaldson in [facility] at [facility] hysterectomy Completed Comments: with bladder repair in 1976 at [facility] by Dr Liao in [place] Mammogram, Screening Completed Comments: 2010 Pap Smear Completed Comments: 2011 Rectal Sphincter Repair Completed Comments: 1987 at [facility] by Dr Oneill [facility] --Partial Success Rectocele Repair Completed Comments: 2007 [facility] Nino Toe Repair Completed Comments: [address] Saavedra, in office, [place] Date Value Details 03-Sep-2017 SCREENING MAMM (CAD), BILAT Result: Comments: See Note; NOTES: [facility] Imaging Services [address] [place] [address] SCREENING MAMM (CAD), BILAT MR#: [id number] Acct: [id number] Name: ORALIA WEAVER Rep #: [id number] : 1940 F 77 From: Wil Roberts MD PCP: Radha Griffith DO Status: REG CLI Study: SCREENING MAMM (CAD), BILAT Date of Exam: 09/03/17 Exam# [id number] Ordering Dr: Radha Griffith DO MAMMOGRAPHY - [...] biopsy of a clinically tita picious abnormality. [id number] Electronically Signed: Wil Roberts MD at 15:26 EST Tel [phone], Service support , CC: Radha Griffith DO Industrial Arts Teacher: Signed 19-Jul-2017 PT D/C Summary (1) Result: Comments: See Note; NOTES: [facility] Physical Therapy Health[address] [place] [address] Fax REHABILITATION SERVICES DISCHAR SUMMARY MR#: [id number] Acct: [id number] Name: ORALIA WEAVER Rep #: [id number] : 1940 77 From: Shaun Saavedra DPT, [...] please feel free to call me at [phone]. Thank you for the referral of this patient. Sincerely, Shaun Saavedra DPT, OC <Electronically signed by Shaun Saavedra DPT, TERESITA, CSCS> 07/19/17 0648 CC: Radha Griffith DO EBG Signed 08-Jul-2017 Re-Evaluation - PT (1) Result: Comments: See Note; NOTES: [facility] [address] [place] [address]. [address] [place] [address] Fax REEVALUATION / MEDICARE RECERTI [facility] MR#: [id number] Acct: [id number] Name: ORALIA WEAVER Rep #: [id number] : 1940 77 From: Shaun Saavedra DPT, OCS, CSCS Referring DrClarence: Radha Griffith DO Status: REG RCR Ins urance: MEDICARE PART A B ANTHEM Radha Griffith, It has been my pleasure to [...] do not hesitate to contact me at [phone] by phone or if you have questions or concerns regar ding this new plan of care! Sincerely, Shaun Saavedra DPT, OC <Electronically signed by Shaun Saavedra DPT, OCS, CSCS> 07/08/17 0913 CC: Radha Griffith DO E Signed For Medicare only, by signing this I certify the plan of care. Physicians Signature Date 09-Jun-2017 Inital Evaluation (1) - PT Result: Comments: See Note; NOTES: [facility] Therapy [facility] [address] [facility] [place] [address] Fax REHABILITATION SERVICES INITIAL EVALUATION MR#: [id number] Acct: [id number] Name: ORALIA WEAVER Rep #: [id number] : 1940 77 From: Shaun Saavedra DPT, OCS, CSCS Referring Dr.: Radha Gladis DO Status: REG RCR Insurance: MEDICA RE PART A B [facility] Patient's Visit Information ORALIA WEAVER is a 77 year old F referred to Physical Therapy by Radha Griffith with a diagnosis of BPPV. Date of Evaluation: 06/04/17 Physical Therapist : Shaun Saavedra DPT, OC - Visit Plan Frequency: 1-2x [...] to be FAXED BACK to us at [phone] for Medicare purposes. Please let me know [...] - PT Result: Comments: See Note; NOTES: [facility] [address] [place] [address] Rd[address] [place], [place] [address] Fax REHABILITATION SERVICES INITIAL EVALUATION MR#: [id number] Acct: [id number] Name: ORALIA WEAVER Rep #: [id number] : 1940 76 From: Shaun Saavedra DPT, TERESITA, CSCS Referring Dr.: Radha Griffith DO Status: REG RCR Insurance: [facility] PART A B [facility] Patient's Visit Information ORALIA WEAVER is a [...] to be FAXED BACK to us at [phone] for Medicare purposes. Please let me know if there are question s or concerns regarding this plan of care. Physician Signature: Date: <Electronically signed by Shaun Saavedra DPT, OCS, CSCS&#62 ; 11/25/16 0740 CC: Radha Griffith DO EBG Signed For Medicare only, by signing this I certify the plan of care. Physicians Signature Date -Jul-2016 Brain/Head without Contrast Result: Comments: See Note; NOTES: [facility] Imaging Services [address] [place] [address] Weslydana 4d Brain/Head without Contrast MR#: [id number] Acct: [id number] Name: ORALIA WEAVER Rep #: [id number] : 1940 F 76 From: Wil Roberts MD PCP: Matthew Carrion Status: REG CLI Study: Brain/Head without Contrast Date of Exam: 07/29/16 Exam# [id number] Ordering Dr: Matthew Carrion STUDY: CT BRAIN [...] Wil Roberts MD at 11:39 EST Tel [phone], Service support [phone], CC: Matthew Carrion Industrial Arts Teacher: Signed 09-Jul-2016 SCREENING MAMM (CAD), BILAT Result: Comments: See Note; NOTES: [facility] Imaging Services [address] [place] [address] Weslydacarlos 4d SCREENING MAMM (CAD), BILAT MR#: [id number] Acct: [id number] Name: ORALIA WEAVER Rep #: [id number] : 1940 F 76 From: Wil Roberts MD PCP: Matthew Carrion Status: REG CLI Study: SCREENING MAMM (CAD), BILAT Date of Exam: 07/09/16 Exam# [id number] Ordering Dr: Matthew Carrion MAMMOGRAPHY - BILATERAL [...] delay biopsy of a clinically suspicious abnormality. [id number] Electronically Signed: Wil Roberts MD at 14:00 EST Tel [phone], Service support [phone], CC: Matthew Carrion Industrial Arts Teacher: Signed 08-May-2016 Echocardiogram Complete Result: Comments: See Note; NOTES: [facility] Cardiovascular Services [address] [place] [address] Echo Complete 05/08/16 0934 MR#: [id number] Acct: [id number] Name: ORALIA WEAVER p #: [id number] : 1940 76 From: John Chambers MD Attending Dr: Geovanni Carrion Status: REG CLI Ordering Dr: Geovanni Carrion MD Date: 05/08/16 Location: [facility] Sex: F C Admitted: Reason For Study: [...] 1221 Date John Chambers MD CC: Geovanni Carrion; Matthew Carrion Date Dictated : 05/08/16 0934 Date Transcribed: 05/08/16 1221 Industrial Arts Teacher: Signed 08-May-2016 Nuclear Stress Test - Chemical Result: Comments: See Note; NOTES: [facility] Imaging Services [address] [place] [address] Skylar 4d Nuclear Stress Test - Chemical MR#: [id number] Acct: [id number] Name: WES WEAVER Rep #: [id number] : 1940 76 From: Frederick Neil MD [...] 63%. Frederick Neil MD T: NTS JOB: [id number] 05/08/16 1247 &#60 ;Electronically signed by Frederick Neil MD> Date Frederick Neil MD CC: Matthew Carrion Date Dictated: 05/08/16 1149 Date Transcribed: 05/08/161148 Industrial Arts Teacher: Signed 08-Jul-2015 Echocardiogram Complete Result: Comments: See Note; NOTES: [facility] Cardiovascular Services [address] [place] [address] Echo Complete 07/08/15 1302 MR#: [id number] Acct: [id number] Name: ORALIA MORTENSEN OD Rep #: [id number] : 1940 75 From: Rob Keating MD Attending Dr: Ana Rios MD Status: REG CLI Ordering Dr: Ana Rios MD Date: 07/08/15 Location: [facility] Sex: F C Admitted: Procedure This was [...] Physician: Ana Rios M.D. Performed By: Nidhi Cheatham, [facility] 07/08/15 160 Date ____ Rob Keating MD CC: Ana Rios MD Date Dictated: 07/08/15 1302 Date Transcribed: 07/08/15 160 Industrial Arts Teacher: Signed 26-Jun-2015 Bilat Scrn Digital AND CAD Result: Comments: See Note; NOTES: [facility] Imaging Services [address] [place] [address] Verdana 4d Bilat Scrn Digital AND CAD MR#: [id number] Acct: [id number] Name: ORALIA WEAVER Rep #: [id number] : 1940 F 75 From: Prakash Gutierrez MD PCP: Ana Rios MD Status: REG CLI Study: Fatimah [place] Digital AND CAD Date of Exam: 06/26/15 Exam# [id number] Ordering Dr: Ana Lam MD MAMMOGRAPHY - [...] biops y of a clinically suspicious abnormality. [id number] Electronically Signed: Guillermo Gutierrez MD at 10:18 EST Tel , Service support [phone], CC: Ana Rios MD Industrial Arts Teacher: Signed 26-Jun-2015 Dexa Bone Density Study (HP) Result: Comments: See Note; NOTES: [facility] Imaging Services [address] [place] [address] Verdana 4d Dexa Bone Density Study (HP) MR#: [id number] Acct: [id number] Name : ORALIA WEAVER Rep #: [id number] : 1940 F 75 From: Wil Roberts MD PCP: Ana Rios MD Status: REG CLI Study: Dexa Bone Density Study () Date of Exam: 06/26/15 Exam# [id number] Julián owen Dr: Ana Rios MD STUDY: DUAL [...] Wil Roberts MD at 16:10 EST Tel [phone], Service support , CC: Ana Rios MD Industrial Arts Teacher: Signed 13-Jun-2015 EKG (89261) Result: [MEASUREMENTS ANALYSIS] Date of Test: 06/13/2015 12:06:43; Heart Rate: 53; CA Interval: 194; QRS: 131; QT Interval: 494; Corrected QT Interval (QTc): 482; P Wave [place]: 57; QRS Wave [place]: -40; T Wave Axi s: 127; Blood Pressure: 138/82 [ECG DIAGNOSTIC STATEMENTS] Date of Test: 06/13/2015 12:06:43; Summary: Sinus Bradycardia -Left bundle branch block and left axis. ABNORMAL 14-May-2014 Bilat Scrn Digital & CAD Result: Comments: See Note; NOTES: [facility] Imaging Services [address] [place] [address] Breast Imaging Report MR#: [id number] Acct: [id number] Name: ORALIA WEAVER Rep #: [id number] : 1940 F 74 From: Wil Roberts MD PCP: Ana Rios MD Status: REG CLI Exam# [id number] Ordering Dr: Ana Rios MD MAMMOGRAPHY - [...] Wil Roberts MD at 10:56 EST Tel [phone], Service support [phone], CC: Ana Rios MD Industrial Arts Teacher: Signed 03-May-2014 Chest PA and Lateral Result: Comments: See Note; NOTES: [facility] Imaging Services [address] [place] [address] Radiology Report MR#: [id number] Acct: [id number] Name: ORALIA WEAVER Rep #: [id number] : 1940 F 74 From: Ric Avila MD PCP: Ana Rios MD Status: REG CLI Study: Chest PA and Lateral Date of Exam: 05/03/14 Exam# [id number] Ordering Dr: Ana Rios MD STUDY: X-RAY [...] at 13:27 EST Tel , Service support [phone], CC: Ana Rios MD Industrial Arts Teacher: Signed 16-Oct-2013 EKG (45795) Comments: see scanned document of test done to see results reviewed today with patient Result: [MEASUREMENTS ANALYSIS] Date of Test: 10/16/2013 11:44:55; Heart Rate: 54; CA Interval: 202; QRS: 96; QT Interval: 442; Corrected QT Interval (QTc): 432; P Wave [place]ne[place]: 55; QRS Wave [place]: -22; T Wave [place] : 112; Blood Pressure: 124/84 [ECG DIAGNOSTIC STATEMENTS] Date of Test: 10/16/2013 11:44:55; Summary: Sinus Bradycardia Voltage criteria for LVH (R(V6) exceeds 2.26 mV). -Old anterior infarct. -Nons pecific ST depression + T-abnormality -Seen with left ventricular hypertrophy (strain) or digitalis effect consider Anterolateral ischemia. ABNORMAL [MEASUREMENTS ANALYSIS] Date of Test: 014 11:44:11; Heart Rate: 56; CA Interval: 192; QRS: 96; QT Interval: 444; Corrected QT Interval (QTc): 437; P Wave [place]: 63; QRS Wave [place]: -20; T Wave [place]: 125; Blood Pressure: 124/84 [ECG DIAGNOSTIC STATEMENTS] [...] (Non ) Result: Comments: See Note; NOTES: [facility] Imaging Services [address] [facility] [facility] [place] [address] Ultrasound Report MR#: [id number] Acct: [id number] Name: ORALIA WEAVER Rep #: [id number] : 1940 F 73 From: Wil Roberts MD PCP: Status: REG CLI Study: Pelvic (Non ) Date of Exam: 04/28/13 Exam# [id number] Ordering Dr: Ana Rios MD STUDY: ULTRASOUND [...] April 28, 2013 at 2:56:24 PM EDT [phone] Electronically Signed GP/GP If you are the referring physician and would like to consult with the radiologist who p rovided this interpretation, please contact Wil Roberts M.D. at [phone]. If this radiologist is unavailable, you will be directed to another radiologist to assist. If you are a patient with a question regarding this report, please contact your referring physician directly. Professional Interpretation Provided By: Viral, Phone , These documents contain legally protected [...] of these documents. CC: Ana Rios MD Industrial Arts Teacher: Signed Immunization Name Dates Details Influenza (3 years and up) on: 2017 Pneumococcal (2 years and up) on: 26-Jan-2018 Comments: Site: Left Deltoid Lot #: [id number] Zoster (shingles) Comments: 2012 [facility] Family History Unknown Family Member Name Dates Details Father Comments: Depression and Kidney Status: Active Mother Comments: Breast Ca and Diabetes Status: Active Sister 1 Comments: Depression/Emotional problems Status: Active Social History Name Dates Details Caffeine Use Comments: 1 cup/day Status: Active Exercise History Comments: 1-2 weekly, light Status: Active Living Situation Comments: , moved [place] leann mascorrovey Status: Active No Drug Use Status: Active Non Drinker/No Alcohol Use Status: Active Non Smoker/No Tobacco Use Status: Active Tobacco use: Never smoker. Status: Active Smoking Status Name Dates Details Never smoker Vital Signs Date Test Result Details 33-Qpa-688506:24 Pulse 63 /min Comments: Pattern: Regular Respiration [...] kg/m2 Body Surface Area Calculated 1.78 m2 02-Wcd-89392:47 Temperature 97.6 f Comments: Method: Temporal Pulse [...] 163 lb Results Date Description Value Details 54-Axl-808983:56 Metabolic Panel, Basic Comments: PATIENT NOT FASTINGPERFORMED BY: [employer] Xzcvss4637 [facility] [id number] (50099) Calcium 9.9 mg/dL (Normal) Range: 8.7-10.3 Carbon [...] 8-27 Glucose 85 mg/dL (Normal) Range: 65-99 09-Ujf-890972:11 URINE ANDER CULTURE-IDENTIFICATN Comments: PATIENT NOT FASTINGPERFORMED BY: [employer] Iwslvg4156 [facility] [id number] Information: SRC: (11670) Result 1 NG36 (Normal) Comments: No growth in 36 - 48 hours. Urine Culture,Comprehensive Final report (Normal) 29-Yef-611676:08 Urinalysis, Office (84086) UA - LEUKOCYTE ESTERASE Trace (Normal) Comments: sent to lab UA - NITRITE Negative (Normal) URINE UROBILINGN DENNY TIMED Normal mg/dL (Normal) UA - PROTEIN Negative mg/dL (Normal) UA - PH 6 (Abnormal) UA - BLOOD Non Hemolyzed Trace (Normal) UA - SPECIFIC GRAVITY 1.015 (Normal) UA - KETONES Negative mg/dL (Normal) UA - BILIRUBIN Negative (Normal) UA - GLUCOSE Negative (Normal) 83-Ghw-861721:07 TSH (95946) Comments: PATIENT WAS FASTINGPERFORMED BY: [facility] MeasuringSt. Joseph's Wayne HospitalEqjwzn1254 [facility] [id number] TSH 2.410 {uIU/mL} (Normal) Range: 0.450-4.500 50-Tex-652670:07 Metabolic Panel, Comprehensive Comments: PATIENT WAS FASTINGPERFORMED BY: SquawkaCoSt. Joseph's Wayne HospitalRcfyug5114 [facility] [id number] (47806) ALT (SGPT) 8 [iU]/L (Normal) Range: 0-32 [...] Glucose, Serum 97 mg/dL (Normal) Range: 65-99 27-Qwb-857931:07 CALCIFEDIOL (81918) Comments: PATIENT WAS FASTINGPERFORMED BY: LabCoSt. Joseph's Wayne HospitalWsqpdk4098 [facility] [id number] Vitamin D, 25-Hydroxy 52.1 ng/mL (Normal) Range: 30.0-100.0 Comments: Vitamin D deficiency has been defined by the [place] of[place]icine and an Endocrine Society practice guideline as alevel of serum 25-OH vitamin D less than 20 ng/mL (1,2).The Endocrine Society went on to further define vitamin Dinsufficiency as a level between 21 and 29 ng/mL (2).1. IOM ([place] of Medicine). 2010. Dietary reference intakes for calcium and D. [place]: The National Academies Press.2. Solo MF, Irma COATES, Derrek RAMIREZ, et al. Evaluation, treatment, and prevention of vitamin D deficiency: an Endocrine Society clinical practice guideline. JCEM. 2010; 96(7):1911-30. 93-Gie-009540:07 Lipid Panel (93263) Comments: PATIENT WAS FASTINGPERFORMED BY: [facility]6370 [facility] [id number] LDL/HDL Ratio 2.1 {ratio_units} (Normal) Range: 0.0-3.2 Comments: LDL/HDL Ratio Men Women 1/2 Avg.Risk 1.0 1.5 Av g.Risk 3.6 3.2 2X Avg.Risk 6.2 5.0 3X Avg.Risk 8.0 6.1 LDL Cholesterol Calc 105 mg/dL (Abnormal) Range: 0-99 VLDL Cholesterol Oren 27 mg/dL (Normal) Range: 5-40 HDL Cholesterol 50 mg/dL (Normal) Triglycerides 136 mg/dL (Normal) Range: 0-149 Cholesterol, Total 182 mg/dL (Normal) Range: 100-199 47-Ttp-546855:07 CBC, Platelets & Auto Diff Comments: PATIENT WAS FASTINGPERFORMED BY: [facility]6370 [facility] [id number] (20238) Immature Grans (Abs) 0.0 {x10E3/uL} (Normal) Range: [...] 6.5 {x10E3/uL} (Normal) Range: 3.4-10.8 :16 CALCIFEDIOL (57207) Comments: PATIENT WAS FASTINGPERFORMED BY: [facility]6370 [facility] [id number] Vitamin D, 25-Hydroxy 35.3 ng/mL (Normal) Range: 30.0-100.0 Comments: Vitamin D deficiency has been defined by the [place] of[facility]uther[facility] Hospitalcine and an Endocrine Society practice guideline as alevel of serum 25-OH vitamin D less than 20 ng/mL (1,2).The Endocrine Society went on to further define vitamin Dinsufficiency as a level between 21 and 29 ng/mL (2).1. IOM ([place] of [employer]). 2010. Dietary reference intakes for calcium and D. [place]: The National Academies Press.2. Solo MF, Irma COATES, Derrek RAMIREZ, et al. Evaluation, treatment, and prevention of vitamin D deficiency: an Endocrine Society clinical practice guideline. JCEM. 2010; 96(7):1911-30. :16 TSH (THYROID STIMULATING Comments: PATIENT WAS FASTINGPERFORMED BY: [facility]6370 [facility] [id number] HORMONE) (71467) TSH 2.460 {uIU/mL} (Normal) Range: 0.450-4.500 :16 LIPID PANEL (05036) Comments: PATIENT WAS FASTINGPERFORMED BY: [facility]6370 [facility] [id number] LDL/HDL Ratio 1.6 {ratio_units} (Normal) Range: 0.0-3.2 [...] PANEL, COMPREHENSIVE Comments: PATIENT WAS FASTINGPERFORMED BY: [facility]6370 [facility] [id number] (99257) ALT (SGPT) 8 [iU]/L (Normal) Range: 0-32 [...] Glucose, Serum 83 mg/dL (Normal) Range: 65-99 14-Shb-61383:16 CBC, PLATELETS & AUT DIFF Comments: PATIENT WAS FASTINGPERFORMED BY: LabCoSt. Joseph's Wayne HospitalOjpsiq4054 [facility] [id number]; fu 5- KF (21762) Immature Grans (Abs) 0.0 {x10E3/uL} (Normal) Range: [...] PANEL, COMPREHENSIVE Comments: PATIENT WAS FASTINGPERFORMED BY: JANELLE [facility]Co[facility] Pmisho7793 [facility] [id number] (85024) ALT (SGPT) 9 [iU]/L (Normal) Range: 0-32 [...] Glucose, Serum 95 mg/dL (Normal) Range: 65-99 42-Goz-270171:02 CALCIFEDIOL (02573) Comments: PATIENT WAS FASTINGPERFORMED BY: [facility] Uubtsr4571 [facility]blin [place] [id number] Vitamin D, 25-Hydroxy 46.6 ng/mL (Normal) Range: 30.0-100.0 Comments: Vitamin D deficiency has been defined by the [place] of[place]icine and an Endocrine Society practice guideline as alevel of serum 25-OH vitamin D less than 20 ng/mL (1,2).The Endocrine Society went on to further define vitamin Dinsufficiency as a level between 21 and 29 ng/mL (2).1. IOM ([place]). 2010. Dietary reference intakes for calcium and D. [place]: The National AcademBoca Research Press.2. Solo MF, Irma [place], Derrek RAMIREZ, et al. Evaluation, treatment, and prevention of vitamin D deficiency: an Endocrine Society clinical practice guideline. JCEM. 2010; 96(7):1911-30. 13-Vxv-845677:30 MICROALBUMIN: CREATININE RATIO Comments: PATIENT WAS FASTINGPERFORMED BY: [employer] Muecji9202 [facility] [id number] (43193) AND (05957) Microalb/Creat Ratio 4.5 {mg/g_creat} (Normal) Range: 0.0-30.0 Microalbumin, Urine 3.5 ug/mL (Normal) Creatinine, Urine 78.3 mg/dL (Normal) 52-Gby-686937:30 VITAMIN B12 AND FOLATES Comments: PATIENT WAS FASTINGPERFORMED BY: [employer] Oqrocv4292 [facility] [id number] (20367) Folate (Folic Acid), Serum 19.0 ng/mL (Normal) Comments: A serum folate concentration of less than 3.1 ng/mL isconsidered to represent clinical deficiency. Vitamin B12 431 pg/mL (Normal) Range: 211-946 52-Spe-977449:30 CALCIFEDIOL (93269) Comments: PATIENT WAS FASTINGPERFORMED BY: [employer] Knpgqc6491 [facility] [place] [id number] Vitamin D, 25-Hydroxy 26.3 ng/mL (Abnormal) Range: 30.0-100.0 Comments: Vitamin D deficiency has been defined by the [place] of[facility] Hospitalcine and an Endocrine Society practice guideline as alevel of serum 25-OH vitamin D less than 20 ng/mL (1,2).The Endocrine Society went on to further define vitamin Dinsufficiency as a level between 21 and 29 ng/mL (2).1. IOM ([place]). 2010. Dietary reference intakes for calcium and D. [place]: The National AcademBoca Research Press.2. Solo MF, Irma COATES, Derrek RAMIREZ, et al. Evaluation, treatment, and prevention of vitamin D deficiency: an Endocrine Society clinical practice guideline. JCEM. 2010; 96(7):1911-30. 33-Cfd-677198:30 TSH (THYROID STIMULATING Comments: PATIENT WAS FASTINGPERFORMED BY: [facility] [id number] HORMONE) (56609) TSH 2.140 {uIU/mL} (Normal) Range: 0.450-4.500 :30 LIPID PANEL (87998) Comments: PATIENT WAS FASTINGPERFORMED BY: [facility]63[facility] FriendsFormerly [facility] [id number] LDL/HDL Ratio 1.8 {ratio_units} (Normal) Range: 0.0-3.2 [...] PANEL, COMPREHENSIVE Comments: PATIENT WAS FASTINGPERFORMED BY: Abril70 SerometrixFormerly Alexander [facility] [id number] ([id number]) ALT (SGPT) 8 [iU]/L (Normal) Range: 0-32 [...] Glucose, Serum 93 mg/dL (Normal) Range: 65-99 66-Wld-420624:30 CBC, PLATELETS & AUT DIFF Comments: PATIENT WAS FASTINGPERFORMED BY: LabCoSt. Joseph's Wayne HospitalWssqcd7780 [facility] [id number] ([id number]) Immature Grans (Abs) 0.0 {x10E3/uL} (Normal) Range: [...] Microscopic Examination Comments: PATIENT WAS FASTINGPERFORMED BY: ITIS HoldingsSt. Joseph's Wayne HospitalVpaqhq6065 [facility] [id number] Bacteria Few (Normal) Mucus Threads Present (Normal) Epithelial Cells (non renal) 0-10 {/hpf} (Normal) Range: 0 - 10 RBC 0-2 {/hpf} (Normal) Range: 0 - 2 WBC 11-30 {/hpf} (Abnormal) Range: 0 - 5 50-Lgs-673365:06 CBC, Platelets & Auto Comments: PATIENT NOT FASTINGPERFORMED BY: [facility]6370 [facility] [id number] Information: [id number] Diff ([id number]) Immature Grans (Abs) 0.0 {x10E3/uL} (Normal) Range: [...] (Normal) Range: 3.4-10.8 :36 URINALYSIS, W/ MICRO (28129) Comments: PATIENT WAS FASTINGPERFORMED BY: [facility]6370 [facility] [id number] Microscopic Examination See below: (Normal) Comments: Microscopic was indicated and was performed. Nitrite, Urine Negative (Normal) Urobilinogen,Semi-Qn 0.2 mg/dL (Normal) Range: 0.2-1.0 Bilirubin Negative (Normal) Occult Blood Negative (Normal) Ketones Negative (Normal) Glucose Negative (Normal) Protein Negative (Normal) WBC Esterase 1+ (Abnormal) Appearance Clear (Normal) Urine-Color Yellow (Normal) pH 6.5 (Normal) Range: 5.0-7.5 Specific [place] 1.017 (Normal) Range: 1.005-1.030 :36 METABOLIC PANEL, COMPREHENSIVE Comments: PATIENT WAS FASTINGPERFORMED BY: [employer] Crvwdg5585 [facility] [id number] ([id number]) ALT (SGPT) 5 [iU]/L (Normal) Range: 0-32 [...] mg/dL (Normal) Range: 65-99 :36 LIPID PANEL (38652) Comments: PATIENT WAS FASTINGPERFORMED BY: [employer] Btwkvr8240 [facility] [id number] LDL/HDL Ratio 1.7 {ratio_units} (Normal) Range: 0.0-3.2 [...] auto diff Comments: PATIENT WAS FASTINGPERFORMED BY: [employer] MeasuringSt. Joseph's Wayne HospitalNsxjxx2228 [facility] [id number] Information: [id number]; apt. [birth year] (58940) Immature Grans (Abs) 0.0 {x10E3/uL} (Normal) Range: [...] With Differential/Platelet Comments: PATIENT WAS FASTINGPERFORMED BY: [facility]6370 [facility] [id number] Information: [id number]; patient has fu 6-18 will review with [...] Panel (14) Comments: PATIENT WAS FASTINGPERFORMED BY: Abril70 CRITICAL TECHNOLOGIESFormerly [facility] [id number] ALT (SGPT) 6 [iU]/L (Normal) Range: 0-32 [...] With LDL/HDL Comments: PATIENT WAS FASTINGPERFORMED BY: Abril70 CRITICAL TECHNOLOGIESFormerly [facility] [id number] Ratio LDL/HDL Ratio 1.9 {ratio_units} (Normal) Range: [...] Microscopic Examination Comments: PATIENT WAS FASTINGPERFORMED BY: CodaricaFormerly [facility] [id number] Bacteria Few (Normal) Mucus Threads Present (Normal) Epithelial Cells (non renal) 0-10 {/hpf} (Normal) Range: 0 - 10 RBC 0-2 {/hpf} (Normal) Range: 0 - 2 WBC 0-5 {/hpf} (Normal) Range: 0 - 5 :47 Urinalysis, Complete Comments: PATIENT WAS FASTINGPERFORMED BY: CodaricaFormerly [facility] [id number] Microscopic Examination See below: (Normal) Comments: Microscopic was indicated and was performed. Microscopic Examination MICRON (Normal) Comments: Microscopic follows if indicated. Nitrite, Urine Negative (Normal) Urobilinogen,Semi-Qn 0.2 mg/dL (Normal) Range: 0.0-1.9 Bilirubin Negative (Normal) Occult Blood Negative (Normal) Ketones Negative (Normal) Glucose Negative (Normal) Protein Negative (Normal) WBC Esterase Negative (Normal) Appearance Clear (Normal) Urine-Color Yellow (Normal) pH 6.0 (Normal) Range: 5.0-7.5 Specific [place] 1.024 (Normal) Range: 1.005-1.030 70-Ctd-650352:50 CBC W/AUTO DIFF WBC Comments: PATIENT NOT FASTINGPERFORMED BY: AirSig TechnologyFormerly [facility] [id number] Information: [id number] ([id number]) Immature Grans (Abs) 0.0 {x10E3/uL} (Normal) Range: [...] 3.77-5.28 WBC 7.8 {x10E3/uL} (Normal) Range: 3.4-10.8 91-Nzs-541398:50 Metabolic Panel, Basic Comments: PATIENT NOT FASTINGPERFORMED BY: [facility] Dcboyq0300 [facility] [id number] ([id number]) Calcium, Serum 9.8 mg/dL (Normal) Range: 8.6-10.2 [...] mg/dL (Normal) Range: 65-99 :52 Urinalysis, Office (46341) UA - NITRITE Negative (Normal) UA - [...] PANEL, COMPREHENSIVE Comments: PATIENT WAS FASTINGPERFORMED BY: [facility] Jmostx7397 [facility] [id number] ([id number]) ALT (SGPT) 9 [iU]/L (Normal) Range: 0-32 [...] mg/dL (Normal) Range: 65-99 :19 LIPID PANEL (33679) Comments: PATIENT WAS FASTINGPERFORMED BY: Abril70 [facility] [id number] LDL/HDL Ratio 1.6 {ratio_units} (Normal) Range: 0.0-3.2 [...] MANUAL DIFF Comments: PATIENT WAS FASTINGPERFORMED BY: [employer]6370 [facility] [id number] Information: [id number] ([id number]) Immature Grans (Abs) 0.0 {x10E3/uL} (Normal) Range: [...] 3.77-5.28 WBC 11.4 {x10E3/uL} (Abnormal) Range: 3.4-10.8 :07 Urinalysis, Routine Comments: PERFORMED BY: AirSig TechnologyFormerly [facility] [id number] Microscopic Examination MICRON (Normal) Comments: Microscopic follows if indicated. Nitrite, Urine Negative (Normal) Urobilinogen,Semi-Qn 0.2 mg/dL (Normal) Range: 0.0-1.9 Bilirubin Negative (Normal) Occult Blood Negative (Normal) Ketones Negative (Normal) Glucose Negative (Normal) Protein Negative (Normal) WBC Esterase Negative (Normal) Appearance Cloudy (Abnormal) Urine-Color Yellow (Normal) pH 6.0 (Normal) Range: 5.0-7.5 Specific [place] 1.020 (Normal) Range: 1.005-1.030 :14 MICROALBUMIN: CREATININE RATIO Comments: PERFORMED BY: AirSig TechnologyFormerly [facility] [id number] ([id number]) AND (41032) Microalb/Creat Ratio 7.0 {mg/g_creat} (Normal) Range: 0.0-30.0 Creatinine, Urine 124.0 mg/dL (Normal) Range: 15.0-278.0 Microalbumin, Urine 8.7 ug/mL (Normal) Range: 0.0-17.0 :14 METABOLIC PANEL, COMPREHENSIVE Comments: PERFORMED BY: [employer] Mlueit1500 [facility] [id number] (11063) ALT (SGPT) 12 [iU]/L (Normal) Range: 0-32 [...] mg/dL (Abnormal) Range: 65-99 :14 LIPID PANEL (50681) Comments: PERFORMED BY: [employer] Aworno3145 [facility] [id number] LDL/HDL Ratio 1.6 {ratio_units} (Normal) Range: 0.0-3.2 LDL Cholesterol Calc 82 mg/dL (Normal) Range: 0-99 VLDL Cholesterol Oren 21 mg/dL (Normal) Range: 5-40 Cholesterol, Total 153 mg/dL (Normal) Range: 100-199 HDL Cholesterol 50 mg/dL (Normal) Comments: According to ATP-III Guidelines, HDL-C >59 mg/dL is considered anegative risk factor for CHD. Triglycerides 107 mg/dL (Normal) Range: 0-149 35-Yti-40295:14 CBC WITH MANUAL DIFF (52606) Comments: PERFORMED BY: [facility] Mydyjn2389 [facility] [id number] Immature Grans (Abs) 0.0 {x10E3/uL} (Normal) Range: [...] 3.77-5.28 WBC 6.2 {x10E3/uL} (Normal) Range: 3.4-10.8 35-Otw-489019:26 Urinalysis, Office (64300) UA - BILIRUBIN Negative (Normal) UA - BLOOD Negative (Normal) UA - GLUCOSE Negative (Normal) UA - KETONES Negative mg/dL (Normal) UA - LEUKOCYTE ESTERASE Negative (Normal) UA - NITRITE Negative (Normal) UA - PH 7.0 (Normal) UA - PROTEIN Negative mg/dL (Normal) UA - SPECIFIC GRAVITY 1.015 (Normal) URINE UROBILINGN DENNY TIMED Normal mg/dL (Normal) 97-Xfs-64440:00 Microscopic Examination Comments: PATIENT WAS FASTINGPERFORMED BY: [facility]6370 [facility] [id number] Bacteria Few (Normal) Mucus Threads Present (Normal) Epithelial Cells (non renal) >10 {/hpf} (Abnormal) Range: 0 - 10 RBC 0-3 {/hpf} (Normal) Range: 0 - 3 WBC 0-5 {/hpf} (Normal) Range: 0 - 5 6-Crf-607834:24 DEXA BONE DENSITY STUDY () Radiology Report [...] Roberts M.D.March 02, 2013 at 12:38:17 PM [phone] Signed GP/GP If you are the referring physician and would like to consult with theradiologist who provided this interpretation, please contact Syed Heath at [phone]. If this radiologist is unavailable, youwill be directed to another radiologist to assist. If you are a patient with a question regarding this report, pleasecontactyour referring physician directly. Professional Interpretation Provided By: [employer], Phone , These documents contain leg ally [...] lay documents. Dictated on 03/02/13 1238 by Alejandra DALE,Joselynscribed on 03/02/13 1248 by ITS IMPORTSign by Wil Roberts MD on 03/02/13 1249 Sign by: Wil Roberts MD 9-Zvp-156806:23 BILAT SCRN DIGITAL & CAD Radiology Report [...] resultswill be sent to the patient by [facility] facility within 30 days. Approximately 10% of breast cancers are not detected by mammography. Anormal mammogram should not delay biopsy of a clinically suspiciousabnormality. Signed:Wil Tripp i, M.D.March 07, 2013 at 9:25:55 AM [phone] Signed GP/GP If you are the referring physician and would like to consult with theradiologist who provided this interpretation, denita cotter contact Syed Heath at [phone]. If this radiologist is unavailable, youwill be directed to another radiologist to assist. If you are a patient with a question regarding this report, pleasecontactyour referring physician directly. Professional Interpretation Provided By: [employer], Phone , These documents contain legally protected [...] destructionofthese documents. Dictated on 03/07 0925 by Vick Roberts MDranscribed on 03/07/13 1138 by ITS IMPORTSign by Wil Robrets MD on 03/07/13 113 Sign by: Wil Roberts MD 02-Jlm-966674:36 Urinalysis, Office (46606) UA - BILIRUBIN Negative (Normal) UA - BLOOD Hemolyzed Large (Normal) UA - GLUCOSE Negative (Normal) UA - KETONES Negative mg/dL (Normal) UA - LEUKOCYTE ESTERASE Moderate (Normal) UA - NITRITE Negative (Normal) UA - PH 7.0 (Normal) UA - PROTEIN Negative mg/dL (Normal) UA - SPECIFIC GRAVITY 1.015 (Normal) URINE UROBILINGN DENNY TIMED 2 mg/dL (Normal) 67-Qba-44623:00 URINALYSIS, W/ MICRO (52029) Comments: PATIENT WAS FASTINGPERFORMED BY: LabCoSt. Joseph's [facility] HospitalDdceql5740 [facility] [id number] Microscopic Examination See below: (Normal) Nitrite, Urine Negative (Normal) Urobilinogen,Semi-Qn 0.2 mg/dL (Normal) Range: 0.0-1.9 Bilirubin Negative (Normal) Occult Blood Negative (Normal) Ketones Negative (Normal) Glucose Trace (Abnormal) Protein 1+ (Abnormal) WBC Esterase Negative (Normal) Appearance Cloudy (Abnormal) Urine-Color Yellow (Normal) pH 6.0 (Normal) Range: 5.0-7.5 Specific [place] 1.023 (Normal) Range: 1.005-1.030 :00 METABOLIC PANEL, COMPREHENSIVE Comments: PATIENT WAS FASTINGPERFORMED BY: LabCoSt. Joseph's Wayne HospitalEgyudq8461 [facility] [id number] ([id number]) ALT (SGPT) 8 [iU]/L (Normal) Range: 0-32 [...] mg/dL (Normal) Range: 65-99 :00 LIPID PANEL (94748) Comments: PATIENT WAS FASTINGPERFORMED BY: [facility]6370 [facility] [id number] LDL/HDL Ratio 1.7 {ratio_units} (Normal) Range: 0.0-3.2 LDL Cholesterol Calc 86 mg/dL (Normal) Range: 0-99 VLDL Cholesterol Oren 30 mg/dL (Normal) Range: 5-40 HDL Cholesterol 52 mg/dL (Normal) Comments: According to ATP-III Guidelines, HDL-C >59 mg/dL is considered anegative risk factor for CHD. Triglycerides 148 mg/dL (Normal) Range: 0-149 Cholesterol, Total 168 mg/dL (Normal) Range: 100-199 : CBC WITH MANUAL DIFF Comments: PATIENT WAS FASTINGPERFORMED BY: Matrix Electronic MeasuringPresbyterian Santa Fe Medical CenterSgyfrr9456 [facility] [id number] Information: [id number] (72389) Immature Grans (Abs) 0.0 {x10E3/uL} (Normal) Range: [...] 6.2 {x10E3/uL} (Normal) Range: 3.4-10.8 :18 TSH (93808) Comments: PATIENT WAS FASTINGPERFORMED BY: [facility]6370 [facility] [id number] TSH 1.990 {uIU/mL} (Normal) Range: 0.450-4.500 :18 MICROALBUMIN: CREATININE RATIO Comments: PATIENT WAS FASTINGPERFORMED BY: [facility]6370 [facility] [id number] ([id number]) AND (73411) Creatinine, Urine 135.9 mg/dL (Normal) Range: 15.0-278.0 Microalb/Creat Ratio 1.1 {mg/g_creat} (Normal) Range: 0.0-30.0 Microalbumin, Urine 1.5 ug/mL (Normal) Range: 0.0-17.0 :18 METABOLIC PANEL, COMPREHENSIVE Comments: PATIENT WAS FASTINGPERFORMED BY: [facility]6370 [facility] [id number] ([id number]) ALT (SGPT) 11 [iU]/L (Normal) Range: 0-32 [...] mg/dL (Normal) Range: 65-99 :18 LIPID PANEL (41052) Comments: PATIENT WAS FASTINGPERFORMED BY: AirSig TechnologyFormerly [facility] [id number] HDL Cholesterol 44 mg/dL (Normal) Comments: According [...] MANUAL DIFF Comments: PATIENT WAS FASTINGPERFORMED BY: [employer]6370 [facility] [id number] Information: [id number] ([id number]) Immature Grans (Abs) 0.0 {x10E3/uL} (Normal) Range: [...] malignant neoplasms, colon) Ventricular hypokinesis : Reviewed Joint Finisher Letter Indication: Ventricular hypokinesis Hypertension, benign : [...] for malignant neoplasms, colon) Vertigo : Reviewed Joint Finisher Letter Indication: Vertigo Hypercholesteremia : Reviewed Lab [...] Urinary incontinence Planned Observations URINALYSIS, W/ MICRO (66784)Indication: Hypertension, benign On: :54 Request METABOLIC PANEL, COMPREHENSIVE (94208)Indication: Hypertension, benign On: 04-Lwh-452593:54 Request LIPID PANEL (31024)Indication: Hypertension, benign On: :54 Request CBC with auto diff (55636)Indication: Hypertension, benign On: :54 Request URINALYSIS, W/ MICRO (11245)Indication: Hypertension, benign On: 31-Iyr-369072:23 Request METABOLIC PANEL, COMPREHENSIVE (33826)Indication: Hypertension, benign On: :23 Request LIPID PANEL (09783)Indication: Hypertension, benign On: 96-Xmf-470416:23 Request CBC with auto diff (14037)Indication: Hypertension, benign On: :23 Request Urinalysis, Office (29815)Indication: Proteinuria On: 38-Fqd-864788:42 Request Planned Procedures SCREENING DIGITAL TOMOSYNTHESIS OF On: 26-Jan-2018 Intent BREAST (91086)By: Radha Griffith DO, DO, Kathleen SCREENING DIGITAL TOMOSYNTHESIS OF On: 13-Aug-2017 Intent BREAST (29112)By: Radha Griffith DO, DO, Kathleen Flu Vaccine (Quadrivalent) 84222Pv: On: 16-Apr-2017 Intent Radha Griffith DO, DO, Comments: Lot #[id number]/18/18ite-L dltd, IMDose prefilled syringegiven by:MLong, LPNESTRADA and ABN signed Radha ELECTROCARDIOGRAM, COMPLETE (ECG) On: 16-Apr-2017 Intent (21031)By: Radha Griffith DO Comments: sinus mane - old LBBB no acute chg Radha Griffith DO CT - Brain/Head (Without On: 29-Jul-2016 Intent Contrast)By: Matthew aCrrion MD MAMMOGRAM, SCREENING, BOTH BREAST On: 29-Jun-2016 Intent (51355)By: Matthew Carrion MD Nuclear Stress Test/Stress On: 29-Apr-2016 Intent SPECT/TreadmillBy: Matthew Carrion MD Echo CompleteBy: Matthew Carrion MD On: 29-Apr-2016 Intent Flu Vaccine (Quadrivalent) 45644Zu: On: 22-Apr-2016 Intent Matthew Carrion MD Comments: FLUlot: [id number]:12/25/16site:Lt deltoidroute:IMdose:.5mlCASEY RODRIGUEZ Bone Density StudyBy: Blanca DALE, On: 20-Aug-2015 Intent Ana Irwin Echo CompleteBy: Ana Rios MD On: 13-Jun-2015 Intent Bone Density StudyBy: Blanca DALE, On: 13-Jun-2015 Intent Ana Irwin BILATERAL MAMMOGRAMS (52430)By: On: 13-Jun-2015 Intent Ana Rios MD DEXA SCAN AXIAL SKELETON (48392)By: On: 17-Dec-2014 Intent Ana Rios MD MAMMOGRAM, SCREENING, BOTH BREAST On: 17-Dec-2014 Intent (39489)By: Ana Rios MD BILATERAL MAMMOGRAMS (20073)By: On: 10-May-2014 Intent Ana Rios MD Prevnar 13 (44031)By: Blanca DALE, On: 03-May-2014 Intent Ana Irwin Radiology - ChestBy: Blanca DALE, On: 03-May-2014 Intent Ana Irwin TD VACCINE ADULT (03718)By: Blanca On: 16-Apr-2014 Intent Ana DALE Comments: lot [id number] 0-66-1125ajtxgpor L armroute imgiven by - msmithVIS and/or ABN signed Eprescribed prescriptions On: 16-Oct-2013 Intent (G8553)By: Ana Rios MD Eprescribed prescriptions On: 16-Oct-2013 Intent (G8553)By: Ana Rios MD Eprescribed prescriptions On: 05-May-2013 Intent (G8553)By: Laura Meneses Ultrasound - PelvisBy: Blanca DALE, On: 24-Apr-2013 Intent Ana Irwin DXA, BONE DENSITY, AXIAL SKELETON On: 18-Oct-2012 Intent (88229)By: Aan Rios MD Comments: estrogen def MAMMOGRAM, SCREENING, BOTH BREASTS On: 18-Oct-2012 Intent (54734)By: Ana Rios MD Eprescribed prescriptions On: 18-Oct-2012 Intent (G8553)By: Laura Meneses FLU VAC, SPLIT, >3 YEARS, INTRAMUSC On: 26-Apr-2012 Intent (72814)By: Ana Rios MD Comments: 10-12 MAMMOGRAM, SCREENING, BOTH BREASTS On: 26-Apr-2012 Intent (64647)By: Ana Rios MD Instructions Name Dates Details [...] benign WW V73.21 : Patient Instructions Indication: WW V73.21 Hypercholesteremia : Patient Instructions Indication: Hypercholesteremia Unspecified Diagnosis : Patient Instructions Indication: Unspecified Diagnosis Hypercholesteremia : Patient Instructions Indication: Hypercholesteremia Hypertension, benign : Patient Instructions Indication: Hypertension, benign Urinary incontinence : Patient Instructions Indication: Urinary incontinence Advance Directives Name Dates Details Immunization Registry [place] - Effective on Effective: 09-Mar-201803/09/2018. Expiration date [...] The patient does have durable power of pc analyst and living will. The patient has noticed nothing from the geriatic depression scale. Other providers contributing to the patient's care are margarine maker.Encounter Diagnosis: BMI 26.0-26.9,adult, Current nonsmoker (Renamed from [...] The patient does have durable power of pc analyst and living will. The patient has noticed nothing from the geriatic depression scale. Other provi ders contributing to the patient's care are margarine maker and other:.Encounter Diagnosis: Current nonsmoker (Renamed from [...] effects and compliant with dosing regimen. Elias mccormack sleeps 6 hours per night. Nutrition: balanced [...] The patient does have durable power of pc analyst and living will. The patient has noticed [...] The patient does have durable power of pc analyst and living will. The patient has noti charly nothing from the geriatic depression scale. Other providers contributing to the patient's care are gastrologist (Dr. Higgins ([place]) ) and other: (Opthalm: Dr. Lafleur )., [...]
== END ==
PROVIDERS: Family Provider Internal Medicine; PCP Internal Medicine; Referring Provider Internal Medicine Cardiovascular Disease; Visit Provider Internal Medicine Cardiovascular Disease
DX: I42.9 Cardiomyopathy, unspecified (principal); R06.02 Shortness of breath
CPT/HCPCS: 78452; 93017; 93225; 93226; A9500; A4216; J2785

== ENCOUNTER → 2018-08-02 07:31 | Outpatient (CLI) | payer MEDICARE, BC, SELFPAY ==
[2018-07-07 14:24] VITALS: BMI 27.4
--- NOTE | 2018-08-02 07:34 | ECHOD_ITS ---
Reason For Study: Dyspnea/SOB Procedure This was a 2D Doppler, Color Flow transthoracic echocardiogram. The exam was of adequate technical quality. Exam performed in department. Left Ventricle Normal LV size. Left ventricular systolic function is normal. The estimated ejection fraction is 55 %. Diastolic function is indeterminate. No regional wall motion abnormalities noted. Right Ventricle Normal RV size. Normal systolic function. Atria The left atrium is mildly enlarged. The right atrium is mildly enlarged. No doppler evidence for ASD. Mitral Valve There is no mitral annular calcification. Normal mitral valve. Mild (1+) mitral valve insufficiency. Tricuspid Valve Normal tricuspid valve. Mild tricuspid valve insufficiency. Right ventricular systolic pressure estimated to be 29 mmHg. Aortic Valve Trisinus/trileaflet aortic valve. Mild diffuse aortic valve thickening. Mild (1+) aortic valve insufficiency. Pulmonic Valve The pulmonic valve is not well visualized. Great Vessels Normal sized aortic root. Pericardium/Pleural No pericardial effusion. MMode/2D Measurements & Calculations LVIDd: 4.7 cm IVSd: 1.3 cm Ao root diam: 3.7 cm LVIDs: 3.2 cm LVPWd: 0.93 cm LA dimension: 3.7 cm RVDd: 3.2 cm FS: 31.3 % LAV(MOD-sp4): 57.3 ml LA A4 area: 20.0 cm2 RA A4 area: 13.6 cm2 Time Measurements MV dec time: 0.30 sec Doppler Measurements & Calculations MV E max tanvir: 48.2 cm/sec Lat Peak E' Tanvir: 6.6 cm/sec Med Peak E' Tanvir: 3.2 cm/sec MV A max tanvir: 86.7 cm/sec E/E' lat: 7.3 E/E' med: 15.2 MV E/A: 0.56 MV V2 max: 79.4 cm/sec MV P1/2t max tanvir: 57.8 cm/sec Ao V2 max: 112.6 cm/sec MV max P.5 mmHg MV P1/2t: 127.8 msec Ao max P.1 mmHg MV V2 mean: 41.4 cm/sec MV dec slope: 132.5 cm/sec2 Ao V2 mean: 72.8 cm/sec MV mean P.79 mmHg MVA(P1/2t): 1.7 cm2 Ao mean P.5 mmHg MV V2 VTI: 26.9 cm Ao V2 VTI: 25.0 cm AI max tanvir: 373.7 cm/sec LV V1 max: 85.7 cm/sec PA V2 max: 68.7 cm/sec AI max P.8 mmHg LV V1 max P.9 mmHg LV V1 mean P.4 mmHg AI dec slope: 116.9 cm/sec2 LV V1 mean: 53.8 cm/sec AI P1/2t: 936.3 msec LV V1 VTI: 21.1 cm TR max tanvir: 256.0 cm/sec TR max P.2 mmHg Interpretation Summary Left ventricular systolic function is normal. The estimated ejection fraction is 55 %. The left atrium is mildly enlarged. The right atrium is mildly enlarged. Mild (1+) mitral valve insufficiency. Mild tricuspid valve insufficiency. Mild diffuse aortic valve thickening. Mild (1+) aortic valve insufficiency. Right ventricular systolic pressure estimated to be 29 mmHg. Diastolic function is indeterminate. Ordering Physician: Frederick Neil Referring Physician: Radha Griffith M.D. Performed By: Luis Meier RCS
== END ==
PROVIDERS: Family Provider Internal Medicine; PCP Internal Medicine; Referring Provider Internal Medicine Cardiovascular Disease; Visit Provider Internal Medicine Cardiovascular Disease
DX: R06.02 Shortness of breath (principal); I42.9 Cardiomyopathy, unspecified
CPT/HCPCS: 93306

== ENCOUNTER → 2018-08-09 12:59 | Outpatient (CLI) | payer MEDICARE, BC, SELFPAY ==
[2018-08-09 12:06] VITALS: BMI 27.4
--- NOTE | 2018-08-09 13:24 | RAD_ITS ---
STUDY: X-RAY CHEST REASON FOR EXAM: Female, 78 years old. Dyspnea, racing heart, nausea. TECHNIQUE: PA and lateral chest. COMPARISON: May 03, 2014. FINDINGS: The lungs are clear and expanded. There is no demonstrated pleural abnormality. Normal size heart. Normal mediastinum and ugo. Normal visualized pulmonary arteries. Normal visualized aortic arch and descending thoracic aorta. Normal visualized thoracic spine. Normal visualized ribs, clavicles, and shoulders. There is no demonstrated abnormality of the visualized soft tissue structures of the upper abdomen. RAD/Chest PA and Lateral IMPRESSION: No acute cardiopulmonary disease. Electronically Signed: Panfilo Long MD at 7:53 EST , Service support ,
[2018-08-09 15:07] LABS: Absolute Neutrophil Count 3.7 X10^3/uL (2.0-7.7); Basophil# 0.05 X10^3/uL; Basophil% 0.7 % (0-1); Eosinophil# 0.11 X10^3/uL; Eosinophils% 1.5 % (0-5); Hematocrit 42.6 % (37-47); Hemoglobin 14.4 g/dl (12.0-15.0); Lymphocyte % 36.3 % (19-41); Mean Corp Hgb Conc 33.8 g/gl (32-36); Mean Corpuscular Hgb 33.4 pg (27.0-32.0); Mean Corpuscular Volume 98.8 fL (81-99); Mean Platelet Vol. 10.1 fl (6.2-12.0); Monocyte# 0.68 X10^3/uL; Monocyte% 9.5 % (0-10); Neutrophil % 51.7 % (47-70); Platelet Count 285 K/mm3 (150-450); RBC Distribution Width CV 12.5 % (11.6-14.6); RBC Distribution Width SD 44.5 fl (35.1-43.9); Red Blood Count 4.31 M/mm3 (4.2-5.4); White Blood Count 7.2 K/mm3 (4.4-11.0)
[2018-08-09 15:08] LABS: POSITIVE COUNT NO; POSITIVE DIFFERENTIAL NO; POSITIVE MORPHOLOGY NO
[2018-08-09 16:07] LABS: Anion Gap 8 (5-15); BUN 21 mg/dL (7-18); Calcium,Total 9.2 mg/dL (8.5-10.1); Chloride 102 mmol/L (98-107); Creatinine, Serum 0.88 mg/dL (0.55-1.02); EST Glomerular Filtration Rate 66 mL/min (>60); Est Glom Filt Rate - Afr Amer 80 mL/min (>60); Glucose 89 mg/dL (74-106); Magnesium 2.2 mg/dL (1.6-2.6); Potassium 3.8 mmol/L (3.5-5.1); Sodium Level 135 mmol/L (136-145)
[2018-08-09 16:23] LABS: BNP,B-Type NATRIURETIC PEPTIDE 83.7 pg/mL (0-100)
== END ==
PROVIDERS: Family Provider Internal Medicine; PCP Internal Medicine; Referring Provider Nurse Practitioner Family; Visit Provider Nurse Practitioner Family
DX: R06.09 Other forms of dyspnea (principal); R07.9 Chest pain, unspecified; I42.9 Cardiomyopathy, unspecified; I48.91 Unspecified atrial fibrillation; I51.9 Heart disease, unspecified
CPT/HCPCS: 36415; 71046; 80048; 83735; 83880; 84484; 85025

== ENCOUNTER → 2018-11-01 | Outpatient (CLI) | payer MEDICARE, BC, SELFPAY ==
[2018-08-09 12:06] VITALS: BMI 27.4
[2018-09-26 10:16] VITALS: BMI 28.5
--- NOTE | 2018-11-01 08:44 | BI_ITS ---
MAMMOGRAPHY - BILATERAL SCREENING REASON FOR EXAM: Female, 78 years old. Routine annual screening examination. PERTINENT HISTORY: Mother with breast cancer. Occasional bilateral itchiness of the nipples. TECHNIQUE: Digital bilateral breast jose elias (3D mammographic acquisition) in the CC and MLO projections. 2-D mediolateral oblique (MLO) and craniocaudad (CC) views of both breasts were obtained. CAD: Full Field Digital Mammography with Computer Added Detection was performed. COMPARISON: Comparison is made with prior study dated September 03, 2017 and July 09 2016. FINDINGS: Breast Composition: There are scattered areas of fibroglandular density. There are no dominant masses or suspicious calcifications. Small bilateral secretory calcification. No other significant abnormalities are identified. There has been no significant change since the prior study. BI/SCREENING MAMM (CAD), BILAT IMPRESSION: Stable bilateral screening mammogram. Yearly follow-up mammogram recommended. (A) ASSESSMENT CATEGORY: BIRADS Category 2: Benign. A letter regarding these results will be sent to the patient by the facility within 30 days. Approximately 10% of breast cancers are not detected by mammography. A normal mammogram should not delay biopsy of a clinically suspicious abnormality. [id number] Electronically Signed: Wil Roberts, at 13:15 EDT , Service support ,
== END | disposition home or self-care (01) ==
LOC: OPBI 08:41
PROVIDERS: Family Provider Internal Medicine; PCP Internal Medicine; Referring Provider Internal Medicine; Visit Provider Internal Medicine
DX: Z12.31 Encounter for screening mammogram for malignant neoplasm of breast (principal)
CPT/HCPCS: 77063; 77067

== ENCOUNTER 2019-01-01 04:50 | Inpatient (IN) | payer MEDICARE, BC, SELFPAY ==
[2018-09-26 10:16] VITALS: BMI 28.5
[2019-01-01] VITALS (13 sets, daily range): BP systolic 111–162; BP diastolic 60–98; PULSE 57–71; RESP 14–22; TEMP 36.4–36.8; O2SAT 95–99; BMI 28.8; BMI 28.4; BMI 28.5
--- NOTE | 2019-01-01 04:54 | RAD_ITS ---
STUDY: X-RAY CHEST REASON FOR EXAM: Female, 78 years old. Chest pain TECHNIQUE: 1 view COMPARISON: August 09, 2018 FINDINGS: The lungs are clear and expanded. There is no demonstrated pleural abnormality. Normal size heart. Normal mediastinum and ugo. Normal visualized pulmonary arteries. Normal visualized aortic arch and descending thoracic aorta. Normal visualized thoracic spine. Normal visualized ribs, clavicles, and shoulders. There is no demonstrated abnormality of the visualized soft tissue structures of the upper abdomen. RAD/Chest 1 View (Portable) IMPRESSION: Normal x-ray examination of the chest. No acute findings in the lungs Electronically Signed: Leo Clayton MD at 5:28 EDT Tel , Service support ,
--- NOTE | 2019-01-01 04:54 | EKG12_ITS ---
Test Reason : Blood Pressure : / mmHG Vent. Rate : 058 BPM Atrial Rate : 058 BPM P-R Int : 220 ms QRS Dur : 136 ms QT Int : 472 ms P-R-T Axes : 089 -44 133 degrees QTc Int : 463 ms Sinus bradycardia with 1st degree A-V block Left axis deviation Left bundle branch block Abnormal ECG Confirmed by AMANDA DALE, KIERA ([id number]), avid editor SHASHANK TREVINO ([id number]) on 01/05/2019 1:08:42 PM Referred By: Sandhya Isidro Confirmed By:KIERA PATEL MD
--- NOTE | 2019-01-01 04:55 | ED.VIS.CHEST ---
History of Present Illness Chief Complaint: Chest Pain Informant: Patient, EMS Onset: Hours - 0.5-1 Activity at onset: Light Activity - woke up to go to the bathroom, after walking back to bed had severe discomfort Quality: Burning - like the worst heartburn ever Location: Substernal - radiating into left periscapular area Current Severity: 10/10 Maximum Severity: 10/10 Worsened By: Nothing. Not Worsened By: Movement of Arm, Movement of Torso, Palpation, Breathing Relieved By: Nothing Associated Symptoms: Nausea. Negative for: Vomiting, Diaphoresis, Dyspnea, Cough, Lightheadedness, Palpitations Narrative: No known history of coronary artery disease, but was diagnosed with atrial fibrillation earlier this year and is on Eliquis. States she also has mitral valve prolapse and a known left bundle branch block. Aspirin 324 mg was given by EMS prior to arrival, no other medications. Prior Similar Symptoms: No Recent Illness/Hospitalization: No - Past Medical History (1) Atrial fibrillation Status: Chronic (2) Diastolic dysfunction Status: Chronic (3) Essential hypertension Status: Chronic (4) Hyperlipemia Status: Chronic (5) LBBB (left bundle branch block) Status: Chronic (6) Nonrheumatic mitral valve disorder Status: Chronic (7) Cardiomyopathy Status: Chronic Past Medical History - Allergies and Home Meds Allergies/Adverse Reactions: Allergies azithromycin [From Zithromax] Allergy (Verified 01/01/19 04:57) Chest tightness codeine Allergy (Verified 01/01/19 04:57) Unknown erythromycin base [Erythromycin Base] Allergy (Verified 01/01/19 04:57) Unknown morphine Allergy (Verified 01/01/19 04:57) Unknown Penicillins Allergy (Verified 01/01/19 04:57) Unknown Primary Care Physician: Radha Griffith DO [Primary Care Provider] - Doctors: Jolynn (cardiology) Lives: Alone Smoking Status: Never smoker Drugs: None Review of Systems General: Reports: Malaise. Denies: Chills, Fever, Sweats Eyes: Denies: Visual changes - bilaterally, Diplopia ENT: Denies: Rhinorrhea, Sore throat Cardiovascular: Reports: Chest pain. Denies: Palpitations, Heart racing Respiratory: Denies: Dyspnea, Cough, Dyspnea on exertion Gastrointestinal: Reports: Nausea. Denies: Abdominal pain, Vomiting, Diarrhea, Melena, Hematochezia Genitourinary: Denies: Dysuria, Hematuria, Frequency Musculoskeletal: Reports: Back pain. Denies: Swelling, Extremity Pain Skin: Denies: Rash, Wounds Neurological: Denies: Headache, Weakness, Numbness Physical Exam Inital Vital Signs reviewed: Yes General: Well nourished, Well developed, No Acute Distress - but holding chest and appears uncomfortable Head: Normocephalic, Atraumatic Eyes: Perrl, EOMI ENT: Moist mucous membranes, No rhinorrhea Neck: Supple, Nontender, No JVD Cardiovascular: Regular rate, Regular rhythm, No murmurs, - - Equal 2+/4, symmetric bilateral radial pulses Respiratory: No distress, CTA bilaterally, Chest nontender Abdomen: Soft, Nontender, Nondistended, Normal bowel sounds Back: Nontender, Normal Inspection Extremities: Nontender, No edema. Negative for: Calf Tenderness Skin: Normal color, No rash, No Trauma Neurological: Alert, Oriented x3, Cranial nerves II-XII grossly intact, Normal Strength, Normal Sensation Psychological: Normal Mood, - - anxious Diagnostic/Tx/Re-eval Impressions Chest X-Ray 01/01/19 04:54 IMPRESSION: Normal x-ray examination of the chest. No acute findings in the lungs Electronically Signed: Leo Clayton MD at 5:28 EDT Tel , Service support , 01/01/19 04:54 Chest 1 View (Portable) [RAD] Stat Laboratory Results 01/01/19 01/01/19 01/01/19 05:05 05:05 05:05 WBC 6.4 RBC 4.46 Hgb 14.4 Hct 39.5 MCV 88.6 MCH 32.3 H MCHC 36.5 H RDW 11.7 RDW Differential 37.5 Plt Count 298 MPV 9.4 Immature Gran % (Auto) 0.300 Neut % (Auto) 44.4 L Lymph % (Auto) 36.7 [place] % (Auto) 17.0 H Eos % (Auto) 1.1 Baso % (Auto) 0.5 Absolute Neuts (auto) 2.9 Absolute Lymphs (auto) 2.36 Total Counted Not Reportable APTT 30.3 Sodium 127 L Potassium 3.6 Chloride 92 L Carbon Dioxide 25.0 Anion Gap 10 BUN 20 H Creatinine 0.95 Estim Creat Clear Calc 42.50 Est GFR (MDRD) Af Amer 73 Est GFR (MDRD) Non-Af 60 BUN/Creatinine Ratio 21.1 H Glucose 110 H Calcium 9.0 Troponin I < 0.015 - Rhythm Strip Rhythm Strip: Sinus Rhythm Rate: 68 Ectopy: None - EKG Initial EKG Interpretation: Sinus Rhythm, No Acute Injury Pattern, LBBB, S-T Depression - discordant laterally 1-2mm. no concordant ANGELICA or STD. Prior: Unchanged - except 07/05/18, pt was in afib and now in NSR Treatment: NTG SL Repeat Eval: Pain Free JLUIS Risk: Age >/= 65, >/= 3RF, H/O CAD Score: 3 - Medical Decision Making Pain improved after each sublingual nitroglycerin at the point of resolution. Therefore, nitroglycerin paste was placed on her chest. She remained clinically and hemodynamically stable. Her symptoms very concerning especially with resolution with nitroglycerin. Her EKG shows a left bundle branch block and meets no criteria for a STEMI. She had a heart cath 10-15 years ago that showed trivial, diffuse coronary artery disease, and she had a negative nuclear stress test less than 6 months ago. Plan is for admission, cycling enzymes, further evaluation and treatment. Lovenox and Plavix are held at this time secondary to patient being anticoagulated on Eliquis. Aspirin was given prior to arrival, without medical direction. Discussed with the patient's clerk analyst Dr. Neil who recommends holding Eliquis and agrees with inpatient observation to rule out acute coronary syndrome. ED Disposition - Plan for ED Patient: Disposition: Acute Care [facility] Diagnosis: Chest pain, unspecified Referrals: Radha Griffith DO [Primary Care Provider] -
[2019-01-01] MEDS: Ondansetron 4 MG/2 ML Vial IV (05:00)
[2019-01-01] MEDS: Nitroglycerin SL (ED/IMG/CATH) 0.4 MG TABLET SUBLINGUAL ×3 (05:01→05:32)
[2019-01-01 05:14] LABS: Absolute Lymphocyte Count 2.36 X10^3/ul (0.83-4.51); Absolute Neutrophil Count 2.9 X10^3/uL (2.0-7.7); Basophil# 0.03 X10^3/uL; Basophil% 0.5 % (0-1); Eosinophil# 0.07 X10^3/uL; Eosinophils% 1.1 % (0-5); Hematocrit 39.5 % (37-47); Hemoglobin 14.4 g/dl (12.0-15.0); Lymphocyte # 2.36 X10^3/ul (4.0); Lymphocyte % 36.7 % (19-41); Mean Corp Hgb Conc 36.5 g/gl (32-36); Mean Corpuscular Hgb 32.3 pg (27.0-32.0); Mean Corpuscular Volume 88.6 fL (81-99); Mean Platelet Vol. 9.4 fl (6.2-12.0); Monocyte# 1.09 X10^3/uL; Neutrophil # 2.86 X10^3/uL (2.7-7.7); Neutrophil % 44.4 % (47-70); Platelet Count 298 K/mm3 (150-450); RBC Distribution Width CV 11.7 % (11.6-14.6); RBC Distribution Width SD 37.5 fl (35.1-43.9); Red Blood Count 4.46 M/mm3 (4.2-5.4); White Blood Count 6.4 K/mm3 (4.4-11.0)
[2019-01-01] MEDS: 0.9% Normal Saline 1,000 ML 150 ML IV (05:16)
[2019-01-01 05:18] LABS: POSITIVE COUNT NO; POSITIVE DIFFERENTIAL NO; POSITIVE MORPHOLOGY NO
[2019-01-01 05:19] LABS: Partial Thromboplast Time 30.3 Seconds (24.1-36.2)
[2019-01-01 05:34] LABS: Anion Gap 10 (5-15); BUN 20 mg/dL (7-18); BUN/Creat Ratio 21.1 RATIO (10-20); Chloride 92 mmol/L (98-107); Creatinine, Serum 0.95 mg/dL (0.55-1.02); EST Glomerular Filtration Rate 60 mL/min (>60); Est Glom Filt Rate - Afr Amer 73 mL/min (>60); Glucose 110 mg/dL (74-106); Potassium 3.6 mmol/L (3.5-5.1); Sodium Level 127 mmol/L (136-145)
[2019-01-01] MEDS: Nitroglycerin Oint 1 INCH PACKET 0.5 INCH TRANSDERM. (05:45)
--- NOTE | 2019-01-01 06:31 | NURSING ---
115 OBS SEMENTI CP
[2019-01-01] MEDS: Mag Hydrox/Al Hydrox/Simeth 30 ML UDC PO (07:04)
--- NOTE | 2019-01-01 07:22 | EKG12_ITS ---
Test Reason : CP Blood Pressure : / mmHG Vent. Rate : 068 BPM Atrial Rate : 068 BPM P-R Int : 202 ms QRS Dur : 124 ms QT Int : 442 ms P-R-T Axes : 100 -35 136 degrees QTc Int : 469 ms Normal sinus rhythm Left axis deviation Left bundle branch block Abnormal ECG Confirmed by JESUS DALE, RAYSA ([id number]), editor school photograph SANDY TITUS ([id number]) on 01/03/2019 2:01:32 PM Referred By: RUIZ Confirmed By:RAYSA LEE MD
--- NOTE | 2019-01-01 07:32 | PCM.HP.STD ---
Problem List (1) Atrial fibrillation Status: Chronic Qualifiers: Atrial fibrillation type: paroxysmal Qualified Code(s): I48.0 - Paroxysmal atrial fibrillation (2) Chest pain, unspecified Status: Acute (3) Diastolic dysfunction Status: Chronic (4) Hyperlipemia Status: Chronic Qualifiers: Hyperlipidemia type: unspecified Qualified Code(s): E78.5 - Hyperlipidemia, unspecified (5) Essential hypertension Status: Chronic (6) Cardiomyopathy Status: Chronic Qualifiers: Cardiomyopathy type: other Qualified Code(s): I42.8 - Other cardiomyopathies (7) Nonrheumatic mitral valve disorder Status: Chronic (8) LBBB (left bundle branch block) Status: Chronic (9) GERD (gastroesophageal reflux disease) Status: Chronic Comment: suspect esophagitis History of Present Illness Date of Admission: 01/01/19 Chief Complaint: Chest pain The patient is a 78 year old F with a past medical history of hypertension, atrial fibrillation, remote gout, dyslipidemia and GERD who presented to the emergency department at [facility] on 01/01/2019 complaining of severe chest discomfort. She stated that she went out for dinner to [facility] the preceding evening and started feeling unwell shortly after that. She had 2 cups of coffee with supper and she normally only has 1 cup in the AM.....it is not decaf. She woke up in the middle of the night and went to the bathroom and when she came back and laid down she had severe chest burning in the left chest and substernally. She was burping and burping made the burning worse. She stated on 2 occasions she felt that it went down her left arm partially. She denied nausea. She had no vomiting. She did not get sweaty. When she arrived in the emergency room she was given 3 sublingual nitroglycerin and she said the chest discomfort got better after each nitroglycerin but she was still left with burning in the left chest. the burning increases with burping. EKG showed a left bundle branch block. Chest x-ray showed no pleural effusions, pulmonary vascular congestion or infiltrates. CBC was unremarkable. The BMP showed a low sodium at 127 and a low chloride of 92. Her BUN is 20 and the creatinine is 0.95. The BUN/creatinine ratio is 21. She is on hydrochlorothiazide as an outpatient. Troponin was less than 0.015. Phosphorus is low at 2.0. She was given a GI cocktail in the emergency department for persistent left chest/substernal burning and this helped to relieve the persistent burning.....it increased for a brief time after she ate some breakfast. She was admitted to a monitored bed on PCU and chest pain protocol was initiated. she has been off work for the past 1 month secondary to severe vertigo with gait disturbance......has had to use a walker and yesterday was the best she has felt in the past month. Impression: 07/14/2018 1. Rest and stress SPECT currently nuclear imaging demonstrates relative uniform tracer uptake and myocardial perfusion appearing within normal limits. 2. The gated Cardiolite study reports an LVEF of 75%. 08/02/2018 Interpretation Summary Left ventricular systolic function is normal. The estimated ejection fraction is 55 %. The left atrium is mildly enlarged. The right atrium is mildly enlarged. Mild (1+) mitral valve insufficiency. Mild tricuspid valve insufficiency. Mild diffuse aortic valve thickening. Mild (1+) aortic valve insufficiency. Right ventricular systolic pressure estimated to be 29 mmHg. Diastolic function is indeterminate. Past Medical History Past Medical History (Chronic Problems): Chronic Problems (Last Reviewed 09/26/18 @ 10:21 by Karen Byrd) Atrial fibrillation (Chronic) GERD (gastroesophageal reflux disease) (Chronic) suspect esophagitis Diastolic dysfunction (Chronic) Hyperlipemia (Chronic) Essential hypertension (Chronic) Cardiomyopathy (Chronic) Nonrheumatic mitral valve disorder (Chronic) LBBB (left bundle branch block) (Chronic) Medical History: Medical History (Last Reviewed 01/01/19 @ 11:17 by Sandhya Kee DO) Diastolic dysfunction (Chronic) I51.9 Hyperlipemia (Chronic) E78.5 Essential hypertension (Chronic) I10 Cardiomyopathy (Chronic) I42.9 Nonrheumatic mitral valve disorder (Chronic) I34.9 LBBB (left bundle branch block) (Chronic) I44.7 Vertigo R42 History of hysterectomy Z90.710 Allergies azithromycin [From Zithromax] Allergy (Verified 01/01/19 04:57) Chest tightness codeine Allergy (Verified 01/01/19 04:57) Unknown erythromycin base [Erythromycin Base] Allergy (Verified 01/01/19 04:57) Unknown morphine Allergy (Verified 01/01/19 04:57) Unknown Penicillins Allergy (Verified 01/01/19 04:57) Unknown Home Medications: Ambulatory Orders Medication Instructions Recorded Darifenacin Hydrobromide [Enablex] 15 mg PO DAILY 03/28/14 Latanoprost 0.005% [Xalatan 1 drp EACH EYE QHS 03/28/14 Opthalmic] cholecalciferol (vitamin D3) 5,000 5,000 unit PO DAILY 07/07/18 unit tablet docusate sodium 100 mg capsule 100 mg PO BID 07/07/18 multivitamin tablet 1 tab PO DAILY 07/07/18 polyethylene glycol 3350 17 17 g PO DAILY PRN g 07/07/18 gram/dose oral powder metoprolol succinate ER 100 mg 100 mg PO DAILY tab 08/09/18 tablet,extended release 24 hr losartan 100 mg tablet 50 mg PO BID tab 08/12/18 apixaban 2.5 mg tablet 2.5 mg PO BID #180 tab 09/26/18 aspirin 325 mg tablet 162.5 mg PO DAILY tab 09/26/18 hydrochlorothiazide 25 mg tablet 25 mg PO DAILY #90 tab 09/26/18 simvastatin 20 mg tablet 20 mg PO QHS #90 tab 09/26/18 Clindamycin [Cleocin] 150 mg PO TID 01/01/19 Surgical History: Surgical History (Last Reviewed 01/01/19 @ 11:17 by Sandhya Kee DO) History of appendectomy Z90.49 History of bilateral cataract extraction Z98.41, Z98.42 History of left hip replacement Z96.642 Psychiatric History: No pertinent psych hx Lives: Alone Smoking Status: Never smoker Tobacco Use: Non-smoker Alcohol: None Drugs: None - *Family History Maternal Family History: Family History (Last Reviewed 01/01/19 @ 11:18 by Sandhya Kee DO) Mother Diabetes Paternal Family History: Family History (Last Reviewed 01/01/19 @ 11:18 by Sandhya Kee DO) Mother Diabetes History Items: No pertinent history Review of Systems Constitutional: Denies: Chills, Fever, Weight Change Eyes: Denies: Blurred vision HEENT: Reports: - - has had vertigo for 1 month and this is the worst it has ever been with inability to walk without a FWW and she has had 2 falls during that time.. Denies: Head Aches, Sinus Congestion, Sinus Drainage, Sore Throat Cardiovascular: Reports: Chest Pain. Denies: Edema, Light Headedness, Orthopnea, Palpitations, Syncope Respiratory: Denies: Cough, Shortness of breath at rest, Sputum production Gastrointestinal: Reports: - - she has reflux. Denies: Abdominal Pain, Nausea, Vomiting Genitourinary: Denies: Dysuria Musculoskeletal: Denies: Joint Pain, Joint Tenderness, Neck Pain Skin: Denies: Jaundice, Rash, Wounds Neurological: Reports: - - vertigo and difficulty with ambulation for the past 1 month. Denies: Focal weakness, Numbness, Tingling, Tremor, Seizures Psychiatric: Denies: Anxiety, Depression, Homicidal Ideations, Suicidal Ideations Endocrine: Denies: Change in Body Habitus Hematologic/ Lymphatic: Denies: Easy Bruising, Easy Bleeding, Hx of blood clot VTE Information - Inpt Only VTE Present on Admission: No VTE Mechan Device Prophylaxis: SCD's, Knee High RODRIGUE Hose VTE Pharm Prophylaxis ordered?: Yes Patient Problems: Active and Suspected Problems (Last Reviewed 09/26/18 @ 10:21 by Karen Byrd) Chest pain, unspecified (Acute) - Physical Exam General: Alert, Oriented x3, Cooperative, Well developed, Well nourished HEENT: Atraumatic, PERRLA, EOMI, Normocephalic, - - No nystagmus Oral: Dry Mucosa Neck: Supple, No JVD, Negative Carotid Bruits, No Nodes, No Nuchal Rigidity, Trachea Midline Lungs: Clear to auscultation, Normal air movement, No rhonchi, No wheeze, No rales Cardiovascular: Regular rate, Regular Rhythm, Normal S1, Normal S2, No murmurs, No rub noted, No Gallop Abdomen: Bowel Sounds Present, Soft, Non Tender, Non-Distended Extremities: No clubbing, No cyanosis, No edema, Capillary Refill Less than 3 Seconds, Peripheral Pulses Normal Skin: No rashes, No breakdown Musculoskeletal: No Tenderness to Palpation of Joints or Extremities Neurological: Cranial nerves II-XII grossly intact, Neuro grossly intact Psych/Mental Status: Normal Affect, Appropriate Vital Signs Temp Pulse Resp BP Pulse Ox 98.2 F 57 L 14 131/73 H 97 01/01/19 04:51 01/01/19 07:05 01/01/19 07:05 01/01/19 07:05 01/01/19 07:05 Oxygen Flow Rate (L/min) 2 Oxygen Delivery Method Room Air Weight: 173 lb 8.061 oz Body Mass Index (BMI) 28.8 Laboratory Tests Past 24 Hrs 01/01/19 01/01/19 01/01/19 05:05 05:05 05:05 WBC 6.4 RBC 4.46 Hgb 14.4 Hct 39.5 MCV 88.6 MCH 32.3 H MCHC 36.5 H RDW 11.7 RDW Differential 37.5 Plt Count 298 MPV 9.4 Immature Gran % (Auto) 0.300 Neut % (Auto) 44.4 L Lymph % (Auto) 36.7 [place] % (Auto) 17.0 H Eos % (Auto) 1.1 Baso % (Auto) 0.5 Absolute Neuts (auto) 2.9 Absolute Lymphs (auto) 2.36 Total Counted Not Reportable APTT 30.3 Sodium 127 L Potassium 3.6 Chloride 92 L Carbon Dioxide 25.0 Anion Gap 10 BUN 20 H Creatinine 0.95 Estim Creat Clear Calc 42.50 Est GFR (MDRD) Af Amer 73 Est GFR (MDRD) Non-Af 60 BUN/Creatinine Ratio 21.1 H Glucose 110 H Calcium 9.0 Phosphorus Magnesium Troponin I < 0.015 01/01/19 05:05 WBC RBC Hgb Hct MCV MCH MCHC RDW RDW Differential Plt Count MPV Immature Gran % (Auto) Neut % (Auto) Lymph % (Auto) [place] % (Auto) Eos % (Auto) Baso % (Auto) Absolute Neuts (auto) Absolute Lymphs (auto) Total Counted APTT Sodium Potassium Chloride Carbon Dioxide Anion Gap BUN Creatinine Estim Creat Clear Calc Est GFR (MDRD) Af Amer Est GFR (MDRD) Non-Af BUN/Creatinine Ratio Glucose Calcium Phosphorus Pending Magnesium Pending Troponin I Assessment/Plan All Active Problems (Last Reviewed 09/26/18 @ 10:21 by Karen Byrd) Chest pain, unspecified (Acute) Impressions 1. Chest pain-she had a negative stress test in June 2018 and has never had significant disease on cardiac catheterization. The chest burning gets worse when she burps and when she eats and I suspect that she may have GERD with esophagitis. She chronically has GERD but is not on a PPI or an H2 delmar. She takes Tums. 2. Paroxysmal atrial fibrillation 3. Chronic anticoagulation with Eliquis 4. GERD 5. History of suspected diastolic dysfunction, mild right atrial and left atrial enlargement, less 1 mitral valve insufficiency, mild diffuse aortic valve thickening with +1 aortic valve insufficiency. 6. Chronic left bundle branch block 7. Dyslipidemia 8. Hypertension 9. Hyponatremia 10. Dehydration Admit to a monitored bed on PCU ASA 81 mg PO daily SL NTG 0.4 mg PRN chest pain Serial Cardiac Enzymes Stat EKG PRN CP Chest XRAY Discontinue Eliquis in the event that the cardiac enzymes become positive and she needs a catheterization DVT prophylaxis ordered with RODRIGUE Stout and SCDs Protonix 20 mg p.o. twice daily and Mylanta as needed Hold hydrochlorothiazide Code Visit OBSV E&M: [id number] Initial observation care L3
[2019-01-01 07:41] LABS: Magnesium 1.8 mg/dL (1.6-2.6)
[2019-01-01] MEDS: Losartan Potassium 50 MG Tablet PO ×2 (10:38→21:36)
[2019-01-01] MEDS: Aspirin 81 MG TAB.CHEW 162 MG PO (10:38)
[2019-01-01] MEDS: Docusate Sodium 100 MG Capsule PO ×2 (10:38→21:36)
[2019-01-01] MEDS: Metoprolol(XL)Succ 100 MG Tablet PO (10:39)
[2019-01-01] MEDS: Tolterodine Tartrate 4 MG CAP.SA PO (10:39)
[2019-01-01] MEDS: Pantoprazole Sodium 40 MG Tablet PO ×2 (10:40→21:36)
[2019-01-01] MEDS: Multivitamins,Therapeutic Tablet 1 TABLET PO (10:40)
--- NOTE | 2019-01-01 11:22 | CT_ITS ---
STUDY: CT BRAIN WITHOUT CONTRAST REASON FOR EXAM: Female, 78 years old. Vertigo RADIATION DOSAGE (If Supplied By Facility): CTDIvol = ( 44.99 ) mGy, DLP = ( 829.85 ) mGycm TECHNIQUE: Transaxial CT imaging of the brain was performed without administration of intravenous contrast material. Individualized dose optimization techniques were used for this CT. COMPARISON: July 05, 2018 FINDINGS: Normal soft tissue structures. Normal calvarium. Normal size ventricles and extra-axial spaces for the patient's age. Mild white matter microangiopathic ischemic changes of the cerebral hemispheres. Normal basal ganglia and thalami. Normal brainstem. Normal cerebellum. There is no intracranial hemorrhage. There are no findings of an acute ischemic infarction. Normal visualized paranasal sinuses. CT/Brain/Head without Contrast IMPRESSION: Mild age-related changes of the brain. Electronically Signed: Carroll Luz DO at 14:02 EDT Tel [phone], Service support ,
--- NOTE | 2019-01-01 14:02 | CON.PCM_ITS ---
Problem List (1) Chest pain, unspecified Status: Acute (2) Atrial fibrillation Status: Chronic Qualifiers: Atrial fibrillation type: paroxysmal Qualified Code(s): I48.0 - Paroxysmal atrial fibrillation (3) Cardiomyopathy Status: Chronic Qualifiers: Cardiomyopathy type: other Qualified Code(s): I42.8 - Other cardiomyopathies (4) Diastolic dysfunction Status: Chronic (5) Nonrheumatic mitral valve disorder Status: Chronic (6) LBBB (left bundle branch block) Status: Chronic (7) Hyperlipemia Status: Chronic Qualifiers: Hyperlipidemia type: unspecified Qualified Code(s): E78.5 - Hyperlipidemia, unspecified (8) Essential hypertension Status: Chronic (9) GERD (gastroesophageal reflux disease) Status: Chronic Comment: suspect esophagitis Reason for Consult Date of Consultation: 01/01/19 History of Present Illness: The patient is a 78 year old with a past medical history which has included underlying atrial fibrillation, cardiomyopathy, diastolic dysfunction, mitral valve disorder, hyperlipidemia, hypertension, GERD who presents for evaluation of chest discomfort. She has undergone noninvasive evaluation earlier this year with transthoracic echocardiogram and a pharmacologic stress nuclear imaging study. The results are as noted below. Her previous diagnostic cardiac catheterization from 2005 is as noted below. She states yesterday evening she had dinner at [facility]. She had 2 cups of caffeinated coffee which was not her usual. She noted she did not feel well the rest of the evening or through the night. She described chest discomfort which waxed and waned. She had belching episodes. She stated her discomfort and radiated somewhat towards the left upper extremity. She had no ongoing nausea, emesis, or diaphoresis. There was no obvious palpitations. There was no near syncope or syncope. She presented to the [facility] emergency department for evaluation. Upon evaluation, based upon her chest discomfort, she was treated with nitroglycerin sublingual x3. She stated it did help her chest discomfort but did not totally relieve her chest discomfort. Following additional evaluation she received a GI cocktail . She states after the medication was given she began to feel better. She was subsequently placed in the PCU for further evaluation and care. She has had troponin level x2 which has been negative. ECG has demonstrated continued sinus rhythm with left axis deviation with a left bundle branch block pattern. Her chest x-ray was reported as demonstrating no acute cardiopulmonary disease process. She states that she did attempt a meal since admission. After eating she noted difficulty swallowing and discomfort in her lower chest/epigastric area. She also states she has been battling vertigo for the last approximately 4 to 6 weeks. She states she has fallen. She has been evaluated by ENT with more testing yet to go. She also has been undergoing evaluation and care by PT at the outpatient center. Based upon her vertigo she did have a brain CT scan today. 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 [] Past Medical History Allergies/Adverse Reactions: Allergies azithromycin [From Zithromax] Allergy (Verified 01/01/19 04:57) Chest tightness codeine Allergy (Verified 01/01/19 04:57) Unknown erythromycin base [Erythromycin Base] Allergy (Verified 01/01/19 04:57) Unknown morphine Allergy (Verified 01/01/19 04:57) Unknown Penicillins Allergy (Verified 01/01/19 04:57) Unknown Home Medications: Ambulatory Orders Medication Instructions Recorded Darifenacin Hydrobromide [Enablex] 15 mg PO DAILY 03/28/14 Latanoprost 0.005% [Xalatan 1 drp EACH EYE QHS 03/28/14 Opthalmic] cholecalciferol (vitamin D3) 5,000 5,000 unit PO DAILY 07/07/18 unit tablet docusate sodium 100 mg capsule 100 mg PO BID 07/07/18 multivitamin tablet 1 tab PO DAILY 07/07/18 polyethylene glycol 3350 17 17 g PO DAILY PRN g 07/07/18 gram/dose oral powder metoprolol succinate ER 100 mg 100 mg PO DAILY tab 08/09/18 tablet,extended release 24 hr losartan 100 mg tablet 50 mg PO BID tab 08/12/18 apixaban 2.5 mg tablet 2.5 mg PO BID #180 tab 09/26/18 aspirin 325 mg tablet 162.5 mg PO DAILY tab 09/26/18 hydrochlorothiazide 25 mg tablet 25 mg PO DAILY #90 tab 09/26/18 simvastatin 20 mg tablet 20 mg PO QHS #90 tab 09/26/18 Clindamycin [Cleocin] 150 mg PO TID 01/01/19 Past Medical History (Chronic Problems): Chronic Problems (Last Reviewed 01/01/19 @ 11:17 by Sandhya Kee DO) Atrial fibrillation (Chronic) GERD (gastroesophageal reflux disease) (Chronic) suspect esophagitis Diastolic dysfunction (Chronic) Hyperlipemia (Chronic) Essential hypertension (Chronic) Cardiomyopathy (Chronic) Nonrheumatic mitral valve disorder (Chronic) LBBB (left bundle branch block) (Chronic) Psychiatric History: No pertinent psych hx - *Family History Maternal Family History: Family History (Last Reviewed 01/01/19 @ 11:18 by Sandhya Kee DO) Mother Diabetes Paternal Family History: Family History (Last Reviewed 01/01/19 @ 11:18 by Sandhya Kee DO) Mother Diabetes History Items: No pertinent history Lives: Alone Smoking Status: Never smoker Tobacco Use: Non-smoker Alcohol: None Drugs: None Review of Systems - Review of Systems General: Denies: Fever, Night Sweats, Fatigue Cardiovascular: Reports: Chest Discomfort, Chest Discomfort at Rest, - - Vertigo. Denies: Shortness of Breath, Orthopnea, PND, Peripheral Edema, Palpitations, Lightheadedness, Dizziness, Near Syncope, Syncope Respiratory: Denies: Cough, Sputum Production, Hemoptysis Gastrointestinal: Reports: - - Belching. Denies: Hematemesis, Hematochezia, Melena Genitourinary: Denies: Dysuria, Hematuria Skin: Denies: Rash Subjectve: White female who appears to be resting comfortably at the moment in no acute distress. Objective: Vital Signs Temp Pulse Resp BP Pulse Ox 97.5 F L 60 14 122/71 H 96 01/01/19 07:56 01/01/19 10:39 01/01/19 07:56 01/01/19 07:56 01/01/19 07:56 Oxygen Flow Rate (L/min) 2 Oxygen Delivery Method Room Air Weight: 165 lb 12.602 oz Body Mass Index (BMI) 28.4 General: Awake, Alert, Oriented x 3, Cooperative, No Acute Distress HEENT: Atraumatic, Normocephalic, PERRL, EOMI Oral: Moist Mucosa Neck: Supple, Good ROM, No JVD Lungs: Clear to auscultation Cardiovascular: Regular Rhythm, Normal S1, Normal S2 Vascular: No Carotid Bruits Abdomen: Bowel Sounds Present, Soft, Non Tender Extremities: No Cyanosis, No Clubbing, No edema Neurological: No Focal Motor or Sensory Deficit Psych/Mental Status: Appropriate 01/01/19 05:05: WBC 6.4, RBC 4.46, Hgb 14.4, Hct 39.5, MCV 88.6, MCH 32.3 H, MCHC 36.5 H, RDW 11.7, RDW Differential 37.5, Plt Count 298, MPV 9.4, Immature Gran % (Auto) 0.300, Neut % (Auto) 44.4 L, Lymph % (Auto) 36.7, [place] % (Auto) 17.0 H, Eos % (Auto) 1.1, Baso % (Auto) 0.5, Absolute Neuts (auto) 2.9, Total Counted Not Reportable 01/01/19 05:05: APTT 30.3 01/01/19 05:05: Sodium 127 L, Potassium 3.6, Chloride 92 L, Carbon Dioxide 25.0, Anion Gap 10, BUN 20 H, Creatinine 0.95, Est GFR (MDRD) Af Amer 73, Est GFR (MDRD) Non-Af 60, BUN/Creatinine Ratio 21.1 H, Glucose 110 H, Calcium 9.0, Troponin I < 0.015 01/01/19 05:05: Phosphorus 2.0 L, Magnesium 1.8 01/01/19 08:00: Troponin I < 0.015 01/01/19 10:36: Troponin I < 0.015 Rhythm: Sinus rhythm EKG: Sinus rhythm; left axis deviation; left bundle branch block pattern ECHO: 08-02-18: Left ventricle normal with an LVEF 55%; mild biatrial enlargement; mild MR; mild TR; mild diffuse aortic valve thickening; mild AI; estimated RV systolic pressure 29 mmHg; diastolic function considered indeterminate Stress Test: 07-14-18: Pharmacologic stress nuclear imaging study: Myocardial perfusion considered within normal limits; gated LVEF 75% Cardiac Cath: 08-25-2005: [place], [place] Trivial nonobstructive coronary disease; normal LV systolic function; moderate LV diastolic dysfunction; no mitral regurgitation; moderate hypertension and hypertensive heart disease with no obvious significant renal artery disease by selective renal arteriogram CXR: Preliminary evaluation: No acute cardiopulmonary disease process appreciated: Please see official report Assessment/Plan 1. Chest pain The patient complained of chest pain. She states she does not believe it was her heart. She states she felt it was more related to her gastrointestinal tract. However she presented for further evaluation. She was noted to have no ongoing issues with respect to acute troponin I level changes or acute ECG changes. Her radiologic studies demonstrated no acute changes-per chest x-ray. At the present time she is being followed. Her cardiac enzymes and ECG will be followed. She has had previous noninvasive studies as noted above. Depending upon her clinical course she may need repeat definitive evaluation of her coronary anatomy. This would take diagnostic cardiac catheterization. In anticipation of such her anticoagulation therapy is being held. In the meantime she is continuing noncardiac/GI evaluation under the direction of internal medicine. 2. Atrial fibrillation She remains in sinus rhythm at this time. She will continue rate control therapy. Her anticoagulation is being held as noted above. 3. Cardiomyopathy Based upon her most recent noninvasive studies are overall LV systolic function has remained preserved. She will continue medical management and follow-up as deemed appropriate. 4. Diastolic dysfunction He has been diagnosed with diastolic dysfunction the past. At the moment she is without acute symptoms. She will continue medical therapy and follow-up as deemed appropriate. 5. Mitral valve disorder She does have a history of underlying mitral valve disorder as previously noted on her noninvasive studies. She appears without acute change at this time. She will continue follow-up. 6. Left bundle branch block The does have an underlying left bundle branch block pattern. There are no acute changes on her left bundle branch block pattern at this time. She will continue to be followed and evaluated as noted above. 7. Hyperlipidemia She will continue risk factor modification medical therapy as deemed appropriate. 8. Hypertension Her blood pressure will be followed. Her medications can be adjusted as needed. 9. GERD There is a concern that her symptoms may be gastrointestinal related. She we will continue further diagnostic studies. This is going to include a right upper quadrant ultrasound to evaluate for gallbladder related disease. She will continue medical therapy and follow-up. Comment: The patient's case has been discussed and reviewed with Dr. Kee. This note was generated using a voice recognition system and there may be incorrect words, spelling or punctuation that were not noted when reviewing the office note prior to saving.
[2019-01-01] MEDS: Acetaminophen 325 MG Tablet 650 MG PO (19:55)
[2019-01-01] MEDS: Atorvastatin Calcium 10 MG Tablet PO (21:36)
[2019-01-01] MEDS: Clindamycin HCl 150 MG Capsule PO (21:36)
[2019-01-01] MEDS: Latanoprost 0.005% 1 Bottle 1 DRP EACH EYE (21:36)
[2019-01-02] VITALS (11 sets, daily range): BP systolic 124–158; BP diastolic 57–90; PULSE 56–80; RESP 16–18; TEMP 36.4–37.2; O2SAT 95–98
[2019-01-02] MEDS: Clindamycin HCl 150 MG Capsule PO ×3 (05:49→22:18)
--- NOTE | 2019-01-02 05:55 | US_ITS ---
STUDY: ABDOMINAL ULTRASOUND - RIGHT UPPER QUADRANT REASON FOR VISIT: Female, 78 years old. BURPING/ BLOAT TECHNIQUE: Ultrasound evaluation of the right upper quadrant was performed with real-time and static villalobos-scale imaging. TECHNICAL QUALITY: Limited. Examination limited by bowel gas. COMPARISON: None. FINDINGS: Liver: The liver measures 17.6 cm. There is normal echogenicity of the liver. The bile ducts are within normal limits. There is hepatic color flow. The direction of portal flow is hepatopetal. There is no demonstrated mass lesion. Gallbladder: Normal distended gallbladder. The gallbladder wall measures 2.6 mm. There is a negative sonographic Jackson's sign. There is no pericholecystic fluid. There are no gallstones. Common Bile Duct (C.B.D.): The common bile duct measures 4 mm. Pancreas: Suboptimally seen pancreas. If clinically indicated suggest CT with contrast. Right Kidney: Normal size of the right kidney. The right kidney measures 9.5 cm. Normal renal cortex. The right cortex measures 1.3 cm. There is no demonstrated renal mass or cyst. There is no right hydronephrosis. US/Gallbladder IMPRESSION: No definite abnormality found. Electronically Signed: Som Hrat MD at 17:03 EDT , Service support ,
[2019-01-02 06:32] LABS: AST(SGOT) 27 U/L (15-37); Alanine Aminotransfer ALT/SGPT 26 U/L (13-56); Albumin, Serum 2.9 g/dL (3.2-5.0); Alkaline Phosphatase 101 U/L (45-117); Anion Gap 9 (5-15); BUN 11 mg/dL (7-18); Bilirubin, Direct 0.09 mg/dL (0.00-0.30); Calcium,Total 8.6 mg/dL (8.5-10.1); Chloride 101 mmol/L (98-107); Cholesterol 156 mg/dL (200); Creatinine, Serum 0.73 mg/dL (0.55-1.02); EST Glomerular Filtration Rate 81 mL/min (>60); Est Glom Filt Rate - Afr Amer 98 mL/min (>60); Estimated Creatinine Clearance 38.75 ml/min; Glucose 98 mg/dL (74-106); High Density Lipoprotein 51 mg/dL; Magnesium 2.2 mg/dL (1.6-2.6); Protein, Total 5.9 g/dL (6.4-8.2); Sodium Level 134 mmol/L (136-145); Triglycerides 133 mg/dL; Very Low Density Lipoprotein 27 mg/dL (5-40)
[2019-01-02] MEDS: Aspirin 81 MG TAB.CHEW 162 MG PO (10:45)
[2019-01-02] MEDS: Losartan Potassium 50 MG Tablet PO ×2 (10:47→22:18)
[2019-01-02] MEDS: Metoprolol(XL)Succ 100 MG Tablet PO (10:47)
[2019-01-02] MEDS: Multivitamins,Therapeutic Tablet 1 TABLET PO (10:48)
[2019-01-02] MEDS: Tolterodine Tartrate 4 MG CAP.SA PO (10:48)
[2019-01-02] MEDS: Docusate Sodium 100 MG Capsule PO ×2 (10:48→22:18)
--- NOTE | 2019-01-02 14:04 | CASEMGMT ---
RN CM Assessment Presentation: chest discomfort, Gallbladder us pending. Intro role of CM and purpose of RN CM assessment to patient in room. Daughter is also in room, but is on phone. Demographics, PCP and Pharmacy verified. Pt states she has not been well this year. Had a few months of vertigo which resolved recently. Hx of falls due to vertigo. Children have moved out of state and pt is considering moving with her daughter to [place]. PCP: Dr. Griffith Specialists: Dr. Neil Preferred [facility]acy: [facility] Insurance: [facility] Prescription Benefit: yes LNOK: [place], daughter Living Arrangements: Pt lives in one story home she had built after her . Pt states on dc she will be returning home and children have hired someone to come every morning and assist pt with any household or care needs for 5 weeks. Transportation: pt drives DME: has [facility] [employer] HHC: none Patient DC goals: Home DC PLAN: Home on discharge.
--- NOTE | 2019-01-02 15:17 | PCM.CONS.GEN ---
Problem List (1) Chest pain, unspecified Status: Acute Qualifiers: Chest pain type: other chest pain Qualified Code(s): R07.89 - Other chest pain; R07.8 - Other chest pain Reason for Consult Date of Consultation: 01/02/19 Reason for Consultation: Epigastric pain and GERD History of Present Illness: The patient is a 78 year old F who notes that since yesterday she has been having chest pain especially when swallowing food. She says that this is never happened in the past. She does have a history of GERD with no treatment. She says that when she swallows she gets sharp pain in the middle of her chest like someone stabbing her. She says this is improved since yesterday and she is able to tolerate liquids at this point but she is still unable to eat solid food. Past Medical History Past Medical History (Chronic Problems): Chronic Problems (Last Reviewed 01/01/19 @ 11:17 by Sandhya Kee DO) Atrial fibrillation (Chronic) GERD (gastroesophageal reflux disease) (Chronic) suspect esophagitis Diastolic dysfunction (Chronic) Hyperlipemia (Chronic) Essential hypertension (Chronic) Cardiomyopathy (Chronic) Nonrheumatic mitral valve disorder (Chronic) LBBB (left bundle branch block) (Chronic) Medical History: Medical History (Last Reviewed 01/01/19 @ 11:17 by Sandhya Kee DO) Diastolic dysfunction (Chronic) I51.9 Hyperlipemia (Chronic) E78.5 Essential hypertension (Chronic) I10 Cardiomyopathy (Chronic) I42.9 Nonrheumatic mitral valve disorder (Chronic) I34.9 LBBB (left bundle branch block) (Chronic) I44.7 Vertigo R42 History of hysterectomy Z90.710 Allergies azithromycin [From Zithromax] Allergy (Verified 01/01/19 04:57) Chest tightness codeine Allergy (Verified 01/01/19 04:57) Unknown erythromycin base [Erythromycin Base] Allergy (Verified 01/01/19 04:57) Unknown morphine Allergy (Verified 01/01/19 04:57) Unknown Penicillins Allergy (Verified 01/01/19 04:57) Unknown Home Medications: Ambulatory Orders Medication Instructions Recorded Darifenacin Hydrobromide [Enablex] 15 mg PO DAILY 03/28/14 Latanoprost 0.005% [Xalatan 1 drp EACH EYE QHS 03/28/14 Opthalmic] cholecalciferol (vitamin D3) 5,000 5,000 unit PO DAILY 07/07/18 unit tablet docusate sodium 100 mg capsule 100 mg PO BID 07/07/18 multivitamin tablet 1 tab PO DAILY 07/07/18 polyethylene glycol 3350 17 17 g PO DAILY PRN g 07/07/18 gram/dose oral powder metoprolol succinate ER 100 mg 100 mg PO DAILY tab 08/09/18 tablet,extended release 24 hr losartan 100 mg tablet 50 mg PO BID tab 08/12/18 apixaban 2.5 mg tablet 2.5 mg PO BID #180 tab 09/26/18 aspirin 325 mg tablet 162.5 mg PO DAILY tab 09/26/18 hydrochlorothiazide 25 mg tablet 25 mg PO DAILY #90 tab 09/26/18 simvastatin 20 mg tablet 20 mg PO QHS #90 tab 09/26/18 Clindamycin [Cleocin] 150 mg PO TID 01/01/19 Surgical History: Surgical History (Last Reviewed 01/01/19 @ 11:17 by Sandhya Kee DO) History of appendectomy Z90.49 History of bilateral cataract extraction Z98.41, Z98.42 History of left hip replacement Z96.642 Psychiatric History: No pertinent psych hx Lives: Alone Smoking Status: Never smoker Tobacco Use: Non-smoker Alcohol: None Drugs: None - *Family History Maternal Family History: Family History (Last Reviewed 01/01/19 @ 11:18 by Sandhya Kee DO) Mother Diabetes Paternal Family History: Family History (Last Reviewed 01/01/19 @ 11:18 by Sandhya Kee DO) Mother Diabetes History Items: No pertinent history Review of Systems Constitutional: Reports: Anorexia. Denies: Chills, Fever HEENT: Reports: Difficulty Swallowing Cardiovascular: Reports: Chest Pain Respiratory: Denies: Cough, Shortness of Breath Gastrointestinal: Denies: Abdominal Pain, Nausea, Melena Genitourinary: Denies: Dysuria Musculoskeletal: Denies: Joint Tenderness Skin: Denies: Jaundice Patient Problems: Active and Suspected Problems (Last Reviewed 01/01/19 @ 11:17 by Sandhya Kee DO) Chest pain, unspecified (Acute) - Physical Exam General: Alert, Oriented x3 HEENT: Atraumatic Neck: No JVD Lungs: Normal air movement Cardiovascular: Regular rate, Regular Rhythm Abdomen: Soft, Non Tender, Non-Distended Extremities: No clubbing Skin: No rashes Musculoskeletal: No Muscle Wasting Neurological: Cranial nerves II-XII grossly intact Psych/Mental Status: Normal Affect Vital Signs Temp Pulse Resp BP Pulse Ox 98.2 F 64 16 152/81 H 98 01/02/19 10:43 01/02/19 10:47 01/02/19 10:43 01/02/19 10:43 01/02/19 10:43 Oxygen Flow Rate (L/min) 2 Oxygen Delivery Method Room Air Weight: 165 lb 12.602 oz Body Mass Index (BMI) 28.4 Intake and Output for Last 24 Hours 12/31/18 01/01/19 01/02/19 23:59 23:59 23:59 Intake Total 1981 788 / 788 Balance 1981 788 / 788 Laboratory Tests Past 24 Hrs 01/02/19 05:20 Sodium 134 L Potassium 4.0 Chloride 101 Carbon Dioxide 24.0 Anion Gap 9 BUN 11 Creatinine 0.73 Estim Creat Clear Calc 38.75 Est GFR (MDRD) Af Amer 98 Est GFR (MDRD) Non-Af 81 BUN/Creatinine Ratio 15.0 Glucose 98 Calcium 8.6 Magnesium 2.2 Total Bilirubin 0.30 Direct Bilirubin 0.09 AST 27 ALT 26 Alkaline Phosphatase 101 Total Protein 5.9 L Albumin 2.9 L Globulin 3.0 Triglycerides 133 Cholesterol 156 LDL Cholesterol 78 VLDL Cholesterol 27 HDL Cholesterol 51 Assessment/Plan All Active Problems (Last Reviewed 01/01/19 @ 11:17 by Sandhya Kee DO) Chest pain, unspecified (Acute) 78-year-old female with pain on swallowing 1. The patient notes that she is having severe pain in her epigastric region and lower chest region when swallowing solid foods. I did discuss EGD with her and she would like to proceed with this. 2. I explained endoscopy in detail to the patient. I explained the risks including but not limited to stroke or heart attack with anesthesia, perforation of the GI tract, bleeding, infection. I explained that any of these could necessitate further emergency surgery. The patient understands and all questions were answered sufficiently. The patient wishes to proceed with procedure. Torsten Ayon MD Pager: [facility] [address] [place] [address], [address] [place] [address] Office:
--- NOTE | 2019-01-02 16:22 | PCM.PN.HOSP ---
Patient Problems: Active and Suspected Problems (Last Reviewed 01/01/19 @ 11:17 by Sandhya Kee DO) Chest pain, unspecified (Acute) Subjective: still unable to eat without pain. eats/drinks then has severe discomfort when it gets to her epigastrum. intermittent vertigo, has seen therapy in the past. Vitals/I&O's: Vital Signs Temp Pulse Resp BP Pulse Ox 36.8 C 69 16 152/81 H 98 01/02/19 10:43 01/02/19 15:00 01/02/19 10:43 01/02/19 10:43 01/02/19 10:43 Oxygen Flow Rate (L/min) 2 Oxygen Delivery Method Room Air Weight: 75.2 kg Body Mass Index (BMI) 28.4 Intake and Output for Last 24 Hours 12/31/18 01/01/19 01/02/19 23:59 23:59 23:59 Intake Total 1981 788 / 788 Balance 1981 788 / 788 General: Alert, No apparent distress HEENT: Atraumatic, Normocephalic Oral: Moist Mucosa, No Gingival or Mucosal Lesions/ Ulcerations Neck: No Nodes, Thyroid Normal Size and Texture Lungs: Clear to auscultation, Normal air movement, No rhonchi, No wheeze Cardiovascular: Regular rate, Regular Rhythm, Normal S1, Normal S2, No murmurs Abdomen: Bowel Sounds Present, Soft, Non Tender, Non-Distended, No Hepato-splenomegaly Extremities: No edema, No Calf Tenderness Skin: No rashes, No breakdown Psych/Mental Status: Normal Affect, Appropriate Laboratory Results 01/02/19 05:20: Sodium 134 L, Potassium 4.0, Chloride 101, Carbon Dioxide 24.0, Anion Gap 9, BUN 11, Creatinine 0.73, Estim Creat Clear Calc 38.75, Est GFR (MDRD) Af Amer 98, Est GFR (MDRD) Non-Af 81, BUN/Creatinine Ratio 15.0, Glucose 98, Calcium 8.6, Magnesium 2.2, Total Bilirubin 0.30, Direct Bilirubin 0.09, AST 27, ALT 26, Alkaline Phosphatase 101, Total Protein 5.9 L, Albumin 2.9 L, Globulin 3.0, Triglycerides 133, Cholesterol 156, LDL Cholesterol 78, VLDL Cholesterol 27, HDL Cholesterol 51 Current Medications Acetaminophen (Tylenol) 650 mg PO Q6H PRN PRN PRN Reason: Mild pain 1-3/Temp > 100.7 F Last Admin: 01/01/19 19:55 Dose: 650 mg Documented by: Aspirin (Aspirin, Baby) 162 mg PO DAILY@0800 [facility] Last Admin: 01/02/19 10:45 Dose: 162 mg Documented by: Atorvastatin Calcium (Lipitor) 10 mg PO QHS [facility] Last Admin: 01/01/19 21:36 Dose: 10 mg Documented by: Cholecalciferol (Vitamin D) 5,000 unit PO DAILY [facility] Last Admin: 01/02/19 10:47 Dose: 5,000 unit Documented by: Clindamycin HCl (Cleocin) 150 mg PO TID [facility] Stop: 01/03/19 22:00 Last Admin: 01/02/19 14:41 Dose: 150 mg Documented by: Docusate Sodium (Colace) 100 mg PO BID [facility] Last Admin: 01/02/19 10:48 Dose: 100 mg Documented by: Pantoprazole Sodium 40 mg/ (Sodium Chloride) 110 mls @ 330 mls/hr IV Q12 [facility] Last Admin: 01/02/19 11:47 Dose: 330 mls/hr Documented by: Latanoprost (Xalatan Opthalmic) 1 drop EACH EYE QHS [facility] Last Admin: 01/01/19 21:36 Dose: 1 drop Documented by: Losartan Potassium (Cozaar) 50 mg PO BID [facility] Last Admin: 01/02/19 10:47 Dose: 50 mg Documented by: Magnesium Hydroxide (Milk Of Magnesia) 30 ml PO DAILY PRN PRN PRN Reason: Constipation Melatonin (Melatonin) 3 mg PO QHS PRN PRN PRN Reason: INSOMNIA Metoprolol Succinate (Toprol Xl (Beta Zurdo)) 100 mg PO DAILY [facility] Last Admin: 01/02/19 10:47 Dose: 100 mg Documented by: Multivitamins (Multivitamin) 1 tablet PO DAILY@1200 [facility] Last Admin: 01/02/19 10:48 Dose: 1 tablet Documented by: Nitroglycerin (Nitrostat) 0.4 mg SUBLINGUAL Q5M PRN PRN Reason: CHEST PAIN Ondansetron HCl (Zofran) 4 mg IV Q8H PRN PRN PRN Reason: NAUSEA/VOMITING Polyethylene Glycol (Miralax) 17 gm PO DAILY PRN PRN PRN Reason: CONSTIPATION Tolterodine Tartrate (Detrol La) 4 mg PO DAILY OSMAN Last Admin: 01/02/19 10:48 Dose: 4 mg Documented by: Medical Necessity - Tobacco Use Smoking Status: Never smoker Tobacco Use: Non-smoker Assessment/Plan All Active Problems (Last Reviewed 01/01/19 @ 11:17 by Sandhya Kee DO) Chest pain, unspecified (Acute) 1. Atypical chest pain Suspicion for this being cardiac is extremely low. I am concerned that is more GI related and pop Taliaferro peptic ulcer related. Patient states that she is been on high-dose ibuprofen for the past week. Though those seem a very short period of time to develop an ulcer given her symptomatology that would be certainly high my differential at this time. I discussed with general surgery endoscopy with an EGD on the . I have a started IV Protonix. 2. Vertigo has been intermittent. Has seen therapy in the past which has provided relief. Will monitor for now. Case discussed with the patient's daughter at bedside. Code Visit OBSV E&M: 76302 Subsequent observation care L2
--- NOTE | 2019-01-02 17:51 | PCM.PN.CARD ---
Subjectve: The patient is awake and alert. She denies ongoing classic angina pectoris at this time. She has had no acute respiratory related symptoms. There is been no near syncope or syncope. She states she still has difficulty swallowing. She has been working on liquids thus far. She also feels her vertigo is somewhat better today. Objective: Vital Signs Temp Pulse Resp BP Pulse Ox 97.9 F 64 16 157/76 H 98 01/02/19 16:40 01/02/19 16:40 01/02/19 16:40 01/02/19 16:40 01/02/19 16:40 Oxygen Flow Rate (L/min) 2 Oxygen Delivery Method Room Air Weight: 165 lb 12.602 oz Body Mass Index (BMI) 28.4 Intake and Output for Last 24 Hours 12/31/18 01/01/19 01/02/19 23:59 23:59 23:59 Intake Total 1981 788 / 788 Balance 1981 788 / 788 General: Awake, Alert, Oriented x 3, Cooperative, No Acute Distress HEENT: Atraumatic, Normocephalic, PERRL, EOMI, Sclera Non Icteric Oral: Moist Mucosa Neck: Supple, Good ROM, No JVD Lungs: Clear to auscultation Cardiovascular: Regular Rhythm, Normal S1, Normal S2 Abdomen: Bowel Sounds Present, Soft, - - Mild tenderness to palpation Extremities: No Cyanosis, No Clubbing, No edema Neurological: No Focal Motor or Sensory Deficit Psych/Mental Status: Appropriate 01/02/19 05:20: Sodium 134 L, Potassium 4.0, Chloride 101, Carbon Dioxide 24.0, Anion Gap 9, BUN 11, Creatinine 0.73, Est GFR (MDRD) Af Amer 98, Est GFR (MDRD) Non-Af 81, BUN/Creatinine Ratio 15.0, Glucose 98, Calcium 8.6, Magnesium 2.2, Total Bilirubin 0.30, Direct Bilirubin 0.09, Triglycerides 133, Cholesterol 156, LDL Cholesterol 78, VLDL Cholesterol 27, HDL Cholesterol 51 Rhythm: Sinus rhythm Medical Necessity - Tobacco Use Smoking Status: Never smoker Tobacco Use: Non-smoker Assessment/Plan 1. Chest pain The present time the etiology of the patient's chest pain is still unclear. Her cardiac enzymes have been negative. She has had no definitive acute coronary syndrome event. There is still concerns that her symptoms may be gastrointestinal related. She is continuing her GI evaluation. Her gallbladder ultrasound did not appear to report any acute changes. She is being scheduled for EGD in the a.m. At the moment there are no immediate plans for additional cardiac diagnostic studies pending further evaluation and care. 2. Atrial fibrillation She remains in sinus rhythm at this time. She will continue rate control therapy. Her anticoagulation has been placed on hold. 3. Cardiomyopathy Based upon her most recent noninvasive studies are overall LV systolic function has remained preserved. She will continue medical management and follow-up as deemed appropriate. 4. Diastolic dysfunction He has been diagnosed with diastolic dysfunction the past. At the moment she is without acute symptoms. She will continue medical therapy and follow-up as deemed appropriate. 5. Mitral valve disorder She does have a history of underlying mitral valve disorder as previously noted on her noninvasive studies. She appears without acute change at this time. She will continue follow-up. 6. Left bundle branch block The does have an underlying left bundle branch block pattern. There are no acute changes on her left bundle branch block pattern at this time. She will continue to be followed and evaluated as noted above. 7. Hyperlipidemia She will continue risk factor modification medical therapy as deemed appropriate. 8. Hypertension Her blood pressure will be followed. Her medications can be adjusted as needed. 9. GERD There is a concern that her symptoms may be gastrointestinal related. She we will continue further diagnostic studies. This note was generated using a voice recognition system and there may be incorrect words, spelling or punctuation that were not noted when reviewing the office note prior to saving.
[2019-01-02] MEDS: Atorvastatin Calcium 10 MG Tablet PO (22:18)
[2019-01-02] MEDS: Latanoprost 0.005% 1 Bottle 1 DRP EACH EYE (22:20)
[2019-01-02] MEDS: Acetaminophen 325 MG Tablet 650 MG PO (22:20)
[2019-01-03] VITALS (17 sets, daily range): BP systolic 116–163; BP diastolic 56–82; PULSE 61–90; RESP 16–20; TEMP 36.2–36.9; O2SAT 97–100; BMI 28.4; BMI 28.3
[2019-01-03] MEDS: Clindamycin HCl 150 MG Capsule PO ×2 (05:12→13:57)
[2019-01-03] MEDS: Acetaminophen 325 MG Tablet 650 MG PO ×2 (05:12→15:37)
[2019-01-03] MEDS: 0.9% NaCl Peripheral Flush Adult/Peds IV (05:13)
--- NOTE | 2019-01-03 05:55 | EKG12_ITS ---
Test Reason : AM EKG Blood Pressure : / mmHG Vent. Rate : 065 BPM Atrial Rate : 065 BPM P-R Int : 212 ms QRS Dur : 130 ms QT Int : 450 ms P-R-T Axes : 088 -37 152 degrees QTc Int : 468 ms Sinus rhythm with 1st degree A-V block Left axis deviation Left bundle branch block Abnormal ECG When compared with ECG of 01-JAN-2019 07:41, MANUAL COMPARISON REQUIRED, DATA IS UNCONFIRMED Confirmed by KELVIN SELLERS ([id number]), social media editor SANDY TITUS ([id number]) on 01/05/2019 2:01:21 PM Referred By: DR VARGAS Confirmed By:KELVIN SELLERS
[2019-01-03 08:37] LABS: Hematocrit 36.8 % (37-47); Mean Corp Hgb Conc 35.3 g/gl (32-36); Mean Corpuscular Hgb 32.4 pg (27.0-32.0); Mean Corpuscular Volume 91.8 fL (81-99); Mean Platelet Vol. 9.3 fl (6.2-12.0); Platelet Count 297 K/mm3 (150-450); RBC Distribution Width CV 12.5 % (11.6-14.6); RBC Distribution Width SD 42.6 fl (35.1-43.9); Red Blood Count 4.01 M/mm3 (4.2-5.4); White Blood Count 5.9 K/mm3 (4.4-11.0)
[2019-01-03 08:43] LABS: Anion Gap 7 (5-15); BUN 10 mg/dL (7-18); BUN/Creat Ratio 12.9 RATIO (10-20); Chloride 100 mmol/L (98-107); Creatinine, Serum 0.78 mg/dL (0.55-1.02); EST Glomerular Filtration Rate 76 mL/min (>60); Est Glom Filt Rate - Afr Amer 92 mL/min (>60); Estimated Creatinine Clearance 38.75 ml/min; Glucose 101 mg/dL (74-106); Potassium 4.1 mmol/L (3.5-5.1); Sodium Level 133 mmol/L (136-145)
[2019-01-03 08:47] LABS: Scan Indicated on CBC? Y/N NO
[2019-01-03 09:10] LABS: International Normalized Ratio 1.1; Prothrombin Time (Protime)PT. 13.7 SECONDS (11.7-14.9)
--- NOTE | 2019-01-03 10:45 | IMM_PTH ---
PATIENT: EDIN WEAVER LOC: [facility] U#:[id number] AGE/SX: 78/F ROOM: [facility] RE01/02/[address]: Dr. Shaun Silverman DO : 1940 BED: 1 DIS: 01/03/2019 SPEC #: [id number] RECD: 01/03/19 16:33 STATUS: ANNA REQ #: [id number] LUIS DANIEL: 01/03/19 10:[address]: Torsten Ayon DEPT: IMMUNOHISTOCHEMISTRY RECD BY: Lauren Bill ENTERED: 01/03/19 16:34 SP TYPE: IMMUNO OTHR DR: DO Dr. Shaun Vazquez DO Dr. Kathleen Fearon, DO Tissues: A - Stomach, NOS Procedures: H Pylori (initial) PHYSICIAN & INSTITUTION [place] [id number] SPECIMEN INFORMATION: Tissue Source: A - Antrum biopsy Clinical Info: Abdominal pain Specimen Number: [id number] CPT code: 95884 METHODOLOGY: Deparaffinized sections of prefer/formalin-fixed tissue or PAP/DQ stained slides are incubated with monoclonal/polyclonal antibodies/oligonucleotide probes. Localization is made via biotin free immunoperoxidase method. Appropriate controls are performed and reacted as expected. Results on target cell population are indicated in the following table: RESULTS: ANTIBODY / CLONE RESULT Block A H Pylori (polyclonal) negative These tests were developed and their performance characteristics determined by [facility]. They may not have been cleared or approved by the U.S. Food and Drug Administration. The FDA has determined that such clearance or approval is not necessary. INTERPRETATION: A. Antrum biopsy: Negative for Helicobacter pylori organisms. AM:imtiaz 01/04/19
--- NOTE | 2019-01-03 10:45 | EGD_PTH ---
PATIENT: EDIN WEAVER LOC: [facility] U#:[id number] AGE/SX: 78/F ROOM: [facility] RE01/02/[address]: Dr. Shaun Silverman DO : 1940 BED: 1 DIS: 01/03/2019 SPEC #: [id number] RECD: 01/03/19 11:14 STATUS: ANNA EMILE #: [id number] LUIS DANIEL: 01/03/19 10:[address]: oTrsten Ayon DEPT: SURGICAL PATHOLOGY RECD BY: Emmanuel Reyes ENTERED: 01/03/19 14:20 SP TYPE: EGD BIOPSY OT DR: DO Dr. Shaun Vazquez DO Dr. Kathleen Fearon, DO Tissues: A - Gastric mucous membrane B - Stomach, NOS C - Esophageal mucous membrane Procedures: Surgery Specimen Level IV HEADER OPERATION: EGD ([facility] [place]) PRE-OP DIAGNOSIS: Abdominal pain when swallowing TISSUE SUBMITTED: A - Antrum biopsy for H. pylori and path, B - Stomach wall biopsy, C - Mid esophageal biopsy, check for fungus MICROSCOPIC DIAGNOSIS A. Gastric antrum, biopsy: Mild chronic gastritis. See comment. B. Stomach wall, biopsy: Hyperplastic gastric epithelium with associated mild chronic inflammation. C. Mid esophagus, biopsy: Marked acute esophagitis. Mild epithelial atypia, favor benign. AM:imtiaz 01/04/19 COMMENT A. The results of immunohistochemistry for Helicobacter pylori will be reported separately ([id number]). MICROSCOPIC DESCRIPTION Slides are reviewed. GROSS DESCRIPTION A - Received in fixative is one container labeled with the patient's name and designated antrum biopsy. The specimen consists of one irregular fragment of light barrett soft tissue that measures 0.4 x 0.3 x 0.1 cm. The specimen is totally submitted in one cassette. B - Received in fixative is one container labeled with the patient's name and designated stomach biopsy. The specimen consists of two irregular fragments of light barrett soft tissue that in aggregate measure 0.6 x 0.4 x 0.1 cm. The specimen is totally submitted in one cassette. C - Received in fixative is one container labeled with the patient's name and designated mid esophageal biopsy for fungus. The specimen consists of multiple irregular fragments of light barrett soft tissue that in aggregate measure 1.5 x 0.5 x 0.1 cm. The specimen is totally submitted in one cassette. / SJ:rg 01/03/19 TC:2 CPT: 80458 x3
--- NOTE | 2019-01-03 10:53 | OP.ENDO_ITS ---
01/03/2019 Radha Griffith [address] [place] [address] Re : Upper GI endoscopy procedure for Oralia Abdi Dear Dr. Griffith This procedure was performed on Thursday, January 03, 2019. My impressions and recommendations are as follows: Impressions : - Multiple plaques in the middle third of the esophagus. Biopsied. - Chronic gastritis with hemorrhage. Biopsied. - Gastric mucosal variant. Biopsied. Recommendations : - [facility]. - Resume previous diet. - Continue present medications. - Await pathology results. My findings are described in the full procedure note, which is enclosed. If I can be of further assistance, please feel free to contact me at Doctor phone number(s): , Work: . Sincerely, Torsten Ayon MD 01/03/2019 10:53:22 AM This report has been signed electronically.
[2019-01-03] MEDS: Tolterodine Tartrate 4 MG CAP.SA PO (11:44)
[2019-01-03] MEDS: Metoprolol(XL)Succ 100 MG Tablet PO (11:45)
[2019-01-03] MEDS: Aspirin 81 MG TAB.CHEW 162 MG PO (11:45)
[2019-01-03] MEDS: Docusate Sodium 100 MG Capsule PO (11:46)
[2019-01-03] MEDS: Multivitamins,Therapeutic Tablet 1 TABLET PO (11:46)
[2019-01-03] MEDS: Losartan Potassium 50 MG Tablet PO (11:47)
[2019-01-03] MEDS: Mag Hydrox/Al Hydrox/Simeth 30 ML UDC PO ×2 (12:46→16:05)
--- NOTE | 2019-01-03 14:34 | PCM.DC ---
- Discharge Diagnoses Current Active Problems: Current Active and Chronic Problems (Last Reviewed 01/01/19 @ 11:17 by Sandhya Kee DO) Chest pain, unspecified (Acute) GERD (gastroesophageal reflux disease) (Chronic) suspect esophagitis You will use the following diet at home:: Cardiac Your food should be the consistency of: Regular Call your doctor if you observe: Chest pain, - - blood in stool. dark, tarry stools. Allergies/Adverse Reactions: Allergies azithromycin [From Zithromax] Allergy (Verified 01/01/19 04:57) Chest tightness codeine Allergy (Verified 01/01/19 04:57) Unknown erythromycin base [Erythromycin Base] Allergy (Verified 01/01/19 04:57) Unknown morphine Allergy (Verified 01/01/19 04:57) Unknown Penicillins Allergy (Verified 01/01/19 04:57) Unknown Medications to take at Discharge Darifenacin Hydrobromide [Enablex] 15 mg PO DAILY 03/28/14 Latanoprost 0.005% [Xalatan Opthalmic] 1 drp EACH EYE QHS 03/28/14 cholecalciferol (vitamin D3) 5,000 unit tablet 5,000 unit PO DAILY 07/07/18 docusate sodium 100 mg capsule 100 mg PO BID 07/07/18 multivitamin tablet 1 tab PO DAILY 07/07/18 polyethylene glycol 3350 17 gram/dose oral powder 17 g PO DAILY PRN g 07/07/18 metoprolol succinate ER 100 mg tablet,extended release 24 hr 100 mg PO DAILY tab 08/09/18 losartan 100 mg tablet 50 mg PO BID tab 08/12/18 aspirin 325 mg tablet 162.5 mg PO DAILY tab 09/26/18 hydrochlorothiazide 25 mg tablet 25 mg PO DAILY #90 tab 09/26/18 simvastatin 20 mg tablet 20 mg PO QHS #90 tab 09/26/18 Clindamycin [Cleocin] 150 mg PO TID 01/01/19 Acetaminophen [Tylenol Tablet] 650 mg PO Q6H PRN PRN tablet 01/03/19 Apixaban [Eliquis] 2.5 mg PO BID #180 tab 01/03/19 Lidocaine 2% Viscous [Xylocaine Viscous] 15 ml GT BID PRN #150 ml 01/03/19 Pantoprazole Sodium [Protonix] 40 mg PO BID #60 tab 01/03/19 Sucralfate [Carafate] 1 gm PO 4X/DAY #120 udc 01/03/19 The following prescriptions were given: Sucralfate [Carafate] 1 gm PO 4X/DAY #120 udc Transmission Status: Pending to [facility] Pantoprazole Sodium [Protonix] 40 mg PO BID #60 tab Transmission Status: Pending to [facility] Lidocaine 2% Viscous [Xylocaine Viscous] 15 ml GT BID PRN #150 ml PRN Reason: pain with swallowing Transmission Status: Pending to [facility] Primary Care Physician: Radha Griffith DO [Primary Care Provider] - Within 2 Weeks Test Results: Test results from this visit will be discussed in further detail at your follow-up appointment, if applicable. Please Follow Up With: Torsten Ayon MD When: 1 month Please Follow Up With: Frederick Neil MD When: 03/30/19 Proposed Discharge Date: 01/03/19
--- NOTE | 2019-01-03 14:36 | PCM.DC.SUM ---
Discharge Date and Diagnosis - Problem List Patient Problems: Active and Suspected Problems (Last Reviewed 01/01/19 @ 11:17 by Sandhya Kee DO) Gastritis (Acute) Esophagitis (Acute) Chest pain, unspecified (Acute) Date of Admission: 01/01/19 Date of Discharge: 01/03/19 - Primary Discharge Diagnosis Active and Suspected Problems (Last Reviewed 01/01/19 @ 11:17 by Sandhya Kee DO) Gastritis (Acute) Esophagitis (Acute) Chest pain, unspecified (Acute) - Secondary Discharge Diagnosis Chronic Problems (Last Reviewed 01/01/19 @ 11:17 by Sandhya Kee DO) Atrial fibrillation (Chronic) GERD (gastroesophageal reflux disease) (Chronic) suspect esophagitis Diastolic dysfunction (Chronic) Hyperlipemia (Chronic) Essential hypertension (Chronic) Cardiomyopathy (Chronic) Nonrheumatic mitral valve disorder (Chronic) LBBB (left bundle branch block) (Chronic) Hospital Course and Treatment Imaging Results: Clinical Impression(s) from Imaging Studies Chest X-Ray 01/01/19 04:54 IMPRESSION: Normal x-ray examination of the chest. No acute findings in the lungs Electronically Signed: Leo Clayton MD at 5:28 EDT Tel , Service support , Brain CT 01/01/19 11:22 IMPRESSION: Mild age-related changes of the brain. Electronically Signed: Carroll Luz DO at 14:02 EDT Tel [phone], Service support , Gallbladder Ultrasound 01/02/19 05:55 IMPRESSION: No definite abnormality found. Electronically Signed: Som Hart MD at 17:03 EDT , Service support , Torsten Ayon MD: general surgery. Operations: None Procedures: EGD Summary of Care Provided: The patient is a 78 year old F presents with chest pain. Chest pain occurred while eating and drinking on was very intense. Concern was for GI and general surgery was consulted. Patient was seen by Dr. Ayon, who performed an EGD on the ninth that showed some plaques of esophagitis as well as gastritis with some bleeding. Recommended patient be on Carafate as well as PPI. Patient did have biopsies performed and follow-up with Dr. Ayon for the results. Because of the scant bleeding, patient will hold off on her apixaban for the next 48 hours and to resume. Patient instructed to return if she has any manuel hematochezia or melena. [] Patient Problems: Active and Suspected Problems (Last Reviewed 01/01/19 @ 11:17 by Sandhya Kee DO) Gastritis (Acute) Esophagitis (Acute) Chest pain, unspecified (Acute) Subjective: Complaining of some right-sided low back pain that was worse with movements. Today, it is doing better. - Physical Exam General: Alert, No apparent distress HEENT: Atraumatic, Normocephalic Oral: Moist Mucosa Musculoskeletal: - - Some reproducible right paraspinal muscle tenderness. Psych/Mental Status: Normal Affect, Appropriate Vital Signs Temp Pulse Resp BP Pulse Ox 36.6 C 89 18 144/82 H 98 01/03/19 13:41 01/03/19 13:41 01/03/19 13:41 01/03/19 13:41 01/03/19 13:41 Oxygen Flow Rate (L/min) 2 Oxygen Delivery Method Room Air Weight: 75.2 kg Body Mass Index (BMI) 28.3 Intake and Output for Last 24 Hours 01/01/19 01/02/19 01/03/19 23:59 23:59 23:59 Intake Total 1981 1539 / 1539 400 / 400 Balance 1981 1539 / 1539 400 / 400 Laboratory Tests Past 24 Hrs 01/03/19 01/03/19 01/03/19 07:08 07:08 07:08 WBC 5.9 RBC 4.01 L Hgb 13.0 Hct 36.8 L MCV 91.8 MCH 32.4 H MCHC 35.3 RDW 12.5 RDW Differential 42.6 Plt Count 297 MPV 9.3 PT 13.7 INR 1.1 Sodium 133 L Potassium 4.1 Chloride 100 Carbon Dioxide 26.0 Anion Gap 7 BUN 10 Creatinine 0.78 Estim Creat Clear Calc 38.75 Est GFR (MDRD) Af Amer 92 Est GFR (MDRD) Non-Af 76 BUN/Creatinine Ratio 12.9 Glucose 101 Calcium 9.0 Discharge Diet: Low fat/ Low Cholesterol Discharge Activity: Return to Normal Activity Call your doctor if you observe: Chest pain, - - blood in stool. dark, tarry stools. Home Medications: Medications to take at Discharge Darifenacin Hydrobromide [Enablex] 15 mg PO DAILY 03/28/14 Latanoprost 0.005% [Xalatan Opthalmic] 1 drp EACH EYE QHS 03/28/14 cholecalciferol (vitamin D3) 5,000 unit tablet 5,000 unit PO DAILY 07/07/18 docusate sodium 100 mg capsule 100 mg PO BID 07/07/18 multivitamin tablet 1 tab PO DAILY 07/07/18 polyethylene glycol 3350 17 gram/dose oral powder 17 g PO DAILY PRN g 07/07/18 metoprolol succinate ER 100 mg tablet,extended release 24 hr 100 mg PO DAILY tab 08/09/18 losartan 100 mg tablet 50 mg PO BID tab 08/12/18 aspirin 325 mg tablet 162.5 mg PO DAILY tab 09/26/18 hydrochlorothiazide 25 mg tablet 25 mg PO DAILY #90 tab 09/26/18 simvastatin 20 mg tablet 20 mg PO QHS #90 tab 09/26/18 Clindamycin [Cleocin] 150 mg PO TID 01/01/19 Acetaminophen [Tylenol Tablet] 650 mg PO Q6H PRN PRN tablet 01/03/19 Apixaban [Eliquis] 2.5 mg PO BID #180 tab 01/03/19 Lidocaine 2% Viscous [Xylocaine Viscous] 15 ml GT BID PRN #150 ml 01/03/19 Pantoprazole Sodium [Protonix] 40 mg PO BID #60 tab 01/03/19 Sucralfate [Carafate] 1 gm PO 4X/DAY #120 udc 01/03/19 Following Prescrptions Were Given to Patient: Sucralfate [Carafate] 1 gm PO 4X/DAY #120 udc Transmission Status: Pending to [facility] Pantoprazole Sodium [Protonix] 40 mg PO BID #60 tab Transmission Status: Pending to [facility] Lidocaine 2% Viscous [Xylocaine Viscous] 15 ml GT BID PRN #150 ml PRN Reason: pain with swallowing Transmission Status: Pending to [facility] Primary Care Physician: Radha Griffith DO [Primary Care Provider] - Within 2 Weeks Please Follow Up With: Torsten Ayon MD When: 1 month Please Follow Up With: Frederick Neil MD When: 03/30/19 Disposition: Home Minutes spent on discharge:: 33 Patient Condition:: Fair Medical Necessity - Tobacco Use Smoking Status: Never smoker Tobacco Use: Non-smoker Meaningful Use Info Meaningful Use Diagnoses (Choose all that apply): None applicable Code Visit Inpatient E&M: 49937 Disch Hosp
--- NOTE | 2019-01-04 14:18 | CASEMGMT ---
RUPESH VIVEROS DC PHONE CALL DC DATE: 01/03/18 DC Disposition: Home Diagnosis on Discharge: Gastritis, Esophagitis LACE/STRATA: 14/4 Intro role of CM to patient. Pt did not have questions re: prescriptions, follow up or instructions. Pt did have questions re: FERNAN[employer]Z form that was in her packet. She had concerns re: self administered medications. RUPESH VIVEROS reviewed FERNANDEZ form at length, then also explained to patient that she was changed to INPT and [facility] billing would change from outpt to INPT billing which now involved [facility] deductible. Pt does have [place] secondary and pt stated that [place] would likely cover this. Information given re: Patient Financial services if pt had questions when bill arrives. -Pt states she had a good experience @ [facility] and felt like I was at home. Pt had been volunteer at hospital and stated it was nice to know how well the patient's are treated. Herber BRADSHAWN RN ACM
== END 2019-01-03 18:17 | disposition home or self-care (01) | DRG 391 ==
LOC: ED 05:45 → PCU 07:05
PROVIDERS: Anesthesiology; Surgery; Admitting Provider Internal Medicine; Emergency Provider Emergency Medicine; Family Provider Internal Medicine; PCP Internal Medicine
PROC: 0DJ08ZZ Inspection of Upper Intestinal Tract, Via Natural or Artificial Opening Endoscopic (ICD-10-PCS; CPT 43235; principal; 2019-01-03 10:40)
DX: K21.0 Gastro-esophageal reflux disease with esophagitis (principal); K29.71 Gastritis, unspecified, with bleeding; E87.1 Hypo-osmolality and hyponatremia; I10 Essential (primary) hypertension; I44.7 Left bundle-branch block, unspecified; E78.5 Hyperlipidemia, unspecified; I48.0 Paroxysmal atrial fibrillation; E86.0 Dehydration; R07.9 Chest pain, unspecified; I51.89 Other ill-defined heart diseases; Z79.01 Long term (current) use of anticoagulants
CPT/HCPCS: 36415; 70450; 71045; 76705; 80048; 80061; 80076; 83735; 84100; 84484; 85025; 85027; 85610; 85730; 88305; 88342; 93005; 99285; J7030; J7040; J7050; A4216; J2405

== ENCOUNTER 2019-02-14 12:30 | Outpatient (RCR) | payer MEDICARE, BC, SELFPAY ==
[2018-09-26 10:16] VITALS: BMI 28.5
--- NOTE | 2018-12-08 09:44 | HP.PTEVAL ---
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 Date of Evaluation: 12/08/18 Physical Therapist: Shaun Saavedra, KEYT, OCS, CSCS - Visit Plan Frequency: 1x/Week Duration: 2-4 Weeks Plan: weekly as needed x 2-4 for positional treatments and ex. - Subjective Findings: Dizzyness started 2 weeks ago getting out of bed in am lasting for that whole day. Had it sporadic since then. Got it sitting down on toilet for 1 minute. Lying on left side at night is OK. Turning to right makes her dizzy. Went to doctor last week and gave her exercise which make it worse when she does them. Gave order for PT eventually. Had this in the past years ago and therapy really helped. Sleeping OK. 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 Live alone and gets around OK holding onto things, has walker but not used it so far. No falls. Basic aDLs are getting done but slow. Feels slighty in back of head consistently for two weeks but not spinning since 2 days ago. - Objective Walks back into PT slowly but I on a frim flat surface. transfers I. C/S AROM WFL and without pain. - L hallpike. + R hallpike for up torsional 5 sec nystagmus with dizzyness. Treated with R Stephanie then - HD test. Walked out feeling better in head. - Goals Goal 1:: Abolish dizzyness Goal Time Frame: 2-4 Weeks Goal 2:: Feel normal and walking balance at 22/30 FGA to minize future problems. Goal Time Frame: 2-4 Weeks Goal 3:: Pt feel 100% back to normal Goal Time Frame: 2-4 Weeks - Rehabilitation Potential Physical Therapy Diagnosis: BPPV Rehabilitation Potential: Fair - Anticipated Interventions Patient/Client Instruction: Educate patient on: Condition, Plan of Care Other: to abolish dizzyness Comment: positional ex For the Purpose of:: To increase tolerance to activity/condition/position, To improve safety Thank you for the opportunity to evaluate your patient. For Medicare and Medicare HMO plans, please review the plan of care and approve it. It will need to be FAXED BACK to us at [phone] for Medicare purposes. For Medicare only, by signing this I certify the plan of care. Please let me know if there are questions or concerns regarding this plan of care. Physician Signature: Date:
--- NOTE | 2018-12-28 15:12 | HP.PTREVAL_ITS ---
Sandhya Isidro, TELECOMMUNICATIONS FACILITY EXAMINER, It has been my pleasure to treat EDIN WEAVER over the last 6 visits for BPPV. Please see the progress note below for an update on the physical therapy plan of care! Subjective: Had back of head swishing since Wednesday night. Using wh walker all the time. Has infection in L lower jaw and had root canal yesterday and is on antibiotic. Turned on side last night as she could not lie on her back. Last 48 hours has been rough. Will see ENT Wednesday morning.Has been sensitive in the tooth for a while now. Took meclizine due to dizzyness. Had catscn in june and was clear. Objective/Function: Recommend see ENT Wednesday due to lack of progress.No nystagmus with either hallpike weston or roll test today. Safe slow walking with walker. HR 70 at rest. Doctor office notified of dizzyness without positional positive test todaya dn will check with TELECOMMUNICATIONS FACILITY EXAMINER and call Normal if further interventions warranted. oculomotor is unremarkable although all movement slow today. VOr casues dizzyness horizontally immediately, vertically not as bad. no nystagmus today with gaze or slow head shakes. Pursuit adn Saccades were normal. convergence normal. - skew eye deviation. Using wh walker today is slow and has not presented with wh walker in the past. Gut feeling is infection from tooth has maybe worked its way into vestibular. She will f/u with doctor/ENT to make sure of other daignosis ruled out. Plan Plan: Keep next weeks appointments on schedule in case needed. Goals Goal 1:: Abolish dizzyness Goal Time Frame: 2-4 Weeks Goal 2:: Feel normal and walking balance at 22/30 FGA to minize future problems. Goal Time Frame: 2-4 Weeks Goal 3:: Pt feel 100% back to normal Goal Time Frame: 2-4 Weeks Anticipated Interventions Patient/Client Instruction: Educate patient on: Condition, Plan of Care Other: to abolish dizzyness Comment: positional ex For the Purpose of:: To increase tolerance to activity/condition/position, To improve safety Please do not hesitate to contact me at [phone] by phone or if you have questions or concerns regarding this new plan of care! Sincerely, Shaun Saavedra, DPT, OCS, CSCS
--- NOTE | 2019-01-12 14:29 | HP.PTREVAL_ITS ---
Sandhya Isidro, CHENCHO, It has been my pleasure to treat EDIN WEAVER over the last 7 visits for BPPV. Please see the progress note below for an update on the physical therapy plan of care! Subjective: Had feeling in head getting worse after bending on Wednesday and balance felt off. Needed to hold on but no spinning. Sat down for 2 hours as she had a goofy feeling in head. Needed to start using walker again. Saw [facility] this morning and theya re puzzled for f/u after hospital stay. They checked heart in hosptial and it was fine. Think it was a benign tough case of esophagitis. Had heart tests adn brain test in hospital and they are OK. Saw ENT Wednesday and wanted her to return to PT. Did not do caloric testing. They will do this if needed. [facility] did not change anything this morning. Funny feeling in head is not present when sitting and at rest but happens with stadnxing up and moving. Pt will check with NARAYAN in [place] regarding a medication ring that helped her with dryness years ago. Objective/Function: + L HD up torsional nystagmus today for 5 seconds, treated wtih Stephanie then - HD B and - roll test. FGA is not bad for her age and she walks quick when cued but has poor confidence and understandably so with what she has been through. activity level is down due to health over the last two months. Is appropriate for PT to work on balance and confidence adn increase her activity level and monitor the positional vertigo recurring. Despite lack of clear progress, since patient has checked back in with doctors and due to chronic nature of this problem, pt is apporpiate to cotninue therapy to monitor positional needs and work on balance and activity. Same goals are appropriate and fair prognosis Plan Plan: 2x/week x 4 weeks for: 1. EG needs to check for positional vertigo each session, please find me. 2. gait balane training for confidence with head m voements and bending and turning. 3. Functional strength ex for LE and core Goals Goal 1:: Abolish dizzyness Goal Time Frame: 4-6 Weeks Goal Progress: up and down Goal 2:: Feel normal and walking balance at 22/30 FGA to minize future problems. Goal Time Frame: 4-6 Weeks Goal Progress: but poor confidence Goal 3:: Pt feel 100% back to normal Goal Time Frame: 4-6 Weeks Goal Progress: up and down, approp Anticipated Interventions Patient/Client Instruction: Educate patient on: Condition, Plan of Care Other: to abolish dizzyness Therapeutic Exercise to Include: Strength training, Gait and locomotor training Comment: positional ex For the Purpose of:: To increase tolerance to activity/condition/position, To improve safety Please do not hesitate to contact me at [phone] by phone or Fax: if you have questions or concerns regarding this new plan of care! Sincerely, Shaun Saavedra, DPT, OCS, CSCS
--- NOTE | 2019-02-08 10:07 | HP.PTREVAL_ITS ---
Sandhya Isidro, ORTHOTIC AND PROSTHETIC TECHNICIAN-C, It has been my pleasure to treat EDIN WEAVER over the last 15 visits for BPPV. Please see the progress note below for an update on the physical therapy plan of care! Subjective: Woke up dizzy yesterday and was a bad day. No spinning but aura in head. Diferent than funny feeling in head. Did BD yesterday and was dizzy first rep on L side. Selling house fell through adn was very emotional yesterday. Objective/Function: - L hakpike. + r hallpike up torsional nystagmus 5 seconds, treated wtih Stephanie then -. Walking is lwess steady again today , educated on use of walker. Plan Plan: 2x/week x 2-4 to monitor positional and treat as needed. Goals still appropriate but patient dizzyness comes and goes. Definitely not improving like typical BPPV but very positive test. Questionable prognosis.Pt back to doctor in two weeks. Goals Goal 1:: Abolish dizzyness Goal Time Frame: 4-6 Weeks Goal Progress: up and down Goal 2:: Feel normal and walking balance at 22/30 FGA to minize future problems. Goal Time Frame: 4-6 Weeks Goal Progress: 22/30 but poor confidence Goal 3:: Pt feel 100% back to normal Goal Time Frame: 4-6 Weeks Goal Progress: up and down, approp Anticipated Interventions Patient/Client Instruction: Educate patient on: Condition, Plan of Care Other: to abolish dizzyness Therapeutic Exercise to Include: Strength training, Gait and locomotor training Comment: positional ex For the Purpose of:: To increase tolerance to activity/condition/position, To improve safety Please do not hesitate to contact me at [phone] by phone or if you have questions or concerns regarding this new plan of care! Sincerely, Shaun Saavedra, DPT, OCS, CSCS
--- NOTE | 2019-02-14 13:03 | HP.PTREVAL ---
Sandhya Isidro, PC SUPPORT SPECIALIST-C, It has been my pleasure to treat EDIN WEAVER over the last 16 visits for BPPV. Please see the progress note below for an update on the physical therapy plan of care! Subjective: Drove self in for the first time today. Dizzyness is not gone. I feel funny in head today. Started ex Wednesday but quit after 5 as she was getting more dizzy. Did them Wednesday and able to do them. Yesterday did ex adn a little dizzy at the beginning and improved as she went. Wondering if she should finsih the ENT test. Objective/Function: - B hallpike. - roll test. Walking well but poor confidence. Recommended pt contact ENT doctor for next step and finish test to be sure we know what we are dealing with due to the negative psoitional tests today and up and down nature of her symptoms. Will keep visits until this is done. Plan Plan: cotninue balance and positional monitor Goals Goal 1:: Abolish dizzyness Goal Time Frame: 4-6 Weeks Goal Progress: up and down Goal 2:: Feel normal and walking balance at 22/30 FGA to minize future problems. Goal Time Frame: 4-6 Weeks Goal Progress: 22/30 but poor confidence Goal 3:: Pt feel 100% back to normal Goal Time Frame: 4-6 Weeks Goal Progress: up and down, approp Anticipated Interventions Patient/Client Instruction: Educate patient on: Condition, Plan of Care Other: to abolish dizzyness Therapeutic Exercise to Include: Strength training, Gait and locomotor training Comment: positional ex For the Purpose of:: To increase tolerance to activity/condition/position, To improve safety Please do not hesitate to contact me at [phone] by phone or if you have questions or concerns regarding this new plan of care! Sincerely, Shaun Saavedra, DPT, OCS, CSCS
--- NOTE | 2019-03-16 10:38 | HP.PT.NRP ---
HP - Discharge Summary (1) - Patient Information EDIN WEAVER was seen in my office for initial evaluation on 12/08/18. The following Plan of Care was established for this patient: Initial Frequency: 1x/Week Initial Duration: 2-4 Weeks - Anticipated Interventions Patient/Client Instruction: Educate patient on: Condition, Plan of Care Other: to abolish dizzyness Therapeutic Exercise to Include: Strength training, Gait and locomotor training For the Purpose of:: To increase tolerance to activity/condition/position, To improve safety This patient was last seen in our office 02/14/19. Pertinent comments regarding their Physical therapy will appear below: Pt seen for 16 visits for a frustrating case of vertigo. She stopped in today to state that she is doing rather well now and does not need to return. Rest over the last 3-4 weeks has helped. I will discontinue her with this information. At this point I will be discontinuing this patient from physical therapy. I would be happy to see this patient again in the future if found appropriate by the physician. Thank you! Shaun Saavedra, DPT, OCS, CSCS
== END 2019-02-14 19:00 | disposition home or self-care (01) ==
LOC: PT 12:30
PROVIDERS: Family Provider Internal Medicine; PCP Internal Medicine; Referring Provider Nurse Practitioner; Visit Provider Nurse Practitioner
DX: R42 Dizziness and giddiness (principal)
CPT/HCPCS: 97110; 97116; 97161; 97530

== ENCOUNTER → 2019-03-08 08:54 | Outpatient (CLI) | payer MEDICARE, BC, SELFPAY ==
[2019-01-03 09:25] VITALS: BMI 28.3
--- NOTE | 2019-03-08 11:20 | NEURO ---
NCS and/or EMG Patient Report Ordering Doctor: Sandhya Isidro DATE OF SERVICE: 03/08/19 Oralia Abdi is an 78-year-old female presents with complaints of numbness, itching and burning in the plantar aspect of both feet for the past 3 months. Electrodiagnostic findings: Peroneal motor nerve demonstrates normal distal latency, amplitude and conduction velocity bilaterally. Normal tibial motor response bilaterally. Normal tibial and peroneal F waves. Mildly prolonged H reflex bilaterally. Sensory responses are within normal limits. On needle EMG, all muscles tested showed no evidence of denervation with normal motor unit action potentials. Electrodiagnostic impression: This is a normal electrodiagnostic study of the lower limbs. There is no electrodiagnostic evidence for peripheral neuropathy or lumbosacral radiculopathy. If there are any further questions, please do not hesitate to contact me
== END ==
PROVIDERS: Family Provider Internal Medicine; PCP Internal Medicine; Referring Provider Nurse Practitioner; Visit Provider Nurse Practitioner
DX: R20.8 Other disturbances of skin sensation (principal); R52 Pain, unspecified
CPT/HCPCS: 95886; 95913

== ENCOUNTER → 2019-04-27 16:51 | Outpatient (CLI) | payer MEDICARE, BC, SELFPAY ==
[2019-03-30 10:14] VITALS: BMI 28.1
[2019-04-22 12:57] VITALS: BMI 28.1
[2019-04-26 15:21] LABS: Creatinine, Serum 0.94 mg/dL (0.55-1.02); EST Glomerular Filtration Rate 61 mL/min (>60); Est Glom Filt Rate - Afr Amer 73 mL/min (>60)
--- NOTE | 2019-04-27 17:02 | MRI_ITS ---
STUDY: MRI BRAIN WITH AND WITHOUT CONTRAST (ATTENTION INTERNAL AUDITORY CANALS - I.A.C.'s) REASON FOR EXAM: Female, 79 years old. Vertigo and left-sided headache TECHNIQUE: Standardized multiplanar fat and water weighted pulse sequences were obtained. IV Dotarem 15 was administered for the contrast portion of the examination. COMPARISON: None. FINDINGS: Normal bilateral temporal bones. Normal bilateral internal auditory canals. There is no demonstrated intracanalicular or cisternal vestibular schwannoma (acoustic neuroma). There is no enhancement of the bilateral VIIth or VIIIth cranial nerves. Normal bilateral cochlea, vestibules and semicircular canals. Normal size of the ventricles and extra-axial spaces for the patient's age. There are a limited number of small white matter hyperintensities, distributed throughout the deep white matter tracts of the cerebral hemispheres, consistent with mild chronic white matter ischemic changes. Normal bilateral basal ganglia. Normal thalami. Normal flow voids within the major intracranial circulation suggesting patency by spin echo criteria. Normal venous enhancement. There is no enhancing intra-axial or extra-axial abnormality. There is no extra-axial fluid accumulation. Normal sella turcica, pituitary gland, infundibular stalk, optic chiasm and hypothalamus. Normal tectal plate and pineal gland. Normal midbrain, wil and medulla. Normal cerebellum. Normal basal cisterns. There are bilateral ocular lens implants with otherwise normal intraorbital contents. Normal visualized paranasal sinuses. Normal calvarium and skull base. Normal visualized soft tissue structures. Normal visualized upper cervical spine. MRI/Brain W/WO Contrast IMPRESSION: Normal unenhanced and enhanced MRI of the bilateral internal auditory canals (I.A.C's). Mild microangiopathic White matter disease. No evidence of acute infarct or hemorrhage. Electronically Signed: Rommel Castro MD at 20:55 EDT Tel , Service support ,
== END ==
PROVIDERS: Family Provider Internal Medicine; PCP Internal Medicine; Referring Provider Otolaryngology Otolaryngology/Facial Plastic Surgery; Visit Provider Otolaryngology Otolaryngology/Facial Plastic Surgery
DX: R27.0 Ataxia, unspecified (principal)
CPT/HCPCS: 36415; 70553; 82565; A9575

== ENCOUNTER → 2019-05-08 11:36 | Outpatient (CLI) | payer MEDICARE, BC, SELFPAY ==
[2019-04-22 12:57] VITALS: BMI 28.1
--- NOTE | 2019-05-08 11:45 | RAD_ITS ---
STUDY: X-RAY - LUMBAR SPINE REASON FOR EXAM: Female, 79 years old. LBP, BILAT FOOT PAIN WITH N/T, NKI TECHNIQUE: 3 view(s) of the lumbar spine were obtained. COMPARISON: None FINDINGS: Degenerative disc disease at every lumbar level. Lower lumbar facet disease. Normal lumbar alignment. No compression deformities. Vascular calcifications. Left hip arthroplasty. RAD/Lumbar Spine 2 or 3 Views IMPRESSION: Diffuse degenerative disease. No compression deformity. Electronically Signed: Rommel Castro MD at 17:59 EST Tel , Service support ,
== END ==
PROVIDERS: Family Provider Internal Medicine; PCP Internal Medicine; Referring Provider Anesthesiology Pain Medicine; Visit Provider Anesthesiology Pain Medicine
DX: M54.9 Dorsalgia, unspecified (principal)
CPT/HCPCS: 72100

== ENCOUNTER → 2019-06-06 12:00 | Outpatient (CLI) | payer MEDICARE, BC, SELFPAY ==
[2019-04-22 12:57] VITALS: BMI 28.1
[2019-06-06 12:05] LABS: Absolute Lymphocyte Count 2.69 X10^3/uL (0.83-4.51); Absolute Neutrophil Count 4.4 X10^3/uL (2.0-7.7); Basophil# 0.04 X10^3/uL; Basophil% 0.5 % (0-1); Eosinophil# 0.08 X10^3/uL; Hematocrit 43.3 % (37-47); Hemoglobin 14.7 g/dL (12.0-15.0); Lymphocyte # 2.69 X10^3/ul (4.0); Lymphocyte % 34.6 % (19-41); Mean Corp Hgb Conc 33.9 g/dL (32-36); Mean Corpuscular Hgb 33.9 pg (27.0-32.0); Mean Platelet Vol. 9.7 fl (6.2-12.0); Monocyte# 0.55 X10^3/uL; Monocyte% 7.1 % (0-10); NRBC Flagged by Analyzer 0 % (0-5); Neutrophil % 56.5 % (47-70); Platelet Count 292 K/mm3 (150-450); RBC Distribution Width CV 12.6 % (11.6-14.6); RBC Distribution Width SD 46.6 fl (35.1-43.9); Red Blood Count 4.33 M/mm3 (4.2-5.4); White Blood Count 7.8 K/mm3 (4.4-11.0)
[2019-06-06 12:36] LABS: ALB/GLOB Ratio 1.3 RATIO (0.9-2.4); AST(SGOT) 13 U/L (15-37); Alanine Aminotransfer ALT/SGPT 12 U/L (13-56); Albumin, Serum 3.7 g/dL (3.2-5.0); Alkaline Phosphatase 100 U/L (45-117); Anion Gap 3 (5-15); BUN 19 mg/dL (7-18); BUN/Creat Ratio 22.6 RATIO (10-20); Calcium,Total 9.3 mg/dL (8.5-10.1); Chloride 103 mmol/L (98-107); Creatinine, Serum 0.84 mg/dL (0.55-1.02); EST Glomerular Filtration Rate 69 mL/min (>60); Est Glom Filt Rate - Afr Amer 83 mL/min (>60); Globulin 2.9 g/dL (2.2-4.2); Glucose 89 mg/dL (74-106); Protein, Total 6.6 g/dL (6.4-8.2); Sodium Level 137 mmol/L (136-145)
== END ==
PROVIDERS: Family Provider Internal Medicine; PCP Internal Medicine; Referring Provider Nurse Practitioner; Visit Provider Nurse Practitioner
DX: I10 Essential (primary) hypertension (principal)
CPT/HCPCS: 80053; 84443; 85025

== ENCOUNTER 2019-06-08 01:33 | Emergency (ER) | payer MEDICARE, BC, SELFPAY ==
[2019-04-22 12:57] VITALS: BMI 28.1
[2019-06-08 01:35] VITALS: BP 167/95; PULSE 69; RESP 18; TEMP 36.7; O2SAT 98; BMI 28.7
--- NOTE | 2019-06-08 01:54 | ED.VIS.GEN ---
History of Present Illness Chief Complaint: Hypertension Informant: Patient Onset: Today Narrative: Patient resents for the evaluation of elevated blood pressure. Patient states she went to see her doctor yesterday and noted that her blood pressure was approximately 147/89. She was asymptomatic. She had an EKG performed she reports is being normal. She has a history of established hypertension as well as paroxysmal A. fib. She states she went home and began to pack. She also did her [employer] cards because she is flying out of [place] to go stay with her son and daughter in [place] at 0700. She states that she has been taking her blood pressure every couple hours and it continues to get higher. She is remained asymptomatic. The patient states that tonight she attempted to lay down and go to sleep but could not so she took her blood pressure again and it was even higher 170/102. She was concerned that maybe she should not fly so she came to the emergency department. She had no concerns while driving here. She notes no vision changes, arm or leg symptoms, chest pain, shortness of breath, dyspnea on exertion, or headache. Past Medical History - Allergies and Home Meds Allergies/Adverse Reactions: Allergies azithromycin [From Zithromax] Allergy (Verified 06/08/19 01:37) Chest tightness codeine Allergy (Verified 06/08/19 01:37) Unknown erythromycin base [Erythromycin Base] Allergy (Verified 06/08/19 01:37) Unknown morphine Allergy (Verified 06/08/19 01:37) Unknown Penicillins Allergy (Verified 06/08/19 01:37) Unknown Primary Care Physician: Radha Griffith DO [Primary Care Provider] - As Needed Smoking Status: Never smoker - Family History Paternal Family History: Family History (Last Updated 04/22/19 @ 12:57 by Lissette Julian) Mother Diabetes Other Cancer Neuropathy Small bowel problem Family History: Reports: No pertinent history Review of Systems General: Denies: Chills, Fever, Sweats Eyes: Denies: Visual changes - bilaterally, Diplopia ENT: Denies: Rhinorrhea, Sore throat Cardiovascular: Denies: Chest pain, Palpitations Respiratory: Denies: Dyspnea, Cough, Dyspnea on exertion Gastrointestinal: Denies: Abdominal pain, Nausea, Vomiting, Diarrhea, Melena, Hematochezia Genitourinary: Denies: Dysuria, Hematuria, Frequency Musculoskeletal: Denies: Back pain, Extremity Pain Skin: Denies: Rash, Wounds Neurological: Denies: Headache, Weakness, Numbness Physical Exam Vital Signs/Narrative: Vital Signs Temp Pulse Resp BP Pulse Ox 06/08/19 01:35 98.0 F 69 18 167/95 H 98 Inital Vital Signs reviewed: Yes General: Well nourished, Well developed, No Acute Distress Head: Normocephalic, Atraumatic Eyes: Perrl, EOMI ENT: Moist mucous membranes, No rhinorrhea Neck: Supple, Nontender Cardiovascular: Regular rate, Regular rhythm, No murmurs Respiratory: No distress, CTA bilaterally, Chest nontender Abdomen: Soft, Nontender, Nondistended, Normal bowel sounds Back: Nontender, Normal Inspection Extremities: Nontender, No edema Skin: Normal color, No rash Neurological: Alert, Oriented x3, Cranial nerves II-XII grossly intact, Normal Strength, Normal Sensation Psychological: - - Patient appears quite anxious regarding her upcoming trip as well as her high blood pressure Diagnostic/Tx/Re-eval - Medical Decision Making I suspect the upcoming change in living situation has presented itself as a stressor for her. I also think that taking her blood pressure every couple hours has also contributed to stress. I recommend that she not take her blood pressure again but rather try to rest take her flight. After she gets settled in [place] unless she is symptomatic I would not take her blood pressure for a couple days. Once settled I would have her take it and call her doctor with at least 1 weeks worth of numbers. Patient is comfortable with this plan. At discharge a manual blood pressure was performed and was 132/94. ED Disposition - Plan for ED Patient: Disposition: Home or Assisted Living Instructions: HYPERTENSION, Established Referrals: Radha Griffith, [Primary Care Provider] - As Needed Additional Instructions: Please be safe on your trip. Once you are settled in and have time to recover from the travel take your blood pressure. If it is still elevated record and take it for several days. Call your doctor with these numbers. If you are symptomatic (such as chest pain, shortness of breath, headache, neurologic changes) I would seek treatment in an emergency room.
[2019-06-08 02:11] VITALS: BP 132/94
[2019-06-08 02:22] VITALS: BP 132/94; PULSE 62; RESP 18; O2SAT 98
== END 2019-06-08 02:22 | disposition home or self-care (01) ==
PROVIDERS: Emergency Provider Emergency Medicine; Family Provider Internal Medicine; PCP Internal Medicine
DX: I10 Essential (primary) hypertension (principal); I48.0 Paroxysmal atrial fibrillation; Z79.01 Long term (current) use of anticoagulants; Z79.899 Other long term (current) drug therapy
CPT/HCPCS: 99282

== ENCOUNTER → 2019-09-07 10:04 | Outpatient (CLI) | payer MEDICARE, BC, SELFPAY ==
[2019-08-30 13:11] VITALS: BMI 27.9
--- NOTE | 2019-09-07 10:05 | CDU_ITS ---
Reason For Study: vertigo Rt. Velocities/BP Lt. Velocities/BP Prox CCA 70.8/17.3 cm/sec. Prox CCA 91.5/20.1 cm/sec. Mid CCA 68.2/14.7 cm/sec. Mid CCA 71.7/20.1 cm/sec. Dist CCA 85.2/21.3 cm/sec. Dist CCA 70.6/20.1 cm/sec. Prox ICA 68.2/14.7 cm/sec. Prox ICA 68.4/17.9 cm/sec. Mid ICA 52.6/16.0 cm/sec. Mid ICA 53.1/17.9 cm/sec. Dist ICA 63.0/21.3 cm/sec. Dist ICA 77.3/31.1 cm/sec. Rt. ICA/CCA = 1.0. Lt. ICA/CCA = 1.1. Prox ECA 74.7/8.2 cm/sec. Prox ECA 77.3/14.6 cm/sec. Rt. Vert. 40.0/10.7 cm/sec. Lt. Vert. 32.2/10.2 cm/sec. Right Extracranial There is intimal thickening but no significant atherosclerotic plaque noted in the right common carotid artery. There is intimal thickening but no significant atherosclerotic plaque noted in the right internal carotid artery. There is intimal thickening but no significant atherosclerotic plaque noted in the right external carotid artery. Antegrade flow is noted in the right vertebral artery. Left Extracranial There is intimal thickening but no significant atherosclerotic plaque noted in the left common carotid artery. There is heterogeneous, irregular atherosclerotic plaque noted in the left internal carotid artery. There is intimal thickening but no significant atherosclerotic plaque noted in the left external carotid artery. Antegrade flow is noted in the left vertebral artery. Procedure Carotid Duplex [id number]. The exam was diagnostic. Exam performed in department. Interpretation Summary No significant atherosclerotic plaque or stenosis noted in the right internal carotid artery. Mild (<50%) stenosis left extracranial internal carotid. Flow within the vertebral arteries is antegrade bilaterally. Ordering Physician: Karen Morris Performed By: Jules Sears RVT
== END ==
PROVIDERS: PCP Internal Medicine; Referring Provider Physician Assistant Medical; Visit Provider Physician Assistant Medical
DX: R42 Dizziness and giddiness (principal)
CPT/HCPCS: 93880

== ENCOUNTER → 2019-11-06 | Outpatient (CLI) | payer MEDICARE, BC, SELFPAY ==
[2019-11-06 13:45] VITALS: BMI 28.7
[2019-11-06 16:27] LABS: ALB/GLOB Ratio 1.1 RATIO (0.9-2.4); AST(SGOT) 21 U/L (15-37); Alanine Aminotransfer ALT/SGPT 17 U/L (13-56); Albumin, Serum 3.7 g/dL (3.2-5.0); Alkaline Phosphatase 103 U/L (45-117); Anion Gap 6 (5-15); BUN 19 mg/dL (7-18); BUN/Creat Ratio 22.9 RATIO (10-20); Calcium,Total 9.4 mg/dL (8.5-10.1); Chloride 100 mmol/L (98-107); Cholesterol 172 mg/dL (200); Creatinine, Serum 0.83 mg/dL (0.55-1.02); EST Glomerular Filtration Rate 70 mL/min (>60); Est Glom Filt Rate - Afr Amer 85 mL/min (>60); Globulin 3.4 g/dL (2.2-4.2); Glucose 101 mg/dL (74-106); High Density Lipoprotein 53 mg/dL; Potassium 4.3 mmol/L (3.5-5.1); Protein, Total 7.1 g/dL (6.4-8.2); Sodium Level 135 mmol/L (136-145); Triglycerides 172 mg/dL; Very Low Density Lipoprotein 34 mg/dL (5-40)
== END | disposition home or self-care (01) ==
PROVIDERS: PCP Internal Medicine; Referring Provider Internal Medicine; Visit Provider Internal Medicine
DX: E78.5 Hyperlipidemia, unspecified (principal); I10 Essential (primary) hypertension
CPT/HCPCS: 80053; 80061

== ENCOUNTER → 2019-12-05 10:26 | Outpatient (CLI) | payer MEDICARE, BC, SELFPAY ==
[2019-11-06 13:45] VITALS: BMI 28.7
--- NOTE | 2019-12-05 10:26 | BI_ITS ---
MAMMOGRAPHY - BILATERAL SCREENING REASON FOR EXAM: Female, 79 years old. Routine annual screening examination. PERTINENT HISTORY: Mother with breast cancer. Remote right stereotactic breast biopsy TECHNIQUE: Digital bilateral breast pilar (3D mammographic acquisition) in the CC and MLO projections. 2-D mediolateral oblique (MLO) and craniocaudad (CC) views of both breasts were obtained. CAD: Full Field Digital Mammography with Computer Added Detection was performed. COMPARISON: Comparison is made with prior study dated November 01, 2018 and September 03, 2017. FINDINGS: Breast Composition: There are scattered areas of fibroglandular density. There are no dominant masses or suspicious calcifications. Stable bilateral secretory calcification as well as benign appearing bilateral axillary lymph nodes. No other significant abnormalities are identified. There has been no significant change since the prior study. BI/SCREEN MAMM (CAD) W/PILAR BILAT IMPRESSION: Stable bilateral screening mammogram. Yearly follow-up mammogram recommended. (A) ASSESSMENT CATEGORY: BIRADS Category 2: Benign. A letter regarding these results will be sent to the patient by the facility within 30 days. Approximately 10% of breast cancers are not detected by mammography. A normal mammogram should not delay biopsy of a clinically suspicious abnormality. [id number] Electronically Signed: Wil Roberts, at 12:14 EDT , Service support ,
--- NOTE | 2019-12-05 10:30 | BD_ITS ---
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 COMPARISON: Comparison is made with prior study dated June 26, 2015. FINDINGS: Lumbar Spine (L1-L4): g/cm2 (1.161) / T-score (0.0) / Z-score (1.8) Findings are suggestive of normal bone density with a low fracture risk. Right Femur Total: g/cm2 (0.796) / T-score (-1.7) / Z-score (0.4) Right Femoral Neck: g/cm2 (0.862) / T-score (-1.3) / Z-score (1.0) The T-Scores on the most recent prior examination were: Lumbar Spine (L1-L4): There has been improvement of bone density since the previous examination. Right Femur Total: which represents a worsening of 1.8%. BD/Dexa Bone Density Study IMPRESSION: The patient is considered osteopenic as outlined below according to World [employer] Organization (WHO) criteria with a moderate fracture risk. There has been improvement of bone density since the previous examination. Reference Information: The T-score is the number of standard deviations above or below the standard which is normal for young adults at their peak bone mineral density. The World Health Organization (WHO) interprets the T-scores as follows: Above -1 Normal bone density Between -1 and -2.5 Osteopenia Equal to / or below -2.5 Osteoporosis As a practical clinical guideline, osteopenia may be graded as follows: Mild -1 through -1.5 Moderate -1.6 through -2.0 Severe -2.1 through -2.4 The Z-score is the number of standard deviations above or below age-matched controls. A Z-score of less than -1.5 would be considered abnormal. References: 1. NIH Osteoporosis and Related Bone Diseases http://www.osteo.org 2. International Society for Clinical Densitometry http://www.iscd.org 3. National Osteoporosis Foundation http://www.nof.org Electronically Signed: Wil Roberts, at 13:23 EDT , Service support ,
== END ==
PROVIDERS: PCP Internal Medicine; Referring Provider Internal Medicine; Visit Provider Internal Medicine
DX: Z12.31 Encounter for screening mammogram for malignant neoplasm of breast (principal); Z78.0 Asymptomatic menopausal state
CPT/HCPCS: 77063; 77067; 77080

== ENCOUNTER 2020-01-15 02:45 | Emergency (ER) | payer MEDICARE, BC, SELFPAY ==
[2019-12-11 14:18] VITALS: BMI 28.7
[2020-01-15 02:46] VITALS: BP 191/55; PULSE 68; RESP 20; TEMP 36.5; O2SAT 99; BMI 28.8
[2020-01-15 03:05] VITALS: BP 159/85; PULSE 64
--- NOTE | 2020-01-15 03:06 | EKG12_ITS ---
Test Reason : HTN Blood Pressure : / mmHG Vent. Rate : 061 BPM Atrial Rate : 061 BPM P-R Int : 198 ms QRS Dur : 138 ms QT Int : 464 ms P-R-T Axes : 078 -46 141 degrees QTc Int : 467 ms Normal sinus rhythm Left axis deviation Left bundle branch block Abnormal ECG Confirmed by JESUS DALE, RAYSA ([id number]), social media editor MARQUITA JONES ([id number]) on 01/17/2020 9:06:10 AM Referred By: ERNESTINE Confirmed By:RAYSA LEE MD
--- NOTE | 2020-01-15 03:06 | ED.VIS.GEN ---
History of Present Illness Chief Complaint: Hypertension Informant: Patient Narrative: She stated over the last couple days she has been checking her blood pressures and they have been in the 150-170 range. This concerned her. Last night she felt like she had a little bit of chills for short period time. She does not feel that currently. She does not have any muscle aches. She denies any fevers. She denies any cough shortness of breath or chest discomfort. The patient stated she does take hydrochlorothiazide as well as metoprolol. She has a history of atrial fibrillation. Stated she had a heart cath approximately 10 years ago. She is never had any blockage in her heart. Stated she just does not feel herself and was concerned about her blood pressure so she came in. - Past Medical History (1) Chest pain, unspecified Status: Acute (2) Cystitis Status: Acute (3) Esophagitis Status: Acute (4) Gastritis Status: Acute (5) Herpes zoster Status: Acute (6) Paroxysmal atrial fibrillation Status: Acute (7) Cardiomyopathy Status: Chronic (8) Diastolic dysfunction Status: Chronic (9) Essential hypertension Status: Chronic (10) GERD (gastroesophageal reflux disease) Status: Chronic Comment: suspect esophagitis (11) Hyperlipemia Status: Chronic (12) LBBB (left bundle branch block) Status: Chronic (13) Left carotid artery stenosis Status: Chronic Comment: Mild (14) Light headedness Status: Chronic (15) Nonrheumatic mitral valve disorder Status: Chronic Past Medical History - Allergies and Home Meds Allergies/Adverse Reactions: Allergies azithromycin [From Zithromax] Allergy (Verified 01/15/20 02:49) Chest tightness codeine Allergy (Verified 01/15/20 02:49) Unknown erythromycin base [Erythromycin Base] Allergy (Verified 01/15/20 02:49) Unknown morphine Allergy (Verified 01/15/20 02:49) Unknown Penicillins Allergy (Verified 01/15/20 02:49) Unknown Primary Care Physician: Luis Oropeza MD [Primary Care Provider] - Prior records reviewed: Yes Past Medical History: - - See problem list Surgical History: noncontributory Lives: With Family Smoking Status: Never smoker - Family History Paternal Family History: Family History (Last Reviewed 11/06/19 @ 13:44 by Jenni Dash) Mother Diabetes Breast cancer Grandfather Myocardial infarction, Onset Age: 60 Father Anxiety and depression Other Cancer Neuropathy Small bowel problem Family History: Reports: No pertinent history Review of Systems General: Denies: Fever, Sweats Eyes: Denies: Visual changes - bilaterally, Diplopia ENT: Denies: Rhinorrhea, Sore throat Cardiovascular: Denies: Chest pain, Palpitations Respiratory: Denies: Dyspnea, Cough, Dyspnea on exertion Gastrointestinal: Denies: Abdominal pain, Nausea, Vomiting, Diarrhea, Melena, Hematochezia Genitourinary: Denies: Dysuria, Hematuria, Frequency Musculoskeletal: Denies: Back pain, Extremity Pain Skin: Denies: Rash, Wounds Neurological: Reports: Weakness. Denies: Headache, Numbness Physical Exam Vital Signs/Narrative: Vital Signs Temp Pulse Resp BP Pulse Ox 01/15/20 03:05 64 159/85 H 01/15/20 02:46 97.7 F L 68 20 H 191/55 H 99 General: Well nourished, Well developed, No Acute Distress Head: Normocephalic, Atraumatic Eyes: Perrl, EOMI ENT: Moist mucous membranes, No rhinorrhea Neck: Supple, Nontender Cardiovascular: Regular rate, Regular rhythm, No murmurs Respiratory: No distress, CTA bilaterally, Chest nontender Abdomen: Soft, Nontender, Nondistended, Normal bowel sounds Back: Nontender, Normal Inspection Extremities: Nontender, No edema Skin: Normal color, No rash Neurological: Alert, Oriented x3, Cranial nerves II-XII grossly intact, Normal Strength, Normal Sensation Psychological: Normal affect, Normal Mood Diagnostic/Tx/Re-eval - Medical Decision Making Patient's blood pressure monitored in the emergency department. No show blood pressure was 190 systolic. Repeat blood pressure is 150/80. EKG and lab work obtained. Lab work shows a normal troponin. EKG shows sinus rhythm at a rate of 61 with an old left bundle branch block unchanged from prior. CBC and BMP showed no major acute abnormalities. Coronavirus test negative. Patient is resting comfortably. I do not feel she needs to be admitted. She will take her blood pressures less frequently. I think she is getting herself anxious over her blood pressures. I do not feel she needs treatment at this time. On reevaluation blood pressure 150/83. ED Disposition - Plan for ED Patient: Disposition: Home or Assisted Living Diagnosis: Hypertension Instructions: ED Hypertension Established Referrals: Luis Oropeza MD [Primary Care Provider] -
[2020-01-15 03:12] LABS: Absolute Lymphocyte Count 5.41 X10^3/uL (0.83-4.51); Absolute Neutrophil Count 4.3 X10^3/uL (2.0-7.7); Basophil# 0.08 X10^3/uL; Basophil% 0.7 % (0-1); Eosinophil# 0.16 X10^3/uL; Eosinophils% 1.5 % (0-5); Hematocrit 44.5 % (37-47); Hemoglobin 15.5 g/dL (12.0-15.0); Lymphocyte # 5.41 X10^3/ul (4.0); Lymphocyte % 49.8 % (19-41); Mean Corp Hgb Conc 34.8 g/dL (32-36); Mean Corpuscular Hgb 33.6 pg (27.0-32.0); Mean Corpuscular Volume 96.5 fL (81-99); Mean Platelet Vol. 9.4 fl (6.2-12.0); Monocyte# 0.93 X10^3/uL; Monocyte% 8.6 % (0-10); NRBC Flagged by Analyzer 0 % (0-5); Neutrophil # 4.26 X10^3/uL (2.7-7.7); Neutrophil % 39.1 % (47-70); POSITIVE DIFFERENTIAL YES; Platelet Count 310 K/mm3 (150-450); RBC Distribution Width CV 11.9 % (11.6-14.6); Red Blood Count 4.61 M/mm3 (4.2-5.4); White Blood Count 10.9 K/mm3 (4.4-11.0)
[2020-01-15 03:22] LABS: Differential Indicated SCAN CRITERIA MET
[2020-01-15 03:31] LABS: Anion Gap 7 (5-15); BUN 18 mg/dL (7-18); BUN/Creat Ratio 18.7 RATIO (10-20); Calcium,Total 9.5 mg/dL (8.5-10.1); Chloride 95 mmol/L (98-107); Creatinine, Serum 0.96 mg/dL (0.55-1.02); EST Glomerular Filtration Rate 59 mL/min (>60); Est Glom Filt Rate - Afr Amer 72 mL/min (>60); Estimated Creatinine Clearance 39.69 ml/min; Glucose 105 mg/dL (74-106); Potassium 3.5 mmol/L (3.5-5.1); Sodium Level 131 mmol/L (136-145)
[2020-01-15 03:32] LABS: Differential Comment SCANNED
[2020-01-15 03:33] LABS: Reactive Lymphocyte 1+
[2020-01-15 04:00] VITALS: BP 150/83; PULSE 57; RESP 15; O2SAT 97
[2020-01-15 05:04] LABS: Probe Check PASS; Specimen Processing Control PASS
--- NOTE | 2020-01-15 05:12 | ED.RN ---
LENGTHY CONVERSATION W/PT RE: PROPER STEPS TO TAKING BP AT HOME. ENC PT TO SIT IN CHAIR FOR 10-15M PRIOR TO TAKING BP. ENC PT TO PLACE BOTH FEET FLAT ON FLOOR AND ALIGN HER BP CUFF AT THE APPROPRIATE MARKERS.
[2020-01-15 05:22] VITALS: BP 138/69; PULSE 58; RESP 19; O2SAT 97
== END 2020-01-15 05:22 | disposition home or self-care (01) ==
PROVIDERS: Emergency Provider Emergency Medicine; PCP Internal Medicine
DX: I10 Essential (primary) hypertension (principal); I48.0 Paroxysmal atrial fibrillation; I44.7 Left bundle-branch block, unspecified; I65.22 Occlusion and stenosis of left carotid artery; I42.9 Cardiomyopathy, unspecified; E78.5 Hyperlipidemia, unspecified; K21.9 Gastro-esophageal reflux disease without esophagitis; Z79.899 Other long term (current) drug therapy; Z79.01 Long term (current) use of anticoagulants
CPT/HCPCS: 80048; 84484; 85025; 87635; 93005; 99284; G2023; A4216; U0003

== ENCOUNTER → 2020-01-17 16:00 | Outpatient (CLI) | payer MEDICARE, BC, SELFPAY ==
[2020-01-17 13:59] VITALS: BMI 28.6
[2020-01-17 17:22] LABS: T4 Free Direct 1.17 ng/dL (0.76-1.46); Thyroid Stim Hormone (TSH) 2.33 uIU/mL (0.358-3.74)
== END ==
PROVIDERS: PCP Internal Medicine; Referring Provider Internal Medicine; Visit Provider Internal Medicine
DX: R53.81 Other malaise (principal); R53.83 Other fatigue
CPT/HCPCS: 36415; 84439; 84443

== ENCOUNTER → 2020-01-29 14:15 | Outpatient (CLI) | payer MEDICARE, BC, SELFPAY ==
[2020-01-29 14:03] VITALS: BMI 28.8
[2020-01-29 14:39] LABS: Bacteria 0 SEEN /hpf (None Seen); Mucous, Urine 0 SEEN /hpf (<or=2+); Red Blood Cells-Urine 0 SEEN /hpf (0-5)
[2020-01-29 15:12] LABS: Color, Urine Yellow (Yellow); Glucose, Dipstick Normal (Normal); Ketone-Dipstick Negative (Negative); Leukocyte Esterase-Dipstick 500 /ul (Negative); Nitrite-Dipstick Negative (Negative); Occult Blood-Urine Negative /ul (Negative); Protein-Dipstick Negative (Negative); Urine Bilirubin Dipstick Negative (Negative); Urine Clarity Sl. Cloudy (Clear); Urine Urobilinogen Normal (Normal); Urine pH 6.5 (5.0 - 8.0)
[2020-01-29 15:25] LABS: Squamous Epithelial Cells - UA 0-5 SEEN /hpf (5-10); Transitional Epithelial - Ur 0-5 SEEN /hpf (0-5); White Blood Cells 25-50 SEEN /hpf (0-5)
== END ==
PROVIDERS: PCP Internal Medicine; Referring Provider Internal Medicine; Visit Provider Internal Medicine
DX: R30.0 Dysuria (principal); R53.81 Other malaise; R53.83 Other fatigue
CPT/HCPCS: 81001; 87086; 87088

== ENCOUNTER → 2020-02-08 09:22 | Outpatient (CLI) | payer MEDICARE, BC, SELFPAY ==
[2020-02-08 08:16] VITALS: BMI 28.8
[2020-02-08 10:52] LABS: Vitamin B12 535 pg/mL (211-911)
[2020-02-09 20:07] LABS: Free Kappa Light Chains 16.6 mg/L (3.3-19.4); Free Lambda Light Chains 13.6 mg/L (5.7-26.3)
== END ==
PROVIDERS: PCP Internal Medicine; Referring Provider Nurse Practitioner Family; Visit Provider Nurse Practitioner Family
DX: G62.9 Polyneuropathy, unspecified (principal)
CPT/HCPCS: 36415; 82607; 82746; 83883

== ENCOUNTER → 2020-06-03 17:50 | Outpatient (CLI) | payer MEDICARE, BC, SELFPAY ==
[2020-05-06 13:17] VITALS: BMI 28.3
== END ==
PROVIDERS: PCP Internal Medicine; Referring Provider Internal Medicine; Visit Provider Internal Medicine
DX: Z20.828 Contact with and (suspected) exposure to other viral communicable diseases (principal)
CPT/HCPCS: 87635; C9803; U0003

== ENCOUNTER → 2020-07-03 11:50 | Outpatient (CLI) | payer MEDICARE, BC, SELFPAY ==
[2020-05-06 13:17] VITALS: BMI 28.3
[2020-07-03 15:28] LABS: Absolute Lymphocyte Count 2.73 X10^3/uL (0.83-4.51); Absolute Neutrophil Count 9.5 X10^3/uL (2.0-7.7); Basophil# 0.04 X10^3/uL; Basophil% 0.3 % (0-1); Eosinophil# 1.18 X10^3/uL; Hematocrit 44.5 % (37-47); Lymphocyte # 2.73 X10^3/ul (4.0); Lymphocyte % 18.5 % (19-41); Mean Corp Hgb Conc 33.7 g/dL (32-36); Mean Corpuscular Hgb 33.9 pg (27.0-32.0); Mean Corpuscular Volume 100.5 fL (81-99); Mean Platelet Vol. 9.9 fl (6.2-12.0); Monocyte# 1.19 X10^3/uL; Monocyte% 8.1 % (0-10); NRBC Flagged by Analyzer 0 % (0-5); Neutrophil # 9.51 X10^3/uL (2.7-7.7); Neutrophil % 64.6 % (47-70); POSITIVE MORPHOLOGY YES; Platelet Count 351 K/mm3 (150-450); RBC Distribution Width SD 44.9 fl (35.1-43.9); Red Blood Count 4.43 M/mm3 (4.2-5.4); White Blood Count 14.7 K/mm3 (4.4-11.0)
[2020-07-03 15:48] LABS: ALB/GLOB Ratio 1.1 RATIO (0.9-2.4); AST(SGOT) 16 U/L (15-37); Alanine Aminotransfer ALT/SGPT 20 U/L (13-56); Albumin, Serum 3.7 g/dL (3.2-5.0); Alkaline Phosphatase 102 U/L (45-117); Anion Gap 7 (5-15); BUN 22 mg/dL (7-18); BUN/Creat Ratio 26.1 RATIO (10-20); Calcium,Total 9.5 mg/dL (8.5-10.1); Chloride 98 mmol/L (98-107); Creatinine, Serum 0.84 mg/dL (0.55-1.02); Differential Indicated SCAN CRITERIA MET; EST Glomerular Filtration Rate 69 mL/min (>60); Est Glom Filt Rate - Afr Amer 83 mL/min (>60); Globulin 3.3 g/dL (2.2-4.2); Glucose 94 mg/dL (74-106); Potassium 3.9 mmol/L (3.5-5.1); Sodium Level 134 mmol/L (136-145)
[2020-07-03 16:16] LABS: Differential Comment SCANNED
== END ==
PROVIDERS: PCP Internal Medicine; Referring Provider Internal Medicine; Visit Provider Internal Medicine
DX: I10 Essential (primary) hypertension (principal); K21.9 Gastro-esophageal reflux disease without esophagitis
CPT/HCPCS: 36415; 80053; 85025

== ENCOUNTER → 2020-10-29 08:35 | Outpatient (CLI) | payer MEDICARE, BC, SELFPAY ==
[2020-10-29 08:08] VITALS: BMI 28.6
[2020-10-29 12:36] LABS: Cholesterol 176 mg/dL (200); High Density Lipoprotein 64 mg/dL; Triglycerides 118 mg/dL; Very Low Density Lipoprotein 24 mg/dL (5-40)
== END ==
PROVIDERS: PCP Internal Medicine; Referring Provider Internal Medicine; Visit Provider Internal Medicine
DX: I10 Essential (primary) hypertension (principal)
CPT/HCPCS: 36415; 80061

== ENCOUNTER → 2020-10-30 15:23 | Outpatient (CLI) | payer MEDICARE, BC, SELFPAY ==
[2020-10-29 08:08] VITALS: BMI 28.6
--- NOTE | 2020-10-30 15:40 | RAD_ITS ---
STUDY: X-RAY - CERVICAL SPINE REASON FOR EXAM: Female, 80 years old. Radiculopathy TECHNIQUE: 3 view(s) of the cervical spine were obtained. COMPARISON: None FINDINGS: Normal anterior atlantoaxial articulation. Normal odontoid process. Normal cervical lordosis. There is multi-level endplate spondylosis. There is multi-level degenerative disc disease with multilevel disc space narrowing. The soft tissue structures are unremarkable. There is no demonstrated fracture of the cervical spine. RAD/Cerv Spine 2 or 3 Views IMPRESSION: No acute abnormality. Degenerative changes. Electronically Signed: Som Hart MD at 15:58 EDT , Service support ,
== END ==
PROVIDERS: PCP Internal Medicine; Referring Provider Internal Medicine; Visit Provider Internal Medicine
DX: M54.10 Radiculopathy, site unspecified (principal)
CPT/HCPCS: 72040

== ENCOUNTER → 2020-12-20 11:23 | Outpatient (CLI) | payer MEDICARE, BC, SELFPAY ==
[2020-11-18 13:15] VITALS: BMI 29.0
--- NOTE | 2020-12-20 11:26 | BI_ITS ---
MAMMOGRAPHY - BILATERAL SCREENING 3-D TOMOSYNTHESIS REASON FOR EXAM: Female, 80 years old. Breast cancer screening PERTINENT HISTORY: No significant family history. TECHNIQUE: 2-D mammograms and 3-D Tomosynthesis of the breast (s) were performed. CAD was performed. COMPARISON: 12/05/2019. FINDINGS: The breast composition is Scattered benign arterial calcifications are seen. No dense spiculated masses or suspicious microcalcifications are identified. No architectural distortion is identified. There is no skin thickening or retraction. There has been no significant change since the prior study since 12/05/2019. BI/SCRN MAMM (CAD)W/PILAR BILAT IMPRESSION: No mammographic signs of malignancy. Routine yearly mammograms recommended. ASSESSMENT CATEGORY: BIRADS Category 1: Negative. A letter regarding these results will be sent to the patient by the facility within 30 days. FOLLOW UP RECOMMENDATION: Yearly follow up mammogram recommended. (A) Approximately 10% of breast cancers are not detected by mammography. A normal mammogram should not delay biopsy of a clinically suspicious abnormality. Electronically Signed: Mariluz Luna, at 14:14 EDT Tel , Service support ,
== END ==
PROVIDERS: PCP Internal Medicine; Referring Provider Internal Medicine; Visit Provider Internal Medicine
DX: Z12.31 Encounter for screening mammogram for malignant neoplasm of breast (principal)
CPT/HCPCS: 77063; 77067

== ENCOUNTER → 2021-01-28 09:51 | Outpatient (CLI) | payer MEDICARE, BC, SELFPAY ==
[2021-01-27 13:16] VITALS: BMI 28.6
--- NOTE | 2021-01-28 09:53 | EKG12_ITS ---
Test Reason : SOB Blood Pressure : / mmHG Vent. Rate : 057 BPM Atrial Rate : 057 BPM P-R Int : 174 ms QRS Dur : 138 ms QT Int : 464 ms P-R-T Axes : 057 -49 135 degrees QTc Int : 451 ms Sinus bradycardia Left axis deviation Left bundle branch block Abnormal ECG Confirmed by AMANDA DALE, KIERA ([id number]), offline editor MARQUITA JONES ([id number]) on 02/03/2021 9:20:18 AM Referred By: Luis Oropeza Confirmed By:KIERA PATEL MD
== END ==
PROVIDERS: PCP Internal Medicine; Referring Provider Internal Medicine; Visit Provider Internal Medicine
DX: R07.89 Other chest pain (principal); R06.00 Dyspnea, unspecified; I48.0 Paroxysmal atrial fibrillation; I34.1 Nonrheumatic mitral (valve) prolapse; I44.7 Left bundle-branch block, unspecified; H26.9 Unspecified cataract; I10 Essential (primary) hypertension; K21.9 Gastro-esophageal reflux disease without esophagitis; H40.9 Unspecified glaucoma; E78.00 Pure hypercholesterolemia, unspecified; K58.9 Irritable bowel syndrome, unspecified; I65.22 Occlusion and stenosis of left carotid artery; G62.9 Polyneuropathy, unspecified; M85.80 Other specified disorders of bone density and structure, unspecified site; Z87.440 Personal history of urinary (tract) infections; Z79.82 Long term (current) use of aspirin; Z79.899 Other long term (current) drug therapy
CPT/HCPCS: 71045; 80048; 84484; 85025; 93005; 99285; A4216

== ENCOUNTER 2021-01-28 10:14 | Emergency (ER) | payer MEDICARE, BC, SELFPAY ==
[2021-01-27 13:16] VITALS: BMI 28.6
--- NOTE | 2021-01-28 10:01 | EKG12_ITS ---
Test Reason : SOB Blood Pressure : / mmHG Vent. Rate : 059 BPM Atrial Rate : 059 BPM P-R Int : 182 ms QRS Dur : 130 ms QT Int : 448 ms P-R-T Axes : 072 -46 134 degrees QTc Int : 443 ms Sinus bradycardia Left axis deviation Left bundle branch block Abnormal ECG Confirmed by AMANDA DALE, KIERA ([id number]), purchasing expeditor MARQUITA JONES ([id number]) on 02/03/2021 10:12:52 AM Referred By: Luis Oropeza Confirmed By:KIERA PATEL MD
[2021-01-28 10:15] VITALS: BP 180/90; PULSE 59; RESP 21; TEMP 36; O2SAT 99; BMI 27.4
--- NOTE | 2021-01-28 10:25 | RAD_ITS ---
EXAM DESCRIPTION: PORTABLE AP CHEST CLINICAL HISTORY: 80 years Female, chest pain chest pain COMPARISON: Previous chest obtained on 01/01/2019 FINDINGS: The thorax is intact. The heart and mediastinum appear to be within normal limits. The lungs appear to be well areated without evidence of pneumonic consolidation or pleural effusion. RAD/Chest 1 View (Portable) IMPRESSION: Normal portable chest. Electronically Signed: Myles Mckinney DO at 11:11 EDT Tel , Service support ,
--- NOTE | 2021-01-28 10:26 | ED.VIS.CHEST ---
HPI History of Present Illness Chief Complaint: Shortness of Breath Informant: patient Narrative Narrative: 80-year-old female presents to the emergency room with chest tightness. She tells me that her symptoms have been intermittent for the past week. She called her primary care physician and came to the hospital today to get an EKG. When she came to the hospital her chest pressure came back. She feels short of breath with it. She notes a history of paroxysmal atrial fibrillation and mitral valve prolapse. She notes that she has a known left bundle branch block. She reports having had stress test and heart catheterizations that have been negative in the past. She currently follows with Dr. Neil for cardiology. [facility] Medical History Atrial fibrillation Atypical chest pain Back pain Cardiomyopathy Cataracts, bilateral Diastolic dysfunction Difficulty balancing Erythromelalgia Essential hypertension Fatigue Frequent UTI GERD (gastroesophageal reflux disease) Glaucoma Heart disease Heart valve problem High cholesterol History of breast lump Hyperlipemia Hypertension IBS (irritable bowel syndrome) Incontinence Inflammation Esophagus LBBB (left bundle branch block) Left carotid artery stenosis Mitral valve prolapse Neuropathy Nonrheumatic mitral valve disorder Osteopenia Paroxysmal atrial fibrillation Radiculopathy SOB (shortness of breath) Vertigo Home Medications latanoprost 1 drp EACH EYE QHS 03/28/14 [History Last Taken 03/27/14] docusate sodium 100 mg capsule 100 mg PO BID 07/07/18 [History Last Taken Unknown] calcium carbonate 600 mg calcium (1,500 mg) tablet 600 mg PO DAILY 02/05/20 [History Last Taken Unknown] cholecalciferol (vitamin D3) 50 mcg (2,000 unit) capsule 50 mcg PO DAILY 02/05/20 [History Last Taken Unknown] Handicap Placard #1 ea 03/07/20 [Rx Last Taken Unknown] losartan 100 mg tablet 50 mg PO DAILY #90 tab 03/08/20 [Rx Last Taken Unknown] disability placard #1 ea 03/13/20 [Rx Last Taken Unknown] lidocaine-prilocaine 2.5 %-2.5 % topical cream 1 applic TOPICAL 4X/DAY PRN #4 tube 04/11/20 [Rx Last Taken Unknown] multivitamin 1 tab PO DAILY 05/06/20 [History Last Taken Unknown] simvastatin 20 mg tablet See Rx Instructions .ROUTE .COMPLEX #90 tab 07/25/20 [Rx Last Taken Unknown] magnesium oxide 400 mg PO DAILY 09/16/20 [History Last Taken Unknown] metoprolol succinate 100 mg tablet,extended release 24 hr See Rx Instructions .ROUTE .COMPLEX #90 tablet 09/23/20 [Rx Last Taken Unknown] darifenacin 15 mg tablet,extended release 24 hr 15 mg PO DAILY #90 tab 10/10/20 [Rx Last Taken Unknown] aspirin 325 mg tablet 325 mg PO BID tab 10/29/20 [History Last Taken Unknown] vitamin B complex 1 tab PO DAILY 11/18/20 [History Last Taken Unknown] gabapentin 300 mg capsule 300 mg PO BID #180 cap 12/20/20 [Rx Last Taken Unknown] hydrochlorothiazide 12.5 mg capsule 25 mg PO DAILY #90 cap 12/20/20 [Rx Last Taken Unknown] omeprazole 40 mg capsule,delayed release 40 mg PO DAILY #60 cap 01/27/21 [Rx Last Taken Unknown] Allergy/AdvReac Type Severity Reaction Status Date / Time azithromycin [From Zithromax] Allergy Severe Chest Verified 01/28/21 10:24 tightness codeine Allergy Mild Hives Verified 01/28/21 10:24 erythromycin base Allergy Mild 'Heart Verified 01/28/21 10:24 [Erythromycin Base] Concerns' morphine Allergy Mild Hives/Rash Verified 01/28/21 10:24 Penicillins Allergy Mild Disoriented Verified 01/28/21 10:24 duloxetine AdvReac Mild Diarrhea Verified 01/28/21 10:24 venlafaxine AdvReac Mild Diarrhea Verified 01/28/21 10:24 Family History Mother Diabetes Breast cancer Cancer Grandfather Myocardial infarction, Onset Age: 60 Father Anxiety and depression Psychiatric care Mental disorder Sister Mental disorder Other Neuropathy Small bowel problem Surgical History History of appendectomy History of bilateral cataract extraction History of esophagogastroduodenoscopy (EGD) History of foot surgery History of hysterectomy History of left hip replacement History of rectal surgery Social History Smoking Status: Never smoker alcohol intake: never substance use type: does not use what type of physical activity do you participate in: none ROS ROS ED Constitutional Constitutional ED: Denies chills or weight loss Eyes Eyes: Denies change in vision or diplopia ENT ENT ED: Denies ear pain, rhinorrhea or sore throat Cardiovascular Cardiovascular: Reports chest pain; Denies orthopnea, palpitations or racing heartbeat Respiratory/Chest Respiratory/Chest: Reports dyspnea; Denies cough or orthopnea Gastrointestinal Gastrointestinal: Denies abdominal pain, diarrhea, nausea or vomiting Genitourinary Genitourinary ED: Denies dysuria, hematuria or urinary frequency Musculoskeletal Musculoskeletal: Denies arthralgias or myalgias Integumentary Denies abscess or rash Neurologic Neurologic: Denies headache(s) or weakness Psychiatric Psychiatric: Denies anxiety, depression, suicidal ideation or suicidal thoughts Endocrine Endocrinology: Denies polydipsia, polyphagia or polyuria Allergic/Immunologic Allergic/Immunologic ED: Denies mouth swelling, tongue swelling or urticaria EXAM Physical Exam Const Vital Signs: 01/28/21 10:15 01/28/21 10:28 01/28/21 12:04 Temperature 96.8 F L Temperature Source Temporal Pulse Rate 59 L 54 L Respiratory Rate 21 H 19 H Respiratory Effort Short of Breath Respiratory Depth Normal Respiratory Pattern Normal Blood Pressure 180/90 H 171/87 H Blood Pressure Mean 120 115 Pulse Ox 99 98 Oxygen Delivery Method Room Air Room Air Room Air Positive well nourished and well developed General Appearance ED: well developed HEENT Reports normocephalic, head/scalp atraumatic and moist mucous membranes Eyes PERRL and EOMs intact bilaterally Neck no lymphadenopathy, supple and no JVD Resp normal respiratory effort and clear to auscultation bilaterally Cardio regular rate, regular rhythm and no murmurs GI normal to inspection, nondistended, normoactive bowel sounds and non-tender Palpation: soft Back/Spine no CVA tenderness and normal ROM Extremity normal to inspection General Extremety ED: Negative for edema General Extremity: Negative for edema Neuro oriented x3 and CN's II-XII intact bilaterally Sensorium / Orientation: alert Motor Exam: strength 5/5 throughout Psych mental status grossly normal Mood & Affect: anxious; Negative for depressed or tearful Skin no rashes or lesions noted and no wounds Heart Score History: Slightly/Non-Suspicious ECG: Normal Age: >/= 65 years Risk Factors: 1 or 2 Risk Factors Troponin: </= Normal Limit Score: 3 MDM MDM MDM Narrative Medical decision making narrative: Patient's EKG is unchanged. 2 sets of cardiac enzymes are negative. My interpretation of the chest x-ray is no acute process. I discussed the case with the patient's image editor and again with the patient at the bedside. She would like to go home and work this up as an outpatient. She does now inform me that she is a bit stressed because she is moving in 2 weeks to live with her daughter in [place]. Patient's heart score is 3 Lab Data Attestation: I reviewed the patient's lab results. Labs: Laboratory Results - last 24 hr 01/28/21 01/28/21 01/28/21 10:20 10:20 13:00 WBC 10.4 RBC 4.77 Hgb 15.5 H Hct 46.3 MCV 97.1 MCH 32.5 H MCHC 33.5 RDW Std Deviation 44.1 H RDW Coeff of Gogo 12.3 Plt Count 320 MPV 9.7 Immature Gran % (Auto) 0.500 Neut % (Auto) 46.4 L Lymph % (Auto) 43.5 H [place] % (Auto) 8.3 Eos % (Auto) 0.8 Baso % (Auto) 0.5 Absolute Neuts (auto) 4.8 Absolute Lymphs (auto) 4.52 H Nucleated RBC % 0 Reactive Lymphocytes 1+ Sodium 132 L Potassium 3.6 Chloride 96 L Carbon Dioxide 30.0 Anion Gap 6 BUN 19 H Creatinine 0.85 Estim Creat Clear Calc 44.06 Est GFR (MDRD) Af Amer 82 Est GFR (MDRD) Non-Af 68 BUN/Creatinine Ratio 22.4 H Glucose 72 L Calcium 9.2 Troponin I High Sens 6.7 5.4 Radiography Diagnostic Testing: Radiology Impression Chest X-Ray 01/28/21 10:25 IMPRESSION: Normal portable chest. Electronically Signed: Myles Mckinney DO at 11:11 EDT Tel , Service support , EKG Initial EKG: Attestation: I personally reviewed and interpreted this EKG as follows: Comments: EKG demonstrates a sinus bradycardia with left bundle branch block with a ventricular rate of 59. Discharge Plan Triage Chief Complaint: Shortness of Breath ED Provider: John Elias Dx/Rx/DC Orders Clinical Impression: Chest pain Instructions: ED Chest Pain, Uncertain Cause Prescriptions: No Action docusate sodium [Colace] 100 mg capsule 100 mg PO BID RF: 0 cholecalciferol (vitamin D3) 50 mcg (2,000 unit) capsule 50 mcg PO DAILY RF: 0 calcium carbonate 600 mg calcium (1,500 mg) tablet 600 mg PO DAILY RF: 0 lidocaine-prilocaine 2.5-2.5 % cream 1 applic TOPICAL 4X/DAY PRN (Reason: pain) Qty: 4 RF: 2 multivitamin Tablet 1 tab PO DAILY RF: 0 vitamin B complex [B Complex-Vitamin B12] Tablet 1 tab PO DAILY RF: 0 magnesium oxide 400 mg magnesium tablet 400 mg PO DAILY RF: 0 aspirin 325 mg tablet 325 mg PO BID RF: 0 gabapentin 300 mg capsule 300 mg PO BID Qty: 180 RF: 0 omeprazole 40 mg capsule,delayed release(DR/EC) 40 mg PO DAILY Qty: 60 RF: 1 latanoprost 1 DROP bottle 1 drp EACH EYE QHS RF: 0 (DME) Handicap Placard See Rx Instructions .ROUTE .MEDSUPPLY Qty: 1 RF: 0 losartan 100 mg tablet 50 mg PO DAILY Qty: 90 RF: 1 (DME) disability placard Qty: 1 RF: 0 simvastatin 20 mg tablet See Rx Instructions .ROUTE .COMPLEX Qty: 90 RF: 3 metoprolol succinate 100 mg tablet extended release 24 hr See Rx Instructions .ROUTE .COMPLEX Qty: 90 RF: 3 darifenacin 15 mg tablet extended release 24 hr 15 mg PO DAILY Qty: 90 RF: 1 hydrochlorothiazide 12.5 mg capsule 25 mg PO DAILY Qty: 90 RF: 3 Primary Care Provider: Luis Oropeza Referrals: Luis Oropeza MD [Primary Care Provider] - Frederick Neil MD [STAFF PHYSICIAN] - As soon as possible Disposition Disposition: Home, Self Care
[2021-01-28 10:28] VITALS: O2SAT 98
[2021-01-28 10:32] LABS: Absolute Lymphocyte Count 4.52 X10^3/uL (0.83-4.51); Absolute Neutrophil Count 4.8 X10^3/uL (2.0-7.7); Basophil# 0.05 X10^3/uL; Basophil% 0.5 % (0-1); Eosinophil# 0.08 X10^3/uL; Eosinophils% 0.8 % (0-5); Hematocrit 46.3 % (37-47); Hemoglobin 15.5 g/dL (12.0-15.0); Lymphocyte # 4.52 X10^3/ul (0.83-4.51); Lymphocyte % 43.5 % (19-41); Mean Corp Hgb Conc 33.5 g/dL (32-36); Mean Corpuscular Hgb 32.5 pg (27.0-32.0); Mean Corpuscular Volume 97.1 fL (81-99); Mean Platelet Vol. 9.7 fl (6.2-12.0); Monocyte# 0.86 X10^3/uL; Monocyte% 8.3 % (0-10); NRBC Flagged by Analyzer 0 % (0-5); Neutrophil # 4.84 X10^3/uL (2.7-7.7); Neutrophil % 46.4 % (47-70); POSITIVE MORPHOLOGY YES; Platelet Count 320 K/mm3 (150-450); RBC Distribution Width CV 12.3 % (11.6-14.6); RBC Distribution Width SD 44.1 fl (35.1-43.9); Red Blood Count 4.77 M/mm3 (4.2-5.4); White Blood Count 10.4 K/mm3 (4.4-11.0)
[2021-01-28 10:39] LABS: Differential Indicated SCAN CRITERIA MET
[2021-01-28 10:45] LABS: Anion Gap 6 (5-15); BUN 19 mg/dL (7-18); BUN/Creat Ratio 22.4 RATIO (10-20); Calcium,Total 9.2 mg/dL (8.5-10.1); Chloride 96 mmol/L (98-107); Creatinine, Serum 0.85 mg/dL (0.55-1.02); EST Glomerular Filtration Rate 68 mL/min (>60); Est Glom Filt Rate - Afr Amer 82 mL/min (>60); Estimated Creatinine Clearance 44.06 ml/min; Glucose 72 mg/dL (74-106); Potassium 3.6 mmol/L (3.5-5.1); Sodium Level 132 mmol/L (136-145); Troponin-I HS 6.7 pg/mL (3.0-53.7)
[2021-01-28 11:08] LABS: Reactive Lymphocyte 1+
[2021-01-28 12:04] VITALS: BP 171/87; PULSE 54; RESP 19; O2SAT 98
[2021-01-28 13:26] LABS: Troponin-I HS 5.4 pg/mL (3.0-53.7)
[2021-01-28 13:50] VITALS: BP 175/96
== END 2021-01-28 14:06 | disposition home or self-care (01) ==
PROVIDERS: Emergency Provider Emergency Medicine; PCP Internal Medicine
DX: R07.89 Other chest pain (principal); R06.00 Dyspnea, unspecified; I48.0 Paroxysmal atrial fibrillation; I34.1 Nonrheumatic mitral (valve) prolapse; I44.7 Left bundle-branch block, unspecified; I10 Essential (primary) hypertension; H26.9 Unspecified cataract; K21.9 Gastro-esophageal reflux disease without esophagitis; H40.9 Unspecified glaucoma; E78.00 Pure hypercholesterolemia, unspecified; K58.9 Irritable bowel syndrome, unspecified; I65.22 Occlusion and stenosis of left carotid artery; G62.9 Polyneuropathy, unspecified; M85.80 Other specified disorders of bone density and structure, unspecified site; Z87.440 Personal history of urinary (tract) infections; Z79.82 Long term (current) use of aspirin; Z79.899 Other long term (current) drug therapy
CPT/HCPCS: 71045; 80048; 84484; 85025; A4216

== ENCOUNTER → 2021-01-31 06:55 | Outpatient (CLI) | payer MEDICARE, BC, SELFPAY ==
[2021-01-28 10:15] VITALS: BMI 27.4
--- NOTE | 2021-01-31 09:28 | STRESSREP ---
Stress Test Report Date: 01-31-2021 Procedure: Pharmacologic stress nuclear imaging study Indications: Chest pain; shortness of breath/dyspnea; paroxysmal atrial fibrillation Consent: Per the patient Procedure: The patient underwent pharmacologic (Regadenoson 0.4mg ) evaluation with a peak heart rate of 90 beats per minute (65%predicted maximal heart rate) and a peak blood pressure of 150/82 mmHg. The baseline ECG demonstrated sinus rhythm; left bundle branch block. The peak pharmacologic ECG demonstrated no obvious ECG changes. There were no cardiac dysrhythmias pretest, during pharmacologic infusion, or recovery. There was no complaint of chest discomfort during pharmacologic infusion or recovery. The examination was discontinued secondary to completion of protocol. Impression: 1. Pharmacologic (Regadenoson) evaluation 2. Peak pharmacologic ECG with continued left bundle branch block with no obvious ECG changes. 3. There were no cardiac dysrhythmias pretest, during pharmacologic infusion, or recovery. 4. Nuclear images pending Myocardial perfusion imaging study: Technique: The patient was injected with 14.2 millicuries of technetium 99m Cardiolite and subsequently rest SPECT Cardiolite nuclear imaging was obtained in the horizontal long, vertical long, and short axis views. The patient underwent pharmacologic (Regadenoson) evaluation with a peak heart rate of 90 beats per minute (65% percent predicted maximal heart rate) and a peak blood pressure of 150/82 mmHg. The patient was injected with 44.3 millicuries of technetium 99m Cardiolite and subsequently stress SPECT Cardiolite nuclear imaging was obtained in the horizontal long, vertical long, and short axis views. A gated Cardiolite study at peak stress was obtained. Interpretation: Rest and stress SPECT Cardiolite nuclear imaging status post realignment, normalization, and attenuation correction demonstrate relative uniform tracer uptake and myocardial perfusion appearing within normal limits. There is end systolic thickening and brightening. The gated Cardiolite study demonstrates myocardial thickening and inward wall motion. The reported LVEF is 66%. Impression: 1. Rest and stress SPECT Cardiolite nuclear imaging demonstrate relative uniform tracer uptake and myocardial perfusion appearing within normal limits. 2. The gated Cardiolite study reports an LVEF of 66%. This note was generated with [employer] software. It may contain incorrect words, spelling, and punctuation that were not noted in checking the note before signing.
== END ==
PROVIDERS: PCP Internal Medicine; Referring Provider Internal Medicine Cardiovascular Disease; Visit Provider Internal Medicine Cardiovascular Disease
DX: R07.89 Other chest pain (principal); I51.9 Heart disease, unspecified; I42.8 Other cardiomyopathies; R06.02 Shortness of breath; I44.7 Left bundle-branch block, unspecified; I48.0 Paroxysmal atrial fibrillation; R00.1 Bradycardia, unspecified
CPT/HCPCS: 78452; 93017; 93225; 93226; A9500; A4216; J2785